=== PATIENT | male | born 1960 | race American Indian/Alaskan Native ===

== ENCOUNTER 2017-07-21 17:15 | Inpatient (IN) | payer MEDICAID ==
[2017-07-21 17:15] VITALS: BMI 25.8
[2017-07-21 18:36] LABS: BASO # 0.11 K/mm3 (0.0-2.0); BASO % 0.5 % (0.0-3.0); EOS % 0.1 % (1.5-5.0); GRAN # 18.63 (1.4-6.5); GRAN % 84.5 % (50.0-68.0); HEMOGLOBIN 10.9 g/dL (14.0-18.0); LYMPH % 9.3 % (22.0-35.0); MEAN CORPUSCULAR HEMOGLOBIN 28.4 pg (25.0-35.0); MEAN CORPUSCULAR HGB CONC 32.2 g/dl (31.0-37.0); MEAN PLATELET VOLUME 10.6 fl (7.0-11.0); MONO # 1.2 (0.1-0.6); MONO % 5.6 % (1.0-6.0); RBC 3.84 10^6/uL (3.5-6.1); RED CELL DISTRIBUTION WIDTH 12.3 % (11.5-14.5); VENOUS BLOOD GAS BASE EXCESS 3.5 mmol/L (0.0-2.0); VENOUS BLOOD GAS PO2 50 mm/Hg (30-55)
--- NOTE | 2017-07-21 18:37 | ED PDOC ---
Arrival/HPI - General Chief Complaint: Abdominal Pain Time Seen by Provider: 07/21/17 17:16 Historian: Patient - History of Present Illness Narrative History of Present Illness (Text): 07/21/17 18:37 57yo male with PMHx significant for HIV, CKD, DM, HTN, Diabetic foot wound who present with complaint of sharp abdominal pain, multiple episodes of nonbloody/ bilious vomiting since this morning, purulent drainage from foot wound b/l and purulent discharge on suprapubic catheter tube since this morning. The patient is a poor historian. The sister states patient missed his last appointment with the [employer] Technician, Dr. Casanova last week. Denies fever, chills, chest pain, diarrhea, constipation, melena, hematemesis, dizziness, any other complaint. Past Medical History - Provider Review Nursing Documentation Reviewed: Yes - Infectious Disease Hx of Infectious Diseases: None - Tetanus Immunization Tetanus Immunization: Unknown - Cardiac Hx Cardiac Disorders: Yes Hx Hypertension: Yes Hx Peripheral Edema: Yes Hx Peripheral Vascular Disease: Yes - Pulmonary Hx Respiratory Disorders: No - Neurological Hx Neurological Disorder: Yes (MENTALLY IMPAIRED SINCE ) Hx Dizziness: Yes - HEENT Hx HEENT Disorder: Yes (EXCESSIVE TEARING) - Renal Hx Renal Disorder: Yes (RENAL INSUFFICIENCY) Other/Comment: HYDRONEPHROSIS - Endocrine/Metabolic Hx Endocrine Disorders: Yes Hx Diabetes Mellitus Type 2: Yes - Hematological/Oncological Hx Blood Disorders: Yes Hx Anemia: Yes Hx Blood Transfusions: Yes (05/15/15) Hx Blood Transfusion Reaction: No - Integumentary Hx Dermatological Disorder: Yes Other/Comment: FOOT INFECTION - Musculoskeletal/Rheumatological Hx Musculoskeletal Disorders: Yes Hx Falls: No Hx Fractures: Yes (L LEG) Hx Unsteady Gait: Yes - Gastrointestinal Hx Gastrointestinal Disorders: Yes (HX:VOMITTING, LOSS OF APPETITE) - Genitourinary/Gynecological Hx Genitourinary Disorders: Yes (Retention) Hx Hematuria: Yes Hx Incontinence: Yes Hx Prostate Problems: Yes (BPH) Hx Urinary Tract Infection: Yes Other/Comment: EPIDIDYMITIS,E COLI IN THE URINE. HX: SUPRAPUBIC TUBE - Psychiatric Hx Psychophysiologic Disorder: Yes Hx Anxiety: Yes Hx Emotional Abuse: No Hx Physical Abuse: No Hx Substance Use: Yes (CANNABIS) - Surgical History Hx Open Reduction Internal Fixation: Yes (Left leg fx) Hx Orthopedic Surgery: Yes Other/Comment: UROSTOMY - Anesthesia Hx Anesthesia: Yes Hx Anesthesia Reactions: No Hx Malignant Hyperthermia: No - Suicidal Assessment Feels Threatened In Home Enviroment: No Family/Social History - Physician Review Nursing Documentation Reviewed: Yes Family/Social History: Unknown Family HX Smoking Status: Heavy Smoker > 10 Cigarettes Daily Hx Alcohol Use: No Hx Substance Use: Yes (CANNABIS) Substance used: MARIJUANA Hx Substance Use Treatment: No Allergies/Home Meds Allergies/Adverse Reactions: Allergies No Known Allergies Allergy (Verified 07/21/17 17:18) Home Medications: Home Meds Medication Instructions Recorded Confirmed Calcium Acetate [Phoslo] 1 tab PO BID 07/21/17 07/21/17 Emtricitabine/Tenofov Alafenam 1 tab PO DAILY 07/21/17 07/21/17 [Descovy 200-25 mg Tablet] GlipiZIDE [Glucotrol] 5 mg PO DAILY 07/21/17 07/21/17 Hydrochlorothiazide [Microzide] 12.5 mg PO DAILY 07/21/17 07/21/17 Losartan Potassium 50 mg PO DAILY 07/21/17 07/21/17 Multivitamin [Multivitamins] 1 cap PO DAILY 07/21/17 07/21/17 metFORMIN [glucOPHAGE] 500 mg PO BID 07/21/17 07/21/17 Review of Systems - Physician Review All systems were reviewed & negative as marked: Yes - Review of Systems Constitutional: Normal Eyes: Normal ENT: Normal Respiratory: Normal Cardiovascular: Normal Gastrointestinal: Abdominal Pain, Nausea, Vomiting, Other. absent: Constipation , Diarrhea, Hematochezia, Hematemesis Genitourinary Male: Normal Musculoskeletal: Normal Skin: Other (B/L foot wound drainage) Neurological: Normal Endocrine: Normal Hemo/Lymphatic: Normal Psychiatric: Normal Physical Exam Vital Signs Reviewed: Yes Vital Signs Temp Pulse Resp BP Pulse Ox 07/21/17 22:31 90 18 105/48 L 97 07/21/17 17:36 98.2 F 56 L 16 98/64 L 99 Temperature: Afebrile Blood Pressure: Normal Pulse: Regular Respiratory Rate: Normal Appearance: Positive for: Well-Appearing, Non-Toxic, Comfortable Pain Distress: None Mental Status: Positive for: Alert and Oriented X 3 - Systems Exam Head: Present: Atraumatic, Normocephalic Pupils: Present: PERRL Extroacular Muscles: Present: EOMI Conjunctiva: Present: Normal Mouth: Present: Moist Mucous Membranes Neck: Present: Normal Range of Motion Respiratory/Chest: Present: Clear to Auscultation, Good Air Exchange. No: Respiratory Distress, Accessory Muscle Use Cardiovascular: Present: Regular Rate and Rhythm, Normal S1, S2. No: Murmurs Abdomen: Present: Tenderness (Diffuse tenderness), Normal Bowel Sounds, Guarding (Voluntary), Other (Soft. Suprapubic catheter noted with gross purulent discharge noted.). No: Distention, Peritoneal Signs, Rebound, McBurney 's Point Tender, Rovsing's Sign Present Genitourinary Male: Present: Other (Whitish purulent discharge noted inside the urostomy tube) Back: Present: Normal Inspection Upper Extremity: Present: Other (Gangrenous b/l foot with dressing noted on both foot.). No: Cyanosis, Edema, Tenderness Lower Extremity: Present: Normal Inspection. No: Edema Neurological: Present: GCS=15, CN II-XII Intact, Speech Normal Skin: Present: Warm, Dry, Normal Color. No: Rashes Psychiatric: Present: Alert, Oriented x 3, Normal Insight, Normal Concentration Medical Decision Making ED Course and Treatment: 07/22/17 01:16 IMPRESSION: Reported urostomy collapsed around suprapubic catheter. Thick wall. Moderate bilateral hydroureteronephrosis. Air within the left collecting system. Nonspecific perinephric stranding. Correlate clinically. Evaluation limited without enteric contrast. Minimal hiatal hernia. Gastric wall appears prominent in region of the fundus. Areas of apparent bowel wall prominence may somewhat due to lack of distention, however, small bowel in the upper abdomen demonstrates bowel wall prominence. Colonic diverticula. Prominence of para-aortic nodes. Additional details/findings as above. Please note evaluation for underlying visceral lesions/abnormalities limited without intravenous contrast. 07/22/17 01:44 CXR NAD EKG Sinus tachy with 2nd degree AV bloc; Incomplete RBBB @104bpm Leukocytosis with negative Lactic acid , UTI, hyponatremia and hyperglycemia was noted. Blood culture, wound culture and UC pending. Abdominal CT as noted above. Pt started on Maxipime and hydrated. Pt will be admitted for further evaluation and treatment. Case was NICOLE reynolds and he requested that catheter be flushed and wants a call back after CT Case was DW Dr. Castanon and she accepted pt for admission. - Lab Interpretations Lab Results: 07/21/17 18:19 07/21/17 18:19 Lab Results 07/21/17 19:30: Urine Color Yellow, Urine Appearance Turbid, Urine pH 6.0, Ur Specific [place] 1.020, Urine Protein 100 H, Urine Glucose (UA) 500 H, Urine Ketones Negative, Urine Blood Large H, Urine Nitrate Negative, Urine Bilirubin Negative, Urine Urobilinogen 0.2, Ur Leukocyte Esterase Large H, Urine RBC Tntc , Urine WBC Tntc, Ur Epithelial Cells 4 - 5, Urine Bacteria Many 07/21/17 18:19: Sodium 126 L, Chloride 89 L, Potassium 3.5 L, Carbon Dioxide 26 , Anion Gap 15, BUN 72 H, Creatinine 4.3 H, Est GFR ( Amer) 17, Est GFR ( Non-Af Amer) 14, Random Glucose 369 H* D, Calcium 8.3 L, Phosphorus 3.1, Magnesium 2.3 H, Total Bilirubin 1.0, AST 19, ALT 13, Alkaline Phosphatase 124, Troponin I < 0.01 D, Total Protein 7.0, Albumin 3.0, Globulin 4.0, Albumin/ Globulin Ratio 0.7 L, Lipase 29 07/21/17 18:19: pO2 50, VBG pH 7.40, VBG pCO2 47.0, VBG HCO3 29.1 H, VBG Total CO2 30.5 H, VBG O2 Sat (Calc) 89.1 H, VBG Base Excess 3.5 H, VBG Potassium 3.5 L , Sodium 123.0 L, Chloride 92.0 L, Glucose 387 H, Lactate 1.7, FiO2 21.0, Venous Blood Potassium 3.5 L 07/21/17 18:19: PT 13.2 H, INR 1.15 H, APTT 29.5 07/21/17 18:19: WBC 22.0 H D, RBC 3.84, Hgb 10.9 L, Hct 33.8 L, MCV 88.0, MCH 28.4, MCHC 32.2, RDW 12.3, Plt Count 349, MPV 10.6, Gran % 84.5 H, Lymph % (Auto ) 9.3 L, Moody % (Auto) 5.6, Eos % (Auto) 0.1 L, Baso % (Auto) 0.5, Gran # 18.63 H, Lymph # 2.0, Moody # 1.2 H, Eos # 0.0, Baso # 0.11 - RAD Interpretation Radiology Orders: 07/21/17 17:51 CHEST PORTABLE [RAD] Stat 07/21/17 19:56 ABD & PELVIS W/O PO OR IV CONT [CT] Stat - Medication Orders Current Medication Orders: Calcium Acetate (Phoslo) 667 mg PO BID JACKIE Emtricitabine/Tenofovir (Truvada 200 Mg-300 Mg) 1 tab PO DAILY JACKIE Meropenem 500 mg/ Sodium (Chloride) 50 mls @ 100 mls/hr IVPB Q8 JACKIE PRN Reason: Protocol Stop: 07/22/17 06:29 Ceftriaxone Sodium (Rocephin 2 Gm Ivpb) 2 gm in 100 mls @ 100 mls/hr IVPB DAILY JACKIE PRN Reason: Protocol Vancomycin HCl (Vancomycin 1gm) 1 gm in 250 mls @ 167 mls/hr IVPB Q12H JACKIE PRN Reason: Protocol Potassium Chloride 20 meq/ (Sodium Chloride) 1,010 mls @ 100 mls/hr IV .Q10H6M JACKIE Non-Formulary Medication (Emtricitabine/Tenofov Alafenam [Descovy 200-25 Mg Tablet]) 1 tab PO DAILY JACKIE Raltegravir (Isentress) 400 mg PO BID JACKIE Tamsulosin HCl (Flomax) 0.4 mg PO DAILY JACKIE Discontinued Medications Famotidine (Pepcid) 20 mg IVP STAT STA Stop: 07/21/17 18:54 Last Admin: 07/21/17 19:03 Dose: 20 mg IVP Administration Document 07/21/17 19:03 OCS (Rec: 07/21/17 19:03 [place] [facility] [id number] Charges for Administration # of IVP Administrations 1 Cefepime HCl (Maxipime 2gm) 2 gm in 100 mls @ 100 mls/hr IVPB STAT STA PRN Reason: Protocol Stop: 07/21/17 20:19 Last Admin: 07/21/17 19:42 Dose: 100 mls/hr eMAR Start Stop Document 07/21/17 19:42 OCS (Rec: 07/21/17 19:42 [facility] [facility] [id number] Intravenous Solution Start Date 07/21/17 Start Time 19:42 End Date 07/21/17 End time 20:42 Total Infusion Time 60 Sodium Chloride (Sodium Chloride 0.9%) 500 mls @ 999 mls/hr IV .Q31M STA Stop: 07/21/17 19:50 Last Admin: 07/21/17 19:43 Dose: 999 mls/hr eMAR Start Stop Document 07/21/17 19:43 OCS (Rec: 07/21/17 19:43 [facility] [facility] [id number] Intravenous Solution Start Date 07/21/17 Start Time 19:43 End Date 07/21/17 End time 20:13 Total Infusion Time 30 Sodium Chloride (Sodium Chloride 0.9%) 500 mls @ 999 mls/hr IV .Q31M STA Stop: 07/21/17 20:45 Last Admin: 07/21/17 20:45 Dose: 999 mls/hr eMAR Start Stop Document 07/21/17 20:45 OCS (Rec: 07/21/17 20:45 [facility] [facility] [id number] Intravenous Solution Start Date 07/21/17 Start Time 20:45 End Date 07/21/17 End time 21:15 Total Infusion Time 30 Sodium Chloride (Sodium Chloride 0.9%) 1,000 mls @ 100 mls/hr IV .Q10H JACKIE Insulin Human Regular (Humulin R) 8 units IV ONCE STA PRN Reason: Protocol Stop: 07/21/17 19:18 Last Admin: 07/21/17 19:41 Dose: 8 units eMAR Start Stop Document 07/21/17 19:41 OCS (Rec: 07/21/17 19:42 [facility] [id number] Intravenous Solution Start Date 07/21/17 Start Time 19:41 End Date 07/21/17 End time 19:43 Total Infusion Time 2 MAR Blood Glucose Document 07/21/17 19:41 OCS (Rec: 07/21/17 19:42 [facility] [id number][place] Blood Glucose Finger Stick Blood Glucose (70-120) 369 Ondansetron HCl (Zofran Inj) 4 mg IVP ONCE ONE Stop: 07/21/17 18:54 Last Admin: 07/21/17 19:03 Dose: 4 mg IVP Administration Document 07/21/17 19:03 OCS (Rec: 07/21/17 19:03 [facility]CS [facility] [id number][place] Charges for Administration # of IVP Administrations 1 Disposition/Present on Arrival - Present on Arrival Any Indicators Present on Arrival: No History of DVT/PE: No History of Uncontrolled Diabetes: No Urinary Catheter: Yes History of Decub. Ulcer: No History Surgical Site Infection Following: None - Disposition Have Diagnosis and Disposition been Completed?: Yes Diagnosis: UTI (urinary tract infection), Leukocytosis, HIV (human immunodeficiency virus infection), Hydronephrosis, Diabetes mellitus, Hyponatremia Disposition: HOSPITALIZED Disposition Time: 17:50 Patient Plan: Admission Patient Problems: Current Active Problems Problem Status Onset Hydronephrosis Acute Hyponatremia Acute Leukocytosis Acute UTI (urinary tract infection) Acute Diabetes mellitus Chronic HIV (human immunodeficiency virus infection) Chronic Condition: FAIR
[2017-07-21 18:48] LABS: INR 1.15 (0.93-1.08); PARTIAL THROMBOPLASTIN TIME 29.5 Seconds (25.1-36.5); PROTHROMBIN TIME 13.2 SECONDS (9.4-12.5)
[2017-07-21 18:57] LABS: TROPONIN I < 0.01 ng/mL
[2017-07-21 19:13] LABS: ALB/GLOB RATIO 0.7 (1.1-1.8); ALT/SGPT 13 U/L (7-56); AST/SGOT 19 U/L (17-59); BLOOD UREA NITROGEN 72 mg/dL (7-21); CALCIUM 8.3 mg/dL (8.4-10.5); GFR AFRICAN-AMERICAN 17; GFR NON-AFRICAN AMERICAN 14; LIPASE 29 U/L (23-300); MAGNESIUM 2.3 mg/dL (1.7-2.2)
[2017-07-21] MEDS ORDERED: Insulin Regular 1 UNITS/0.01 ML ML IV STA (19:17)
[2017-07-21] MEDS ORDERED: Cefepime IV 2 gm in NS 2 GM/100 ML BAG IVPB STA (19:20)
[2017-07-21] MEDS ORDERED: Sodium Chloride 0.9% 500 ML IV STA ×2 (19:20→20:15)
[2017-07-21 19:51] LABS: URINE BILIRUBIN NEGATIVE (NEGATIVE); URINE BLOOD LARGE (NEGATIVE); URINE GLUCOSE (UA) 500 mg/dL (NEGATIVE); URINE LEUKOCYTE ESTERASE LARGE Leu/uL (NEGATIVE); URINE NITRATE NEGATIVE (NEGATIVE); URINE PROTEIN 100 mg/dL (<30 mg/dL); URINE UROBILINOGEN 0.2 E.U./dL (<1 E.U./dL)
[2017-07-21 19:56] LABS: URINE APPEARANCE TURBID (CLEAR); URINE COLOR YELLOW (YELLOW)
[2017-07-21 20:35] LABS: URINE RBC TNTC /hpf (0-2); URINE WBC TNTC /hpf (0-6)
[2017-07-21 20:37] LABS: URINE BACTERIA MANY (NEG)
--- NOTE | 2017-07-21 22:07 | CT ---
EXAM: CT Abdomen and Pelvis Without Intravenous Contrast CLINICAL HISTORY: 57 years old, male; Pain; Abdominal pain; Prior surgery; Surgery type: Urostomy TECHNIQUE: Axial computed tomography images of the abdomen and pelvis without intravenous contrast. All CT scans at this facility use one or more dose reduction techniques, viz.: automated exposure control; ma/kV adjustment per patient size (including targeted exams where dose is matched to indication; i.e. head); or iterative reconstruction technique. Coronal and sagittal reformatted images were created and reviewed. COMPARISON: CT - ABD PELVIS W/O PO OR IV CONT 2015-05-11 13:40 FINDINGS: Lower thorax: Groundglass attenuation in lower lung wade, may be on the basis of hypoventilatory change. Small pericardial effusion. Cardiomegaly. ABDOMEN: Liver: No acute abnormality as visualized. Gallbladder and bile ducts: No acute abnormality as visualized. Pancreas: No acute abnormality as visualized. Spleen: No splenomegaly. Adrenals: No acute abnormality as visualized. Kidneys and ureters: Moderate bilateral hydroureteronephrosis. Air within the left collecting system. Nonspecific perinephric stranding. Stomach and bowel: Evaluation limited without enteric contrast. Minimal hiatal hernia. Gastric wall appears prominent in region of the fundus. No small bowel obstruction. Areas of apparent bowel wall prominence may somewhat due to lack of distention, however, small bowel in the upper abdomen demonstrates bowel wall prominence. Colonic diverticula. PELVIS: Bladder: Reported urostomy collapsed around suprapubic catheter. Thick wall. Reproductive: Correlate for prostatectomy. ABDOMEN and PELVIS: Intraperitoneal space: No free air. No significant fluid collection. Bones: Degenerative changes. Bryant stabilizes left femur. Soft tissues: Stranding in the anterior wall the pelvis. Vasculature: Atherosclerosis. No abdominal aortic aneurysm. Lymph nodes: Prominence of para-aortic nodes. IMPRESSION: Reported urostomy collapsed around suprapubic catheter. Thick wall. Moderate bilateral hydroureteronephrosis. Air within the left collecting system. Nonspecific perinephric stranding. Correlate clinically. Evaluation limited without enteric contrast. Minimal hiatal hernia. Gastric wall appears prominent in region of the fundus. Areas of apparent bowel wall prominence may somewhat due to lack of distention, however, small bowel in the upper abdomen demonstrates bowel wall prominence. Colonic diverticula. Prominence of para-aortic nodes. Additional details/findings as above. Please note evaluation for underlying visceral lesions/abnormalities limited without intravenous contrast.
[2017-07-22] MEDS ORDERED: Sodium Chloride 0.9% 1,000 ML IV SCH (00:15)
[2017-07-22] MEDS ORDERED: cefTRIAXone 2 GM IN NS 2 GM/100 ML BAG IVPB SCH (00:15)
--- NOTE | 2017-07-22 01:25 | CP.PCM.HP ---
History of Present Illness - History of Present Illness History of Present Illness: IM H&P for Hospitalist Service CC: abdominal pain, nausea/emesis x 4 days HPI: This is a 57 yo AA M with PMH of urinary retention s/p TURP, phimosis s/p circumcision, s/p urostomy tube, recurrent UTI/pyelonephritis, HIV, HTN, CKD, Charcot foot, and DM who presents with complaint of abdominal pain, malaise, and nausea/emesis x 4 days. HPI primarily from sister who brought pt to the ED , as pt is a poor historian. As per sister, he has been feeling poorly for the last 3-4 days, and as he did not appear to be getting any better during this time, she was concerned he was experiencing another severe infection, so she brought him to the ED. Reports that he has been vomiting for last 3-4 days, only able to keep PO water down, which he has been drinking in increasing quantities since onset of these symptoms. Pt and sister denies bloody or bilious emesis, sister describes as primarily food contents after attempted PO intake or clear-yellow fluid for emesis not triggered by PO intake. Sister also reports noting pus, but no kentrell blood, from urostomy tube for last 2 days. She also reports new onset blisters on patient's left foot, not there during last visit with Dr. Casanova on 07/09/17, that erupted today, with bloody pus contents. Sister reports using silvadene cream to clean the affected area, attempted to "reattach the lose skin hanging by a flap," and bandaged the foot. Reports patient generally less active during the period of symptoms, mostly resting in bed but still able to ambulate with assistance. Patient reports diarrhea, which he states has been for several days, but sister states she is only aware of one episode during the last 3-4 days. Pt denies acute chest pain , shortness of breath, productive cough, focal weakness. No additional ROS endorsed by sister or patient in 12-system review. PMH: as above PSH: urostomy tube, TURP (2015), circumcision (2016) Fam Hx: pt unaware of family hx, sister denies relevant family hx Social Hx: 1/3 ppd cigarettes for ~ 40 years, denies alcohol or illicits/IVDA Unable to handle medical or financial matters on his own, illiterate Lives with brother in [place], cared for by brother and sister PMD: Dr. Laguerre Present on Admission - Present on Admission Any Indicators Present on Admission: Yes History of Uncontrolled Diabetes: No Urinary Catheter: Yes Review of Systems - Review of Systems Systems not reviewed;Unavailable: Other (pt is poor historian) All systems: reviewed and no additional remarkable complaints except (as per HPI ) Past Patient History - Infectious Disease Hx of Infectious Diseases: None - Tetanus Immunizations Tetanus Immunization: Unknown - Past Medical History & Family History Past Medical History?: Yes - Past Social History Smoking Status: Heavy Smoker > 10 Cigarettes Daily - CARDIAC Hx Cardiac Disorders: Yes Hx Hypertension: Yes Hx Peripheral Edema: Yes Hx Peripheral Vascular Disease: Yes - PULMONARY Hx Respiratory Disorders: No - NEUROLOGICAL Hx Neurological Disorder: Yes (MENTALLY IMPAIRED SINCE ) Hx Dizziness: Yes - HEENT Hx HEENT Problems: Yes (EXCESSIVE TEARING) - RENAL Hx Chronic Kidney Disease: Yes (RENAL INSUFFICIENCY) Other/Comment: HYDRONEPHROSIS - ENDOCRINE/METABOLIC Hx Endocrine Disorders: Yes Hx Diabetes Mellitus Type 2: Yes - HEMATOLOGICAL/ONCOLOGICAL Hx Blood Disorders: Yes Hx Anemia: Yes Hx Blood Transfusions: Yes (05/15/15) Hx Blood Transfusion Reaction: No - INTEGUMENTARY Hx Dermatological Problems: Yes Other/Comment: FOOT INFECTION - MUSCULOSKELETAL/RHEUMATOLOGICAL Hx Musculoskeletal Disorders: Yes Hx Falls: No Hx Fractures: Yes (L LEG) Hx Unsteady Gait: Yes - GASTROINTESTINAL Hx Gastrointestinal Disorders: Yes (HX:VOMITTING, LOSS OF APPETITE) - GENITOURINARY/GYNECOLOGICAL Hx Genitourinary Disorders: Yes (Retention) Hx Hematuria: Yes Hx Incontinence: Yes Hx Prostate Problems: Yes (BPH) Hx Urinary Tract Infection: Yes Other/Comment: EPIDIDYMITIS,E COLI IN THE URINE. HX: SUPRAPUBIC TUBE - PSYCHIATRIC Hx Psychophysiologic Disorder: Yes Hx Anxiety: Yes Hx Emotional Abuse: No Hx Physical Abuse: No Hx Substance Use: Yes (CANNABIS) - SURGICAL HISTORY Hx Open Reduction Internal Fixation: Yes (Left leg fx) Hx Orthopedic Surgery: Yes Other/Comment: UROSTOMY - ANESTHESIA Hx Anesthesia: Yes Hx Anesthesia Reactions: No Hx Malignant Hyperthermia: No Meds Allergies/Adverse Reactions: Allergies Allergy/AdvReac Type Severity Reaction Status Date / Time No Known Allergies Allergy Verified 07/21/17 17:18 Physical Exam - Constitutional Appears: Non-toxic, No Acute Distress, Chronically Ill - Head Exam Head Exam: ATRAUMATIC, NORMAL INSPECTION, NORMOCEPHALIC - Eye Exam Eye Exam: EOMI, Normal appearance. absent: Conjunctival injection, Scleral icterus Pupil Exam: absent: Irregular, Unequal - ENT Exam ENT Exam: Mucous Membranes Dry - Neck Exam Neck exam: Positive for: Full Rom, Normal Inspection. Negative for: Tenderness - Respiratory Exam Respiratory Exam: Clear to Auscultation Bilateral, NORMAL BREATHING PATTERN. absent: Accessory Muscle Use, Chest Wall Tenderness, Decreased Breath Sounds, Rales, Rhonchi, Wheezes - Cardiovascular Exam Cardiovascular Exam: REGULAR RHYTHM, RRR, +S1, +S2. absent: Bradycardia, Tachycardia, Irregular Rhythm, JVD, +S4 - GI/Abdominal Exam GI & Abdominal Exam: Hyperactive Bowel Sounds, Soft, Tenderness (mild diffuse tenderness, L>R). absent: Diminished Bowel Sounds, Distended, Firm, Hypoactive Bowel Sounds, Normal Bowel Sounds, Rigid - Rectal Exam Rectal Exam: Deferred - Extremities Exam Extremities exam: Negative for: calf tenderness, normal inspection, pedal edema , tenderness, pedal pulses present Additional comments: faintly palpable right dorsalis pedis pulse, unable to palpate left dorsalis through bandaging scattered patches on thickened skin on bilateral LE bandaging covering purulent-smelling blisters on left mid-foot; no active discharge witnessed at edges of bandaging no calf tenderness or swelling - Neurological Exam Additional comments: awake and alert, following all commands appropriately, moving all extremities spontaneously oriented to self and location, intermittently confused and rambling but quickly returns to baseline mentation with reorientation from sister - Psychiatric Exam Additional comments: normal mood and affect, intermittent periods of confusion and rambling but easily redirected/reoriented by sister at bedside. - Skin Skin Exam: Dry, Intact, Normal Color, Warm Additional comments: except as documented in extremities exam Results - Vital Signs Recent Vital Signs: Last Vital Signs Temp 98.2 F 07/21/17 17:36 Pulse 90 07/21/17 22:31 Resp 18 07/21/17 22:31 BP 105/48 L 07/21/17 22:31 Pulse Ox 97 07/21/17 22:31 - Labs Result Diagrams: 07/21/17 18:19 07/21/17 18:19 Assessment & Plan - Assessment and Plan (Free Text) Assessment: This is a 57 yo AA M with PMH of urinary retention s/p TURP, phimosis s/p circumcision, s/p urostomy tube, recurrent UTI/pyelonephritis, HIV, HTN, CKD, Charcot foot, and DM who presents with complaint of abdominal pain, malaise, and nausea/emesis x 4 days. He is being admitted for likely pyelonephritis in setting of HIV, possible emphysematous pyelonephritis given air within left collecting system and hx of DM. Plan: 1) Abd pain, nausea, and emesis x4 days -2/2 pyelonephritis vs gastroparesis 2/2 DM vs enteritis from opportunistic infection vs 2/2 HAART medications -CT abd/pelvis concerning for urostomy collapsed around suprapubic catheter, moderate bilateral hydroureteronephrosis, Air within the left collecting system ; Minimal hiatal hernia. Fundus gastric wall prominence, small bowel in the upper abdomen demonstrates bowel wall prominence. Colonic diverticula. -UA notable for large blood, large leuk esterase, TNTC RBCs and WBCs, Many bacteria; in setting of kentrell pyuria and bilateral hydroureteronephrosis, likely pyelonephritis; increased risk due to urostomy tube and immunocompromised state due to HIV -Air in left collecting system likely tracking from urostomy tube, but in setting of immunocompromised state (HIV) and DM, will empirically cover for emphysematous pyelonephritis organisms -ID and Urology consulted, appreciate all recs -initially hypotensive with systolic BP in 90's, baseline SBP 140's-170's; likely hypotensive due to dehydration, fluid responsive to 2x 1L NS boluses in ED, continue IVF and monitor BP -leukocytosis of 22, afebrile and normotensive/tachycardic, but in setting of immunocompromised pt, and UA indicative of infection, so likely SIRS/sepsis picture -received Cefepime x1 in ED, empirically covering with Vanco, Merrem, and Rocephin IV pending ID eval and recs -Blood and Urine cx pending -NPO for bowel rest given emesis with all attempted PO food intake, will attempt to trial clears in AM, Zofran PRN for emesis 2) HIV -CD4 count and viral load ordered -CMV, Legoinella urine antigen, G/C, Toxoplasma, RPR, and Hepatitis panels ordered -continue current HAART regimen, pending ID eval and recs -last CD4 count per prior charting 939 with undetectable viral load on 11/04/15 3) Diabetic foot wounds with purulent discharge -Podiatry consulted (last seen in office 07/09/17 as per sister, scheduled for wound center appointment tomorrow), appreciate all recs -empirically covered for MRSA and resistant infections on current abx regimen 4) Reported Diarrhea -C. Diff stool toxin assay ordered -stool culture ordered -no recent travel, and given short duration of diarrheal sx, less likely parasitic etiology; if persists despite tx, can obtain stool ova and parasites 5) Hyperglycemia -2/2 stress rxn vs uncontrolled DM -A1c ordered, last A1c was 5.6 on 06/15/15 -NPO for bowel rest, holding off on oral hypoglycemics, holding home insulin for now pending fingerstick rechecks (q6H), then based on fingerstick checks will add sliding scale insulin -given elevated blood glucose, will hold off on giving D5 fluids at this time, pending reassessment with fingersticks q6 6) TRICIA on CKD -TRICIA 2/2 dehydration vs pyelonephritis, may be multifactorial -baseline Cr per prior charting 1.7-2.5, currently 4.3 -elevated BUN of 72 -NS 100cc/hr + KCl 20 mEq per bag -continue to monitor 7) Hypokalemia -3.5 on admission -likely GI losses due to emesis x4 days, may have some GI loses as well given reported diarrhea -repleting with 20 mEq KCl per bag of active IV fluids, will reassess on AM labs and adjust accordingly Dispo: Telemetry inpt, continuing empiric IV abx, pending Urology and ID evals and recs, pending Podiatry eval and management of diabetic foot wounds, pending HIV workup FEN: NPO for bowel rest overnight, NS 100cc/hr + 20 mEq KCl Access: Peripheral IV Consults: ID, Urology, Podiatry Ppx: Protonix for GI, Zofran for N/V, SCDs for DVT Patient reviewed and discussed with attending, Dr. tSerling Castanon. Decision To Admit - Pt Status Changed To: Hospital Disposition Of: Inpatient Admission - Admit Certification Admit to Inpatient:: After my assessment, the patient will require hospitalization for at least two midnights. This is because of the severity of symptoms shown, intensity of services needed, and/or the medical risk in this patient being treated as an outpatient. - . Bed Request Type: Telemetry
[2017-07-22] MEDS: Meropenem 500 MG in Sodium Chloride 0.9% 50 ML IVPB SCH ×2 (01:53→07:10)
[2017-07-22] MEDS: Vancomycin 1gm in NS 250ml 1 GM/250 ML BAG IVPB SCH ×2 (04:49→15:38)
--- NOTE | 2017-07-22 08:25 | RAD ---
HISTORY: Sepsis Patient COMPARISON: 06/15/2015. FINDINGS: LUNGS: The lungs are well inflated and clear. PLEURA: No significant pleural effusion identified, no pneumothorax apparent. CARDIOVASCULAR: Normal. OSSEOUS STRUCTURES: No significant abnormalities. VISUALIZED UPPER ABDOMEN: Normal. OTHER FINDINGS: None. IMPRESSION: No active pulmonary disease.
--- NOTE | 2017-07-22 09:44 | CARD ---
APPROVED REPORT EKG Measurement Heart [id number] P40 [id number] <Conclusion> RSR APC's PVC IRBBB PRWP LAD Baseline artifact present
[2017-07-22] MEDS ORDERED: Emtricitabine-Tenofovir 200 mg-300 mg Tab PO SCH (10:00)
[2017-07-22] MEDS: Meropenem 500 MG in Sodium Chloride 0.9% 100 ML IVPB SCH ×2 (10:54→22:39)
[2017-07-22] MEDS: EMTRICITABINE PO SCH (10:59)
[2017-07-22] MEDS: TENOFOV ALAFENAM PO SCH (10:59)
[2017-07-22 11:28] LABS: HEPATITIS B SURFACE AG NEGATIVE (NEGATIVE)
[2017-07-22 11:34] LABS: HEPATITIS A IGM NEGATIVE (NEGATIVE); HEPATITIS B CORE AB Negative (NEGATIVE)
[2017-07-22 11:45] LABS: HEPATITIS C ANTIBODY Negative (NEGATIVE)
[2017-07-22] MEDS ORDERED: Morphine 2 mg/ml ISec IVP PRN (13:17)
--- NOTE | 2017-07-22 15:24 | NM ---
PROCEDURE: Renal scan and flow study HISTORY: eval kidney function COMPARISON: July 21, 2017. CT abdomen and pelvis TECHNIQUE: 12.3 mCi technetium 99 M Mag 3 administered intravenously. FINDINGS: Right Kidney: Flow component: Normal flow to the right kidney Time to peak: 24.3 minutes Peak to T1/2 Peak: Not applicable Left Kidney: Flow component: Normally perfused left kidney Time to peak: 21.3 Peak to T1/2 Peak: Not applicable Split Renal Function: Right kidney 50.3 % Left kidney 49.7 % IMPRESSION: Renal scan profile indicates a component of obstruction bilaterally. This is consistent with findings on recent CT scan. Normally perfused kidneys bilaterally.
--- NOTE | 2017-07-22 15:51 | CP.PCM.CON ---
History of Present Illness - History of Present Illness History of Present Illness: 57 year old male with PMH of urinary retention with history of phimosis S/P circumcision, S/P TURP, S/P urostomy tube placement, history of recurrent UTI's and pyelonephritis, DM, HTN, chronic renal failure, Charcot foot, HIV infection was brought in to [facility] [place] because of abdominal pain associated with nausea and vomiting for the past 3-4 days. He also had poor appetite and some constipation but no diarrhea. There was also apparent note of whitish material / pus coming from the urostomy tube. The patient also has blisters on the left foot with some serosanguinous discharge. He denies headache or dizziness, no runny nose, no cough or sore throat, no SOB, no chest pain, no abdominal pain. Infectious Diseases consult is requested to further evaluate and manage. Review of Systems - Review of Systems All systems: reviewed and no additional remarkable complaints except (as per HPI ) Past Patient History - Infectious Disease Hx of Infectious Diseases: None - Tetanus Immunizations Tetanus Immunization: Unknown - Past Medical History & Family History Past Medical History?: Yes - Past Social History Smoking Status: Heavy Smoker > 10 Cigarettes Daily - CARDIAC Hx Cardiac Disorders: Yes Hx Hypertension: Yes Hx Peripheral Edema: Yes Hx Peripheral Vascular Disease: Yes - PULMONARY Hx Respiratory Disorders: No - NEUROLOGICAL Hx Neurological Disorder: Yes (MENTALLY IMPAIRED SINCE ) Hx Dizziness: Yes - HEENT Hx HEENT Problems: Yes (EXCESSIVE TEARING) - RENAL Hx Chronic Kidney Disease: Yes (RENAL INSUFFICIENCY) Other/Comment: HYDRONEPHROSIS - ENDOCRINE/METABOLIC Hx Endocrine Disorders: Yes Hx Diabetes Mellitus Type 2: Yes - HEMATOLOGICAL/ONCOLOGICAL Hx Blood Disorders: Yes Hx Anemia: Yes Hx Blood Transfusions: Yes (05/15/15) Hx Blood Transfusion Reaction: No - INTEGUMENTARY Hx Dermatological Problems: Yes Other/Comment: FOOT INFECTION - MUSCULOSKELETAL/RHEUMATOLOGICAL Hx Musculoskeletal Disorders: Yes Hx Falls: No Hx Fractures: Yes (L LEG) Hx Unsteady Gait: Yes - GASTROINTESTINAL Hx Gastrointestinal Disorders: Yes (HX:VOMITTING, LOSS OF APPETITE) - GENITOURINARY/GYNECOLOGICAL Hx Genitourinary Disorders: Yes (Retention) Hx Hematuria: Yes Hx Incontinence: Yes Hx Prostate Problems: Yes (BPH) Hx Urinary Tract Infection: Yes Other/Comment: EPIDIDYMITIS,E COLI IN THE URINE. HX: SUPRAPUBIC TUBE - PSYCHIATRIC Hx Psychophysiologic Disorder: Yes Hx Anxiety: Yes Hx Emotional Abuse: No Hx Physical Abuse: No Hx Substance Use: Yes (CANNABIS) - SURGICAL HISTORY Hx Open Reduction Internal Fixation: Yes (Left leg fx) Hx Orthopedic Surgery: Yes Other/Comment: UROSTOMY - ANESTHESIA Hx Anesthesia: Yes Hx Anesthesia Reactions: No Hx Malignant Hyperthermia: No Meds Allergies/Adverse Reactions: Allergies Allergy/AdvReac Type Severity Reaction Status Date / Time No Known Allergies Allergy Verified 07/21/17 17:18 - Medications Medications: Current Medications Calcium Acetate (Phoslo) 667 mg PO BID [facility] Emtricitabine/Tenofovir (Truvada 200 Mg-300 Mg) 1 tab PO DAILY [facility] Vancomycin HCl (Vancomycin 1gm) 1 gm in 250 mls @ 167 mls/hr IVPB Q12H JACKIE PRN Reason: Protocol Last Admin: 07/22/17 04:49 Dose: 167 mls/hr Potassium Chloride 20 meq/ (Sodium Chloride) 1,010 mls @ 100 mls/hr IV .Q10H6M [facility] Last Admin: 07/22/17 04:30 Dose: 100 mls/hr Meropenem 500 mg/ Sodium (Chloride) 50 mls @ 100 mls/hr IVPB Q12 JACKIE PRN Reason: Protocol Stop: 07/29/17 10:01 Emtricitabine/Tenofov Alafenam [ Descovy 200-25 Mg Tablet] (Home Med) 1 tab PO DAILY [facility] Ondansetron HCl (Zofran Inj) 4 mg IVP Q6H PRN PRN Reason: Nausea/Vomiting Pantoprazole Sodium (Protonix Inj) 40 mg IVP Q12 [facility] Raltegravir (Isentress) 400 mg PO BID [facility] Tamsulosin HCl (Flomax) 0.4 mg PO DAILY [facility] Physical Exam - Constitutional Appears: Chronically Ill - Head Exam Head Exam: NORMAL INSPECTION - ENT Exam ENT Exam: Mucous Membranes Moist - Neck Exam Neck exam: Negative for: Lymphadenopathy, Meningismus - Respiratory Exam Respiratory Exam: Decreased Breath Sounds - Cardiovascular Exam Cardiovascular Exam: +S1, +S2 - GI/Abdominal Exam GI & Abdominal Exam: Soft. absent: Tenderness - Extremities Exam Additional comments: left foot with dressings in place Results - Vital Signs Recent Vital Signs: Last Vital Signs Temp 98.2 F 07/21/17 17:36 Pulse 75 07/22/17 03:06 Resp 17 01/22/18 03:06 BP 118/68 07/22/17 03:06 Pulse Ox 96 07/22/17 03:06 - Labs Result Diagrams: 07/21/17 18:19 07/21/17 18:19 Labs: Laboratory Results - last 24 hr 07/22/17 01:30 TSH 3rd Generation 1.26 Assessment & Plan - Assessment and Plan (Free Text) Plan: Assessment Severe sepsis with acute on chronic renal failure due to gram negative bacilli bacteremia, consider due to complicated UTI in this patient with urostomy tube as well as probable skin and skin structure infection of left Charcot foot urinary retention with history of phimosis S/P circumcision, S/P TURP, S/P urostomy tube placement history of recurrent UTI's and pyelonephritis DM HTN chronic renal failure Charcot foot, left Plan Started patient on Merrem as well as Vancomycin (x 1 dose) pending identification and sensitivities of the gram negative bacilli in the blood, urine cx and foot cx continue ART (Descovy and ISentress) for HIV follow up further evaluation and plans of Podiatry follow up Urology evaluation and recommendations will monitor clinically
--- NOTE | 2017-07-22 16:32 | CARD ---
APPROVED REPORT EKG Measurement Heart [id number] 128P [id number] <Conclusion> Sinus rhythm and APCs with aberrancy Prolonged QT Abnormal ECG
--- NOTE | 2017-07-22 16:41 | PCM.URO ---
Urology Progress Note - Objective Lab Studies: Reviewed (MAINTAIN SPT AND IRRIGATE ANTIBIOTICS PER ID WILL OBSERVE PT CLOSELY AND MONITOR RESPONSE BEFORE CONSIDERING A NEPHRECTOMY) Lab Results Last 24 Hours: Laboratory Results - last 24 hr 07/22/17 07/22/17 07/22/17 01:30 01:30 01:30 Hemoglobin A1c 10.8 H D Vitamin B12 520 TSH 3rd Generation Hepatitis A IgM Ab Negative Hep Bs Antigen Negative Hep B Core IgM Ab Negative Hepatitis C Antibody Negative 07/22/17 01:30 Hemoglobin A1c Vitamin B12 TSH 3rd Generation 1.26 Hepatitis A IgM Ab Hep Bs Antigen Hep B Core IgM Ab Hepatitis C Antibody Vital Signs: Vital Signs - 24 hr 07/21/17 07/22/17 22:31 03:06 Pulse Rate 90 75 Respiratory 18 17 Rate Blood Pressure 105/48 L 118/68 O2 Sat by Pulse 97 96 Oximetry
[2017-07-22] MEDS: Insulin Lispro (humaLOG) MEDIUM Coverage SC SCH ×2 (17:00→22:36)
[2017-07-22] MEDS ORDERED: Insulin Detemir 100 units/ml Vial (Levemir) SC SCH (22:00)
--- NOTE | 2017-07-23 01:30 | CON ---
DATE: 07/22/2017 SUBJECTIVE: This is a 57-year-old male known to me seen for a ulcerated blister to his left foot. The patient is seen in the emergency room. The patient is sleeping and does not awake when we examined him. The patient's past medical history is positive for diabetes, positive for HIV, positive for urinary retention with TURP. The patient also has a history of CKD and presented to the ER today with abdominal pain, malaise, nausea and vomiting x4 days. The patient is mentally disabled and his sister usually comes with him to the office and she is the one who is caring for him. REVIEW OF SYSTEMS: Not done since patient is not awake to answer any questions. PHYSICAL EXAMINATION: VITAL SIGNS: Noted on the chart, his temperature is 98.2, pulse is 75, and blood pressure is 118/68 with a respiration of 16. LABORATORY DATA: Laboratories showed white blood cell count of 22, H and H is 10.9 and 33.8 and the platelets of 349. Chemistry shows a BUN and creatinine of 72 and 4.3, glucose is 369. Hemoglobin A1c is 10.8. Microbiology shows that there is gram negative rods in the blood and the wound culture was done yesterday and that is pending. We also did a wound culture today. Clinically, he has 2/4 palpable pedal pulses bilateral. He does have multiple areas of discoloration on both feet from having blisters and ulceration in the past. He has a history of large calluses on both feet. At this time, all of those areas remain intact. He does have a wet blister on the lateral aspect of the first MPJ on the left foot. The tissue is with some malodor and slough and using a suture removal kit it was picked up and excision only debrided. Wound culture was taken from the tissue up underneath. He was then flushed with saline and dressing was done with Xeroform and a dry sterile dressing. We will order off loading boots for him and he will be seen while in house. Rhonda Casanova DPM NATALIA
[2017-07-23 07:51] LABS: HEMOGLOBIN 9.4 g/dL (14.0-18.0); MEAN CELL VOLUME 89.9 fl (80.0-105.0); MEAN CORPUSCULAR HEMOGLOBIN 27.9 pg (25.0-35.0); MEAN PLATELET VOLUME 10.2 fl (7.0-11.0); RBC 3.37 10^6/uL (3.5-6.1); RED CELL DISTRIBUTION WIDTH 12.6 % (11.5-14.5); WHITE BLOOD COUNT 22.5 10^3/ul (4.5-11.0)
[2017-07-23 08:22] LABS: ALB/GLOB RATIO 0.7 (1.1-1.8); ALBUMIN 2.8 g/dL (3.0-4.8); CALCIUM 7.9 mg/dL (8.4-10.5)
[2017-07-23] MEDS: Insulin Lispro (humaLOG) MEDIUM Coverage SC SCH ×4 (08:48→21:47)
[2017-07-23] MEDS: TENOFOV ALAFENAM PO SCH (11:10)
[2017-07-23] MEDS: EMTRICITABINE PO SCH (11:10)
[2017-07-23] MEDS: Meropenem 500 MG in Sodium Chloride 0.9% 100 ML IVPB SCH ×2 (11:11→22:16)
--- NOTE | 2017-07-23 11:35 | CP.PCM.PN ---
<Brianne Garcia - Last Filed: 07/23/17 11:50> Subjective - Date & Time of Evaluation Date of Evaluation: 07/23/17 Time of Evaluation: 11:33 - Subjective Subjective: 57 y/o mentally challenged male seen at bedside this morning for left foot superficial ulceration. Pt is more verbal and alert today. He denies having any pain in the foot. Dressing remains clean, dry and intact to his left foot. Denies any fevers overnight. Denies CP/SOB. At present, he denies nausea but admits to vomiting recently. Objective - Vital Signs/Intake and Output Vital Signs (last 24 hours): Temp Pulse Resp BP Pulse Ox 98.1 F 103 H 20 152/84 H 100 07/23/17 06:00 07/23/17 06:00 07/23/17 06:00 07/23/17 06:00 07/23/17 06:00 Intake and Output: 07/23/17 07/23/17 06:59 18:59 Intake Total 1200 120 Output Total 850 Balance 1200 -730 - Medications Medications: Current Medications Acetaminophen (Tylenol 325mg Tab) 650 mg PO Q4 PRN PRN Reason: Fever >100.4 F Calcium Acetate (Phoslo) 667 mg PO BID [facility] Last Admin: 07/23/17 11:16 Dose: 667 mg Emtricitabine/Tenofovir (Truvada 200 Mg-300 Mg) 1 tab PO DAILY [facility] Potassium Chloride 20 meq/ (Sodium Chloride) 1,010 mls @ 100 mls/hr IV .Q10H6M [facility] Last Admin: 07/23/17 06:45 Dose: 100 mls/hr Meropenem 500 mg/ Sodium (Chloride) 100 mls @ 100 mls/hr IVPB Q12 [facility] PRN Reason: Protocol Stop: 07/29/17 10:01 Last Admin: 07/23/17 11:11 Dose: 100 mls/hr Insulin Detemir (Levemir) 5 unit SC HS [facility] Last Admin: 07/22/17 22:39 Dose: 5 unit Insulin Human Lispro (Humalog Med) 0 units SC ACHS [facility] PRN Reason: Protocol Last Admin: 07/23/17 08:48 Dose: 1 units Morphine Sulfate (Morphine) 1 mg IVP Q6H PRN PRN Reason: Pain, severe (8-10) Emtricitabine/Tenofov Alafenam [ Descovy 200-25 Mg Tablet] (Home Med) 1 tab PO DAILY [facility] Last Admin: 07/23/17 11:10 Dose: Not Given Ondansetron HCl (Zofran Inj) 4 mg IVP Q6H PRN PRN Reason: Nausea/Vomiting Pantoprazole Sodium (Protonix Inj) 40 mg IVP Q12 [facility] Last Admin: 07/23/17 11:16 Dose: 40 mg Raltegravir (Isentress) 400 mg PO BID [facility] Last Admin: 07/23/17 11:16 Dose: 400 mg Sennosides (Senokot Tab) 8.6 mg PO DAILY [facility] Last Admin: 07/23/17 11:17 Dose: 8.6 mg Tamsulosin HCl (Flomax) 0.4 mg PO DAILY [facility] Last Admin: 07/23/17 11:15 Dose: 0.4 mg - Labs Labs: 07/23/17 07:30 07/23/17 07:30 PT 13.2 SECONDS (9.4-12.5) H 07/21/17 18:19 INR 1.15 (0.93-1.08) H 07/21/17 18:19 APTT 29.5 Seconds (25.1-36.5) 07/21/17 18:19 - Constitutional Appears: Well, Non-toxic, No Acute Distress - Extremities Exam Additional comments: Left lower extremity focused exam: Vasc: DP/PT pulses palpable 2/4. CFT < 3 sec to all digits. Temperature gradient warm to cool. Derm: Diffuse hypopigmented skin patches secondary to previous ulcerations and blisters of foot. Wet superficial blister/ulceration noted to medial aspect of 1st MPJ, approx 6cm x 3.5cm x 0.1cm. Serosanguinous drainaged noted to bandage. No malodor, no purulence, no undermining or tunneling, no fluctuance. Neuro: Protective sensation grossly diminished Ortho: No tenderness on palpation of left foot - Neurological Exam Neurological Exam: Alert, Awake - Psychiatric Exam Psychiatric exam: Normal Affect, Normal Mood Assessment and Plan - Assessment and Plan (Free Text) Assessment: 57 y/o diabetic male with left foot blister with superficial ulceration secondary to DM Plan: Pt seen and evaluated at bedside Discussed plan with attending Dr. Lopez Labs and vitals reviewed- afebrile, WBC 22.5 Wound to left foot cleansed with saline and dressed with xeroform DSD Continue abx as per ID Wound culture of left foot pending Multipodus boots ordered to offload while in bed Podiatry will continue to follow <Geoff Lopez - Last Filed: 07/26/17 10:16> Objective - Vital Signs/Intake and Output Vital Signs (last 24 hours): Temp Pulse Resp BP Pulse Ox 98.5 F 98 H 20 156/90 H 98 07/26/17 07:30 07/26/17 07:30 07/26/17 07:30 07/26/17 07:30 07/26/17 07:30 Intake and Output: 07/26/17 07/26/17 06:59 18:59 Intake Total 840 Output Total 2200 Balance -1360 - Medications Medications: Current Medications Acetaminophen (Tylenol 325mg Tab) 650 mg PO Q4 PRN PRN Reason: Fever >100.4 F Bismuth Subsalicylate (Pepto-Bismol) 262 mg PO DAILY [facility] Last Admin: 07/25/17 13:25 Dose: 262 mg Calcium Acetate (Phoslo) 667 mg PO BID [facility] Last Admin: 07/25/17 17:35 Dose: 667 mg Emtricitabine/Tenofovir (Truvada 200 Mg-300 Mg) 1 tab PO DAILY [facility] Heparin Sodium (Porcine) (Heparin) 5,000 units SC Q12 [facility] PRN Reason: Protocol Last Admin: 07/25/17 21:21 Dose: 5,000 units Potassium Chloride 20 meq/ (Sodium Chloride) 1,010 mls @ 100 mls/hr IV .Q10H6M [facility] Last Admin: 07/25/17 04:41 Dose: 100 mls/hr Ceftriaxone Sodium (Rocephin 2 Gm Ivpb) 2 gm in 100 mls @ 100 mls/hr IVPB DAILY [facility] PRN Reason: Protocol Insulin Detemir (Levemir) 5 unit SC Q12 [facility] Last Admin: 07/25/17 21:38 Dose: 5 unit Insulin Human Lispro (Humalog Med) 0 units SC ACHS [facility] PRN Reason: Protocol Last Admin: 07/26/17 07:52 Dose: Not Given Morphine Sulfate (Morphine) 1 mg IVP Q6H PRN PRN Reason: Pain, severe (8-10) Mupirocin (Bactroban Ointment) 0 gm TOP BID [facility] Last Admin: 07/25/17 18:00 Dose: Not Given Emtricitabine/Tenofov Alafenam [ Descovy 200-25 Mg Tablet] (Home Med) 1 tab PO DAILY [facility] Last Admin: 07/25/17 13:06 Dose: Not Given Ondansetron HCl (Zofran Inj) 4 mg IVP Q6H PRN PRN Reason: Nausea/Vomiting Last Admin: 07/25/17 21:20 Dose: 4 mg Pantoprazole Sodium (Protonix Ec Tab) 40 mg PO Q12 [facility] Last Admin: 07/25/17 21:21 Dose: 40 mg Raltegravir (Isentress) 400 mg PO BID [facility] Last Admin: 07/25/17 17:35 Dose: 400 mg Sennosides (Senokot Tab) 8.6 mg PO DAILY [facility] Last Admin: 07/25/17 09:53 Dose: 8.6 mg Sucralfate (Carafate Oral Susp) 1 gm PO 0600,1600 [facility] Last Admin: 07/26/17 06:18 Dose: 1 gm Tamsulosin HCl (Flomax) 0.4 mg PO DAILY [facility] Last Admin: 07/25/17 09:53 Dose: 0.4 mg - Labs Labs: 07/26/17 08:30 07/26/17 07:30 PT 13.2 SECONDS (9.4-12.5) H 07/21/17 18:19 INR 1.15 (0.93-1.08) H 07/21/17 18:19 APTT 29.5 Seconds (25.1-36.5) 07/21/17 18:19 Attending/Attestation - Attestation I have personally seen and examined this patient.: Yes I have fully participated in the care of the patient.: Yes I have reviewed all pertinent clinical information, including history, physical exam and plan: Yes
--- NOTE | 2017-07-23 12:30 | CP.PCM.PN ---
<Nikhil Cabrera - Last Filed: 07/23/17 15:12> Subjective - Date & Time of Evaluation Date of Evaluation: 07/23/17 Time of Evaluation: 07:30 - Subjective Subjective: Nikhil Cabrera PGY1 IM Progress Note Patient was seen and examined at bedside. He states that he slept well through the night and that his pain has resolved. He denies fevers/chills, abdominal pain, flank pain, back pain, diarrhea. He is still complaining of vomiting. Objective - Vital Signs/Intake and Output Vital Signs (last 24 hours): Temp Pulse Resp BP Pulse Ox 98.1 F 83 21 125/69 100 07/23/17 12:00 07/23/17 12:00 07/23/17 12:00 07/23/17 12:00 07/23/17 06:00 Intake and Output: 07/23/17 07/23/17 06:59 18:59 Intake Total 1200 120 Output Total 850 Balance 1200 -730 - Medications Medications: Current Medications Acetaminophen (Tylenol 325mg Tab) 650 mg PO Q4 PRN PRN Reason: Fever >100.4 F Calcium Acetate (Phoslo) 667 mg PO BID [facility] Last Admin: 07/23/17 11:16 Dose: 667 mg Emtricitabine/Tenofovir (Truvada 200 Mg-300 Mg) 1 tab PO DAILY [facility] Potassium Chloride 20 meq/ (Sodium Chloride) 1,010 mls @ 100 mls/hr IV .Q10H6M [facility] Last Admin: 07/23/17 06:45 Dose: 100 mls/hr Meropenem 500 mg/ Sodium (Chloride) 100 mls @ 100 mls/hr IVPB Q12 [facility] PRN Reason: Protocol Stop: 07/29/17 10:01 Last Admin: 07/23/17 11:11 Dose: 100 mls/hr Insulin Detemir (Levemir) 5 unit SC HS [facility] Last Admin: 07/22/17 22:39 Dose: 5 unit Insulin Human Lispro (Humalog Med) 0 units SC ACHS [facility] PRN Reason: Protocol Last Admin: 07/23/17 12:02 Dose: 7 units Morphine Sulfate (Morphine) 1 mg IVP Q6H PRN PRN Reason: Pain, severe (8-10) Emtricitabine/Tenofov Alafenam [ Descovy 200-25 Mg Tablet] (Home Med) 1 tab PO DAILY [facility] Last Admin: 07/23/17 11:10 Dose: Not Given Ondansetron HCl (Zofran Inj) 4 mg IVP Q6H PRN PRN Reason: Nausea/Vomiting Last Admin: 07/23/17 11:39 Dose: 4 mg Pantoprazole Sodium (Protonix Inj) 40 mg IVP Q12 [facility] Last Admin: 07/23/17 11:16 Dose: 40 mg Raltegravir (Isentress) 400 mg PO BID [facility] Last Admin: 07/23/17 11:16 Dose: 400 mg Sennosides (Senokot Tab) 8.6 mg PO DAILY [facility] Last Admin: 07/23/17 11:17 Dose: 8.6 mg Tamsulosin HCl (Flomax) 0.4 mg PO DAILY [facility] Last Admin: 07/23/17 11:15 Dose: 0.4 mg - Labs Labs: 07/23/17 07:30 07/23/17 07:30 PT 13.2 SECONDS (9.4-12.5) H 07/21/17 18:19 INR 1.15 (0.93-1.08) H 07/21/17 18:19 APTT 29.5 Seconds (25.1-36.5) 07/21/17 18:19 - Constitutional Appears: Well, Non-toxic, No Acute Distress - Head Exam Head Exam: NORMAL INSPECTION - Eye Exam Eye Exam: EOMI, Normal appearance, PERRL - ENT Exam ENT Exam: Mucous Membranes Moist, Normal Exam - Neck Exam Neck Exam: Normal Inspection - Respiratory Exam Respiratory Exam: NORMAL BREATHING PATTERN. absent: Rales, Rhonchi, Wheezes - Cardiovascular Exam Cardiovascular Exam: RRR, +S1, +S2. absent: JVD - GI/Abdominal Exam GI & Abdominal Exam: Soft, Normal Bowel Sounds. absent: Distended, Guarding, Tenderness - Extremities Exam Additional comments: chronic venous stasis skin changes L foot is wrapped and dressed (clean/dry/intact) - Back Exam Back Exam: NORMAL INSPECTION - Neurological Exam Neurological Exam: Alert, Awake, Oriented x3 - Psychiatric Exam Psychiatric exam: Normal Affect, Normal Mood - Skin Skin Exam: Normal Color, Warm Assessment and Plan - Assessment and Plan (Free Text) Assessment: 57 yo AAM with PMH of urinary retention s/p TURP, phimosis s/p circumcision and urostomy tube, recurrent UTI/pyelonephritis, HIV, HTN, CKD, Charcot foot, and DM who presented with complaint of abdominal pain, malaise, and nausea/emesis x 4 days. He is being admitted for likely UTI in setting of urostomy tube, less likely pyelonephritis due to absence of CVA tenderness, fevers/chills and CT findings. Plan: 1 Abd pain, nausea, and emesis x4 days likely 2/2 UTI, improving - CT abd/pelvis concerning for urostomy collapsed around suprapubic catheter, moderate bilateral hydroureteronephrosis, Air within the left collecting system ; Minimal hiatal hernia. Fundus gastric wall prominence, small bowel in the upper abdomen demonstrates bowel wall prominence. Colonic diverticula. - UA notable for large blood, large leuk esterase, TNTC RBCs and WBCs, Many bacteria - Air in left collecting system likely tracking from urostomy tube, but in setting of immunocompromised state (HIV) and DM2, will empirically cover for emphysematous pyelonephritis organisms - cont Meropenem - cont urostomy tube irrigation per Uro - ID and Urology consulted, appreciate all recs - Blood cx grew gram neg geoffrey in 1 vial and not other; repeat blood cxs sent - Urine cx pending - NPO for bowel rest given emesis with foot intake; will monitor for vomiting and advance as tolerated - Zofran PRN for emesis - Tylenol PRN - procal elevated 2. HIV - CD4 count and viral load ordered - last CD4 count per prior charting 939 with undetectable viral load on 11/04/15 - CMV IgG Ab +, unclear if acute or chronic - Legoinella urine antigen, G/C ordered - Toxoplasma indeterminate - RPR nonreactive - Hepatitis panels negative - continue current HAART regimen, pending ID eval and recs 3. Diabetic foot wounds with purulent discharge - b/l pedal pulses - wound cultures sent, f/u - Podiatry consulted, recs appreciated 4. Hyperglycemia - A1C 10.8 - holding off on oral hypoglycemics - Levemir 5u Q12, converted from 10u Lantus HS at home - ISS medium - Accuchecks ACHS 5. TRICIA on CKD - TRICIA 2/2 dehydration - Urine electrolytes ordered for FENa - baseline Cr per prior charting 1.7-2.5, currently 4 - NS 100cc/hr + KCl 20 mEq per bag - continue to monitor 6. Hypocalcemia - cont calcium gluconate 7. Hypokalemia - likely GI losses due to emesis/diarrhea - repleting with 20 mEq KCl per bag of active IV fluids - will cont to monitor 8. PPX - PTX for GI PPX - Heparin and SCDs for DVT PPX Patient was seen, examined and discussed with attending, Dr. Lg Cabrera PGY1 <Marjorie Castanon - Last Filed: 07/30/17 16:27> Objective - Vital Signs/Intake and Output Vital Signs (last 24 hours): Temp Pulse Resp BP Pulse Ox 97.8 F 83 18 179/116 H 96 07/30/17 06:00 07/30/17 06:00 07/30/17 06:00 07/30/17 06:00 07/30/17 06:00 Intake and Output: 07/30/17 07/30/17 06:59 18:59 Intake Total 900 640 Output Total 1400 Balance -500 640 - Medications Medications: Current Medications Acetaminophen (Tylenol 325mg Tab) 650 mg PO Q4 PRN PRN Reason: Fever >100.4 F Bismuth Subsalicylate (Pepto-Bismol) 262 mg PO DAILY [facility] Last Admin: 07/30/17 12:01 Dose: Not Given Calcium Acetate (Phoslo) 667 mg PO BID [facility] Last Admin: 07/30/17 11:34 Dose: 667 mg Emtricitabine/Tenofovir (Truvada 200 Mg-300 Mg) 1 tab PO DAILY [facility] Heparin Sodium (Porcine) (Heparin) 5,000 units SC Q12 [facility] PRN Reason: Protocol Last Admin: 07/30/17 12:01 Dose: 5,000 units Ceftriaxone Sodium (Rocephin 2 Gm Ivpb) 2 gm in 100 mls @ 100 mls/hr IVPB DAILY [facility] PRN Reason: Protocol Last Admin: 07/30/17 11:59 Dose: 100 mls/hr Insulin Detemir (Levemir) 5 unit SC Q12 [facility] Last Admin: 07/30/17 11:59 Dose: 5 unit Insulin Human Lispro (Humalog Med) 0 units SC ACHS [facility] PRN Reason: Protocol Last Admin: 07/30/17 12:00 Dose: 1 units Linezolid (Zyvox) 600 mg PO BID [facility] PRN Reason: Protocol Stop: 08/06/17 18:01 Last Admin: 07/30/17 11:33 Dose: 600 mg Morphine Sulfate (Morphine) 1 mg IVP Q6H PRN PRN Reason: Pain, severe (8-10) Mupirocin (Bactroban Ointment) 0 gm TOP BID [facility] Last Admin: 07/29/17 10:09 Dose: 1 applic Emtricitabine/Tenofov Alafenam [ Descovy 200-25 Mg Tablet] (Home Med) 1 tab PO DAILY [facility] Last Admin: 07/29/17 10:03 Dose: Not Given Ondansetron HCl (Zofran Inj) 4 mg IVP Q6H PRN PRN Reason: Nausea/Vomiting Last Admin: 07/25/17 21:20 Dose: 4 mg Pantoprazole Sodium (Protonix Ec Tab) 40 mg PO Q12 [facility] Last Admin: 07/30/17 12:01 Dose: 40 mg Raltegravir (Isentress) 400 mg PO BID [facility] Last Admin: 07/30/17 12:01 Dose: 400 mg Sennosides (Senokot Tab) 8.6 mg PO DAILY [facility] Last Admin: 07/30/17 12:01 Dose: 8.6 mg Sucralfate (Carafate Oral Susp) 1 gm PO 0600,1600 [facility] Last Admin: 07/30/17 05:01 Dose: Not Given Tamsulosin HCl (Flomax) 0.4 mg PO DAILY [facility] Last Admin: 07/30/17 12:01 Dose: 0.4 mg - Labs Labs: 07/30/17 06:45 07/30/17 06:45 PT 13.2 SECONDS (9.4-12.5) H 07/21/17 18:19 INR 1.15 (0.93-1.08) H 07/21/17 18:19 APTT 29.5 Seconds (25.1-36.5) 07/21/17 18:19 Attending/Attestation - Attestation I have personally seen and examined this patient.: Yes I have fully participated in the care of the patient.: Yes I have reviewed all pertinent clinical information, including history, physical exam and plan: Yes Notes (Text): I have seen and examined the patient at bedside.Agree with the above note with the following additions/ exceptions: Briefly this is 57 year old male with history of urinary retention s/p TURP, phimosis s/p circumcision, s/p urostomy tube, recurrent UTI/pyelonephritis, HIV, hypertension, chronic kidney disease, delayed development, Charcot foot, and DM who presents with complaint of abdominal pain, malaise, and nausea/emesis x 4 days and he was found to have UTI. Urine culture grew Escherichia coli. Currently on IV meropenem. Patient is afebrile and nontoxic. Patient remains NPO as he was vomiting. Blood culture grew Escherichia coli. Continue HIV meds. Will repeat toxo serology. Continue wound care as per podiatry. He has acute on chronic disease and creatinine is improving. CT scan showed hydronephrosis. Case discussed with urology Dr. Segura. Needs close outpatient follow up. Upon discharge the patient will follow-up with PMD Dr. Howe. Dr Marjorie Castanon
[2017-07-23] MEDS ORDERED: Insulin Detemir 100 units/ml Vial (Levemir) SC SCH (12:33)
[2017-07-23] MEDS: Insulin Detemir 100 units/ml Vial (Levemir) SC SCH ×2 (16:24→21:47)
--- NOTE | 2017-07-24 03:20 | PN ---
DATE: 07/23/2017 SUBJECTIVE: The patient is in bed, in no acute distress. PHYSICAL EXAMINATION VITAL SIGNS: On exam, temperature is 98, blood pressure is 120/70, respiratory rate of 16. HEENT: Examination of HEENT is unremarkable. NECK: Supple. LUNGS: Have decreased breath sounds. HEART: Normal S1 and S2. ABDOMEN: Soft and nontender. LABORATORY DATA: Laboratory examination reveals a white count of 22,000, hemoglobin of 9. BUN of 62, creatinine of 4.0, procalcitonin is 3.78. The serology is reviewed. Blood cultures are Gram-negative geoffrey. The urine cultures are Gram-negative geoffrey. REVIEW OF THE ORDERS: Review of the meropenem. ASSESSMENT AND PLAN: This is a 57-year-old male with history of urinary retention, phimosis and status post circumcision, status post transurethral resection of prostate and urostomy, and now with severe sepsis with acute on chronic renal failure with Gram-negative geoffrey bacteremia, complicated urinary currently on meropenem, and patient is positive HIV. We will continue Isentress. We will follow with you. Gianluca Marsh MD
[2017-07-24 06:38] LABS: HEMOGLOBIN 9.2 g/dL (14.0-18.0); MEAN CELL VOLUME 90.3 fl (80.0-105.0); RBC 3.29 10^6/uL (3.5-6.1); WHITE BLOOD COUNT 22.4 10^3/ul (4.5-11.0)
[2017-07-24 07:00] LABS: ALB/GLOB RATIO 0.7 (1.1-1.8); ALBUMIN 2.6 g/dL (3.0-4.8); CALCIUM 8.4 mg/dL (8.4-10.5)
[2017-07-24] MEDS: Insulin Lispro (humaLOG) MEDIUM Coverage SC SCH ×4 (07:43→22:03)
[2017-07-24] MEDS: Insulin Detemir 100 units/ml Vial (Levemir) SC SCH ×2 (10:34→22:03)
[2017-07-24] MEDS: Meropenem 500 MG in Sodium Chloride 0.9% 100 ML IVPB SCH ×2 (10:35→22:04)
[2017-07-24] MEDS: EMTRICITABINE PO SCH (10:35)
[2017-07-24] MEDS: TENOFOV ALAFENAM PO SCH (10:35)
[2017-07-24] MEDS ORDERED: Bismuth Subsalicylate 262 mg/15 ml Sus (240 ml) PO SCH (12:00)
[2017-07-24 12:14] LABS: % CD4 (T HELPER CELL) 39 Percent (30-61); % CD8 (SUPPRESSOR T CELL) 40 Percent (12-42); ABSOLUTE CD4 CELLS 766 Cells/mcL (490-1740); ABSOLUTE CD8 CELLS 783 Cells/mcL (180-1170); ABSOLUTE LYMPHOCYTES 1948 Cells/mcL (850-3900); HELPER/SUPPRESSOR RATIO 0.98 Ratio (0.86-5.00)
--- NOTE | 2017-07-24 13:05 | CP.PCM.PN ---
<DeborahNikhil - Last Filed: 07/24/17 20:35> Subjective - Date & Time of Evaluation Date of Evaluation: 07/24/17 Time of Evaluation: 09:31 - Subjective Subjective: Nikhil TracyDeborah PGY1 IM Progress Note Patient was seen and examined at bedside. He states that he is still feeling abdominal pain and is still feeling nauseous and vomiting. Last episode was earlier in the day. He denies fevers/chills, weakness, headaches, chest pain, shortness of breath, and denies having similar episodes before. Objective - Vital Signs/Intake and Output Vital Signs (last 24 hours): Temp Pulse Resp BP Pulse Ox 97.5 F L 93 H 20 150/81 96 07/24/17 08:33 07/24/17 08:33 07/24/17 08:33 07/24/17 08:33 07/24/17 08:33 Intake and Output: 07/24/17 07/24/17 06:59 18:59 Intake Total 1000 Output Total 1350 Balance -350 - Medications Medications: Current Medications Acetaminophen (Tylenol 325mg Tab) 650 mg PO Q4 PRN PRN Reason: Fever >100.4 F Bismuth Subsalicylate (Pepto-Bismol) 262 mg PO DAILY [facility] Calcium Acetate (Phoslo) 667 mg PO BID [facility] Last Admin: 07/24/17 10:35 Dose: 667 mg Emtricitabine/Tenofovir (Truvada 200 Mg-300 Mg) 1 tab PO DAILY [facility] Heparin Sodium (Porcine) (Heparin) 5,000 units SC Q12 [facility] PRN Reason: Protocol Last Admin: 07/24/17 10:34 Dose: 5,000 units Potassium Chloride 20 meq/ (Sodium Chloride) 1,010 mls @ 100 mls/hr IV .Q10H6M [facility] Last Admin: 07/24/17 02:58 Dose: Not Given Meropenem 500 mg/ Sodium (Chloride) 100 mls @ 100 mls/hr IVPB Q12 [facility] PRN Reason: Protocol Stop: 07/29/17 10:01 Last Admin: 07/24/17 10:35 Dose: 100 mls/hr Insulin Detemir (Levemir) 5 unit SC Q12 [facility] Last Admin: 07/24/17 10:34 Dose: 5 unit Insulin Human Lispro (Humalog Med) 0 units SC ACHS [facility] PRN Reason: Protocol Last Admin: 07/24/17 07:43 Dose: 1 units Morphine Sulfate (Morphine) 1 mg IVP Q6H PRN PRN Reason: Pain, severe (8-10) Emtricitabine/Tenofov Alafenam [ Descovy 200-25 Mg Tablet] (Home Med) 1 tab PO DAILY [facility] Last Admin: 07/24/17 10:35 Dose: Not Given Ondansetron HCl (Zofran Inj) 4 mg IVP Q6H PRN PRN Reason: Nausea/Vomiting Last Admin: 07/23/17 11:39 Dose: 4 mg Pantoprazole Sodium (Protonix Ec Tab) 40 mg PO Q12 [facility] Raltegravir (Isentress) 400 mg PO BID [facility] Last Admin: 07/24/17 10:35 Dose: 400 mg Sennosides (Senokot Tab) 8.6 mg PO DAILY [facility] Last Admin: 07/24/17 10:35 Dose: 8.6 mg Sucralfate (Carafate Oral Susp) 1 gm PO 0600,1600 [facility] Tamsulosin HCl (Flomax) 0.4 mg PO DAILY [facility] Last Admin: 07/24/17 10:35 Dose: 0.4 mg - Labs Labs: 07/24/17 06:15 07/24/17 06:15 PT 13.2 SECONDS (9.4-12.5) H 07/21/17 18:19 INR 1.15 (0.93-1.08) H 07/21/17 18:19 APTT 29.5 Seconds (25.1-36.5) 07/21/17 18:19 - Constitutional Appears: Well, Non-toxic, No Acute Distress - Head Exam Head Exam: NORMAL INSPECTION - Eye Exam Eye Exam: EOMI, Normal appearance - ENT Exam ENT Exam: Mucous Membranes Dry - Neck Exam Neck Exam: Normal Inspection - Respiratory Exam Respiratory Exam: NORMAL BREATHING PATTERN. absent: Rales, Rhonchi, Wheezes - Cardiovascular Exam Cardiovascular Exam: RRR, +S1, +S2 - GI/Abdominal Exam GI & Abdominal Exam: Guarding, Soft, Tenderness (diffuse), Normal Bowel Sounds. absent: Distended - Exam Additional comments: suprapubic catheter in place draining pus in catheter bag - Extremities Exam Extremities Exam: absent: Calf Tenderness, Pedal Edema Additional comments: chronic venous stasis skin changes L foot is wrapped and dressed (clean/dry/intact) - Back Exam Back Exam: NORMAL INSPECTION - Neurological Exam Neurological Exam: Alert, Awake, Oriented x3 - Psychiatric Exam Psychiatric exam: Normal Affect, Normal Mood - Skin Skin Exam: Normal Color, Warm Assessment and Plan - Assessment and Plan (Free Text) Assessment: 57 yo AAM with PMH of urinary retention s/p TURP, phimosis s/p circumcision and urostomy tube, recurrent UTI/pyelonephritis, HIV, HTN, CKD, Charcot foot, and DM who presented with complaint of abdominal pain, malaise, and nausea/emesis x 4 days. He is being admitted for severe sepsis in setting of TRICIA likely 2/2 pyelonephritis. Plan: 1. Severe sepsis 2/2 pyelonephritis vs foot ulcer - CT abd/pelvis concerning for urostomy collapsed around suprapubic catheter, moderate bilateral hydroureteronephrosis, Air within the left collecting system ; Minimal hiatal hernia. Fundus gastric wall prominence, small bowel in the upper abdomen demonstrates bowel wall prominence. Colonic diverticula. - Air in left collecting system likely tracking from urostomy tube, but in setting of immunocompromised state (HIV) and DM2, will empirically cover for emphysematous pyelonephritis organisms - UA notable for large blood, large leuk esterase, TNTC RBCs and WBCs, Many bacteria - TRICIA improving slightly, however, patient remains + n/v and abdominal tenderness - urine culture grew MRSA and e.coli - blood cx grew e.coli - foot cx grew MRSA and e.coli - procal elevated - cont Meropenem - ID contacted regarding MRSA coverage; will add appropriately - cont urostomy tube irrigation per Uro - ID and Urology consulted, appreciate all recs - NPO for bowel rest given emesis with foot intake; will monitor for vomiting and advance as tolerated - Zofran PRN for emesis - Tylenol PRN 2. Diabetic foot wounds with purulent discharge - b/l pedal pulses - wound cultures grew MRSA and e.coli - Podiatry consulted, recs appreciated 3. TRICIA on CKD - FENa 2.3 indicating intrinsic cause of TRICIA, however, unreliable give patient has CKD - TRICIA 2/2 dehydration or hypoperfusion due to sepsis on presentation vs infectious component - baseline Cr per prior charting 1.7-2.5 - cont NS 100cc/hr + KCl 20 mEq per bag - continue to monitor 4. Hyperglycemia - A1C 10.8 - holding off on oral hypoglycemics - Levemir 5u Q12, converted from 10u Lantus HS at home - ISS medium - Accuchecks ACHS 5. HIV - CD4 count 766 - viral load undetectable - CMV IgG Ab +, unclear if acute or chronic - Legoinella urine antigen, G/C ordered - Toxoplasma indeterminate, will re-order - RPR nonreactive - Hepatitis panels negative - continue current HAART regimen, pending ID eval and recs 6. Hypocalcemia - cont calcium gluconate 7. Hypokalemia, stable - will cont to monitor 8. PPX - PTX for GI PPX - Heparin and SCDs for DVT PPX Patient was seen, examined and discussed with attending, Dr. Lg Cabrera PGY1 <Marjorie Castanon - Last Filed: 07/29/17 15:39> Objective - Vital Signs/Intake and Output Vital Signs (last 24 hours): Temp Pulse Resp BP Pulse Ox 98.0 F 84 20 174/108 H 96 07/29/17 14:20 07/29/17 14:20 07/29/17 14:20 07/29/17 14:20 07/29/17 08:00 Intake and Output: 07/29/17 07/29/17 06:59 18:59 Intake Total 1200 600 Output Total 900 900 Balance 300 -300 - Medications Medications: Current Medications Acetaminophen (Tylenol 325mg Tab) 650 mg PO Q4 PRN PRN Reason: Fever >100.4 F Bismuth Subsalicylate (Pepto-Bismol) 262 mg PO DAILY [facility] Last Admin: 07/29/17 10:10 Dose: Not Given Calcium Acetate (Phoslo) 667 mg PO BID [facility] Last Admin: 07/29/17 10:02 Dose: 667 mg Emtricitabine/Tenofovir (Truvada 200 Mg-300 Mg) 1 tab PO DAILY [facility] Heparin Sodium (Porcine) (Heparin) 5,000 units SC Q12 [facility] PRN Reason: Protocol Last Admin: 07/29/17 10:05 Dose: 5,000 units Ceftriaxone Sodium (Rocephin 2 Gm Ivpb) 2 gm in 100 mls @ 100 mls/hr IVPB DAILY [facility] PRN Reason: Protocol Last Admin: 07/29/17 10:00 Dose: 100 mls/hr Insulin Detemir (Levemir) 5 unit SC Q12 [facility] Last Admin: 07/29/17 10:10 Dose: 5 unit Insulin Human Lispro (Humalog Med) 0 units SC ACHS [facility] PRN Reason: Protocol Last Admin: 07/29/17 12:21 Dose: 3 units Linezolid (Zyvox) 600 mg PO BID [facility] PRN Reason: Protocol Stop: 08/06/17 18:01 Last Admin: 07/29/17 10:00 Dose: 600 mg Morphine Sulfate (Morphine) 1 mg IVP Q6H PRN PRN Reason: Pain, severe (8-10) Mupirocin (Bactroban Ointment) 0 gm TOP BID [facility] Last Admin: 07/29/17 10:09 Dose: 1 applic Emtricitabine/Tenofov Alafenam [ Descovy 200-25 Mg Tablet] (Home Med) 1 tab PO DAILY [facility] Last Admin: 07/29/17 10:03 Dose: Not Given Ondansetron HCl (Zofran Inj) 4 mg IVP Q6H PRN PRN Reason: Nausea/Vomiting Last Admin: 07/25/17 21:20 Dose: 4 mg Pantoprazole Sodium (Protonix Ec Tab) 40 mg PO Q12 [facility] Last Admin: 07/29/17 10:09 Dose: 40 mg Raltegravir (Isentress) 400 mg PO BID [facility] Last Admin: 07/29/17 10:00 Dose: 400 mg Sennosides (Senokot Tab) 8.6 mg PO DAILY [facility] Last Admin: 07/29/17 10:00 Dose: 8.6 mg Sucralfate (Carafate Oral Susp) 1 gm PO 0600,1600 [facility] Last Admin: 07/29/17 06:54 Dose: Not Given Tamsulosin HCl (Flomax) 0.4 mg PO DAILY [facility] Last Admin: 07/29/17 10:00 Dose: 0.4 mg - Labs Labs: 07/29/17 08:15 07/29/17 08:15 PT 13.2 SECONDS (9.4-12.5) H 07/21/17 18:19 INR 1.15 (0.93-1.08) H 07/21/17 18:19 APTT 29.5 Seconds (25.1-36.5) 07/21/17 18:19 Attending/Attestation - Attestation I have personally seen and examined this patient.: Yes I have fully participated in the care of the patient.: Yes I have reviewed all pertinent clinical information, including history, physical exam and plan: Yes Notes (Text): I have seen and examined the patient at bedside.Agree with the above note with the following additions/ exceptions: Briefly this is 57 year old male with history of urinary retention s/p TURP, phimosis s/p circumcision, s/p urostomy tube, recurrent UTI/pyelonephritis, HIV, hypertension, chronic kidney disease, delayed development, Charcot foot, and DM who presents with complaint of abdominal pain, malaise, and nausea/emesis x 4 days and he was found to have UTI. Urine culture grew Escherichia coli. Currently on IV meropenem. Patient is afebrile and nontoxic. Patient remains NPO as he was vomiting. Blood culture grew Escherichia coli. Continue HIV meds. Will repeat toxo serology. Continue wound care as per podiatry. He has acute on chronic disease and creatinine is improving. CT scan showed hydronephrosis. Case discussed with urology Dr. Segura. Needs close outpatient follow up. Upon discharge the patient will follow-up with PMD Dr. Howe. Dr Marjorie Castanon
--- NOTE | 2017-07-24 14:13 | CP.PCM.PN ---
<GarciaBrianne - Last Filed: 07/24/17 14:15> Subjective - Date & Time of Evaluation Date of Evaluation: 07/24/17 Time of Evaluation: 14:13 - Subjective Subjective: 57 y/o mentally challenged male seen at bedside for left foot superficial ulceration. He denies having any pain in the foot. Dressing remains clean, dry and intact to his left foot. Denies any fevers overnight. States he is still vomiting a little bit and has not been allowed to eat. Denies C/N/D/C/CP/SOB. Objective - Vital Signs/Intake and Output Vital Signs (last 24 hours): Temp Pulse Resp BP Pulse Ox 97.5 F L 93 H 20 150/81 96 07/24/17 08:33 07/24/17 08:33 07/24/17 08:33 07/24/17 08:33 07/24/17 08:33 Intake and Output: 07/24/17 07/24/17 06:59 18:59 Intake Total 1000 Output Total 1350 Balance -350 - Medications Medications: Current Medications Acetaminophen (Tylenol 325mg Tab) 650 mg PO Q4 PRN PRN Reason: Fever >100.4 F Bismuth Subsalicylate (Pepto-Bismol) 262 mg PO DAILY [facility] Calcium Acetate (Phoslo) 667 mg PO BID [facility] Last Admin: 07/24/17 10:35 Dose: 667 mg Emtricitabine/Tenofovir (Truvada 200 Mg-300 Mg) 1 tab PO DAILY [facility] Heparin Sodium (Porcine) (Heparin) 5,000 units SC Q12 [facility] PRN Reason: Protocol Last Admin: 07/24/17 10:34 Dose: 5,000 units Potassium Chloride 20 meq/ (Sodium Chloride) 1,010 mls @ 100 mls/hr IV .Q10H6M [facility] Last Admin: 07/24/17 02:58 Dose: Not Given Meropenem 500 mg/ Sodium (Chloride) 100 mls @ 100 mls/hr IVPB Q12 [facility] PRN Reason: Protocol Stop: 07/29/17 10:01 Last Admin: 07/24/17 10:35 Dose: 100 mls/hr Insulin Detemir (Levemir) 5 unit SC Q12 [facility] Last Admin: 07/24/17 10:34 Dose: 5 unit Insulin Human Lispro (Humalog Med) 0 units SC ACHS [facility] PRN Reason: Protocol Last Admin: 07/24/17 12:52 Dose: Not Given Morphine Sulfate (Morphine) 1 mg IVP Q6H PRN PRN Reason: Pain, severe (8-10) Emtricitabine/Tenofov Alafenam [ Descovy 200-25 Mg Tablet] (Home Med) 1 tab PO DAILY [facility] Last Admin: 07/24/17 10:35 Dose: Not Given Ondansetron HCl (Zofran Inj) 4 mg IVP Q6H PRN PRN Reason: Nausea/Vomiting Last Admin: 07/23/17 11:39 Dose: 4 mg Pantoprazole Sodium (Protonix Ec Tab) 40 mg PO Q12 [facility] Raltegravir (Isentress) 400 mg PO BID [facility] Last Admin: 07/24/17 10:35 Dose: 400 mg Sennosides (Senokot Tab) 8.6 mg PO DAILY [facility] Last Admin: 07/24/17 10:35 Dose: 8.6 mg Sucralfate (Carafate Oral Susp) 1 gm PO 0600,1600 [facility] Tamsulosin HCl (Flomax) 0.4 mg PO DAILY [facility] Last Admin: 07/24/17 10:35 Dose: 0.4 mg - Labs Labs: 07/24/17 06:15 07/24/17 06:15 PT 13.2 SECONDS (9.4-12.5) H 07/21/17 18:19 INR 1.15 (0.93-1.08) H 07/21/17 18:19 APTT 29.5 Seconds (25.1-36.5) 07/21/17 18:19 - Constitutional Appears: Well, Non-toxic, No Acute Distress - Extremities Exam Additional comments: Left lower extremity focused exam: Vasc: DP/PT pulses palpable 2/4. CFT < 3 sec to all digits. Temperature gradient warm to cool. Derm: Diffuse hypopigmented skin patches secondary to previous ulcerations and blisters of foot. Wet superficial blister/ulceration noted to medial aspect of 1st MPJ, approx 6cm x 3.5cm x 0.1cm. Small amount of serosanguinous drainaged noted to bandage. No malodor, no purulence, no undermining or tunneling, no fluctuance. Neuro: Protective sensation grossly diminished Ortho: No tenderness on palpation of left foot - Neurological Exam Neurological Exam: Alert, Awake, Oriented x3 - Psychiatric Exam Psychiatric exam: Normal Affect, Normal Mood Assessment and Plan - Assessment and Plan (Free Text) Assessment: 57 y/o male with left foot blister with superficial ulceration secondary to DM Plan: Pt seen and evaluated at bedside Discussed plan with attending Dr. Casanova Labs and vitals reviewed- afebrile, WBC 22.4 Wound to left foot cleansed with saline and dressed with xeroform DSD Wound culture of left foot positive for E. coli and MRSA Continue IV abx as per ID Multipodus boots to offload while in bed Podiatry will continue to follow while in house <Rhonda Casanova - Last Filed: 07/28/17 16:12> Objective - Vital Signs/Intake and Output Vital Signs (last 24 hours): Temp Pulse Resp BP Pulse Ox 97.6 F 90 20 164/100 H 98 07/28/17 08:19 07/28/17 08:19 07/28/17 08:19 07/28/17 08:19 07/28/17 08:19 Intake and Output: 07/28/17 07/28/17 06:59 18:59 Intake Total 760 240 Output Total 800 1300 Balance -40 -1060 - Medications Medications: Current Medications Acetaminophen (Tylenol 325mg Tab) 650 mg PO Q4 PRN PRN Reason: Fever >100.4 F Bismuth Subsalicylate (Pepto-Bismol) 262 mg PO DAILY [facility] Last Admin: 07/27/17 11:11 Dose: 262 mg Calcium Acetate (Phoslo) 667 mg PO BID [facility] Last Admin: 07/28/17 12:48 Dose: 667 mg Emtricitabine/Tenofovir (Truvada 200 Mg-300 Mg) 1 tab PO DAILY [facility] Heparin Sodium (Porcine) (Heparin) 5,000 units SC Q12 [facility] PRN Reason: Protocol Last Admin: 07/27/17 21:48 Dose: 5,000 units Ceftriaxone Sodium (Rocephin 2 Gm Ivpb) 2 gm in 100 mls @ 100 mls/hr IVPB DAILY [facility] PRN Reason: Protocol Last Admin: 07/28/17 12:46 Dose: 100 mls/hr Insulin Detemir (Levemir) 5 unit SC Q12 [facility] Last Admin: 07/28/17 12:36 Dose: 5 unit Insulin Human Lispro (Humalog Med) 0 units SC ACHS [facility] PR[facility] Reason: Protocol Last Admin: 07/28/17 12:35 Dose: 3 units Linezolid (Zyvox) 600 mg PO BID [facility] PRN Reason: Protocol Stop: 08/06/17 18:01 Morphine Sulfate (Morphine) 1 mg IVP Q6H PRN PRN Reason: Pain, severe (8-10) Mupirocin (Bactroban Ointment) 0 gm TOP BID [facility] Last Admin: 07/27/17 17:31 Dose: 1 applic Emtricitabine/Tenofov Alafenam [ Descovy 200-25 Mg Tablet] (Home Med) 1 tab PO DAILY [facility] Last Admin: 07/27/17 11:15 Dose: Not Given Ondansetron HCl (Zofran Inj) 4 mg IVP Q6H PRN PRN Reason: Nausea/Vomiting Last Admin: 07/25/17 21:20 Dose: 4 mg Pantoprazole Sodium (Protonix Ec Tab) 40 mg PO Q12 [facility] Last Admin: 07/28/17 12:48 Dose: 40 mg Raltegravir (Isentress) 400 mg PO BID [facility] Last Admin: 07/27/17 17:39 Dose: 400 mg Sennosides (Senokot Tab) 8.6 mg PO DAILY [facility] Last Admin: 07/28/17 12:46 Dose: 8.6 mg Sucralfate (Carafate Oral Susp) 1 gm PO 0600,1600 [facility] Last Admin: 07/28/17 05:36 Dose: 1 gm Tamsulosin HCl (Flomax) 0.4 mg PO DAILY [facility] Last Admin: 07/27/17 09:51 Dose: 0.4 mg - Labs Labs: 07/27/17 07:00 07/27/17 07:00 PT 13.2 SECONDS (9.4-12.5) H 07/21/17 18:19 INR 1.15 (0.93-1.08) H 07/21/17 18:19 APTT 29.5 Seconds (25.1-36.5) 07/21/17 18:19 Attending/Attestation - Attestation I have personally seen and examined this patient.: Yes I have fully participated in the care of the patient.: Yes I have reviewed all pertinent clinical information, including history, physical exam and plan: Yes
[2017-07-24] MEDS: Sucralfate 1 gm/10 ml Oral Susp UD PO SCH (16:17)
[2017-07-24] MEDS: Pantoprazole 40 mg EC Tab PO SCH (21:57)
--- NOTE | 2017-07-25 02:05 | PN ---
DATE: 07/24/2017 SUBJECTIVE: The patient is seen earlier this morning in room 362. No fevers. No chills. No nausea. PHYSICAL EXAMINATION: VITAL SIGNS: Temperature of 97, blood pressure is 160/90 and respiratory rate of 16. HEENT: Unremarkable. NECK: Supple. LUNGS: Have decreased breath sounds. HEART: Normal S1 and S2. ABDOMEN: Soft and nontender. LABORATORY DATA: Reveals the E. coli is pansensitive, the blood cultures are E. coli is sensitive to cefepime and sensitive to cefazolin, meropenem. The patient also has E. coli in the urine and E. coli and MRSA in the left foot is noted and sensitivity is reviewed to vancomycin and E. coli in the foot is also pansensitive. Review of E. coli in the urine and MRSA in the urine sensitivity is not available. ASSESSMENT AND PLAN: This is 57-year-old with history of urinary retention, phimosis, status post circumcision and status post transurethral resection of prostate and urostomy with severe sepsis, acute on chronic renal failure with Escherichia coli bacteremia and with Escherichia coli and methicillin-resistant Staphylococcus aureus in the foot and Escherichia coli and methicillin-resistant Staphylococcus aureus in the urine. We will continue with the present course and we will check on sensitivity and make further recommendations once the initial information is available. Currently, the patient is on meropenem. The patient has no known allergies. Gianluca Marsh MD
[2017-07-25] MEDS: Sucralfate 1 gm/10 ml Oral Susp UD PO SCH ×2 (06:39→17:35)
[2017-07-25 07:59] LABS: HEMOGLOBIN 8.5 g/dL (14.0-18.0); MEAN CORPUSCULAR HEMOGLOBIN 28.1 pg (25.0-35.0); MEAN CORPUSCULAR HGB CONC 29.5 g/dl (31.0-37.0); MEAN PLATELET VOLUME 9.9 fl (7.0-11.0); RBC 3.03 10^6/uL (3.5-6.1); RED CELL DISTRIBUTION WIDTH 13.3 % (11.5-14.5); WHITE BLOOD COUNT 18.3 10^3/ul (4.5-11.0)
[2017-07-25 08:21] LABS: ALB/GLOB RATIO 0.7 (1.1-1.8); ALBUMIN 2.7 g/dL (3.0-4.8); CALCIUM 8.9 mg/dL (8.4-10.5)
[2017-07-25] MEDS: Insulin Lispro (humaLOG) MEDIUM Coverage SC SCH ×3 (08:47→17:35)
[2017-07-25] MEDS: Pantoprazole 40 mg EC Tab PO SCH ×2 (09:53→21:21)
[2017-07-25] MEDS: Insulin Detemir 100 units/ml Vial (Levemir) SC SCH ×2 (09:53→21:38)
[2017-07-25] MEDS: Meropenem 500 MG in Sodium Chloride 0.9% 100 ML IVPB SCH ×2 (09:54→23:01)
--- NOTE | 2017-07-25 09:57 | CP.PCM.PN ---
<GarciaBrianne - Last Filed: 07/25/17 09:58> Subjective - Date & Time of Evaluation Date of Evaluation: 07/25/17 Time of Evaluation: 09:57 - Subjective Subjective: 57 y/o mentally challenged male seen at bedside with attending Dr. Casanova for left foot superficial open blister. He denies having any pain in the foot. Dressing remains clean, dry and intact to his left foot. He states he wants to be able to eat and drink as normal and is frustrated that he isn't allowed to. Boots are not on or present at this time. Denies F/C/N/D/C/CP/SOB. Objective - Vital Signs/Intake and Output Vital Signs (last 24 hours): Temp Pulse Resp BP Pulse Ox 98.6 F 84 20 155/96 H 97 07/25/17 08:00 07/25/17 08:00 07/25/17 08:00 07/25/17 08:00 07/25/17 08:00 Intake and Output: 07/25/17 07/25/17 06:59 18:59 Intake Total 1200 Output Total 2100 Balance -900 - Medications Medications: Current Medications Acetaminophen (Tylenol 325mg Tab) 650 mg PO Q4 PRN PRN Reason: Fever >100.4 F Bismuth Subsalicylate (Pepto-Bismol) 262 mg PO DAILY [facility] Calcium Acetate (Phoslo) 667 mg PO BID [facility] Last Admin: 07/24/17 17:50 Dose: 667 mg Emtricitabine/Tenofovir (Truvada 200 Mg-300 Mg) 1 tab PO DAILY [facility] Heparin Sodium (Porcine) (Heparin) 5,000 units SC Q12 JACKIE PRN Reason: Protocol Last Admin: 07/24/17 21:56 Dose: 5,000 units Potassium Chloride 20 meq/ (Sodium Chloride) 1,010 mls @ 100 mls/hr IV .Q10H6M [facility] Last Admin: 07/25/17 04:41 Dose: 100 mls/hr Meropenem 500 mg/ Sodium (Chloride) 100 mls @ 100 mls/hr IVPB Q12 [facility] PRN Reason: Protocol Stop: 07/29/17 10:01 Last Admin: 07/24/17 22:04 Dose: 100 mls/hr Insulin Detemir (Levemir) 5 unit SC Q12 [facility] Last Admin: 07/24/17 22:03 Dose: 5 unit Insulin Human Lispro (Humalog Med) 0 units SC ACHS JACKIE PRN Reason: Protocol Last Admin: 07/25/17 08:47 Dose: Not Given Morphine Sulfate (Morphine) 1 mg IVP Q6H PRN PRN Reason: Pain, severe (8-10) Mupirocin (Bactroban Ointment) 0 gm TOP BID [facility] Emtricitabine/Tenofov Alafenam [ Descovy 200-25 Mg Tablet] (Home Med) 1 tab PO DAILY [facility] Last Admin: 07/24/17 10:35 Dose: Not Given Ondansetron HCl (Zofran Inj) 4 mg IVP Q6H PRN PRN Reason: Nausea/Vomiting Last Admin: 07/24/17 14:15 Dose: 4 mg Pantoprazole Sodium (Protonix Ec Tab) 40 mg PO Q12 [facility] Last Admin: 07/24/17 21:57 Dose: 40 mg Raltegravir (Isentress) 400 mg PO BID [facility] Last Admin: 07/24/17 17:50 Dose: 400 mg Sennosides (Senokot Tab) 8.6 mg PO DAILY [facility] Last Admin: 07/24/17 10:35 Dose: 8.6 mg Sucralfate (Carafate Oral Susp) 1 gm PO 0600,1600 [facility] Last Admin: 07/25/17 06:39 Dose: 1 gm Tamsulosin HCl (Flomax) 0.4 mg PO DAILY [facility] Last Admin: 07/24/17 10:35 Dose: 0.4 mg - Labs Labs: 07/25/17 07:01 07/25/17 07:01 PT 13.2 SECONDS (9.4-12.5) H 07/21/17 18:19 INR 1.15 (0.93-1.08) H 07/21/17 18:19 APTT 29.5 Seconds (25.1-36.5) 07/21/17 18:19 - Constitutional Appears: Well, Non-toxic, No Acute Distress - Extremities Exam Additional comments: Left lower extremity focused exam: Vasc: DP/PT pulses palpable 2/4. CFT < 3 sec to all digits. Temperature gradient warm to cool. Derm: Diffuse hypopigmented skin patches secondary to previous ulcerations and blisters of foot. Wet superficial blister/ulceration noted to medial aspect of 1st MPJ, approx 6cm x 3.5cm x 0.1cm. Small amount of serosanguinous drainage noted to bandage. Serosanguinous drainage elicited from proximal aspect of blister when pressure applied. No malodor, no purulence, no undermining or tunneling, no fluctuance. Neuro: Protective sensation grossly diminished Ortho: No tenderness on palpation of left foot - Neurological Exam Neurological Exam: Alert, Awake, Oriented x3 - Psychiatric Exam Psychiatric exam: Normal Affect, Normal Mood Assessment and Plan - Assessment and Plan (Free Text) Assessment: 57 y/o male with left foot blister with superficial ulceration secondary to DM Plan: Pt seen and evaluated at bedside with attending Dr. Casanova Labs and vitals reviewed- afebrile, WBC 18.3 Wound to left foot cleansed with saline and dressed with DSD Wound culture of left foot positive for E. coli and MRSA Rx Bactroban to be applied with dressing changes Continue IV abx as per ID Multipodus boots ordered - must be utilized at all times to offload while in bed Nursing order placed to assist pt out of bed Podiatry will continue to follow while in house <Rhonda Casanova - Last Filed: 07/28/17 16:14> Objective - Vital Signs/Intake and Output Vital Signs (last 24 hours): Temp Pulse Resp BP Pulse Ox 97.6 F 90 20 164/100 H 98 07/28/17 08:19 07/28/17 08:19 07/28/17 08:19 07/28/17 08:19 07/28/17 08:19 Intake and Output: 07/28/17 07/28/17 06:59 18:59 Intake Total 760 240 Output Total 800 1300 Balance -40 -1060 - Medications Medications: Current Medications Acetaminophen (Tylenol 325mg Tab) 650 mg PO Q4 PRN PRN Reason: Fever >100.4 F Bismuth Subsalicylate (Pepto-Bismol) 262 mg PO DAILY [facility] Last Admin: 07/27/17 11:11 Dose: 262 mg Calcium Acetate (Phoslo) 667 mg PO BID [facility] Last Admin: 07/28/17 12:48 Dose: 667 mg Emtricitabine/Tenofovir (Truvada 200 Mg-300 Mg) 1 tab PO DAILY [facility] Heparin Sodium (Porcine) (Heparin) 5,000 units SC Q12 [facility] PRN Reason: Protocol Last Admin: 07/27/17 21:48 Dose: 5,000 units Ceftriaxone Sodium (Rocephin 2 Gm Ivpb) 2 gm in 100 mls @ 100 mls/hr IVPB DAILY [facility] PRN Reason: Protocol Last Admin: 07/28/17 12:46 Dose: 100 mls/hr Insulin Detemir (Levemir) 5 unit SC Q12 [facility] Last Admin: 07/28/17 12:36 Dose: 5 unit Insulin Human Lispro (Humalog Med) 0 units SC ACHS [facility] PRN Reason: Protocol Last Admin: 07/28/17 12:35 Dose: 3 units Linezolid (Zyvox) 600 mg PO BID [facility] PRN Reason: Protocol Stop: 08/06/17 18:01 Morphine Sulfate (Morphine) 1 mg IVP Q6H PRN PRN Reason: Pain, severe (8-10) Mupirocin (Bactroban Ointment) 0 gm TOP BID [facility] Last Admin: 07/27/17 17:31 Dose: 1 applic Emtricitabine/Tenofov Alafenam [ Descovy 200-25 Mg Tablet] (Home Med) 1 tab PO DAILY [facility] Last Admin: 07/27/17 11:15 Dose: Not Given Ondansetron HCl (Zofran Inj) 4 mg IVP Q6H PRN PRN Reason: Nausea/Vomiting Last Admin: 07/25/17 21:20 Dose: 4 mg Pantoprazole Sodium (Protonix Ec Tab) 40 mg PO Q12 [facility] Last Admin: 07/28/17 12:48 Dose: 40 mg Raltegravir (Isentress) 400 mg PO BID [facility] Last Admin: 07/27/17 17:39 Dose: 400 mg Sennosides (Senokot Tab) 8.6 mg PO DAILY [facility] Last Admin: 07/28/17 12:46 Dose: 8.6 mg Sucralfate (Carafate Oral Susp) 1 gm PO 0600,1600 [facility] Last Admin: 07/28/17 05:36 Dose: 1 gm Tamsulosin HCl (Flomax) 0.4 mg PO DAILY [facility] Last Admin: 07/27/17 09:51 Dose: 0.4 mg - Labs Labs: 07/27/17 07:00 07/27/17 07:00 PT 13.2 SECONDS (9.4-12.5) H 07/21/17 18:19 INR 1.15 (0.93-1.08) H 07/21/17 18:19 APTT 29.5 Seconds (25.1-36.5) 07/21/17 18:19 Attending/Attestation - Attestation I have personally seen and examined this patient.: Yes I have fully participated in the care of the patient.: Yes I have reviewed all pertinent clinical information, including history, physical exam and plan: Yes
--- NOTE | 2017-07-25 10:48 | CP.PCM.CON ---
History of Present Illness - History of Present Illness History of Present Illness: Palliative consult requested by Dr Jaylan Vuong Reason: Advance care planning 57 year old male with history of urinary retention, TURP, suprpubic tube, HTN, CKD and DM who presented with abdominal pain, malaise, nausea, vomiting and diarrhea for 4 days. Sister reported puss but no blood in urostomy tube. CT of abdomen bilateral hydoureteronephrosis, urostomy collapse around supra pubic catheter. Renal scan showed obstruction bilaterally. PMHx: DM,CKD,HIV, urinary retention,phimosis, TURP, urostomy tube,HIV,HTN, Charcot foot,developmental delay. Social History: Light smoker, no alcohol or drug use. Lives with his sister, Janette Garcia. Family History: Non contributory. Advance Care Planning:The patient has POA health care proxy who is Janette Garcia Past Patient History - Infectious Disease Hx of Infectious Diseases: None - Tetanus Immunizations Tetanus Immunization: Unknown - Past Medical History & Family History Past Medical History?: Yes - Past Social History Smoking Status: Current Some Days Smoker - CARDIAC Hx Cardiac Disorders: Yes Hx Hypertension: Yes Hx Peripheral Edema: Yes Hx Peripheral Vascular Disease: Yes - PULMONARY Hx Respiratory Disorders: No - NEUROLOGICAL Hx Neurological Disorder: Yes (MENTALLY IMPAIRED SINCE ) Hx Dizziness: Yes - HEENT Hx HEENT Problems: Yes (EXCESSIVE TEARING) - RENAL Hx Chronic Kidney Disease: Yes (RENAL INSUFFICIENCY) Other/Comment: HYDRONEPHROSIS - ENDOCRINE/METABOLIC Hx Endocrine Disorders: Yes Hx Diabetes Mellitus Type 2: Yes - HEMATOLOGICAL/ONCOLOGICAL Hx Blood Disorders: Yes Hx Anemia: Yes Hx Human Immunodeficiency Virus (HIV): Yes - INTEGUMENTARY Hx Dermatological Problems: Yes Other/Comment: FOOT INFECTION - MUSCULOSKELETAL/RHEUMATOLOGICAL Hx Falls: No - GASTROINTESTINAL Hx Gastrointestinal Disorders: Yes (HX:VOMITTING, LOSS OF APPETITE) - GENITOURINARY/GYNECOLOGICAL Hx Genitourinary Disorders: Yes (Retention) Hx Hematuria: Yes Hx Incontinence: Yes Hx Prostate Problems: Yes (BPH) Hx Urinary Tract Infection: Yes Other/Comment: EPIDIDYMITIS,E COLI IN THE URINE. HX: SUPRAPUBIC TUBE - PSYCHIATRIC Hx Substance Use: Yes (cannabis) - SURGICAL HISTORY Hx Surgeries: Yes Hx Orthopedic Surgery: Yes (open reduction internal fixation ( left leg)) Other/Comment: UROSTOMY - ANESTHESIA Hx Anesthesia: Yes Hx Anesthesia Reactions: No Hx Malignant Hyperthermia: No Meds Allergies/Adverse Reactions: Allergies Allergy/AdvReac Type Severity Reaction Status Date / Time No Known Allergies Allergy Verified 07/21/17 17:18 - Medications Medications: Current Medications Acetaminophen (Tylenol 325mg Tab) 650 mg PO Q4 PRN PRN Reason: Fever >100.4 F Bismuth Subsalicylate (Pepto-Bismol) 262 mg PO DAILY [facility] Calcium Acetate (Phoslo) 667 mg PO BID [facility] Last Admin: 07/25/17 09:53 Dose: 667 mg Emtricitabine/Tenofovir (Truvada 200 Mg-300 Mg) 1 tab PO DAILY [facility] Heparin Sodium (Porcine) (Heparin) 5,000 units SC Q12 [facility] PRN Reason: Protocol Last Admin: 07/25/17 09:53 Dose: 5,000 units Potassium Chloride 20 meq/ (Sodium Chloride) 1,010 mls @ 100 mls/hr IV .Q10H6M [facility] Last Admin: 07/25/17 04:41 Dose: 100 mls/hr Meropenem 500 mg/ Sodium (Chloride) 100 mls @ 100 mls/hr IVPB Q12 [facility] PRN Reason: Protocol Stop: 07/29/17 10:01 Last Admin: 07/25/17 09:54 Dose: 100 mls/hr Insulin Detemir (Levemir) 5 unit SC Q12 [facility] Last Admin: 07/25/17 09:53 Dose: 5 unit Insulin Human Lispro (Humalog Med) 0 units SC ACHS [facility] PRN Reason: Protocol Last Admin: 07/25/17 08:47 Dose: Not Given Morphine Sulfate (Morphine) 1 mg IVP Q6H PRN PRN Reason: Pain, severe (8-10) Mupirocin (Bactroban Ointment) 0 gm TOP BID [facility] Emtricitabine/Tenofov Alafenam [ Descovy 200-25 Mg Tablet] (Home Med) 1 tab PO DAILY [facility] Last Admin: 07/24/17 10:35 Dose: Not Given Ondansetron HCl (Zofran Inj) 4 mg IVP Q6H PRN PRN Reason: Nausea/Vomiting Last Admin: 07/24/17 14:15 Dose: 4 mg Pantoprazole Sodium (Protonix Ec Tab) 40 mg PO Q12 [facility] Last Admin: 07/25/17 09:53 Dose: 40 mg Raltegravir (Isentress) 400 mg PO BID [facility] Last Admin: 07/25/17 09:53 Dose: 400 mg Sennosides (Senokot Tab) 8.6 mg PO DAILY [facility] Last Admin: 07/25/17 09:53 Dose: 8.6 mg Sucralfate (Carafate Oral Susp) 1 gm PO 0600,1600 [facility] Last Admin: 07/25/17 06:39 Dose: 1 gm Tamsulosin HCl (Flomax) 0.4 mg PO DAILY [facility] Last Admin: 07/25/17 09:53 Dose: 0.4 mg Physical Exam - Constitutional Appears: Chronically Ill - Head Exam Head Exam: NORMAL INSPECTION - Eye Exam Eye Exam: Normal appearance, PERRL - ENT Exam ENT Exam: Mucous Membranes Moist - Respiratory Exam Respiratory Exam: Clear to Auscultation Bilateral, NORMAL BREATHING PATTERN - Cardiovascular Exam Cardiovascular Exam: +S1, +S2 - GI/Abdominal Exam GI & Abdominal Exam: Normal Bowel Sounds - Extremities Exam Extremities exam: Positive for: normal inspection - Skin Skin Exam: Dry, Warm - Additional Findings Additional findings: Palliative performance scale rating 60% Results - Vital Signs Recent Vital Signs: Last Vital Signs Temp 98.6 F 07/25/17 08:00 Pulse 84 07/25/17 08:00 Resp 20 07/25/17 08:00 BP 155/96 H 07/25/17 08:00 Pulse Ox 97 07/25/17 08:00 - Labs Result Diagrams: 07/25/17 07:01 07/25/17 07:01 Labs: Laboratory Results - last 24 hr 07/22/17 07/22/17 07/24/17 01:30 01:30 10:30 WBC RBC Hgb Hct MCV MCH MCHC RDW Plt Count MPV Sodium Potassium Chloride Carbon Dioxide Anion Gap BUN Creatinine Est GFR ( Amer) Est GFR (Non-Af Amer) POC Glucose (mg/dL) Random Glucose Calcium Total Bilirubin AST ALT Alkaline Phosphatase Lactate Dehydrogenase Total Protein Albumin Globulin Albumin/Globulin Ratio Urine Eosinophils Urine Osmolality 283 L Ur Random Creatinine 52 Ur Random Sodium 42 Ur Random Potassium 12.8 Ur Random Urea Nitrogn 419 Absolute Lymphs (Flow) 1948 % CD4 Cells 39 Absolute CD4 Count 766 T-Help/Suppress Ratio 0.98 % CD8 Cells 40 Absolute CD8 Count 783 HIV-1 RNA Qnt (RT-PCR) <1.30 not detected 07/24/17 07/24/17 07/24/17 10:30 11:40 12:24 WBC RBC Hgb Hct MCV MCH MCHC RDW Plt Count MPV Sodium Potassium Chloride Carbon Dioxide Anion Gap BUN Creatinine Est GFR ( Amer) Est GFR (Non-Af Amer) POC Glucose (mg/dL) 169 H 145 H Random Glucose Calcium Total Bilirubin AST ALT Alkaline Phosphatase Lactate Dehydrogenase Total Protein Albumin Globulin Albumin/Globulin Ratio Urine Eosinophils Negative Urine Osmolality Ur Random Creatinine Ur Random Sodium Ur Random Potassium Ur Random Urea Nitrogn Absolute Lymphs (Flow) % CD4 Cells Absolute CD4 Count T-Help/Suppress Ratio % CD8 Cells Absolute CD8 Count HIV-1 RNA Qnt (RT-PCR) 07/24/17 07/24/17 07/25/17 16:02 21:30 07:01 WBC 18.3 H RBC 3.03 L Hgb 8.5 L Hct 28.8 L MCV 95.0 D MCH 28.1 MCHC 29.5 L RDW 13.3 Plt Count 563 H MPV 9.9 Sodium Potassium Chloride Carbon Dioxide Anion Gap BUN Creatinine Est GFR ( Amer) Est GFR (Non-Af Amer) POC Glucose (mg/dL) 151 H 168 H Random Glucose Calcium Total Bilirubin AST ALT Alkaline Phosphatase Lactate Dehydrogenase Total Protein Albumin Globulin Albumin/Globulin Ratio Urine Eosinophils Urine Osmolality Ur Random Creatinine Ur Random Sodium Ur Random Potassium Ur Random Urea Nitrogn Absolute Lymphs (Flow) % CD4 Cells Absolute CD4 Count T-Help/Suppress Ratio % CD8 Cells Absolute CD8 Count HIV-1 RNA Qnt (RT-PCR) 07/25/17 07/25/17 07:01 07:45 WBC RBC Hgb Hct MCV MCH MCHC RDW Plt Count MPV Sodium 140 Potassium 4.6 Chloride 110 H Carbon Dioxide 23 Anion Gap 12 BUN 42 H Creatinine 3.1 H Est GFR ( Amer) 25 Est GFR (Non-Af Amer) 21 POC Glucose (mg/dL) 182 H Random Glucose 168 H Calcium 8.9 Total Bilirubin 0.9 AST 25 ALT 24 Alkaline Phosphatase 79 Lactate Dehydrogenase 508 Total Protein 6.5 Albumin 2.7 L Globulin 3.9 Albumin/Globulin Ratio 0.7 L Urine Eosinophils Urine Osmolality Ur Random Creatinine Ur Random Sodium Ur Random Potassium Ur Random Urea Nitrogn Absolute Lymphs (Flow) % CD4 Cells Absolute CD4 Count T-Help/Suppress Ratio % CD8 Cells Absolute CD8 Count HIV-1 RNA Qnt (RT-PCR) Assessment & Plan - Assessment and Plan (Free Text) Assessment: 57 year old male with history of HIV,CKD, HTN, urinary retention,TURP,recurrent UTI, charcot foot who is admitted with sepsis,bacteremia, polynephritis,TRICIA, left foot ulcer, hypocalcemia, nausea,vomiting and abdominal pain. I was asked to meet with patient and family to discuss advance care planning. The patients sister,Janette Pinto is his POA. A copy of those papers are in the patients chart. We then discussed advance care planning. Benefits and burdens of resuscitation with CPR/intubation/feeding tube. Questions answered. POLST directive also explained. Janette wants to speak with her family before making decision regarding resuscitation status. Time spent with family in goals of care and advance care planning conversation, 30 minutes Plan: Palliative support in establishing goals of care and advance care planning
[2017-07-25] MEDS: TENOFOV ALAFENAM PO SCH (13:06)
[2017-07-25] MEDS: EMTRICITABINE PO SCH (13:06)
[2017-07-25] MEDS: Bismuth Subsalicylate 262 mg/15 ml Sus (240 ml) PO SCH (13:25)
--- NOTE | 2017-07-25 13:26 | PCM.URO ---
Urology Progress Note - Objective Lab Studies: Reviewed (from gu standpoint ok for discharge and out pt management ) Lab Results Last 24 Hours: Laboratory Results - last 24 hr 07/22/17 07/24/17 07/24/17 01:30 10:30 16:02 WBC RBC Hgb Hct MCV MCH MCHC RDW Plt Count MPV Sodium Potassium Chloride Carbon Dioxide Anion Gap BUN Creatinine Est GFR ( Amer) Est GFR (Non-Af Amer) POC Glucose (mg/dL) 151 H Random Glucose Calcium Total Bilirubin AST ALT Alkaline Phosphatase Lactate Dehydrogenase Total Protein Albumin Globulin Albumin/Globulin Ratio Urine Osmolality 283 L HIV-1 RNA Qnt (RT-PCR) <1.30 not detected 07/24/17 07/25/17 07/25/17 21:30 07:01 07:01 WBC 18.3 H RBC 3.03 L Hgb 8.5 L Hct 28.8 L MCV 95.0 D MCH 28.1 MCHC 29.5 L RDW 13.3 Plt Count 563 H MPV 9.9 Sodium 140 Potassium 4.6 Chloride 110 H Carbon Dioxide 23 Anion Gap 12 BUN 42 H Creatinine 3.1 H Est GFR ( Amer) 25 Est GFR (Non-Af Amer) 21 POC Glucose (mg/dL) 168 H Random Glucose 168 H Calcium 8.9 Total Bilirubin 0.9 AST 25 ALT 24 Alkaline Phosphatase 79 Lactate Dehydrogenase 508 Total Protein 6.5 Albumin 2.7 L Globulin 3.9 Albumin/Globulin Ratio 0.7 L Urine Osmolality HIV-1 RNA Qnt (RT-PCR) 07/25/17 07/25/17 07:45 11:03 WBC RBC Hgb Hct MCV MCH MCHC RDW Plt Count MPV Sodium Potassium Chloride Carbon Dioxide Anion Gap BUN Creatinine Est GFR ( Amer) Est GFR (Non-Af Amer) POC Glucose (mg/dL) 182 H 195 H Random Glucose Calcium Total Bilirubin AST ALT Alkaline Phosphatase Lactate Dehydrogenase Total Protein Albumin Globulin Albumin/Globulin Ratio Urine Osmolality HIV-1 RNA Qnt (RT-PCR) Intake & Output: Intake & Output 07/24/17 07/25/17 07/25/17 18:59 06:59 18:59 Intake Total 1200 Output Total 2100 Balance -900 Intake: IV 1200 Left Forearm 1200 Oral 0 Output: Urine 2100 Urethral ([place]) 2100 Other: # Bowel Movements 0 Vital Signs: Vital Signs - 24 hr 07/24/17 07/25/17 07/25/17 16:00 07:30 08:00 Temperature 98.8 F 98.6 F 98.6 F Pulse Rate 85 84 84 Respiratory 20 20 20 Rate Blood Pressure 161/98 H 158/96 H 155/96 H O2 Sat by Pulse 97 97 97 Oximetry
--- NOTE | 2017-07-25 15:13 | CP.PCM.PN ---
<Nikhil Cabrera - Last Filed: 07/25/17 22:49> Subjective - Date & Time of Evaluation Date of Evaluation: 07/25/17 Time of Evaluation: 10:02 - Subjective Subjective: Nikhil Cabrera PGY1 IM Progress Note Patient was seen and examined at bedside. The patient states that he is feeling better and overall tolerating his diet more. denies n/v, fevers/chills, abdominal pain, chest pain, shortness of breath or weakness. Patient is a poor historian and is unable to provide any details about his outpatient doctors who manage his conditions. Objective - Vital Signs/Intake and Output Vital Signs (last 24 hours): Temp Pulse Resp BP Pulse Ox 98.6 F 84 20 155/96 H 97 07/25/17 08:00 07/25/17 08:00 07/25/17 08:00 07/25/17 08:00 07/25/17 08:00 Intake and Output: 07/25/17 07/25/17 06:59 18:59 Intake Total 1200 Output Total 2100 Balance -900 - Medications Medications: Current Medications Acetaminophen (Tylenol 325mg Tab) 650 mg PO Q4 PRN PRN Reason: Fever >100.4 F Bismuth Subsalicylate (Pepto-Bismol) 262 mg PO DAILY [facility] Last Admin: 07/25/17 13:25 Dose: 262 mg Calcium Acetate (Phoslo) 667 mg PO BID [facility] Last Admin: 07/25/17 09:53 Dose: 667 mg Emtricitabine/Tenofovir (Truvada 200 Mg-300 Mg) 1 tab PO DAILY [facility] Heparin Sodium (Porcine) (Heparin) 5,000 units SC Q12 [facility] PRN Reason: Protocol Last Admin: 07/25/17 09:53 Dose: 5,000 units Potassium Chloride 20 meq/ (Sodium Chloride) 1,010 mls @ 100 mls/hr IV .Q10H6M [facility] Last Admin: 07/25/17 04:41 Dose: 100 mls/hr Meropenem 500 mg/ Sodium (Chloride) 100 mls @ 100 mls/hr IVPB Q12 [facility] PRN Reason: Protocol Stop: 07/29/17 10:01 Last Admin: 07/25/17 09:54 Dose: 100 mls/hr Insulin Detemir (Levemir) 5 unit SC Q12 [facility] Last Admin: 07/25/17 09:53 Dose: 5 unit Insulin Human Lispro (Humalog Med) 0 units SC ACHS [facility] PRN Reason: Protocol Last Admin: 07/25/17 13:23 Dose: 1 units Morphine Sulfate (Morphine) 1 mg IVP Q6H PRN PRN Reason: Pain, severe (8-10) Mupirocin (Bactroban Ointment) 0 gm TOP BID [facility] Last Admin: 07/25/17 13:06 Dose: 1 applic Emtricitabine/Tenofov Alafenam [ Descovy 200-25 Mg Tablet] (Home Med) 1 tab PO DAILY [facility] Last Admin: 07/25/17 13:06 Dose: Not Given Ondansetron HCl (Zofran Inj) 4 mg IVP Q6H PRN PRN Reason: Nausea/Vomiting Last Admin: 07/24/17 14:15 Dose: 4 mg Pantoprazole Sodium (Protonix Ec Tab) 40 mg PO Q12 [facility] Last Admin: 07/25/17 09:53 Dose: 40 mg Raltegravir (Isentress) 400 mg PO BID [facility] Last Admin: 07/25/17 09:53 Dose: 400 mg Sennosides (Senokot Tab) 8.6 mg PO DAILY [facility] Last Admin: 07/25/17 09:53 Dose: 8.6 mg Sucralfate (Carafate Oral Susp) 1 gm PO 0600,1600 [facility] Last Admin: 07/25/17 06:39 Dose: 1 gm Tamsulosin HCl (Flomax) 0.4 mg PO DAILY [facility] Last Admin: 07/25/17 09:53 Dose: 0.4 mg - Labs Labs: 07/25/17 07:01 07/25/17 07:01 PT 13.2 SECONDS (9.4-12.5) H 07/21/17 18:19 INR 1.15 (0.93-1.08) H 07/21/17 18:19 APTT 29.5 Seconds (25.1-36.5) 07/21/17 18:19 - Additional Findings Additional findings: - Constitutional Appears: Well, Non-toxic, No Acute Distress - Head Exam Head Exam: NORMAL INSPECTION - Eye Exam Eye Exam: EOMI, Normal appearance - ENT Exam ENT Exam: Mucous Membranes Dry - Neck Exam Neck Exam: Normal Inspection - Respiratory Exam Respiratory Exam: NORMAL BREATHING PATTERN. absent: Rales, Rhonchi, Wheezes - Cardiovascular Exam Cardiovascular Exam: RRR, +S1, +S2 - GI/Abdominal Exam GI & Abdominal Exam: Guarding, Soft, Tenderness (diffuse), Normal Bowel Sounds. absent: Distended - Exam Additional comments: suprapubic catheter in place with sediment noted in bag, but no pus or blood noted - Extremities Exam Extremities Exam: absent: Calf Tenderness, Pedal Edema Additional comments: chronic venous stasis skin changes L foot is wrapped and dressed (clean/dry/intact) - Back Exam Back Exam: NORMAL INSPECTION - Neurological Exam Neurological Exam: Alert, Awake, Oriented x3 - Psychiatric Exam Psychiatric exam: Normal Affect, Normal Mood - Skin Skin Exam: Normal Color, Warm Assessment and Plan - Assessment and Plan (Free Text) Assessment: 57 yo AAM with PMH of urinary retention s/p TURP, phimosis s/p circumcision and urostomy tube, recurrent UTI/pyelonephritis, HIV, HTN, CKD, Charcot foot, and DM who presented with complaint of abdominal pain, malaise, and nausea/emesis x 4 days. He is being admitted for severe sepsis in setting of TRICIA likely 2/2 pyelonephritis. Plan: 1. Severe sepsis 2/2 pyelonephritis vs foot ulcer - CT abd/pelvis concerning for urostomy collapsed around suprapubic catheter, moderate bilateral hydroureteronephrosis, Air within the left collecting system ; Minimal hiatal hernia. Fundus gastric wall prominence, small bowel in the upper abdomen demonstrates bowel wall prominence. Colonic diverticula. - Air in left collecting system likely tracking from urostomy tube, but in setting of immunocompromised state (HIV) and DM2, will empirically cover for emphysematous pyelonephritis organisms - UA notable for large blood, large leuk esterase, TNTC RBCs and WBCs, Many bacteria - TRICIA improving slightly, and clinically improving - urine culture grew MRSA and e.coli - blood cx grew e.coli - foot cx grew MRSA and e.coli - procal elevated - cont Meropenem - ID contacted regarding MRSA coverage; will add appropriately - cont urostomy tube irrigation per Uro - ID and Urology consulted, appreciate all recs - advance as tolerated - Zofran PRN for emesis - Tylenol PRN 2. Diabetic foot wounds with purulent discharge - b/l pedal pulses - wound cultures grew MRSA and e.coli - Podiatry consulted, recs appreciated 3. TRICIA on CKD - FENa 2.3 indicating intrinsic cause of TRICIA, however, unreliable give patient has CKD - TRICIA 2/2 dehydration or hypoperfusion due to sepsis on presentation vs infectious component - baseline Cr per prior charting 1.7-2.5 - cont NS 100cc/hr + KCl 20 mEq per bag - continue to monitor 4. Hyperglycemia - A1C 10.8 - holding off on oral hypoglycemics - Levemir 5u Q12, converted from 10u Lantus HS at home - ISS medium - Accuchecks ACHS 5. HIV - CD4 count 766 - viral load undetectable - CMV IgG Ab +, unclear if acute or chronic - Legoinella urine antigen, G/C ordered - Toxoplasma indeterminate, will re-order - RPR nonreactive - Hepatitis panels negative - continue current HAART regimen, pending ID eval and recs 6. Hypocalcemia - cont calcium gluconate 7. Hypokalemia, stable - will cont to monitor 8. PPX - PTX for GI PPX - Heparin and SCDs for DVT PPX Dispo: Home when medically cleared. Patient was seen, examined and discussed with attending, Dr. Shayne Cabrera PGY1 <Elizabet Bella - Last Filed: 07/26/17 17:55> Objective - Vital Signs/Intake and Output Vital Signs (last 24 hours): Temp Pulse Resp BP Pulse Ox 98.5 F 84 20 148/97 H 97 07/26/17 17:29 07/26/17 17:29 07/26/17 17:29 07/26/17 17:29 07/26/17 17:29 Intake and Output: 07/26/17 07/26/17 06:59 18:59 Intake Total 840 Output Total 2200 Balance -1360 - Medications Medications: Current Medications Acetaminophen (Tylenol 325mg Tab) 650 mg PO Q4 PRN PRN Reason: Fever >100.4 F Bismuth Subsalicylate (Pepto-Bismol) 262 mg PO DAILY [facility] Last Admin: 07/25/17 13:25 Dose: 262 mg Calcium Acetate (Phoslo) 667 mg PO BID [facility] Last Admin: 07/26/17 13:31 Dose: 667 mg Emtricitabine/Tenofovir (Truvada 200 Mg-300 Mg) 1 tab PO DAILY [facility] Heparin Sodium (Porcine) (Heparin) 5,000 units SC Q12 [facility] PRN Reason: Protocol Last Admin: 07/26/17 16:59 Dose: 5,000 units Potassium Chloride 20 meq/ (Sodium Chloride) 1,010 mls @ 100 mls/hr IV .Q10H6M [facility] Last Admin: 07/26/17 13:35 Dose: 100 mls/hr Ceftriaxone Sodium (Rocephin 2 Gm Ivpb) 2 gm in 100 mls @ 100 mls/hr IVPB DAILY [facility] PRN Reason: Protocol Last Admin: 07/26/17 16:59 Dose: 100 mls/hr Insulin Detemir (Levemir) 5 unit SC Q12 [facility] Last Admin: 07/26/17 13:33 Dose: 5 unit Insulin Human Lispro (Humalog Med) 0 units SC ACHS [facility] PRN Reason: Protocol Last Admin: 07/26/17 16:58 Dose: 1 units Morphine Sulfate (Morphine) 1 mg IVP Q6H PRN PRN Reason: Pain, severe (8-10) Mupirocin (Bactroban Ointment) 0 gm TOP BID [facility] Last Admin: 07/26/17 17:01 Dose: Not Given Emtricitabine/Tenofov Alafenam [ Descovy 200-25 Mg Tablet] (Home Med) 1 tab PO DAILY [facility] Last Admin: 07/26/17 13:22 Dose: Not Given Ondansetron HCl (Zofran Inj) 4 mg IVP Q6H PRN PRN Reason: Nausea/Vomiting Last Admin: 07/25/17 21:20 Dose: 4 mg Pantoprazole Sodium (Protonix Ec Tab) 40 mg PO Q12 [facility] Last Admin: 07/26/17 13:31 Dose: 40 mg Raltegravir (Isentress) 400 mg PO BID [facility] Last Admin: 07/26/17 13:32 Dose: 400 mg Sennosides (Senokot Tab) 8.6 mg PO DAILY [facility] Last Admin: 07/26/17 13:31 Dose: 8.6 mg Sucralfate (Carafate Oral Susp) 1 gm PO 0600,1600 [facility] Last Admin: 07/26/17 16:58 Dose: 1 gm Tamsulosin HCl (Flomax) 0.4 mg PO DAILY [facility] Last Admin: 07/26/17 13:32 Dose: 0.4 mg - Labs Labs: 07/26/17 08:30 07/26/17 07:30 PT 13.2 SECONDS (9.4-12.5) H 07/21/17 18:19 INR 1.15 (0.93-1.08) H 07/21/17 18:19 APTT 29.5 Seconds (25.1-36.5) 07/21/17 18:19 Attending/Attestation - Attestation I have personally seen and examined this patient.: Yes I have fully participated in the care of the patient.: Yes I have reviewed all pertinent clinical information, including history, physical exam and plan: Yes Notes (Text): 07/26/17 17:50 attending note; Patient seen and examined with resident. Patient is a 57 -year-old male with PMH of urinary retention s/p TURP, phimosis s/p circumcision, s/p urostomy tube, recurrent UTI/pyelonephritis, HIV, hypertension, chronic kidney disease,delayed development, Charcot foot, and DM who presents with complaint of abdominal pain, malaise, and nausea/emesis x 4 days. the patient was found to have UTI. urine culture grew Escherichia coli. Currently started on IV meropenem. Patient is afebrile and nontoxic. Tolerating diet well. Blood culture grew Escherichia coli. HIV; continue medications. ID evaluation appreciated. Podiatry follow-up for wound care. Offloading with boot. Acute on chronic kidney disease; creatinine is improving. CT scan showed hydronephrosis. Case discussed with urology Dr. Segura. Needs close outpatient follow up. Upon discharge the patient will follow-up with PMD Dr. Howe. 07/26/17 17:54
[2017-07-25] MEDS ORDERED: Vancomycin 1gm in NS 250ml 1 GM/250 ML BAG IVPB STA (19:50)
--- NOTE | 2017-07-25 23:35 | PN ---
DATE: 07/25/2017 SUBJECTIVE: The patient is in bed, in no acute distress. Nontoxic. PHYSICAL EXAMINATION VITAL SIGNS: On exam, temperature is 98, blood pressure is 150/90 and respiratory rate of 16. HEENT: Unremarkable. NECK: Supple. LUNGS: Have decreased breath sounds. HEART: Normal S1 and S2. ABDOMEN: Soft and nontender. LABORATORY DATA: Laboratory examination reveals a white count of 18,000, which is improved and hemoglobin of 8. Chemistry reveals a BUN of 42 and creatinine of 3.7. Urinalysis is noted. T-cells are noted 39% and 766 serology is noted. Hepatitis C is negative. Urine for Legionella antigen is negative. Microbiology reveals E. coli in the blood and urine has E. coli and MRSA. Left foot has E. coli and MRSA. Review of orders reveals the patient to be on meropenem. ASSESSMENT AND PLAN: This is a 57-year-old male with history of urinary retention, phimosis and status post circumcision, status post transurethral resection of prostate and urostomy, admitted with severe sepsis with acute on chronic renal failure with Escherichia coli bacteremia. Escherichia coli and methicillin-resistant Staphylococcus aureus in the foot and Escherichia coli and methicillin-resistant Staphylococcus aureus in the urine and on meropenem. Repeat blood cultures are negative. The patient's creatinine is 3.1 with a dose of vancomycin. The patient was also on , T-cell, human immunodeficiency virus and acute kidney injury on top of chronic kidney injury. We will follow closely with you. Gianluca Marsh MD
[2017-07-26] MEDS: Insulin Lispro (humaLOG) MEDIUM Coverage SC SCH ×4 (01:45→16:58)
[2017-07-26] MEDS: Sucralfate 1 gm/10 ml Oral Susp UD PO SCH ×2 (06:18→16:58)
[2017-07-26 08:06] LABS: MEAN CELL VOLUME 95.9 fl (80.0-105.0); MEAN CORPUSCULAR HEMOGLOBIN 28.4 pg (25.0-35.0); MEAN CORPUSCULAR HGB CONC 29.6 g/dl (31.0-37.0); MEAN PLATELET VOLUME 9.8 fl (7.0-11.0); RBC 2.71 10^6/uL (3.5-6.1); RED CELL DISTRIBUTION WIDTH 13.5 % (11.5-14.5); WHITE BLOOD COUNT 18.3 10^3/ul (4.5-11.0)
[2017-07-26 08:22] LABS: HEMOGLOBIN 7.7 g/dL (14.0-18.0)
[2017-07-26 08:37] LABS: ALB/GLOB RATIO 0.7 (1.1-1.8); ALBUMIN 2.6 g/dL (3.0-4.8); CALCIUM 8.8 mg/dL (8.4-10.5)
[2017-07-26 08:53] LABS: BASO # 0.06 K/mm3 (0.0-2.0); BASO % 0.3 % (0.0-3.0); EOS # 0.2 (0.0-0.7); EOS % 0.8 % (1.5-5.0); GRAN # 14.27 (1.4-6.5); GRAN % 78.6 % (50.0-68.0); LYMPH # 2.5 (1.2-3.4); LYMPH % 13.9 % (22.0-35.0); MEAN CELL VOLUME 96.1 fl (80.0-105.0); MEAN CORPUSCULAR HEMOGLOBIN 28.1 pg (25.0-35.0); MEAN CORPUSCULAR HGB CONC 29.3 g/dl (31.0-37.0); MEAN PLATELET VOLUME 9.2 fl (7.0-11.0); MONO # 1.2 (0.1-0.6); MONO % 6.4 % (1.0-6.0); RBC 2.81 10^6/uL (3.5-6.1); RED CELL DISTRIBUTION WIDTH 13.5 % (11.5-14.5); WHITE BLOOD COUNT 18.2 10^3/ul (4.5-11.0)
[2017-07-26 09:13] LABS: HEMOGLOBIN 7.9 g/dL (14.0-18.0)
--- NOTE | 2017-07-26 11:30 | CP.PCM.PN ---
<GarciaBrianne - Last Filed: 07/26/17 11:35> Subjective - Date & Time of Evaluation Date of Evaluation: 07/26/17 Time of Evaluation: 11:29 - Subjective Subjective: 57 y/o mentally challenged male seen at bedside with attending Dr. Lopez for left foot superficial open blister. He denies having any pain in the foot. Dressing remains clean, dry and intact to his left foot. Pt says he is comfortably resting at this time and has no complaints. Multipodus boots are not on or present at this time to lower extremities. Denies F/C/N/D/C/CP/SOB. Objective - Vital Signs/Intake and Output Vital Signs (last 24 hours): Temp Pulse Resp BP Pulse Ox 98.5 F 98 H 20 156/90 H 98 07/26/17 07:30 07/26/17 07:30 07/26/17 07:30 07/26/17 07:30 07/26/17 07:30 Intake and Output: 07/26/17 07/26/17 06:59 18:59 Intake Total 840 Output Total 2200 Balance -1360 - Medications Medications: Current Medications Acetaminophen (Tylenol 325mg Tab) 650 mg PO Q4 PRN PRN Reason: Fever >100.4 F Bismuth Subsalicylate (Pepto-Bismol) 262 mg PO DAILY [facility] Last Admin: 07/25/17 13:25 Dose: 262 mg Calcium Acetate (Phoslo) 667 mg PO BID [facility] Last Admin: 07/25/17 17:35 Dose: 667 mg Emtricitabine/Tenofovir (Truvada 200 Mg-300 Mg) 1 tab PO DAILY [facility] Heparin Sodium (Porcine) (Heparin) 5,000 units SC Q12 [facility] PRN Reason: Protocol Last Admin: 07/25/17 21:21 Dose: 5,000 units Potassium Chloride 20 meq/ (Sodium Chloride) 1,010 mls @ 100 mls/hr IV .Q10H6M [facility] Last Admin: 07/25/17 04:41 Dose: 100 mls/hr Ceftriaxone Sodium (Rocephin 2 Gm Ivpb) 2 gm in 100 mls @ 100 mls/hr IVPB DAILY [facility] PRN Reason: Protocol Insulin Detemir (Levemir) 5 unit SC Q12 [facility] Last Admin: 07/25/17 21:38 Dose: 5 unit Insulin Human Lispro (Humalog Med) 0 units SC ACHS [facility] PRN Reason: Protocol Last Admin: 07/26/17 07:52 Dose: Not Given Morphine Sulfate (Morphine) 1 mg IVP Q6H PRN PRN Reason: Pain, severe (8-10) Mupirocin (Bactroban Ointment) 0 gm TOP BID [facility] Last Admin: 07/25/17 18:00 Dose: Not Given Emtricitabine/Tenofov Alafenam [ Descovy 200-25 Mg Tablet] (Home Med) 1 tab PO DAILY [facility] Last Admin: 07/25/17 13:06 Dose: Not Given Ondansetron HCl (Zofran Inj) 4 mg IVP Q6H PRN PRN Reason: Nausea/Vomiting Last Admin: 07/25/17 21:20 Dose: 4 mg Pantoprazole Sodium (Protonix Ec Tab) 40 mg PO Q12 [facility] Last Admin: 07/25/17 21:21 Dose: 40 mg Raltegravir (Isentress) 400 mg PO BID [facility] Last Admin: 07/25/17 17:35 Dose: 400 mg Sennosides (Senokot Tab) 8.6 mg PO DAILY [facility] Last Admin: 07/25/17 09:53 Dose: 8.6 mg Sucralfate (Carafate Oral Susp) 1 gm PO 0600,1600 [facility] Last Admin: 07/26/17 06:18 Dose: 1 gm Tamsulosin HCl (Flomax) 0.4 mg PO DAILY [facility] Last Admin: 07/25/17 09:53 Dose: 0.4 mg - Labs Labs: 07/26/17 08:30 07/26/17 07:30 PT 13.2 SECONDS (9.4-12.5) H 07/21/17 18:19 INR 1.15 (0.93-1.08) H 07/21/17 18:19 APTT 29.5 Seconds (25.1-36.5) 07/21/17 18:19 - Constitutional Appears: Well, Non-toxic, No Acute Distress - Extremities Exam Additional comments: Left lower extremity focused exam: Vasc: DP/PT pulses palpable 2/4. CFT < 3 sec to all digits. Temperature gradient warm to cool. Derm: Diffuse hypopigmented skin patches secondary to previous ulcerations and blisters of foot. Wet superficial blister/ulceration noted to medial aspect of 1st MPJ, approx 6cm x 3.5cm x 0.1cm. Small amount of serosanguinous drainage noted to bandage. 1-2cc thin serosanguinous drainage elicited from proximal aspect of blister when pressure applied to plantar medial arch towards open blister. No malodor, no purulence, no undermining or tunneling, no fluctuance. Neuro: Protective sensation grossly diminished Ortho: No tenderness on palpation of left foot - Neurological Exam Neurological Exam: Alert, Awake, Oriented x3 - Psychiatric Exam Psychiatric exam: Normal Affect, Normal Mood Assessment and Plan - Assessment and Plan (Free Text) Assessment: 57 y/o male with left foot blister with superficial ulceration secondary to DM Plan: Pt seen and evaluated at bedside with attending Dr. Lopez Labs and vitals reviewed- afebrile, WBC 18.2 Wound to left foot cleansed with saline and dressed with Bactroban and DSD Wound culture of left foot positive for E. coli and MRSA Continue IV abx as per ID - Vanco and Orestes discontinued; continue Rocephin Multipodus boots ordered - must be applied at all times in bed Nursing order placed to assist pt out of bed Podiatry will continue to follow while in house <Geoff Lopez - Last Filed: 07/27/17 08:30> Objective - Vital Signs/Intake and Output Vital Signs (last 24 hours): Temp Pulse Resp BP Pulse Ox 98.6 F 85 20 183/115 H 96 07/27/17 08:19 07/27/17 08:19 07/27/17 08:19 07/27/17 08:19 07/27/17 08:19 Intake and Output: 07/27/17 07/27/17 06:59 18:59 Intake Total 760 Output Total 2100 Balance -1340 - Medications Medications: Current Medications Acetaminophen (Tylenol 325mg Tab) 650 mg PO Q4 PRN PRN Reason: Fever >100.4 F Bismuth Subsalicylate (Pepto-Bismol) 262 mg PO DAILY [facility] Last Admin: 07/26/17 18:42 Dose: Not Given Calcium Acetate (Phoslo) 667 mg PO BID [facility] Last Admin: 07/26/17 18:52 Dose: 667 mg Emtricitabine/Tenofovir (Truvada 200 Mg-300 Mg) 1 tab PO DAILY [facility] Heparin Sodium (Porcine) (Heparin) 5,000 units SC Q12 [facility] PRN Reason: Protocol Last Admin: 07/26/17 22:12 Dose: 5,000 units Potassium Chloride 20 meq/ (Sodium Chloride) 1,010 mls @ 100 mls/hr IV .Q10H6M [facility] Last Admin: 07/26/17 13:35 Dose: 100 mls/hr Ceftriaxone Sodium (Rocephin 2 Gm Ivpb) 2 gm in 100 mls @ 100 mls/hr IVPB DAILY [facility] PRN Reason: Protocol Last Admin: 07/26/17 16:59 Dose: 100 mls/hr Insulin Detemir (Levemir) 5 unit SC Q12 [facility] Last Admin: 07/26/17 22:13 Dose: 5 unit Insulin Human Lispro (Humalog Med) 0 units SC ACHS [facility] PRN Reason: Protocol Last Admin: 07/26/17 16:58 Dose: 1 units Morphine Sulfate (Morphine) 1 mg IVP Q6H PRN PRN Reason: Pain, severe (8-10) Mupirocin (Bactroban Ointment) 0 gm TOP BID [facility] Last Admin: 07/26/17 17:01 Dose: Not Given Emtricitabine/Tenofov Alafenam [ Descovy 200-25 Mg Tablet] (Home Med) 1 tab PO DAILY [facility] Last Admin: 07/26/17 13:22 Dose: Not Given Ondansetron HCl (Zofran Inj) 4 mg IVP Q6H PRN PRN Reason: Nausea/Vomiting Last Admin: 07/25/17 21:20 Dose: 4 mg Pantoprazole Sodium (Protonix Ec Tab) 40 mg PO Q12 [facility] Last Admin: 07/26/17 22:14 Dose: 40 mg Raltegravir (Isentress) 400 mg PO BID [facility] Last Admin: 07/26/17 18:52 Dose: 400 mg Sennosides (Senokot Tab) 8.6 mg PO DAILY [facility] Last Admin: 07/26/17 13:31 Dose: 8.6 mg Sucralfate (Carafate Oral Susp) 1 gm PO 0600,1600 [facility] Last Admin: 07/27/17 05:58 Dose: 1 gm Tamsulosin HCl (Flomax) 0.4 mg PO DAILY [facility] Last Admin: 07/26/17 13:32 Dose: 0.4 mg Trimethoprim/Sulfamethoxazole (Bactrim Ds Tab) 1 tab PO BID [facility] PRN Reason: Protocol - Labs Labs: 07/27/17 07:00 07/27/17 07:00 PT 13.2 SECONDS (9.4-12.5) H 07/21/17 18:19 INR 1.15 (0.93-1.08) H 07/21/17 18:19 APTT 29.5 Seconds (25.1-36.5) 07/21/17 18:19 Attending/Attestation - Attestation I have personally seen and examined this patient.: Yes I have fully participated in the care of the patient.: Yes I have reviewed all pertinent clinical information, including history, physical exam and plan: Yes
[2017-07-26] MEDS: EMTRICITABINE PO SCH (13:22)
[2017-07-26] MEDS: TENOFOV ALAFENAM PO SCH (13:22)
[2017-07-26] MEDS: Pantoprazole 40 mg EC Tab PO SCH ×2 (13:31→22:14)
[2017-07-26] MEDS: Insulin Detemir 100 units/ml Vial (Levemir) SC SCH ×2 (13:33→22:13)
--- NOTE | 2017-07-26 14:41 | CP.PCM.PN ---
<DeborahNikhil - Last Filed: 07/26/17 17:01> Subjective - Date & Time of Evaluation Date of Evaluation: 07/26/17 Time of Evaluation: 10:40 - Subjective Subjective: Nikhil Cabrera PGY1 IM Progress Note Patient was seen and examined at bedside. he states that he is felling much better overall, that his abdominal pain has resolved and that he has not experienced nausea/vomiting. He is tolerating his diet well. denies fevers/ chills, n/v/d, chest pain, shortness of breath. Met with sister Janette (WANDA), who was responsible for decision for [facility] vs [facility]. Patient feels that she is not qualified to care for the patient's needs (PICC line care, wound care and physical therapy) if he's home even if nurse visits, but wants the patient to be home so she could visit him more easily. Final decision as discussed with SW, is that patient will go to [facility], pending authorization. Objective - Vital Signs/Intake and Output Vital Signs (last 24 hours): Temp Pulse Resp BP Pulse Ox 98.5 F 98 H 20 156/90 H 98 07/26/17 07:30 07/26/17 07:30 07/26/17 07:30 07/26/17 07:30 07/26/17 07:30 Intake and Output: 07/26/17 07/26/17 06:59 18:59 Intake Total 840 Output Total 2200 Balance -1360 - Medications Medications: Current Medications Acetaminophen (Tylenol 325mg Tab) 650 mg PO Q4 PRN PRN Reason: Fever >100.4 F Bismuth Subsalicylate (Pepto-Bismol) 262 mg PO DAILY [facility] Last Admin: 07/25/17 13:25 Dose: 262 mg Calcium Acetate (Phoslo) 667 mg PO BID [facility] Last Admin: 07/26/17 13:31 Dose: 667 mg Emtricitabine/Tenofovir (Truvada 200 Mg-300 Mg) 1 tab PO DAILY [facility] Heparin Sodium (Porcine) (Heparin) 5,000 units SC Q12 [facility] PRN Reason: Protocol Last Admin: 07/25/17 21:21 Dose: 5,000 units Potassium Chloride 20 meq/ (Sodium Chloride) 1,010 mls @ 100 mls/hr IV .Q10H6M [facility] Last Admin: 07/26/17 13:35 Dose: 100 mls/hr Ceftriaxone Sodium (Rocephin 2 Gm Ivpb) 2 gm in 100 mls @ 100 mls/hr IVPB DAILY [facility] PRN Reason: Protocol Insulin Detemir (Levemir) 5 unit SC Q12 [facility] Last Admin: 07/26/17 13:33 Dose: 5 unit Insulin Human Lispro (Humalog Med) 0 units SC ACHS [facility] PRN Reason: Protocol Last Admin: 07/26/17 13:32 Dose: 1 units Morphine Sulfate (Morphine) 1 mg IVP Q6H PRN PRN Reason: Pain, severe (8-10) Mupirocin (Bactroban Ointment) 0 gm TOP BID [facility] Last Admin: 07/26/17 13:22 Dose: 1 applic Emtricitabine/Tenofov Alafenam [ Descovy 200-25 Mg Tablet] (Home Med) 1 tab PO DAILY [facility] Last Admin: 07/26/17 13:22 Dose: Not Given Ondansetron HCl (Zofran Inj) 4 mg IVP Q6H PRN PRN Reason: Nausea/Vomiting Last Admin: 07/25/17 21:20 Dose: 4 mg Pantoprazole Sodium (Protonix Ec Tab) 40 mg PO Q12 [facility] Last Admin: 07/26/17 13:31 Dose: 40 mg Raltegravir (Isentress) 400 mg PO BID [facility] Last Admin: 07/26/17 13:32 Dose: 400 mg Sennosides (Senokot Tab) 8.6 mg PO DAILY [facility] Last Admin: 07/26/17 13:31 Dose: 8.6 mg Sucralfate (Carafate Oral Susp) 1 gm PO 0600,1600 [facility] Last Admin: 07/26/17 06:18 Dose: 1 gm Tamsulosin HCl (Flomax) 0.4 mg PO DAILY [facility] Last Admin: 07/26/17 13:32 Dose: 0.4 mg - Labs Labs: 07/26/17 08:30 07/26/17 07:30 PT 13.2 SECONDS (9.4-12.5) H 07/21/17 18:19 INR 1.15 (0.93-1.08) H 07/21/17 18:19 APTT 29.5 Seconds (25.1-36.5) 07/21/17 18:19 - Additional Findings Additional findings: - Constitutional Appears: Well, Non-toxic, No Acute Distress - Head Exam Head Exam: NORMAL INSPECTION - Eye Exam Eye Exam: EOMI, Normal appearance - ENT Exam ENT Exam: Mucous Membranes Dry - Neck Exam Neck Exam: Normal Inspection - Respiratory Exam Respiratory Exam: NORMAL BREATHING PATTERN. absent: Rales, Rhonchi, Wheezes - Cardiovascular Exam Cardiovascular Exam: RRR, +S1, +S2 - GI/Abdominal Exam GI & Abdominal Exam: Guarding, Soft, Tenderness (diffuse), Normal Bowel Sounds. absent: Distended - Exam Additional comments: suprapubic catheter in place with sediment noted in bag, but no pus or blood noted - Extremities Exam Extremities Exam: absent: Calf Tenderness, Pedal Edema Additional comments: chronic venous stasis skin changes L foot is wrapped and dressed (clean/dry/intact) - Back Exam Back Exam: NORMAL INSPECTION - Neurological Exam Neurological Exam: Alert, Awake, Oriented x3 - Psychiatric Exam Psychiatric exam: Normal Affect, Normal Mood - Skin Skin Exam: Normal Color, Warm Assessment and Plan - Assessment and Plan (Free Text) Assessment: 57 yo AAM with PMH of urinary retention s/p TURP, phimosis s/p circumcision and urostomy tube, recurrent UTI/pyelonephritis, HIV, HTN, CKD, Charcot foot, and DM who presented with complaint of abdominal pain, malaise, and nausea/emesis x 4 days. He is being admitted for severe sepsis in setting of TRICIA likely 2/2 pyelonephritis. TRICIA is improving and despite still meeting SIRS criteria for sepsis, patient is clinically improving. Per WANDA Savage (sister), patient is to go to [facility]. Per ID, patient may be discharged on Rocephin and Bactrim. If patient is going to [facility], no need for PICC line placement; if patient is to go home, PICC line will need to be placed. Plan: 1. Severe sepsis 2/2 pyelonephritis vs foot ulcer - CT abd/pelvis concerning for urostomy collapsed around suprapubic catheter, moderate bilateral hydroureteronephrosis, Air within the left collecting system ; Minimal hiatal hernia. Fundus gastric wall prominence, small bowel in the upper abdomen demonstrates bowel wall prominence. Colonic diverticula. - Air in left collecting system likely tracking from urostomy tube, but in setting of immunocompromised state (HIV) and DM2, will empirically cover for emphysematous pyelonephritis organisms - UA notable for large blood, large leuk esterase, TNTC RBCs and WBCs, Many bacteria - TRICIA improving slightly, and clinically improving - urine culture grew MRSA and e.coli - blood cx grew e.coli - foot cx grew MRSA and e.coli - procal elevated - cont Rocephin, per ID - ID contacted regarding MRSA coverage - cont urostomy tube irrigation per Uro - Urology consulted, have signed off - advance as tolerated - Zofran PRN for emesis - Tylenol PRN 2. Diabetic foot wounds with purulent discharge - b/l pedal pulses - wound cultures grew MRSA and e.coli - Podiatry consulted, recs appreciated 3. TRICIA on CKD - FENa 2.3 indicating intrinsic cause of TRICIA, however, unreliable give patient has CKD - TRICIA 2/2 dehydration or hypoperfusion due to sepsis on presentation vs infectious component - baseline Cr per prior charting 1.7-2.5 - cont NS 100cc/hr + KCl 20 mEq per bag - continue to monitor 4. Hyperglycemia - A1C 10.8 - holding off on oral hypoglycemics - Levemir 5u Q12, converted from 10u Lantus HS at home - ISS medium - Accuchecks ACHS 5. HIV - CD4 count 766 - viral load undetectable - CMV IgG Ab +, unclear if acute or chronic - Legoinella urine antigen, G/C ordered - Toxoplasma IgM+ - RPR nonreactive - Hepatitis panels negative - continue current HAART regimen, pending ID eval and recs 6. Hypocalcemia - cont calcium gluconate 7. Hypokalemia, stable - will cont to monitor 8. PPX - PTX for GI PPX - Heparin and SCDs for DVT PPX Dispo: [facility] pending authorization Patient was seen, examined and discussed with attending, Dr. Shayne Cabrera PGY1 <Elizabet Bella - Last Filed: 07/27/17 13:41> Objective - Vital Signs/Intake and Output Vital Signs (last 24 hours): Temp Pulse Resp BP Pulse Ox 98.6 F 85 20 183/115 H 96 07/27/17 08:19 07/27/17 08:19 07/27/17 08:19 07/27/17 08:19 07/27/17 08:19 Intake and Output: 07/27/17 07/27/17 06:59 18:59 Intake Total 760 Output Total 2100 Balance -1340 - Medications Medications: Current Medications Acetaminophen (Tylenol 325mg Tab) 650 mg PO Q4 PRN PRN Reason: Fever >100.4 F Bismuth Subsalicylate (Pepto-Bismol) 262 mg PO DAILY [facility] Last Admin: 07/27/17 11:11 Dose: 262 mg Calcium Acetate (Phoslo) 667 mg PO BID [facility] Last Admin: 07/27/17 09:54 Dose: 667 mg Emtricitabine/Tenofovir (Truvada 200 Mg-300 Mg) 1 tab PO DAILY [facility] Heparin Sodium (Porcine) (Heparin) 5,000 units SC Q12 [facility] PRN Reason: Protocol Last Admin: 07/27/17 09:53 Dose: 5,000 units Ceftriaxone Sodium (Rocephin 2 Gm Ivpb) 2 gm in 100 mls @ 100 mls/hr IVPB DAILY [facility] PRN Reason: Protocol Last Admin: 07/27/17 09:52 Dose: 100 mls/hr Insulin Detemir (Levemir) 5 unit SC Q12 [facility] Last Admin: 07/27/17 09:53 Dose: 5 unit Insulin Human Lispro (Humalog Med) 0 units SC ACHS [facility] PRN Reason: Protocol Last Admin: 07/27/17 12:30 Dose: 3 units Morphine Sulfate (Morphine) 1 mg IVP Q6H PRN PRN Reason: Pain, severe (8-10) Mupirocin (Bactroban Ointment) 0 gm TOP BID [facility] Last Admin: 07/27/17 09:45 Dose: 1 applic Emtricitabine/Tenofov Alafenam [ Descovy 200-25 Mg Tablet] (Home Med) 1 tab PO DAILY [facility] Last Admin: 07/27/17 11:15 Dose: Not Given Ondansetron HCl (Zofran Inj) 4 mg IVP Q6H PRN PRN Reason: Nausea/Vomiting Last Admin: 07/25/17 21:20 Dose: 4 mg Pantoprazole Sodium (Protonix Ec Tab) 40 mg PO Q12 [facility] Last Admin: 07/27/17 09:51 Dose: 40 mg Raltegravir (Isentress) 400 mg PO BID [facility] Last Admin: 07/27/17 11:10 Dose: 400 mg Sennosides (Senokot Tab) 8.6 mg PO DAILY [facility] Last Admin: 07/27/17 09:52 Dose: 8.6 mg Sucralfate (Carafate Oral Susp) 1 gm PO 0600,1600 [facility] Last Admin: 07/27/17 05:58 Dose: 1 gm Tamsulosin HCl (Flomax) 0.4 mg PO DAILY [facility] Last Admin: 07/27/17 09:51 Dose: 0.4 mg Trimethoprim/Sulfamethoxazole (Bactrim Ds Tab) 1 tab PO BID [facility] PRN Reason: Protocol Last Admin: 07/27/17 09:45 Dose: 1 tab - Labs Labs: 07/27/17 07:00 07/27/17 07:00 PT 13.2 SECONDS (9.4-12.5) H 07/21/17 18:19 INR 1.15 (0.93-1.08) H 07/21/17 18:19 APTT 29.5 Seconds (25.1-36.5) 07/21/17 18:19 Attending/Attestation - Attestation I have personally seen and examined this patient.: Yes I have fully participated in the care of the patient.: Yes I have reviewed all pertinent clinical information, including history, physical exam and plan: Yes Notes (Text): 07/27/17 13:38 attending note; Patient seen and examined with resident. Patient is a 57 -year-old male with PMH of urinary retention s/p TURP, phimosis s/p circumcision, s/p urostomy tube, recurrent UTI/pyelonephritis, HIV, hypertension, chronic kidney disease,delayed development, Charcot foot, and DM who presents with complaint of abdominal pain, malaise, and nausea/emesis x 4 days. the patient was found to have UTI. urine culture grew Escherichia coli. Currently started on IV meropenem. Patient is afebrile and nontoxic. Tolerating diet well. Blood culture grew Escherichia coli. HIV; continue medications. ID evaluation appreciated. currently on IV rocephin and Bactrim. Podiatry follow-up for wound care. Offloading with boot. Acute on chronic kidney disease; creatinine is improving. CT scan showed hydronephrosis. Case discussed with urology Dr. Segura. Needs close outpatient follow up. case discussed with case management assistant in detail. PT evaluation appreciated. Plan for subacute rehabilitation versus home with services. Patient needs to complete 10 days of IV antibiotics. Upon discharge the patient will follow-up with PMD Dr. Howe. 07/27/17 13:40
[2017-07-26] MEDS: cefTRIAXone 2 GM IN NS 2 GM/100 ML BAG IVPB SCH (16:59)
--- NOTE | 2017-07-26 17:58 | CP.PCM.PN ---
Subjective - Date & Time of Evaluation Date of Evaluation: 07/26/17 Time of Evaluation: 12:40 - Subjective Subjective: Comfortable, no fevers. Objective - Vital Signs/Intake and Output Vital Signs (last 24 hours): Temp Pulse Resp BP Pulse Ox 98.5 F 98 H 20 156/90 H 98 07/26/17 07:30 07/26/17 07:30 07/26/17 07:30 07/26/17 07:30 07/26/17 07:30 Intake and Output: 07/26/17 07/26/17 06:59 18:59 Intake Total 840 Output Total 2200 Balance -1360 - Medications Medications: Current Medications Acetaminophen (Tylenol 325mg Tab) 650 mg PO Q4 PRN PRN Reason: Fever >100.4 F Bismuth Subsalicylate (Pepto-Bismol) 262 mg PO DAILY [facility] Last Admin: 07/25/17 13:25 Dose: 262 mg Calcium Acetate (Phoslo) 667 mg PO BID [facility] Last Admin: 07/25/17 17:35 Dose: 667 mg Emtricitabine/Tenofovir (Truvada 200 Mg-300 Mg) 1 tab PO DAILY [facility] Heparin Sodium (Porcine) (Heparin) 5,000 units SC Q12 [facility] PRN Reason: Protocol Last Admin: 07/25/17 21:21 Dose: 5,000 units Potassium Chloride 20 meq/ (Sodium Chloride) 1,010 mls @ 100 mls/hr IV .Q10H6M [facility] Last Admin: 07/25/17 04:41 Dose: 100 mls/hr Meropenem 500 mg/ Sodium (Chloride) 100 mls @ 100 mls/hr IVPB Q12 [facility] PRN Reason: Protocol Stop: 07/29/17 10:01 Last Admin: 07/25/17 23:01 Dose: 100 mls/hr Insulin Detemir (Levemir) 5 unit SC Q12 [facility] Last Admin: 07/25/17 21:38 Dose: 5 unit Insulin Human Lispro (Humalog Med) 0 units SC ACHS [facility] PRN Reason: Protocol Last Admin: 07/26/17 07:52 Dose: Not Given Morphine Sulfate (Morphine) 1 mg IVP Q6H PRN PRN Reason: Pain, severe (8-10) Mupirocin (Bactroban Ointment) 0 gm TOP BID [facility] Last Admin: 07/25/17 18:00 Dose: Not Given Emtricitabine/Tenofov Alafenam [ Descovy 200-25 Mg Tablet] (Home Med) 1 tab PO DAILY [facility] Last Admin: 07/25/17 13:06 Dose: Not Given Ondansetron HCl (Zofran Inj) 4 mg IVP Q6H PRN PRN Reason: Nausea/Vomiting Last Admin: 07/25/17 21:20 Dose: 4 mg Pantoprazole Sodium (Protonix Ec Tab) 40 mg PO Q12 [facility] Last Admin: 07/25/17 21:21 Dose: 40 mg Raltegravir (Isentress) 400 mg PO BID [facility] Last Admin: 07/25/17 17:35 Dose: 400 mg Sennosides (Senokot Tab) 8.6 mg PO DAILY [facility] Last Admin: 07/25/17 09:53 Dose: 8.6 mg Sucralfate (Carafate Oral Susp) 1 gm PO 0600,1600 [facility] Last Admin: 07/26/17 06:18 Dose: 1 gm Tamsulosin HCl (Flomax) 0.4 mg PO DAILY [facility] Last Admin: 07/25/17 09:53 Dose: 0.4 mg - Labs Labs: 07/26/17 07:30 07/26/17 07:30 PT 13.2 SECONDS (9.4-12.5) H 07/21/17 18:19 INR 1.15 (0.93-1.08) H 07/21/17 18:19 APTT 29.5 Seconds (25.1-36.5) 07/21/17 18:19 - Constitutional Appears: Non-toxic - Head Exam Head Exam: NORMAL INSPECTION - ENT Exam ENT Exam: Mucous Membranes Moist - Neck Exam Neck Exam: absent: Meningismus - Respiratory Exam Respiratory Exam: Decreased Breath Sounds - Cardiovascular Exam Cardiovascular Exam: +S1, +S2 - GI/Abdominal Exam GI & Abdominal Exam: Soft. absent: Tenderness - Extremities Exam Additional comments: left foot with dressings in place Assessment and Plan - Assessment and Plan (Free Text) Plan: Assessment Severe sepsis with acute on chronic renal failure due to E. coli bacteremia, consider due to complicated UTI in this patient with urostomy tube as well as probable skin and skin structure infection of left Charcot foot with MRSA and E. coli urinary retention with history of phimosis S/P circumcision, S/P TURP, S/P urostomy tube placement history of recurrent UTI's and pyelonephritis DM HTN chronic renal failure Charcot foot, left Plan should complete up to 14 days of Rocephin for the E.coli bacteremia; should complete up to 10 days of therapy for the MRSA in the foot and urine (Vancomycin ) continue ART (Descovy and ISentress) for HIV discussed with Dr. Bella
[2017-07-26] MEDS: Bismuth Subsalicylate 262 mg/15 ml Sus (240 ml) PO SCH (18:42)
[2017-07-27] MEDS: Sucralfate 1 gm/10 ml Oral Susp UD PO SCH ×2 (05:58→17:38)
[2017-07-27 08:09] LABS: MEAN CELL VOLUME 94.4 fl (80.0-105.0); MEAN CORPUSCULAR HEMOGLOBIN 28.1 pg (25.0-35.0); MEAN CORPUSCULAR HGB CONC 29.8 g/dl (31.0-37.0); MEAN PLATELET VOLUME 9.6 fl (7.0-11.0); RBC 2.49 10^6/uL (3.5-6.1); RED CELL DISTRIBUTION WIDTH 13.6 % (11.5-14.5); WHITE BLOOD COUNT 16.3 10^3/ul (4.5-11.0)
[2017-07-27 08:26] LABS: ALB/GLOB RATIO 0.6 (1.1-1.8); ALBUMIN 2.4 g/dL (3.0-4.8); CALCIUM 8.4 mg/dL (8.4-10.5)
[2017-07-27] MEDS: Insulin Lispro (humaLOG) MEDIUM Coverage SC SCH ×4 (08:36→17:32)
[2017-07-27] MEDS: Tmp-Smz 800 mg-160 mg DS Tab PO SCH ×2 (09:45→17:39)
[2017-07-27] MEDS: Pantoprazole 40 mg EC Tab PO SCH ×2 (09:51→21:48)
[2017-07-27] MEDS: cefTRIAXone 2 GM IN NS 2 GM/100 ML BAG IVPB SCH (09:52)
[2017-07-27] MEDS: Insulin Detemir 100 units/ml Vial (Levemir) SC SCH ×2 (09:53→21:48)
--- NOTE | 2017-07-27 10:03 | CP.PCM.PN ---
<DeborahNikhil - Last Filed: 07/27/17 17:54> Subjective - Date & Time of Evaluation Date of Evaluation: 07/27/17 Time of Evaluation: 10:03 - Subjective Subjective: Nikhil Cabrera PGY1 IM Progress Note Patient was seen and examined at bedside. he states that he is felling much better overall, that his abdominal pain has resolved and that he has not experienced nausea/vomiting. He is tolerating his regular diet well. denies fevers/chills, n/v/d, chest pain, shortness of breath. Objective - Vital Signs/Intake and Output Vital Signs (last 24 hours): Temp Pulse Resp BP Pulse Ox 98.6 F 85 20 183/115 H 96 07/27/17 08:19 07/27/17 08:19 07/27/17 08:19 07/27/17 08:19 07/27/17 08:19 Intake and Output: 07/27/17 07/27/17 06:59 18:59 Intake Total 760 Output Total 2100 Balance -1340 - Medications Medications: Current Medications Acetaminophen (Tylenol 325mg Tab) 650 mg PO Q4 PRN PRN Reason: Fever >100.4 F Bismuth Subsalicylate (Pepto-Bismol) 262 mg PO DAILY [facility] Last Admin: 07/26/17 18:42 Dose: Not Given Calcium Acetate (Phoslo) 667 mg PO BID [facility] Last Admin: 07/27/17 09:54 Dose: 667 mg Emtricitabine/Tenofovir (Truvada 200 Mg-300 Mg) 1 tab PO DAILY [facility] Heparin Sodium (Porcine) (Heparin) 5,000 units SC Q12 [facility] PRN Reason: Protocol Last Admin: 07/27/17 09:53 Dose: 5,000 units Ceftriaxone Sodium (Rocephin 2 Gm Ivpb) 2 gm in 100 mls @ 100 mls/hr IVPB DAILY [facility] PRN Reason: Protocol Last Admin: 07/27/17 09:52 Dose: 100 mls/hr Insulin Detemir (Levemir) 5 unit SC Q12 [facility] Last Admin: 07/27/17 09:53 Dose: 5 unit Insulin Human Lispro (Humalog Med) 0 units SC ACHS [facility] PRN Reason: Protocol Last Admin: 07/27/17 08:52 Dose: Not Given Morphine Sulfate (Morphine) 1 mg IVP Q6H PRN PRN Reason: Pain, severe (8-10) Mupirocin (Bactroban Ointment) 0 gm TOP BID [facility] Last Admin: 07/27/17 09:45 Dose: 1 applic Emtricitabine/Tenofov Alafenam [ Descovy 200-25 Mg Tablet] (Home Med) 1 tab PO DAILY [facility] Last Admin: 07/26/17 13:22 Dose: Not Given Ondansetron HCl (Zofran Inj) 4 mg IVP Q6H PRN PRN Reason: Nausea/Vomiting Last Admin: 07/25/17 21:20 Dose: 4 mg Pantoprazole Sodium (Protonix Ec Tab) 40 mg PO Q12 [facility] Last Admin: 07/27/17 09:51 Dose: 40 mg Raltegravir (Isentress) 400 mg PO BID [facility] Last Admin: 07/26/17 18:52 Dose: 400 mg Sennosides (Senokot Tab) 8.6 mg PO DAILY [facility] Last Admin: 07/27/17 09:52 Dose: 8.6 mg Sucralfate (Carafate Oral Susp) 1 gm PO 0600,1600 [facility] Last Admin: 07/27/17 05:58 Dose: 1 gm Tamsulosin HCl (Flomax) 0.4 mg PO DAILY [facility] Last Admin: 07/27/17 09:51 Dose: 0.4 mg Trimethoprim/Sulfamethoxazole (Bactrim Ds Tab) 1 tab PO BID [facility] PRN Reason: Protocol Last Admin: 07/27/17 09:45 Dose: 1 tab - Labs Labs: 07/27/17 07:00 07/27/17 07:00 PT 13.2 SECONDS (9.4-12.5) H 07/21/17 18:19 INR 1.15 (0.93-1.08) H 07/21/17 18:19 APTT 29.5 Seconds (25.1-36.5) 07/21/17 18:19 - Additional Findings Additional findings: - Constitutional Appears: Well, Non-toxic, No Acute Distress - Head Exam Head Exam: NORMAL INSPECTION - Eye Exam Eye Exam: EOMI, Normal appearance - ENT Exam ENT Exam: Mucous Membranes Dry - Neck Exam Neck Exam: Normal Inspection - Respiratory Exam Respiratory Exam: NORMAL BREATHING PATTERN. absent: Rales, Rhonchi, Wheezes - Cardiovascular Exam Cardiovascular Exam: RRR, +S1, +S2 - GI/Abdominal Exam GI & Abdominal Exam: Guarding, Soft, Normal Bowel Sounds. absent: Distended, Tenderness - Exam Additional comments: suprapubic catheter in place with sediment noted in bag, but no pus or blood noted - Extremities Exam Extremities Exam: absent: Calf Tenderness, Pedal Edema Additional comments: chronic venous stasis skin changes L foot is wrapped and dressed (clean/dry/intact) - Back Exam Back Exam: NORMAL INSPECTION - Neurological Exam Neurological Exam: Alert, Awake, Oriented x3 - Psychiatric Exam Psychiatric exam: Normal Affect, Normal Mood - Skin Skin Exam: Normal Color, Warm Assessment and Plan - Assessment and Plan (Free Text) Assessment: 57 yo AAM with PMH of urinary retention s/p TURP, phimosis s/p circumcision and urostomy tube, recurrent UTI/pyelonephritis, HIV, HTN, CKD, Charcot foot, and DM who presented with complaint of abdominal pain, malaise, and nausea/emesis x 4 days. He is being admitted for severe sepsis in setting of TRICIA likely 2/2 pyelonephritis. TRICAI is improving and despite still meeting SIRS criteria for sepsis, patient is clinically improving. Per WANDA Savage (sister), patient is to go to [facility]. Per ID, patient may be discharged on Rocephin and Bactrim. If patient is going to [facility], no need for PICC line placement; if patient is to go home, PICC line will need to be placed. Plan: 1. Severe sepsis 2/2 pyelonephritis vs foot ulcer - CT abd/pelvis concerning for urostomy collapsed around suprapubic catheter, moderate bilateral hydroureteronephrosis, Air within the left collecting system ; Minimal hiatal hernia. Fundus gastric wall prominence, small bowel in the upper abdomen demonstrates bowel wall prominence. Colonic diverticula. - Air in left collecting system likely tracking from urostomy tube, but in setting of immunocompromised state (HIV) and DM2, will empirically cover for emphysematous pyelonephritis organisms - UA notable for large blood, large leuk esterase, TNTC RBCs and WBCs, Many bacteria - TRICIA improving slightly, and clinically improving - urine culture grew MRSA and e.coli - blood cx grew e.coli - foot cx grew MRSA and e.coli - procal elevated - cont Rocephin and Bactrim, per ID - ID contacted regarding MRSA coverage - cont urostomy tube irrigation per Uro - Urology consulted, have signed off - advance as tolerated - Zofran PRN for emesis - Tylenol PRN 2. Diabetic foot wounds with purulent discharge - b/l pedal pulses - wound cultures grew MRSA and e.coli - Podiatry consulted, recs appreciated 3. TRICIA on CKD - FENa 2.3 indicating intrinsic cause of TRICIA, however, unreliable give patient has CKD - TRICIA 2/2 dehydration or hypoperfusion due to sepsis on presentation vs infectious component - baseline Cr per prior charting 1.7-2.5 - K infusions stopped due to dilution and borderline hyperkalemia - continue to monitor 4. Hyperglycemia - A1C 10.8 - holding off on oral hypoglycemics - Levemir 5u Q12, converted from 10u Lantus HS at home - ISS medium - Accuchecks ACHS 5. HIV - CD4 count 766 - viral load undetectable - CMV IgG Ab +, unclear if acute or chronic - Legoinella urine antigen, G/C ordered - Toxoplasma IgM+ but IgG- so likely acute vs false positive - continue Bactrim - RPR nonreactive - Hepatitis panels negative - continue current HAART regimen, pending ID eval and recs 6. Hypocalcemia - cont calcium gluconate 7. Hypokalemia, stable - will cont to monitor 8. PPX - PTX for GI PPX - Heparin and SCDs for DVT PPX Dispo: LISSET pending authorization Patient was seen, examined and discussed with attending, Dr. Shayne Cabrera PGY1 <Elizabet Bella - Last Filed: 07/28/17 16:53> Objective - Vital Signs/Intake and Output Vital Signs (last 24 hours): Temp Pulse Resp BP Pulse Ox 98.7 F 90 20 173/109 H 99 07/28/17 16:00 07/28/17 16:00 07/28/17 16:00 07/28/17 16:00 07/28/17 16:00 Intake and Output: 07/28/17 07/28/17 06:59 18:59 Intake Total 760 240 Output Total 800 1300 Balance -40 -1060 - Medications Medications: Current Medications Acetaminophen (Tylenol 325mg Tab) 650 mg PO Q4 PRN PRN Reason: Fever >100.4 F Bismuth Subsalicylate (Pepto-Bismol) 262 mg PO DAILY [facility] Last Admin: 07/28/17 16:16 Dose: Not Given Calcium Acetate (Phoslo) 667 mg PO BID [facility] Last Admin: 07/28/17 12:48 Dose: 667 mg Emtricitabine/Tenofovir (Truvada 200 Mg-300 Mg) 1 tab PO DAILY [facility] Heparin Sodium (Porcine) (Heparin) 5,000 units SC Q12 [facility] PRN Reason: Protocol Last Admin: 07/28/17 10:10 Dose: 5,000 units Ceftriaxone Sodium (Rocephin 2 Gm Ivpb) 2 gm in 100 mls @ 100 mls/hr IVPB DAILY [facility] PRN Reason: Protocol Last Admin: 07/28/17 12:46 Dose: 100 mls/hr Insulin Detemir (Levemir) 5 unit SC Q12 [facility] Last Admin: 07/28/17 12:36 Dose: 5 unit Insulin Human Lispro (Humalog Med) 0 units SC ACHS [facility] PRN Reason: Protocol Last Admin: 07/28/17 12:35 Dose: 3 units Linezolid (Zyvox) 600 mg PO BID [facility] PRN Reason: Protocol Stop: 08/06/17 18:01 Morphine Sulfate (Morphine) 1 mg IVP Q6H PRN PRN Reason: Pain, severe (8-10) Mupirocin (Bactroban Ointment) 0 gm TOP BID [facility] Last Admin: 07/28/17 16:09 Dose: 1 applic Emtricitabine/Tenofov Alafenam [ Descovy 200-25 Mg Tablet] (Home Med) 1 tab PO DAILY [facility] Last Admin: 07/28/17 16:10 Dose: Not Given Ondansetron HCl (Zofran Inj) 4 mg IVP Q6H PRN PRN Reason: Nausea/Vomiting Last Admin: 07/25/17 21:20 Dose: 4 mg Pantoprazole Sodium (Protonix Ec Tab) 40 mg PO Q12 [facility] Last Admin: 07/28/17 12:48 Dose: 40 mg Raltegravir (Isentress) 400 mg PO BID [facility] Last Admin: 07/28/17 10:11 Dose: 400 mg Sennosides (Senokot Tab) 8.6 mg PO DAILY [facility] Last Admin: 07/28/17 12:46 Dose: 8.6 mg Sucralfate (Carafate Oral Susp) 1 gm PO 0600,1600 [facility] Last Admin: 07/28/17 16:16 Dose: Not Given Tamsulosin HCl (Flomax) 0.4 mg PO DAILY [facility] Last Admin: 07/28/17 10:10 Dose: 0.4 mg - Labs Labs: 07/27/17 07:00 07/27/17 07:00 PT 13.2 SECONDS (9.4-12.5) H 07/21/17 18:19 INR 1.15 (0.93-1.08) H 07/21/17 18:19 APTT 29.5 Seconds (25.1-36.5) 07/21/17 18:19 Attending/Attestation - Attestation I have personally seen and examined this patient.: Yes I have fully participated in the care of the patient.: Yes I have reviewed all pertinent clinical information, including history, physical exam and plan: Yes Notes (Text): 07/28/17 16:51 attending note; Patient seen and examined with resident. Patient is a 57 -year-old male with PMH of urinary retention s/p TURP, phimosis s/p circumcision, s/p urostomy tube, recurrent UTI/pyelonephritis, HIV, hypertension, chronic kidney disease,delayed development, Charcot foot, and DM who presents with complaint of abdominal pain, malaise, and nausea/emesis x 4 days. Escherichia coli UTI with bacteremia. Currently started on IV Rocephin. Patient is afebrile and nontoxic. Tolerating diet well. Wound culture grew MRSA; patient got dose of vancomycin. HIV; continue medications. ID evaluation appreciated. Tenofovir on hold. Podiatry follow-up for wound care. Offloading with boot. Acute on chronic kidney disease; creatinine is improving. CT scan showed hydronephrosis. Case discussed with urology Dr. Segura. Needs close outpatient follow up. case discussed with insurance case manager in detail. PT evaluation appreciated. Plan for subacute rehabilitation versus home with services. Patient needs to complete 10 days of IV antibiotics. Upon discharge the patient will follow-up with PMD Dr. Howe.
[2017-07-27] MEDS: Bismuth Subsalicylate 262 mg/15 ml Sus (240 ml) PO SCH (11:11)
[2017-07-27] MEDS: TENOFOV ALAFENAM PO SCH (11:15)
[2017-07-27] MEDS: EMTRICITABINE PO SCH (11:15)
--- NOTE | 2017-07-27 13:23 | CP.PCM.PN ---
<Jamel Kuhn - Last Filed: 07/27/17 13:19> Subjective - Date & Time of Evaluation Date of Evaluation: 07/27/17 Time of Evaluation: 08:30 - Subjective Subjective: 57 y/o mentally challenged male seen at bedside with attending Dr. Lopez for left foot superficial open ulcer. He denies having any pain in the foot. Dressing remains clean, dry and intact to his left foot. Pt says he is comfortably resting at this time and has no complaints, nor acute overnight event sreported by nursing staff. Multipodus boots are on and present at this time to lower extremities. Denies F/C/N/D/C/CP/SOB. Objective - Vital Signs/Intake and Output Vital Signs (last 24 hours): Temp Pulse Resp BP Pulse Ox 98.6 F 85 20 183/115 H 96 07/27/17 08:19 07/27/17 08:19 07/27/17 08:19 07/27/17 08:19 07/27/17 08:19 Intake and Output: 07/27/17 07/27/17 06:59 18:59 Intake Total 760 Output Total 2100 Balance -1340 - Medications Medications: Current Medications Acetaminophen (Tylenol 325mg Tab) 650 mg PO Q4 PRN PRN Reason: Fever >100.4 F Bismuth Subsalicylate (Pepto-Bismol) 262 mg PO DAILY [facility] Last Admin: 07/27/17 11:11 Dose: 262 mg Calcium Acetate (Phoslo) 667 mg PO BID [facility] Last Admin: 07/27/17 09:54 Dose: 667 mg Emtricitabine/Tenofovir (Truvada 200 Mg-300 Mg) 1 tab PO DAILY [facility] Heparin Sodium (Porcine) (Heparin) 5,000 units SC Q12 [facility] PRN Reason: Protocol Last Admin: 07/27/17 09:53 Dose: 5,000 units Ceftriaxone Sodium (Rocephin 2 Gm Ivpb) 2 gm in 100 mls @ 100 mls/hr IVPB DAILY [facility] PRN Reason: Protocol Last Admin: 07/27/17 09:52 Dose: 100 mls/hr Insulin Detemir (Levemir) 5 unit SC Q12 [facility] Last Admin: 07/27/17 09:53 Dose: 5 unit Insulin Human Lispro (Humalog Med) 0 units SC ACHS [facility] PRN Reason: Protocol Last Admin: 07/27/17 12:30 Dose: 3 units Morphine Sulfate (Morphine) 1 mg IVP Q6H PRN PRN Reason: Pain, severe (8-10) Mupirocin (Bactroban Ointment) 0 gm TOP BID [facility] Last Admin: 07/27/17 09:45 Dose: 1 applic Emtricitabine/Tenofov Alafenam [ Descovy 200-25 Mg Tablet] (Home Med) 1 tab PO DAILY [facility] Last Admin: 07/27/17 11:15 Dose: Not Given Ondansetron HCl (Zofran Inj) 4 mg IVP Q6H PRN PRN Reason: Nausea/Vomiting Last Admin: 07/25/17 21:20 Dose: 4 mg Pantoprazole Sodium (Protonix Ec Tab) 40 mg PO Q12 [facility] Last Admin: 07/27/17 09:51 Dose: 40 mg Raltegravir (Isentress) 400 mg PO BID [facility] Last Admin: 07/27/17 11:10 Dose: 400 mg Sennosides (Senokot Tab) 8.6 mg PO DAILY [facility] Last Admin: 07/27/17 09:52 Dose: 8.6 mg Sucralfate (Carafate Oral Susp) 1 gm PO 0600,1600 [facility] Last Admin: 07/27/17 05:58 Dose: 1 gm Tamsulosin HCl (Flomax) 0.4 mg PO DAILY [facility] Last Admin: 07/27/17 09:51 Dose: 0.4 mg Trimethoprim/Sulfamethoxazole (Bactrim Ds Tab) 1 tab PO BID [facility] PRN Reason: Protocol Last Admin: 07/27/17 09:45 Dose: 1 tab - Labs Labs: 07/27/17 07:00 07/27/17 07:00 PT 13.2 SECONDS (9.4-12.5) H 07/21/17 18:19 INR 1.15 (0.93-1.08) H 07/21/17 18:19 APTT 29.5 Seconds (25.1-36.5) 07/21/17 18:19 - Constitutional Appears: Well, Non-toxic, No Acute Distress - Extremities Exam Additional comments: Lower extremity focused exam: Vasc: DP/PT pulses palpable 2/4. CFT < 3 sec to all digits. Temperature gradient warm to cool. Derm: Diffuse hypopigmented skin patches secondary to previous ulcerations and blisters of foot. Wet superficial ulceration noted to medial aspect of left 1st MPJ, approx 6cm x 3.5cm x 0.1cm. Small amount of serosanguinous drainage noted to bandage. No malodor, no purulence, no undermining or tunneling, no fluctuance. Right medial aspect of left 1st MPJ, hyperkeratotic callous noted measuring 5 x 3cm, stable adherred to base, potential pre-ulcerative. Neuro: Protective sensation grossly diminished Ortho: No tenderness on palpation of left foot - Neurological Exam Neurological Exam: Alert, Awake, Oriented x3 - Psychiatric Exam Psychiatric exam: Normal Affect, Normal Mood Assessment and Plan - Assessment and Plan (Free Text) Assessment: 57 y/o male with left foot blister with superficial ulceration secondary to DM Plan: Pt seen and evaluated at bedside with attending Dr. Lopez Labs and vitals reviewed- afebrile, WBC 16.3 Wound culture of left foot positive for E. coli and MRSA Continue IV abx as per KELI Blackwood Wound to left foot cleansed with saline and dressed with Bactroban and DSD. Right callous dressed with hydrogel and optifoam Continue with use of Multipodus boots, must be applied at all times in bed Podiatry will continue to follow while in house <Geoff Lopez - Last Filed: 07/30/17 11:57> Objective - Vital Signs/Intake and Output Vital Signs (last 24 hours): Temp Pulse Resp BP Pulse Ox 97.8 F 83 18 179/116 H 96 07/30/17 06:00 07/30/17 06:00 07/30/17 06:00 07/30/17 06:00 07/30/17 06:00 Intake and Output: 07/30/17 07/30/17 06:59 18:59 Intake Total 900 Output Total 1400 Balance -500 - Medications Medications: Current Medications Acetaminophen (Tylenol 325mg Tab) 650 mg PO Q4 PRN PRN Reason: Fever >100.4 F Bismuth Subsalicylate (Pepto-Bismol) 262 mg PO DAILY [facility] Last Admin: 07/29/17 10:10 Dose: Not Given Calcium Acetate (Phoslo) 667 mg PO BID [facility] Last Admin: 07/29/17 17:38 Dose: 667 mg Emtricitabine/Tenofovir (Truvada 200 Mg-300 Mg) 1 tab PO DAILY [facility] Heparin Sodium (Porcine) (Heparin) 5,000 units SC Q12 [facility] PRN Reason: Protocol Last Admin: 07/29/17 22:04 Dose: 5,000 units Ceftriaxone Sodium (Rocephin 2 Gm Ivpb) 2 gm in 100 mls @ 100 mls/hr IVPB DAILY [facility] PRN Reason: Protocol Last Admin: 07/29/17 10:00 Dose: 100 mls/hr Insulin Detemir (Levemir) 5 unit SC Q12 [facility] Last Admin: 07/29/17 22:04 Dose: 5 unit Insulin Human Lispro (Humalog Med) 0 units SC ACHS [facility] PRN Reason: Protocol Last Admin: 07/30/17 09:36 Dose: 2 units Linezolid (Zyvox) 600 mg PO BID [facility] PRN Reason: Protocol Stop: 08/06/17 18:01 Last Admin: 07/29/17 17:38 Dose: 600 mg Morphine Sulfate (Morphine) 1 mg IVP Q6H PRN PRN Reason: Pain, severe (8-10) Mupirocin (Bactroban Ointment) 0 gm TOP BID [facility] Last Admin: 07/29/17 10:09 Dose: 1 applic Emtricitabine/Tenofov Alafenam [ Descovy 200-25 Mg Tablet] (Home Med) 1 tab PO DAILY [facility] Last Admin: 07/29/17 10:03 Dose: Not Given Ondansetron HCl (Zofran Inj) 4 mg IVP Q6H PRN PRN Reason: Nausea/Vomiting Last Admin: 07/25/17 21:20 Dose: 4 mg Pantoprazole Sodium (Protonix Ec Tab) 40 mg PO Q12 [facility] Last Admin: 07/29/17 22:00 Dose: 40 mg Raltegravir (Isentress) 400 mg PO BID [facility] Last Admin: 07/29/17 10:00 Dose: 400 mg Sennosides (Senokot Tab) 8.6 mg PO DAILY [facility] Last Admin: 07/29/17 10:00 Dose: 8.6 mg Sucralfate (Carafate Oral Susp) 1 gm PO 0600,1600 [facility] Last Admin: 07/30/17 05:01 Dose: Not Given Tamsulosin HCl (Flomax) 0.4 mg PO DAILY [facility] Last Admin: 07/29/17 10:00 Dose: 0.4 mg - Labs Labs: 07/30/17 06:45 07/30/17 06:45 PT 13.2 SECONDS (9.4-12.5) H 07/21/17 18:19 INR 1.15 (0.93-1.08) H 07/21/17 18:19 APTT 29.5 Seconds (25.1-36.5) 07/21/17 18:19 Attending/Attestation - Attestation I have personally seen and examined this patient.: Yes I have fully participated in the care of the patient.: Yes I have reviewed all pertinent clinical information, including history, physical exam and plan: Yes
[2017-07-28] MEDS: Insulin Lispro (humaLOG) MEDIUM Coverage SC SCH ×5 (03:16→22:19)
[2017-07-28] MEDS: Sucralfate 1 gm/10 ml Oral Susp UD PO SCH ×2 (05:36→16:16)
[2017-07-28] MEDS: Insulin Detemir 100 units/ml Vial (Levemir) SC SCH ×2 (12:36→22:20)
[2017-07-28] MEDS: cefTRIAXone 2 GM IN NS 2 GM/100 ML BAG IVPB SCH (12:46)
[2017-07-28] MEDS: Tmp-Smz 800 mg-160 mg DS Tab PO SCH (12:47)
[2017-07-28] MEDS: Pantoprazole 40 mg EC Tab PO SCH ×2 (12:48→22:19)
[2017-07-28] MEDS: TENOFOV ALAFENAM PO SCH (16:10)
[2017-07-28] MEDS: EMTRICITABINE PO SCH (16:10)
[2017-07-28] MEDS: Bismuth Subsalicylate 262 mg/15 ml Sus (240 ml) PO SCH (16:16)
--- NOTE | 2017-07-28 17:45 | CP.PCM.PN ---
<DeborahNikhil - Last Filed: 07/28/17 17:45> Subjective - Date & Time of Evaluation Date of Evaluation: 07/28/17 Time of Evaluation: 08:42 - Subjective Subjective: Nikhil Cabrera PGY1 IM Progress Note Patient was seen and examined at bedside. he states that he is felling much better overall, that his abdominal pain has resolved and that he has not experienced nausea/vomiting. He is tolerating his regular diet well. denies fevers/chills, n/v/d, chest pain, shortness of breath. Objective - Vital Signs/Intake and Output Vital Signs (last 24 hours): Temp Pulse Resp BP Pulse Ox 98.7 F 90 20 173/109 H 99 07/28/17 16:00 07/28/17 16:00 07/28/17 16:00 07/28/17 16:00 07/28/17 16:00 Intake and Output: 07/28/17 07/28/17 06:59 18:59 Intake Total 760 1000 Output Total 800 1300 Balance -40 -300 - Medications Medications: Current Medications Acetaminophen (Tylenol 325mg Tab) 650 mg PO Q4 PRN PRN Reason: Fever >100.4 F Bismuth Subsalicylate (Pepto-Bismol) 262 mg PO DAILY [facility] Last Admin: 07/28/17 16:16 Dose: Not Given Calcium Acetate (Phoslo) 667 mg PO BID [facility] Last Admin: 07/28/17 12:48 Dose: 667 mg Emtricitabine/Tenofovir (Truvada 200 Mg-300 Mg) 1 tab PO DAILY [facility] Heparin Sodium (Porcine) (Heparin) 5,000 units SC Q12 [facility] PRN Reason: Protocol Last Admin: 07/28/17 10:10 Dose: 5,000 units Ceftriaxone Sodium (Rocephin 2 Gm Ivpb) 2 gm in 100 mls @ 100 mls/hr IVPB DAILY [facility] PRN Reason: Protocol Last Admin: 07/28/17 12:46 Dose: 100 mls/hr Insulin Detemir (Levemir) 5 unit SC Q12 [facility] Last Admin: 07/28/17 12:36 Dose: 5 unit Insulin Human Lispro (Humalog Med) 0 units SC ACHS [facility] PRN Reason: Protocol Last Admin: 07/28/17 12:35 Dose: 3 units Linezolid (Zyvox) 600 mg PO BID [facility] PRN Reason: Protocol Stop: 08/06/17 18:01 Morphine Sulfate (Morphine) 1 mg IVP Q6H PRN PRN Reason: Pain, severe (8-10) Mupirocin (Bactroban Ointment) 0 gm TOP BID [facility] Last Admin: 07/28/17 16:09 Dose: 1 applic Emtricitabine/Tenofov Alafenam [ Descovy 200-25 Mg Tablet] (Home Med) 1 tab PO DAILY [facility] Last Admin: 07/28/17 16:10 Dose: Not Given Ondansetron HCl (Zofran Inj) 4 mg IVP Q6H PRN PRN Reason: Nausea/Vomiting Last Admin: 07/25/17 21:20 Dose: 4 mg Pantoprazole Sodium (Protonix Ec Tab) 40 mg PO Q12 [facility] Last Admin: 07/28/17 12:48 Dose: 40 mg Raltegravir (Isentress) 400 mg PO BID [facility] Last Admin: 07/28/17 10:11 Dose: 400 mg Sennosides (Senokot Tab) 8.6 mg PO DAILY [facility] Last Admin: 07/28/17 12:46 Dose: 8.6 mg Sucralfate (Carafate Oral Susp) 1 gm PO 0600,1600 [facility] Last Admin: 07/28/17 16:16 Dose: Not Given Tamsulosin HCl (Flomax) 0.4 mg PO DAILY [facility] Last Admin: 07/28/17 10:10 Dose: 0.4 mg - Labs Labs: 07/27/17 07:00 07/27/17 07:00 PT 13.2 SECONDS (9.4-12.5) H 07/21/17 18:19 INR 1.15 (0.93-1.08) H 07/21/17 18:19 APTT 29.5 Seconds (25.1-36.5) 07/21/17 18:19 Assessment and Plan - Assessment and Plan (Free Text) Assessment: - Constitutional Appears: Well, Non-toxic, No Acute Distress - Head Exam Head Exam: NORMAL INSPECTION - Eye Exam Eye Exam: EOMI, Normal appearance - ENT Exam ENT Exam: Mucous Membranes Dry - Neck Exam Neck Exam: Normal Inspection - Respiratory Exam Respiratory Exam: NORMAL BREATHING PATTERN. absent: Rales, Rhonchi, Wheezes - Cardiovascular Exam Cardiovascular Exam: RRR, +S1, +S2 - GI/Abdominal Exam GI & Abdominal Exam: Guarding, Soft, Normal Bowel Sounds. absent: Distended, Tenderness - Exam Additional comments: suprapubic catheter in place with sediment noted in bag, but no pus or blood noted - Extremities Exam Extremities Exam: absent: Calf Tenderness, Pedal Edema Additional comments: chronic venous stasis skin changes L foot is wrapped and dressed (clean/dry/intact) - Back Exam Back Exam: NORMAL INSPECTION - Neurological Exam Neurological Exam: Alert, Awake, Oriented x3 - Psychiatric Exam Psychiatric exam: Normal Affect, Normal Mood - Skin Skin Exam: Normal Color, Warm Assessment and Plan - Assessment and Plan (Free Text) Assessment: 57 yo AAM with PMH of urinary retention s/p TURP, phimosis s/p circumcision and urostomy tube, recurrent UTI/pyelonephritis, HIV, HTN, CKD, Charcot foot, and DM who presented with complaint of abdominal pain, malaise, and nausea/emesis x 4 days. He is being admitted for severe sepsis in setting of TRICIA likely 2/2 pyelonephritis. TRICIA is improving and despite still meeting SIRS criteria for sepsis, patient is clinically improving. Per WANDA Savage (sister), patient is to go to [facility]. Per ID, patient may be discharged on Rocephin and Bactrim. If patient is going to [facility], no need for PICC line placement; if patient is to go home, PICC line will need to be placed. Plan for now is to go to [facility] pending insurance authorization. Plan: 1. Severe sepsis 2/2 pyelonephritis vs foot ulcer - CT abd/pelvis concerning for urostomy collapsed around suprapubic catheter, moderate bilateral hydroureteronephrosis, Air within the left collecting system ; Minimal hiatal hernia. Fundus gastric wall prominence, small bowel in the upper abdomen demonstrates bowel wall prominence. Colonic diverticula. - Air in left collecting system likely tracking from urostomy tube, but in setting of immunocompromised state (HIV) and DM2, will empirically cover for emphysematous pyelonephritis organisms - UA notable for large blood, large leuk esterase, TNTC RBCs and WBCs, Many bacteria - TRICIA improving slightly, and clinically improving - urine culture grew MRSA and e.coli - blood cx grew e.coli - foot cx grew MRSA and e.coli - procal elevated - cont Rocephin and Zyvox, per ID - Bactrim held due to renal function - ID contacted regarding MRSA coverage - On discharge, patient can be discharged on Vantin and Doxy - cont urostomy tube irrigation per Uro - Urology consulted, have signed off - advance as tolerated - Zofran PRN for emesis - Tylenol PRN 2. Diabetic foot wounds with purulent discharge - b/l pedal pulses - wound cultures grew MRSA and e.coli - Podiatry consulted, recs appreciated - CT LE is ordered to r/o osteomyelitis 3. TRICIA on CKD - FENa 2.3 indicating intrinsic cause of TRICIA, however, unreliable give patient has CKD - TRICIA 2/2 dehydration or hypoperfusion due to sepsis on presentation vs infectious component - baseline Cr per prior charting 1.7-2.5 - K infusions stopped due to dilution and borderline hyperkalemia - continue to monitor 4. Hyperglycemia - A1C 10.8 - holding off on oral hypoglycemics - Levemir 5u Q12, converted from 10u Lantus HS at home - ISS medium - Accuchecks ACHS 5. HIV - CD4 count 766 - viral load undetectable - CMV IgG Ab +, unclear if acute or chronic - Legoinella urine antigen, G/C ordered - Toxoplasma IgM+ but IgG- so likely acute vs false positive - continue Bactrim - RPR nonreactive - Hepatitis panels negative - continue current HAART regimen, pending ID eval and recs 6. Hypocalcemia - cont calcium gluconate 7. Hypokalemia, stable - will cont to monitor 8. PPX - PTX for GI PPX - Heparin and SCDs for DVT PPX Dispo: [facility] pending authorization Patient was seen, examined and discussed with attending, Dr. Shayne Cabrera PGY1 <Elizabet Bella - Last Filed: 07/28/17 18:24> Objective - Vital Signs/Intake and Output Vital Signs (last 24 hours): Temp Pulse Resp BP Pulse Ox 98.7 F 90 20 173/109 H 99 07/28/17 16:00 07/28/17 16:00 07/28/17 16:00 07/28/17 16:00 07/28/17 16:00 Intake and Output: 07/28/17 07/28/17 06:59 18:59 Intake Total 760 1000 Output Total 800 1300 Balance -40 -300 - Medications Medications: Current Medications Acetaminophen (Tylenol 325mg Tab) 650 mg PO Q4 PRN PRN Reason: Fever >100.4 F Bismuth Subsalicylate (Pepto-Bismol) 262 mg PO DAILY [facility] Last Admin: 07/28/17 16:16 Dose: Not Given Calcium Acetate (Phoslo) 667 mg PO BID [facility] Last Admin: 07/28/17 17:47 Dose: 667 mg Emtricitabine/Tenofovir (Truvada 200 Mg-300 Mg) 1 tab PO DAILY [facility] Heparin Sodium (Porcine) (Heparin) 5,000 units SC Q12 [facility] PRN Reason: Protocol Last Admin: 07/28/17 10:10 Dose: 5,000 units Ceftriaxone Sodium (Rocephin 2 Gm Ivpb) 2 gm in 100 mls @ 100 mls/hr IVPB DAILY [facility] PRN Reason: Protocol Last Admin: 07/28/17 12:46 Dose: 100 mls/hr Insulin Detemir (Levemir) 5 unit SC Q12 [facility] Last Admin: 07/28/17 12:36 Dose: 5 unit Insulin Human Lispro (Humalog Med) 0 units SC ACHS [facility] PRN Reason: Protocol Last Admin: 07/28/17 17:39 Dose: 1 units Linezolid (Zyvox) 600 mg PO BID [facility] PRN Reason: Protocol Stop: 08/06/17 18:01 Last Admin: 07/28/17 17:47 Dose: 600 mg Morphine Sulfate (Morphine) 1 mg IVP Q6H PRN PRN Reason: Pain, severe (8-10) Mupirocin (Bactroban Ointment) 0 gm TOP BID [facility] Last Admin: 07/28/17 17:37 Dose: Not Given Emtricitabine/Tenofov Alafenam [ Descovy 200-25 Mg Tablet] (Home Med) 1 tab PO DAILY [facility] Last Admin: 07/28/17 16:10 Dose: Not Given Ondansetron HCl (Zofran Inj) 4 mg IVP Q6H PRN PRN Reason: Nausea/Vomiting Last Admin: 07/25/17 21:20 Dose: 4 mg Pantoprazole Sodium (Protonix Ec Tab) 40 mg PO Q12 [facility] Last Admin: 07/28/17 12:48 Dose: 40 mg Raltegravir (Isentress) 400 mg PO BID [facility] Last Admin: 07/28/17 17:47 Dose: 400 mg Sennosides (Senokot Tab) 8.6 mg PO DAILY [facility] Last Admin: 07/28/17 12:46 Dose: 8.6 mg Sucralfate (Carafate Oral Susp) 1 gm PO 0600,1600 [facility] Last Admin: 07/28/17 16:16 Dose: Not Given Tamsulosin HCl (Flomax) 0.4 mg PO DAILY [facility] Last Admin: 07/28/17 10:10 Dose: 0.4 mg - Labs Labs: 07/27/17 07:00 07/27/17 07:00 PT 13.2 SECONDS (9.4-12.5) H 07/21/17 18:19 INR 1.15 (0.93-1.08) H 07/21/17 18:19 APTT 29.5 Seconds (25.1-36.5) 07/21/17 18:19 Attending/Attestation - Attestation I have personally seen and examined this patient.: Yes I have fully participated in the care of the patient.: Yes I have reviewed all pertinent clinical information, including history, physical exam and plan: Yes Notes (Text): 07/28/17 18:22 Attending note; Patient seen and examined with resident. Patient is a 57 -year-old male with PMH of urinary retention s/p TURP, phimosis s/p circumcision, s/p urostomy tube, recurrent UTI/pyelonephritis, HIV, hypertension, chronic kidney disease,delayed development, Charcot foot, and DM who presents with complaint of abdominal pain, malaise, and nausea/emesis x 4 days. Escherichia coli UTI with bacteremia. Currently started on IV Rocephin. Patient is afebrile and nontoxic. Tolerating diet well. Wound culture grew MRSA; patient got dose of vancomycin. HIV; continue medications. ID evaluation appreciated. Tenofovir on hold. Podiatry follow-up for wound care. Offloading with boot. Acute on chronic kidney disease; creatinine is improving. CT scan showed hydronephrosis. Case discussed with urology Dr. Segura. Needs close outpatient follow up. case discussed with ID in detail. CT of left foot ordered to rule out osteomyelitis. If negative he can be discharged with po zyvox. Upon discharge the patient will follow-up with PMD Dr. Howe.
--- NOTE | 2017-07-28 18:11 | CP.PCM.PN ---
Subjective - Date & Time of Evaluation Date of Evaluation: 07/28/17 Time of Evaluation: 13:20 - Subjective Subjective: Podiatry Consult Note- Dr. Casanova 57 y/o mentally challenged male seen at bedside for left foot superficial open ulcer. He denies having any pain in the foot. Dressing remains clean, dry and intact to his left foot. Pt says he is comfortably resting at this time and has no complaints, nor acute overnight event reported by nursing staff. Multipodus boots are on and present at this time to lower extremities. Denies F/C/N/D/C/CP/ SOB. Objective - Vital Signs/Intake and Output Vital Signs (last 24 hours): Temp Pulse Resp BP Pulse Ox 98.7 F 90 20 173/109 H 99 07/28/17 16:00 07/28/17 16:00 07/28/17 16:00 07/28/17 16:00 07/28/17 16:00 Intake and Output: 07/28/17 07/28/17 06:59 18:59 Intake Total 760 1000 Output Total 800 1300 Balance -40 -300 - Medications Medications: Current Medications Acetaminophen (Tylenol 325mg Tab) 650 mg PO Q4 PRN PRN Reason: Fever >100.4 F Bismuth Subsalicylate (Pepto-Bismol) 262 mg PO DAILY [facility] Last Admin: 07/28/17 16:16 Dose: Not Given Calcium Acetate (Phoslo) 667 mg PO BID [facility] Last Admin: 07/28/17 17:47 Dose: 667 mg Emtricitabine/Tenofovir (Truvada 200 Mg-300 Mg) 1 tab PO DAILY [facility] Heparin Sodium (Porcine) (Heparin) 5,000 units SC Q12 [facility] PRN Reason: Protocol Last Admin: 07/28/17 10:10 Dose: 5,000 units Ceftriaxone Sodium (Rocephin 2 Gm Ivpb) 2 gm in 100 mls @ 100 mls/hr IVPB DAILY [facility] PRN Reason: Protocol Last Admin: 07/28/17 12:46 Dose: 100 mls/hr Insulin Detemir (Levemir) 5 unit SC Q12 [facility] Last Admin: 07/28/17 12:36 Dose: 5 unit Insulin Human Lispro (Humalog Med) 0 units SC ACHS [facility] PRN Reason: Protocol Last Admin: 07/28/17 17:39 Dose: 1 units Linezolid (Zyvox) 600 mg PO BID [facility] PRN Reason: Protocol Stop: 08/06/17 18:01 Last Admin: 07/28/17 17:47 Dose: 600 mg Morphine Sulfate (Morphine) 1 mg IVP Q6H PRN PRN Reason: Pain, severe (8-10) Mupirocin (Bactroban Ointment) 0 gm TOP BID [facility] Last Admin: 07/28/17 17:37 Dose: Not Given Emtricitabine/Tenofov Alafenam [ Descovy 200-25 Mg Tablet] (Home Med) 1 tab PO DAILY [facility] Last Admin: 07/28/17 16:10 Dose: Not Given Ondansetron HCl (Zofran Inj) 4 mg IVP Q6H PRN PRN Reason: Nausea/Vomiting Last Admin: 07/25/17 21:20 Dose: 4 mg Pantoprazole Sodium (Protonix Ec Tab) 40 mg PO Q12 [facility] Last Admin: 07/28/17 12:48 Dose: 40 mg Raltegravir (Isentress) 400 mg PO BID [facility] Last Admin: 07/28/17 17:47 Dose: 400 mg Sennosides (Senokot Tab) 8.6 mg PO DAILY [facility] Last Admin: 07/28/17 12:46 Dose: 8.6 mg Sucralfate (Carafate Oral Susp) 1 gm PO 0600,1600 [facility] Last Admin: 07/28/17 16:16 Dose: Not Given Tamsulosin HCl (Flomax) 0.4 mg PO DAILY [facility] Last Admin: 07/28/17 10:10 Dose: 0.4 mg - Labs Labs: 07/27/17 07:00 07/27/17 07:00 PT 13.2 SECONDS (9.4-12.5) H 07/21/17 18:19 INR 1.15 (0.93-1.08) H 07/21/17 18:19 APTT 29.5 Seconds (25.1-36.5) 07/21/17 18:19 - Constitutional Appears: Well, Non-toxic, No Acute Distress - Extremities Exam Additional comments: Lower extremity focused exam: Vasc: DP/PT pulses palpable 2/4. CFT < 3 sec to all digits. Temperature gradient warm to cool. Derm: Diffuse hypo-pigmented skin patches secondary to previous ulcerations and blisters of foot. Wet superficial ulceration noted to medial aspect of left 1st MPJ with proximal margin uindermining. Upon debridement margins measured 8 cm x 3.5cm x 0.1cm, Small amount of serosanguinous drainage noted to bandage. No malodor, no purulence, no undermining or tunneling, no fluctuance. Right medial aspect of left 1st MPJ, hyperkeratotic callous noted measuring 5 x 3cm, stable adherred to base, potential pre-ulcerative. Neuro: Protective sensation grossly diminished Ortho: No tenderness on palpation of left foot - Neurological Exam Neurological Exam: Alert, Awake, Oriented x3 - Psychiatric Exam Psychiatric exam: Normal Affect, Normal Mood Assessment and Plan - Assessment and Plan (Free Text) Assessment: 57 y/o male with left foot blister with superficial ulceration secondary to DM Plan: Pt seen and evaluated at bedside. Discussed with attending, Dr. Casanova. Labs and vitals reviewed- afebrile, WBC 16.3 Wound culture of left foot positive for E. coli and MRSA Continue IV abx as per ID -Rocephin and Bactrim Wound to left foot cleansed with saline and dressed with Bactroban and DSD. Right callous dressed with hydrogel and optifoam Continue with use of Multipodus boots, must be applied at all times in bed Podiatry will continue to follow while in house
--- NOTE | 2017-07-28 19:22 | PN ---
DATE: 07/28/2017 SUBJECTIVE: The patient is seen early this morning in 572, bed 2. No fevers and no chills. PHYSICAL EXAMINATION: VITAL SIGNS: Temperature is 97, blood pressure is 160/100, and respiratory rate is 20. HEENT: Unremarkable. NECK: Supple. LUNGS: Have decreased breath sounds. HEART: Normal S1 and S2. ABDOMEN: Soft and nontender. LABORATORY DATA: Reveals a white count of 16,300, hemoglobin of 7, and platelets of 508. Chemistries are noted and urinalysis is noted and vancomycin trough of 11.8. HIV PCR is undetectable at 1.3 logs. Microbiology is noted with E. Coli in the blood, E. Coli in the urine, and left foot with E. coli and MRSA. ASSESSMENT AND PLAN: This is a 57-year-old male admitted with urinary retention, phimosis, status post circumcision and with severe sepsis with acute on chronic failure due to Escherichia coli bacteremia secondary to urinary tract infection with irrigation with urostomy tube and probable skin and skin soft tissue infections and also with an methicillin-resistant Staphylococcus aureus of the foot in a patient with diabetes, hypertension, renal failure, would complete 14 days of therapy with the ceftriaxone, may switch to p.o. Vantin for complete therapy, and would also complete short course of therapy for Zyvox with the foot. We will order a CAT scan of the foot, if there is no osteomyelitis, may complete a short course if unable to get Zyvox with doxycycline and p.o. Vantin to complete therapy, would not recommend use of Bactrim in this patient with a creatinine of 2.3 and hyperkalemia. We will discontinue Bactrim and continue Zyvox and ceftriaxone, now pending CAT scan results. Case discussed with Dr. Tejeda at length. The patient is also on raltegravir for his HIV in addition to his emtricitabine and tenofovir Descovy. Gianluca Marsh MD
--- NOTE | 2017-07-28 20:58 | CT ---
EXAM: CT Left Lower Extremity Without Intravenous Contrast, Foot EXAM DATE/TIME: 07/28/2017 9:50 AM CLINICAL HISTORY: 57 years old, male; Condition or disease; Other: MRSA lt foot, R/O osteo; Additional info: R/O l foot osteo TECHNIQUE: Axial computed tomography images of the left foot without intravenous contrast. All CT scans at this facility use one or more dose reduction techniques, viz.: automated exposure control; ma/kV adjustment per patient size (including targeted exams where dose is matched to indication; i.e. head); or iterative reconstruction technique. Coronal and sagittal reformatted images were created and reviewed. COMPARISON: There are no prior studies for comparison. FINDINGS: Bones/joints: Distal tibia is unremarkable. Distal fibula is unremarkable. Ankle mortise is maintained. There is no effusion in the ankle joint. No focal osseous abnormalities are seen in the hindfoot or midfoot. There is skin thickening and superficial edema at the level of the metatarsal phalangeal joints greatest medially. There is deep soft tissue swelling greatest about the heads of the first second and third metatarsals.. Flexion limits evaluation of the phalanges. No focal destruction is identified in the metatarsals.. No acute fractures are visualized. Soft tissues: See above. Vasculature: There are vascular calcifications. IMPRESSION: Superficial and deep soft tissue swelling greatest at the level of the metatarsal heads, no bone destruction identified If there is further suspicion for osteomyelitis, MRI without and with contrast may be helpful
[2017-07-29] MEDS: Sucralfate 1 gm/10 ml Oral Susp UD PO SCH ×2 (06:54→16:37)
[2017-07-29] MEDS: Insulin Lispro (humaLOG) MEDIUM Coverage SC SCH ×3 (08:05→21:51)
[2017-07-29 08:34] LABS: MEAN CELL VOLUME 96.1 fl (80.0-105.0); MEAN CORPUSCULAR HEMOGLOBIN 28.3 pg (25.0-35.0); MEAN CORPUSCULAR HGB CONC 29.5 g/dl (31.0-37.0); MEAN PLATELET VOLUME 9.1 fl (7.0-11.0); PLATELET COUNT 463 10^3/uL (120.0-450.0); RBC 2.33 10^6/uL (3.5-6.1); RED CELL DISTRIBUTION WIDTH 14.7 % (11.5-14.5); WHITE BLOOD COUNT 15.4 10^3/ul (4.5-11.0)
[2017-07-29 08:53] LABS: ALB/GLOB RATIO 0.7 (1.1-1.8); ALBUMIN 2.7 g/dL (3.0-4.8); CALCIUM 8.6 mg/dL (8.4-10.5)
[2017-07-29 08:55] LABS: HEMOGLOBIN 6.6 g/dL (14.0-18.0)
[2017-07-29] MEDS ORDERED: Sod Polystyrene Sulf 15 gm/60 ml Susp PO STA (08:55)
--- NOTE | 2017-07-29 09:16 | PN ---
DATE: 07/27/2017 SUBJECTIVE: The patient is in bed, in no acute distress. PHYSICAL EXAMINATION: VITAL SIGNS: Temperature is 98, blood pressure is 150/70 and respiratory rate of 16. HEENT: Unremarkable. NECK: Supple. LUNGS: Have decreased breath sounds. HEART: Normal S1 and S2. ABDOMEN: Soft and nontender. LABORATORY EXAMINATION: Reveals a white count of 16,300, hemoglobin of 7, and platelets of 508. Chemistry reveals a BUN of 26 and creatinine of 2.3. Procalcitonin is 3.78. Review of orders reveals the patient to be on p.o. Bactrim, raltegravir, , and ceftriaxone. ASSESSMENT AND PLAN: This is a 57-year-old male with severe sepsis due to acute and chronic renal failure due to Escherichia coli bacteremia, complicated urinary tract infection and urostomy tube, skin and infections, left Charcot foot with methicillin-resistant Staphylococcus aureus and Escherichia coli, diabetic, hypertension, chronic renal failure, 14 days of ceftriaxone for Escherichia coli bacteremia treated complete of the 14 days of methicillin-resistant Staphylococcus aureus in the foot and urine and on vancomycin. Continue the HIV medications . We will follow with you. The patient is now on Bactrim p.o. started by . today, would not recommend the use of Bactrim in this patient. We will discuss this with you. Gianluca Marsh MD
--- NOTE | 2017-07-29 09:27 | CP.PCM.PN ---
Subjective - Date & Time of Evaluation Date of Evaluation: 07/29/17 Time of Evaluation: 09:24 - Subjective Subjective: 57 y/o male seen at bedside this morning with attending Dr. Casanova. Pt is resting comfortably at time of visit in NAD. States he is feeling better and tolerating food well without any N/V. States he will be leaving today and is eager to follow up with Dr. Casanova in the office. Has no other pedal complaints. Denies F/C/CP/SOB Objective - Vital Signs/Intake and Output Vital Signs (last 24 hours): Temp Pulse Resp BP Pulse Ox 98.7 F 70 20 142/68 96 07/29/17 08:00 07/29/17 08:00 07/29/17 08:00 07/29/17 08:00 07/29/17 08:00 Intake and Output: 07/29/17 07/29/17 06:59 18:59 Intake Total 1200 Output Total 900 Balance 300 - Medications Medications: Current Medications Acetaminophen (Tylenol 325mg Tab) 650 mg PO Q4 PRN PRN Reason: Fever >100.4 F Bismuth Subsalicylate (Pepto-Bismol) 262 mg PO DAILY [facility] Last Admin: 07/28/17 16:16 Dose: Not Given Calcium Acetate (Phoslo) 667 mg PO BID [facility] Last Admin: 07/28/17 17:47 Dose: 667 mg Emtricitabine/Tenofovir (Truvada 200 Mg-300 Mg) 1 tab PO DAILY [facility] Heparin Sodium (Porcine) (Heparin) 5,000 units SC Q12 [facility] PRN Reason: Protocol Last Admin: 07/28/17 22:19 Dose: 5,000 units Ceftriaxone Sodium (Rocephin 2 Gm Ivpb) 2 gm in 100 mls @ 100 mls/hr IVPB DAILY [facility] PRN Reason: Protocol Last Admin: 07/28/17 12:46 Dose: 100 mls/hr Insulin Detemir (Levemir) 5 unit SC Q12 [facility] Last Admin: 07/28/17 22:20 Dose: 5 unit Insulin Human Lispro (Humalog Med) 0 units SC ACHS [facility] PRN Reason: Protocol Last Admin: 07/28/17 22:19 Dose: Not Given Linezolid (Zyvox) 600 mg PO BID [facility] PRN Reason: Protocol Stop: 08/06/17 18:01 Last Admin: 07/28/17 17:47 Dose: 600 mg Morphine Sulfate (Morphine) 1 mg IVP Q6H PRN PRN Reason: Pain, severe (8-10) Mupirocin (Bactroban Ointment) 0 gm TOP BID [facility] Last Admin: 07/28/17 17:37 Dose: Not Given Emtricitabine/Tenofov Alafenam [ Descovy 200-25 Mg Tablet] (Home Med) 1 tab PO DAILY [facility] Last Admin: 07/28/17 16:10 Dose: Not Given Ondansetron HCl (Zofran Inj) 4 mg IVP Q6H PRN PRN Reason: Nausea/Vomiting Last Admin: 07/25/17 21:20 Dose: 4 mg Pantoprazole Sodium (Protonix Ec Tab) 40 mg PO Q12 [facility] Last Admin: 07/28/17 22:19 Dose: 40 mg Raltegravir (Isentress) 400 mg PO BID [facility] Last Admin: 07/28/17 17:47 Dose: 400 mg Sennosides (Senokot Tab) 8.6 mg PO DAILY [facility] Last Admin: 07/28/17 12:46 Dose: 8.6 mg Sucralfate (Carafate Oral Susp) 1 gm PO 0600,1600 [facility] Last Admin: 07/29/17 06:54 Dose: Not Given Tamsulosin HCl (Flomax) 0.4 mg PO DAILY [facility] Last Admin: 07/28/17 10:10 Dose: 0.4 mg - Labs Labs: 07/29/17 08:15 07/29/17 08:15 PT 13.2 SECONDS (9.4-12.5) H 07/21/17 18:19 INR 1.15 (0.93-1.08) H 07/21/17 18:19 APTT 29.5 Seconds (25.1-36.5) 07/21/17 18:19 - Constitutional Appears: Well, Non-toxic, No Acute Distress - Extremities Exam Additional comments: Lower extremity focused exam: Vasc: DP/PT pulses palpable 2/4. CFT < 3 sec to all digits. Temperature gradient warm to cool. Derm: Diffuse hypo-pigmented skin patches secondary to previous ulcerations and blisters of foot. Wet superficial ulceration noted to medial aspect of left 1st MPJ. Wound margins measure approx 7 cm x 3.3cm x 0.1cm. Small amount of serosanguinous drainage noted to previous bandage. No malodor, no purulence, no undermining or tunneling, no fluctuance. Neuro: Protective sensation grossly diminished Ortho: No tenderness on palpation of left foot - Neurological Exam Neurological Exam: Alert, Awake, Oriented x3 - Psychiatric Exam Psychiatric exam: Normal Affect, Normal Mood Assessment and Plan - Assessment and Plan (Free Text) Assessment: 57 y/o male with left foot blister with superficial ulceration secondary to DM Plan: Pt seen and evaluated at bedside with attending, Dr. Casanova. Labs and vitals reviewed- afebrile, WBC 15.2 Wound culture of left foot positive for E. coli and MRSA Continue IV abx as per ID -Rocephin and Bactrim Wound to left foot cleansed with saline and dressed with Xeroform and DSD Continue with use of Multipodus boots, must be applied at all times in bed Podiatry will continue to follow while in house Upon discharge, pt to follow up with Dr. Casanova in her office
[2017-07-29] MEDS: cefTRIAXone 2 GM IN NS 2 GM/100 ML BAG IVPB SCH (10:00)
[2017-07-29] MEDS: TENOFOV ALAFENAM PO SCH (10:03)
[2017-07-29] MEDS: EMTRICITABINE PO SCH (10:03)
[2017-07-29] MEDS: Pantoprazole 40 mg EC Tab PO SCH ×2 (10:09→22:00)
[2017-07-29] MEDS: Bismuth Subsalicylate 262 mg/15 ml Sus (240 ml) PO SCH (10:10)
[2017-07-29] MEDS: Insulin Detemir 100 units/ml Vial (Levemir) SC SCH ×2 (10:10→22:04)
[2017-07-29 10:29] LABS: IRON 56 ug/dL (45-180)
[2017-07-29 10:40] LABS: % IRON SATURATION 24 % (20-55); TOTAL IRON BINDING CAPACITY 229 ug/dL (261-462)
[2017-07-29 13:15] LABS: BAND 3 % (0-2); EOSINOPHIL 1 % (0.0-3.0); LYMPHOCYTE 14 % (22.0-35.0); MONOCYTE 8 % (1.0-6.0); NEUTROPHIL 74 % (50.0-70.0)
[2017-07-29 13:16] LABS: HYPOCHROMIA 1+; LARGE PLATELETS PRESENT; MICROCYTOSIS SLIGHT; PLATELET ESTIMATE NORMAL (NORMAL)
[2017-07-29 13:17] LABS: SCHISTOCYTES SLIGHT
--- NOTE | 2017-07-29 16:30 | CP.PCM.PN ---
<Deborah,Mark - Last Filed: 07/29/17 16:19> Subjective - Date & Time of Evaluation Date of Evaluation: 07/29/17 Time of Evaluation: 11:19 - Subjective Subjective: Nikhil Cabrera PGY1 IM Progress Note Patient was seen and examined at bedside. he states that he is felling much better overall, that his abdominal pain has resolved and that he has not experienced nausea/vomiting. He is tolerating his regular diet well. denies fevers/chills, hematuria/blood in stools, n/v/d, chest pain, shortness of breath. Objective - Vital Signs/Intake and Output Vital Signs (last 24 hours): Temp Pulse Resp BP Pulse Ox 99.6 F 85 20 180/113 H 99 07/29/17 16:18 07/29/17 16:18 07/29/17 16:18 07/29/17 16:18 07/29/17 16:05 Intake and Output: 07/29/17 07/29/17 06:59 18:59 Intake Total 1200 970 Output Total 900 900 Balance 300 70 - Medications Medications: Current Medications Acetaminophen (Tylenol 325mg Tab) 650 mg PO Q4 PRN PRN Reason: Fever >100.4 F Bismuth Subsalicylate (Pepto-Bismol) 262 mg PO DAILY [facility] Last Admin: 07/29/17 10:10 Dose: Not Given Calcium Acetate (Phoslo) 667 mg PO BID [facility] Last Admin: 07/29/17 10:02 Dose: 667 mg Emtricitabine/Tenofovir (Truvada 200 Mg-300 Mg) 1 tab PO DAILY [facility] Heparin Sodium (Porcine) (Heparin) 5,000 units SC Q12 [facility] PRN Reason: Protocol Last Admin: 07/29/17 10:05 Dose: 5,000 units Ceftriaxone Sodium (Rocephin 2 Gm Ivpb) 2 gm in 100 mls @ 100 mls/hr IVPB DAILY [facility] PRN Reason: Protocol Last Admin: 07/29/17 10:00 Dose: 100 mls/hr Insulin Detemir (Levemir) 5 unit SC Q12 [facility] Last Admin: 07/29/17 10:10 Dose: 5 unit Insulin Human Lispro (Humalog Med) 0 units SC ACHS [facility] PRN Reason: Protocol Last Admin: 01/29/18 12:21 Dose: 3 units Linezolid (Zyvox) 600 mg PO BID [facility] PRN Reason: Protocol Stop: 08/06/17 18:01 Last Admin: 07/29/17 10:00 Dose: 600 mg Morphine Sulfate (Morphine) 1 mg IVP Q6H PRN PRN Reason: Pain, severe (8-10) Mupirocin (Bactroban Ointment) 0 gm TOP BID [facility] Last Admin: 07/29/17 10:09 Dose: 1 applic Emtricitabine/Tenofov Alafenam [ Descovy 200-25 Mg Tablet] (Home Med) 1 tab PO DAILY [facility] Last Admin: 07/29/17 10:03 Dose: Not Given Ondansetron HCl (Zofran Inj) 4 mg IVP Q6H PRN PRN Reason: Nausea/Vomiting Last Admin: 07/25/17 21:20 Dose: 4 mg Pantoprazole Sodium (Protonix Ec Tab) 40 mg PO Q12 [facility] Last Admin: 07/29/17 10:09 Dose: 40 mg Raltegravir (Isentress) 400 mg PO BID [facility] Last Admin: 07/29/17 10:00 Dose: 400 mg Sennosides (Senokot Tab) 8.6 mg PO DAILY [facility] Last Admin: 07/29/17 10:00 Dose: 8.6 mg Sucralfate (Carafate Oral Susp) 1 gm PO 0600,1600 [facility] Last Admin: 07/29/17 06:54 Dose: Not Given Tamsulosin HCl (Flomax) 0.4 mg PO DAILY [facility] Last Admin: 07/29/17 10:00 Dose: 0.4 mg - Labs Labs: 07/29/17 08:15 07/29/17 08:15 PT 13.2 SECONDS (9.4-12.5) H 07/21/17 18:19 INR 1.15 (0.93-1.08) H 07/21/17 18:19 APTT 29.5 Seconds (25.1-36.5) 07/21/17 18:19 - Additional Findings Additional findings: - Constitutional Appears: Well, Non-toxic, No Acute Distress - Head Exam Head Exam: NORMAL INSPECTION - Eye Exam Eye Exam: EOMI, Normal appearance - ENT Exam ENT Exam: Mucous Membranes Dry - Neck Exam Neck Exam: Normal Inspection - Respiratory Exam Respiratory Exam: NORMAL BREATHING PATTERN. absent: Rales, Rhonchi, Wheezes - Cardiovascular Exam Cardiovascular Exam: RRR, +S1, +S2 - GI/Abdominal Exam GI & Abdominal Exam: Guarding, Soft, Normal Bowel Sounds. absent: Distended, Tenderness - Exam Additional comments: suprapubic catheter in place, no sediments, pus or blood noted - Extremities Exam Extremities Exam: absent: Calf Tenderness, Pedal Edema Additional comments: chronic venous stasis skin changes L foot is wrapped and dressed (clean/dry/intact) - Back Exam Back Exam: NORMAL INSPECTION - Neurological Exam Neurological Exam: Alert, Awake, Oriented x3 - Psychiatric Exam Psychiatric exam: Normal Affect, Normal Mood - Skin Skin Exam: Normal Color, Warm Assessment and Plan - Assessment and Plan (Free Text) Assessment: 57 yo AAM with PMH of urinary retention s/p TURP, phimosis s/p circumcision and urostomy tube, recurrent UTI/pyelonephritis, HIV, HTN, CKD, Charcot foot, and DM who presented with complaint of abdominal pain, malaise, and nausea/emesis x 4 days. He is being admitted for severe sepsis in setting of TRICIA likely 2/2 pyelonephritis. TRICIA is improving and despite still meeting SIRS criteria for sepsis, patient is clinically improving. Per WANDA Savage (sister), patient is to go to [facility]. Per ID, patient may be discharged on Vantin and Doxy. Plan for now is to go to [facility] pending insurance authorization. Plan: 1. Severe sepsis 2/2 pyelonephritis vs foot ulcer - CT abd/pelvis concerning for urostomy collapsed around suprapubic catheter, moderate bilateral hydroureteronephrosis, Air within the left collecting system ; Minimal hiatal hernia. Fundus gastric wall prominence, small bowel in the upper abdomen demonstrates bowel wall prominence. Colonic diverticula. - Air in left collecting system likely tracking from urostomy tube, but in setting of immunocompromised state (HIV) and DM2, will empirically cover for emphysematous pyelonephritis organisms - UA notable for large blood, large leuk esterase, TNTC RBCs and WBCs, Many bacteria - TRICIA improving slightly, and clinically improving - urine culture grew MRSA and e.coli - blood cx grew e.coli - foot cx grew MRSA and e.coli - procal elevated - cont Rocephin and Zyvox, per ID - Bactrim held due to renal function - ID contacted regarding MRSA coverage - On discharge, patient can be discharged on Vantin and Doxy - cont urostomy tube irrigation per Uro - Urology consulted, have signed off - advance as tolerated - Zofran PRN for emesis - Tylenol PRN 2. Anemia - retic count mildly elevated - smear ordered and shows slight schistocytes, slight microcytosis and hypochromasia - 1u pRBC was transfused (consent obtained from sister, Janette); 1u on hold in case of needed transfusion - stool occult blood test ordered - given hx of CKD, likely iron deficiency due to Epo deficiency 3. Diabetic foot wounds with purulent discharge - b/l pedal pulses - wound cultures grew MRSA and e.coli - Podiatry consulted, recs appreciated - CT LE is ordered to r/o osteomyelitis 4. TRICIA on CKD - FENa 2.3 indicating intrinsic cause of TRICIA, however, unreliable give patient has CKD - TRICIA 2/2 dehydration or hypoperfusion due to sepsis on presentation vs infectious component - baseline Cr per prior charting 1.7-2.5 - K infusions stopped due to dilution and borderline hyperkalemia - continue to monitor 5. Hyperglycemia - A1C 10.8 - holding off on oral hypoglycemics - Levemir 5u Q12, converted from 10u Lantus HS at home - ISS medium - Accuchecks ACHS 6. HIV - CD4 count 766 - viral load undetectable - CMV IgG Ab +, unclear if acute or chronic - Legoinella urine antigen, G/C ordered - Toxoplasma IgM+ but IgG- so likely acute vs false positive - continue Bactrim - RPR nonreactive - Hepatitis panels negative - continue current HAART regimen, pending ID eval and recs 7. Hypocalcemia - cont calcium gluconate 8. Hypokalemia, stable - will cont to monitor 9. PPX - PTX for GI PPX - Heparin and SCDs for DVT PPX Dispo: [facility] pending authorization Patient was seen, examined and discussed with attending, Dr. Lg Cabrera PGY1 <Marjorie Castanon - Last Filed: 07/29/17 17:33> Objective - Vital Signs/Intake and Output Vital Signs (last 24 hours): Temp Pulse Resp BP Pulse Ox 99.5 F 88 20 181/116 H 99 07/29/17 16:37 07/29/17 16:37 07/29/17 16:37 07/29/17 16:37 07/29/17 16:05 Intake and Output: 07/29/17 07/29/17 06:59 18:59 Intake Total 1200 970 Output Total 900 900 Balance 300 70 - Medications Medications: Current Medications Acetaminophen (Tylenol 325mg Tab) 650 mg PO Q4 PRN PRN Reason: Fever >100.4 F Bismuth Subsalicylate (Pepto-Bismol) 262 mg PO DAILY [facility] Last Admin: 07/29/17 10:10 Dose: Not Given Calcium Acetate (Phoslo) 667 mg PO BID [facility] Last Admin: 07/29/17 10:02 Dose: 667 mg Emtricitabine/Tenofovir (Truvada 200 Mg-300 Mg) 1 tab PO DAILY [facility] Heparin Sodium (Porcine) (Heparin) 5,000 units SC Q12 [facility] PRN Reason: Protocol Last Admin: 07/29/17 10:05 Dose: 5,000 units Ceftriaxone Sodium (Rocephin 2 Gm Ivpb) 2 gm in 100 mls @ 100 mls/hr IVPB DAILY [facility] PRN Reason: Protocol Last Admin: 07/29/17 10:00 Dose: 100 mls/hr Iron Sucrose 200 mg/ Sodium (Chloride) 110 mls @ 110 mls/hr IVPB DAILY [facility] Stop: 07/31/17 10:59 Insulin Detemir (Levemir) 5 unit SC Q12 [facility] Last Admin: 07/29/17 10:10 Dose: 5 unit Insulin Human Lispro (Humalog Med) 0 units SC ACHS [facility] PRN Reason: Protocol Last Admin: 07/29/17 12:21 Dose: 3 units Linezolid (Zyvox) 600 mg PO BID [facility] PRN Reason: Protocol Stop: 08/06/17 18:01 Last Admin: 07/29/17 10:00 Dose: 600 mg Morphine Sulfate (Morphine) 1 mg IVP Q6H PRN PRN Reason: Pain, severe (8-10) Mupirocin (Bactroban Ointment) 0 gm TOP BID [facility] Last Admin: 07/29/17 10:09 Dose: 1 applic Emtricitabine/Tenofov Alafenam [ Descovy 200-25 Mg Tablet] (Home Med) 1 tab PO DAILY [facility] Last Admin: 07/29/17 10:03 Dose: Not Given Ondansetron HCl (Zofran Inj) 4 mg IVP Q6H PRN PRN Reason: Nausea/Vomiting Last Admin: 07/25/17 21:20 Dose: 4 mg Pantoprazole Sodium (Protonix Ec Tab) 40 mg PO Q12 [facility] Last Admin: 07/29/17 10:09 Dose: 40 mg Raltegravir (Isentress) 400 mg PO BID [facility] Last Admin: 07/29/17 10:00 Dose: 400 mg Sennosides (Senokot Tab) 8.6 mg PO DAILY [facility] Last Admin: 07/29/17 10:00 Dose: 8.6 mg Sucralfate (Carafate Oral Susp) 1 gm PO 0600,1600 [facility] Last Admin: 07/29/17 06:54 Dose: Not Given Tamsulosin HCl (Flomax) 0.4 mg PO DAILY [facility] Last Admin: 07/29/17 10:00 Dose: 0.4 mg - Labs Labs: 07/29/17 08:15 07/29/17 08:15 PT 13.2 SECONDS (9.4-12.5) H 07/21/17 18:19 INR 1.15 (0.93-1.08) H 07/21/17 18:19 APTT 29.5 Seconds (25.1-36.5) 07/21/17 18:19 Attending/Attestation - Attestation I have personally seen and examined this patient.: Yes I have fully participated in the care of the patient.: Yes I have reviewed all pertinent clinical information, including history, physical exam and plan: Yes Notes (Text): I have seen and examined the patient at bedside. Agree with the above note with the following additions / exceptions: Briefly this is 57 year old male with history of urinary retention s/p TURP, phimosis s/p circumcision, s/p urostomy tube, recurrent UTI/pyelonephritis, HIV, hypertension, chronic kidney disease, delayed development, Charcot foot, and DM-2 who presents with complaint of abdominal pain, malaise, and nausea/emesis x 4 days and found to have Escherichia coli UTI with bacteremia. Wound culture grew MRSA. He is on rocephin and zyvox. Continue HIV medications. Podiatry recommended multipodus boots. Patient has acute on CKD and creatinine has been improving. CT scan revealed hydronephrosis. Urology recommended outpatient follow up. CT left foot result is reviewed. MRI foot recommended. Toxo serology reviewed which was secondary to Possible acute infection or false-positive IgM result. Repeat specimen also revealed same results, the IgM reaction is probably a false- positive. Will discuss with ID. Upon discharge the patient will follow-up with PMD Dr. Howe. Dr Marjorie Castanon
--- NOTE | 2017-07-29 17:45 | CP.PCM.PN ---
Subjective - Date & Time of Evaluation Date of Evaluation: 07/29/17 Time of Evaluation: 12:30 - Subjective Subjective: Comfortable, no fevers. Objective - Vital Signs/Intake and Output Vital Signs (last 24 hours): Temp Pulse Resp BP Pulse Ox 98.7 F 70 20 142/68 96 07/29/17 08:00 07/29/17 08:00 07/29/17 08:00 07/29/17 08:00 07/29/17 08:00 Intake and Output: 07/29/17 07/29/17 06:59 18:59 Intake Total 1200 Output Total 900 Balance 300 - Medications Medications: Current Medications Acetaminophen (Tylenol 325mg Tab) 650 mg PO Q4 PRN PRN Reason: Fever >100.4 F Bismuth Subsalicylate (Pepto-Bismol) 262 mg PO DAILY [facility] Last Admin: 07/29/17 10:10 Dose: Not Given Calcium Acetate (Phoslo) 667 mg PO BID [facility] Last Admin: 07/29/17 10:02 Dose: 667 mg Emtricitabine/Tenofovir (Truvada 200 Mg-300 Mg) 1 tab PO DAILY [facility] Heparin Sodium (Porcine) (Heparin) 5,000 units SC Q12 [facility] PRN Reason: Protocol Last Admin: 07/29/17 10:05 Dose: 5,000 units Ceftriaxone Sodium (Rocephin 2 Gm Ivpb) 2 gm in 100 mls @ 100 mls/hr IVPB DAILY [facility] PRN Reason: Protocol Last Admin: 07/29/17 10:00 Dose: 100 mls/hr Insulin Detemir (Levemir) 5 unit SC Q12 [facility] Last Admin: 07/29/17 10:10 Dose: 5 unit Insulin Human Lispro (Humalog Med) 0 units SC ACHS [facility] PRN Reason: Protocol Last Admin: 07/29/17 08:05 Dose: Not Given Linezolid (Zyvox) 600 mg PO BID [facility] PRN Reason: Protocol Stop: 08/06/17 18:01 Last Admin: 07/29/17 10:00 Dose: 600 mg Morphine Sulfate (Morphine) 1 mg IVP Q6H PRN PRN Reason: Pain, severe (8-10) Mupirocin (Bactroban Ointment) 0 gm TOP BID [facility] Last Admin: 07/29/17 10:09 Dose: 1 applic Emtricitabine/Tenofov Alafenam [ Descovy 200-25 Mg Tablet] (Home [facility]) 1 tab PO DAILY [facility] Last Admin: 07/29/17 10:03 Dose: Not Given Ondansetron HCl (Zofran Inj) 4 mg IVP Q6H PRN PRN Reason: Nausea/Vomiting Last Admin: 07/25/17 21:20 Dose: 4 mg Pantoprazole Sodium (Protonix Ec Tab) 40 mg PO Q12 [facility] Last Admin: 07/29/17 10:09 Dose: 40 mg Raltegravir (Isentress) 400 mg PO BID [facility] Last Admin: 07/29/17 10:00 Dose: 400 mg Sennosides (Senokot Tab) 8.6 mg PO DAILY [facility] Last Admin: 07/29/17 10:00 Dose: 8.6 mg Sucralfate (Carafate Oral Susp) 1 gm PO 0600,1600 [facility] Last Admin: 07/29/17 06:54 Dose: Not Given Tamsulosin HCl (Flomax) 0.4 mg PO DAILY [facility] Last Admin: 07/29/17 10:00 Dose: 0.4 mg - Labs Labs: 07/29/17 08:15 07/29/17 08:15 PT 13.2 SECONDS (9.4-12.5) H 07/21/17 18:19 INR 1.15 (0.93-1.08) H 07/21/17 18:19 APTT 29.5 Seconds (25.1-36.5) 07/21/17 18:19 - Constitutional Appears: Non-toxic - Head Exam Head Exam: NORMAL INSPECTION - ENT Exam ENT Exam: Mucous Membranes Moist - Neck Exam Neck Exam: absent: Meningismus - Respiratory Exam Respiratory Exam: Decreased Breath Sounds - Cardiovascular Exam Cardiovascular Exam: +S1, +S2 - GI/Abdominal Exam GI & Abdominal Exam: Soft. absent: Tenderness Assessment and Plan - Assessment and Plan (Free Text) Plan: Assessment Severe sepsis with acute on chronic renal failure due to E. coli bacteremia, consider due to complicated UTI in this patient with urostomy tube as well as probable skin and skin structure infection of left Charcot foot with MRSA and E. coli urinary retention with history of phimosis S/P circumcision, S/P TURP, S/P urostomy tube placement history of recurrent UTI's and pyelonephritis DM HTN chronic renal failure Charcot foot, left Plan should complete up to 14 days of Rocephin for the E.coli bacteremia; should complete up to 10 days of therapy for the MRSA in the foot and urine (Zyvox, day 6 today) continue ART (Descovy and ISentress) for HIV patient with (+)IgM for Toxoplasma but negative for IgG - will need repeat titers in the next 2-4 weeks and if the IgG is still negative, may possibly be a false-positive
[2017-07-29 21:22] LABS: HEMOGLOBIN 9.2 g/dL (14.0-18.0); MEAN CELL VOLUME 94.3 fl (80.0-105.0); MEAN CORPUSCULAR HEMOGLOBIN 29.2 pg (25.0-35.0); MEAN PLATELET VOLUME 9.4 fl (7.0-11.0); RBC 3.15 10^6/uL (3.5-6.1); RED CELL DISTRIBUTION WIDTH 15.1 % (11.5-14.5); WHITE BLOOD COUNT 13.3 10^3/ul (4.5-11.0)
[2017-07-29 21:29] LABS: CALCIUM 8.7 mg/dL (8.4-10.5)
[2017-07-30] MEDS: Sucralfate 1 gm/10 ml Oral Susp UD PO SCH ×2 (05:01→16:50)
[2017-07-30 07:31] LABS: HEMOGLOBIN 8.9 g/dL (14.0-18.0); MEAN CELL VOLUME 95.1 fl (80.0-105.0); MEAN CORPUSCULAR HEMOGLOBIN 29.2 pg (25.0-35.0); MEAN CORPUSCULAR HGB CONC 30.7 g/dl (31.0-37.0); MEAN PLATELET VOLUME 9.6 fl (7.0-11.0); RBC 3.05 10^6/uL (3.5-6.1); RED CELL DISTRIBUTION WIDTH 15.4 % (11.5-14.5); WHITE BLOOD COUNT 14.6 10^3/ul (4.5-11.0)
[2017-07-30 07:53] LABS: ALB/GLOB RATIO 0.7 (1.1-1.8); CALCIUM 8.7 mg/dL (8.4-10.5)
[2017-07-30] MEDS: Insulin Lispro (humaLOG) MEDIUM Coverage SC SCH ×3 (09:36→16:50)
[2017-07-30] MEDS: cefTRIAXone 2 GM IN NS 2 GM/100 ML BAG IVPB SCH (11:59)
[2017-07-30] MEDS: Insulin Detemir 100 units/ml Vial (Levemir) SC SCH (11:59)
[2017-07-30] MEDS: Pantoprazole 40 mg EC Tab PO SCH (12:01)
[2017-07-30] MEDS: Bismuth Subsalicylate 262 mg/15 ml Sus (240 ml) PO SCH (12:01)
[2017-07-30 12:42] LABS: TRANSFERRIN 176.33 mg/dL (206-381)
--- NOTE | 2017-07-30 15:29 | CP.PCM.PN ---
<Brianne Garcia - Last Filed: 07/30/17 15:30> Subjective - Date & Time of Evaluation Date of Evaluation: 07/30/17 Time of Evaluation: 15:29 - Subjective Subjective: 57 y/o male seen with attending Dr. Lopez for left foot superficial blister/ ulceration. Pt denies any overnight events. Resting comfortably in NAD at time of visit. Denies any new episodes of F/C/N/V/CP/SOB. Denies pain in the left foot or noting any drainage. Objective - Vital Signs/Intake and Output Vital Signs (last 24 hours): Temp Pulse Resp BP Pulse Ox 97.8 F 83 18 179/116 H 96 07/30/17 06:00 07/30/17 06:00 07/30/17 06:00 07/30/17 06:00 07/30/17 06:00 Intake and Output: 07/30/17 07/30/17 06:59 18:59 Intake Total 900 640 Output Total 1400 Balance -500 640 - Medications Medications: Current Medications Acetaminophen (Tylenol 325mg Tab) 650 mg PO Q4 PRN PRN Reason: Fever >100.4 F Bismuth Subsalicylate (Pepto-Bismol) 262 mg PO DAILY [facility] Last Admin: 07/30/17 12:01 Dose: Not Given Calcium Acetate (Phoslo) 667 mg PO BID [facility] Last Admin: 07/29/17 17:38 Dose: 667 mg Emtricitabine/Tenofovir (Truvada 200 Mg-300 Mg) 1 tab PO DAILY [facility] Heparin Sodium (Porcine) (Heparin) 5,000 units SC Q12 JACKIE PRN Reason: Protocol Last Admin: 07/30/17 12:01 Dose: 5,000 units Ceftriaxone Sodium (Rocephin 2 Gm Ivpb) 2 gm in 100 mls @ 100 mls/hr IVPB DAILY [facility] PRN Reason: Protocol Last Admin: 07/30/17 11:59 Dose: 100 mls/hr Insulin Detemir (Levemir) 5 unit SC Q12 [facility] Last Admin: 07/30/17 11:59 Dose: 5 unit Insulin Human Lispro (Humalog Med) 0 units SC ACHS JACKIE PRN Reason: Protocol Last Admin: 07/30/17 12:00 Dose: 1 units Linezolid (Zyvox) 600 mg PO BID [facility] PRN Reason: Protocol Stop: 08/06/17 18:01 Last Admin: 07/29/17 17:38 Dose: 600 mg Morphine Sulfate (Morphine) 1 mg IVP Q6H PRN PRN Reason: Pain, severe (8-10) Mupirocin (Bactroban Ointment) 0 gm TOP BID [facility] Last Admin: 07/29/17 10:09 Dose: 1 applic Emtricitabine/Tenofov Alafenam [ Descovy 200-25 Mg Tablet] (Home Med) 1 tab PO DAILY [facility] Last Admin: 07/29/17 10:03 Dose: Not Given Ondansetron HCl (Zofran Inj) 4 mg IVP Q6H PRN PRN Reason: Nausea/Vomiting Last Admin: 07/25/17 21:20 Dose: 4 mg Pantoprazole Sodium (Protonix Ec Tab) 40 mg PO Q12 [facility] Last Admin: 07/30/17 12:01 Dose: 40 mg Raltegravir (Isentress) 400 mg PO BID [facility] Last Admin: 07/30/17 12:01 Dose: 400 mg Sennosides (Senokot Tab) 8.6 mg PO DAILY [facility] Last Admin: 07/30/17 12:01 Dose: 8.6 mg Sucralfate (Carafate Oral Susp) 1 gm PO 0600,1600 [facility] Last Admin: 07/30/17 05:01 Dose: Not Given Tamsulosin HCl (Flomax) 0.4 mg PO DAILY [facility] Last Admin: 07/30/17 12:01 Dose: 0.4 mg - Labs Labs: 07/30/17 06:45 07/30/17 06:45 PT 13.2 SECONDS (9.4-12.5) H 07/21/17 18:19 INR 1.15 (0.93-1.08) H 07/21/17 18:19 APTT 29.5 Seconds (25.1-36.5) 07/21/17 18:19 - Constitutional Appears: Well, Non-toxic, No Acute Distress - Extremities Exam Additional comments: Lower extremity focused exam: Vasc: DP/PT pulses palpable 2/4. CFT < 3 sec to all digits. Temperature gradient warm to cool. Derm: Diffuse hypo-pigmented skin patches secondary to previous ulcerations and blisters of foot. Wet superficial ulceration noted to medial aspect of left 1st MPJ. Wound margins measure approx 7 cm x 3.3cm x 0.1cm. Small amount of serosanguinous drainage noted to previous bandage. No malodor, no purulence, no undermining or tunneling, no fluctuance. Neuro: Protective sensation grossly diminished Ortho: No tenderness on palpation of left foot - Neurological Exam Neurological Exam: Alert, Awake - Psychiatric Exam Psychiatric exam: Normal Affect, Normal Mood Assessment and Plan - Assessment and Plan (Free Text) Assessment: 57 y/o male with left foot blister with superficial ulceration secondary to DM Plan: Pt seen and evaluated at bedside with attending Jessica Labs and vitals reviewed- afebrile, WBC 14.6 Wound culture of left foot positive for E. coli and MRSA Continue IV abx as per ID -Rocephin and Bactrim LLE CT reviewed- no evidence of OM to left foot Wound to left foot cleansed with saline and dressed with Xeroform and DSD Continue with use of Multipodus boots, must be applied at all times in bed Podiatry will continue to follow while in house Upon discharge, pt to follow up with Dr. Casanova in her office <Geoff Lopez - Last Filed: 07/30/17 16:53> Objective - Vital Signs/Intake and Output Vital Signs (last 24 hours): Temp Pulse Resp BP Pulse Ox 97.8 F 83 18 179/116 H 96 07/30/17 06:00 07/30/17 06:00 07/30/17 06:00 07/30/17 06:00 07/30/17 06:00 Intake and Output: 07/30/17 07/30/17 06:59 18:59 Intake Total 900 640 Output Total 1400 Balance -500 640 - Medications Medications: Current Medications Acetaminophen (Tylenol 325mg Tab) 650 mg PO Q4 PRN PRN Reason: Fever >100.4 F Bismuth Subsalicylate (Pepto-Bismol) 262 mg PO DAILY [facility] Last Admin: 07/30/17 12:01 Dose: Not Given Calcium Acetate (Phoslo) 667 mg PO BID [facility] Last Admin: 07/30/17 11:34 Dose: 667 mg Emtricitabine/Tenofovir (Truvada 200 Mg-300 Mg) 1 tab PO DAILY [facility] Heparin Sodium (Porcine) (Heparin) 5,000 units SC Q12 [facility] PRN Reason: Protocol Last Admin: 07/30/17 12:01 Dose: 5,000 units Ceftriaxone Sodium (Rocephin 2 Gm Ivpb) 2 gm in 100 mls @ 100 mls/hr IVPB DAILY [facility] PRN Reason: Protocol Last Admin: 07/30/17 11:59 Dose: 100 mls/hr Insulin Detemir (Levemir) 5 unit SC Q12 [facility] Last Admin: 07/30/17 11:59 Dose: 5 unit Insulin Human Lispro (Humalog Med) 0 units SC ACHS [facility] PRN Reason: Protocol Last Admin: 07/30/17 12:00 Dose: 1 units Linezolid (Zyvox) 600 mg PO BID [facility] PRN Reason: Protocol Stop: 08/06/17 18:01 Last Admin: 07/30/17 11:33 Dose: 600 mg Morphine Sulfate (Morphine) 1 mg IVP Q6H PRN PRN Reason: Pain, severe (8-10) Mupirocin (Bactroban Ointment) 0 gm TOP BID [facility] Last Admin: 07/29/17 10:09 Dose: 1 applic Emtricitabine/Tenofov Alafenam [ Descovy 200-25 Mg Tablet] (Home Med) 1 tab PO DAILY [facility] Last Admin: 07/29/17 10:03 Dose: Not Given Ondansetron HCl (Zofran Inj) 4 mg IVP Q6H PRN PRN Reason: Nausea/Vomiting Last Admin: 07/25/17 21:20 Dose: 4 mg Pantoprazole Sodium (Protonix Ec Tab) 40 mg PO Q12 [facility] Last Admin: 07/30/17 12:01 Dose: 40 mg Raltegravir (Isentress) 400 mg PO BID [facility] Last Admin: 07/30/17 12:01 Dose: 400 mg Sennosides (Senokot Tab) 8.6 mg PO DAILY [facility] Last Admin: 07/30/17 12:01 Dose: 8.6 mg Sucralfate (Carafate Oral Susp) 1 gm PO 0600,1600 [facility] Last Admin: 07/30/17 05:01 Dose: Not Given Tamsulosin HCl (Flomax) 0.4 mg PO DAILY [facility] Last Admin: 07/30/17 12:01 Dose: 0.4 mg - Labs Labs: 07/30/17 06:45 01/30/18 06:45 PT 13.2 SECONDS (9.4-12.5) H 07/21/17 18:19 INR 1.15 (0.93-1.08) H 07/21/17 18:19 APTT 29.5 Seconds (25.1-36.5) 07/21/17 18:19 Attending/Attestation - Attestation I have personally seen and examined this patient.: Yes I have fully participated in the care of the patient.: Yes I have reviewed all pertinent clinical information, including history, physical exam and plan: Yes
--- NOTE | 2017-07-30 15:46 | PCM.URO ---
Urology Progress Note - Objective Lab Results Last 24 Hours: Laboratory Results - last 24 hr 07/29/17 07/29/17 07/29/17 08:30 08:30 09:40 WBC RBC Hgb Hct MCV MCH MCHC RDW Plt Count MPV ESR Haptoglobin 231 H Sodium Potassium Chloride Carbon Dioxide Anion Gap BUN Creatinine Est GFR ( Amer) Est GFR (Non-Af Amer) POC Glucose (mg/dL) Random Glucose Calcium Transferrin Ferritin 331.0 Total Bilirubin AST ALT Alkaline Phosphatase Lactate Dehydrogenase 684 C-React Prot High Sens Total Protein Albumin Globulin Albumin/Globulin Ratio Vitamin B12 577 Stool Occult Blood Blood Type O POSITIVE Antibody Screen Negative Crossmatch See Detail BBK History Checked Patient has bt 07/29/17 07/29/17 07/29/17 16:13 18:20 21:00 WBC 13.3 H RBC 3.15 L Hgb 9.2 L D Hct 29.7 L MCV 94.3 MCH 29.2 MCHC 31.0 RDW 15.1 H Plt Count 446 MPV 9.4 ESR Haptoglobin Sodium Potassium Chloride Carbon Dioxide Anion Gap BUN Creatinine Est GFR ( Amer) Est GFR (Non-Af Amer) POC Glucose (mg/dL) 146 H Random Glucose Calcium Transferrin Ferritin Total Bilirubin AST ALT Alkaline Phosphatase Lactate Dehydrogenase C-React Prot High Sens Total Protein Albumin Globulin Albumin/Globulin Ratio Vitamin B12 Stool Occult Blood Negative Blood Type Antibody Screen Crossmatch BBK History Checked 07/29/17 07/29/17 07/30/17 21:00 21:26 06:45 WBC 14.6 H RBC 3.05 L Hgb 8.9 L Hct 29.0 L MCV 95.1 MCH 29.2 MCHC 30.7 L RDW 15.4 H Plt Count 438 MPV 9.6 ESR 85 H Haptoglobin Sodium 139 Potassium 5.1 H Chloride 107 Carbon Dioxide 26 Anion Gap 12 BUN 21 Creatinine 2.6 H Est GFR ( Amer) 31 Est GFR (Non-Af Amer) 26 POC Glucose (mg/dL) 225 H Random Glucose 251 H Calcium 8.7 Transferrin Ferritin Total Bilirubin AST ALT Alkaline Phosphatase Lactate Dehydrogenase C-React Prot High Sens Total Protein Albumin Globulin Albumin/Globulin Ratio Vitamin B12 Stool Occult Blood Blood Type Antibody Screen Crossmatch BBK History Checked 07/30/17 07/30/17 07/30/17 06:45 06:45 07:39 WBC RBC Hgb Hct MCV MCH MCHC RDW Plt Count MPV ESR Haptoglobin Sodium 141 Potassium 4.7 Chloride 109 H Carbon Dioxide 27 Anion Gap 10 BUN 22 H Creatinine 2.6 H Est GFR ( Amer) 31 Est GFR (Non-Af Amer) 26 POC Glucose (mg/dL) 217 H Random Glucose 213 H Calcium 8.7 Transferrin 176.33 L Ferritin Total Bilirubin 0.4 AST 36 ALT 23 Alkaline Phosphatase 67 Lactate Dehydrogenase C-React Prot High Sens 4.64 H Total Protein 7.2 Albumin 3.0 Globulin 4.2 Albumin/Globulin Ratio 0.7 L Vitamin B12 Stool Occult Blood Blood Type Antibody Screen Crossmatch BBK History Checked 07/30/17 11:13 WBC RBC Hgb Hct MCV MCH MCHC RDW Plt Count MPV ESR Haptoglobin Sodium Potassium Chloride Carbon Dioxide Anion Gap BUN Creatinine Est GFR ( Amer) Est GFR (Non-Af Amer) POC Glucose (mg/dL) 192 H Random Glucose Calcium Transferrin Ferritin Total Bilirubin AST ALT Alkaline Phosphatase Lactate Dehydrogenase C-React Prot High Sens Total Protein Albumin Globulin Albumin/Globulin Ratio Vitamin B12 Stool Occult Blood Blood Type Antibody Screen Crossmatch BBK History Checked Intake & Output: Intake & Output 07/29/17 07/30/17 07/30/17 18:59 06:59 18:59 Intake Total 970 900 640 Output Total 900 1400 Balance 70 -500 640 Intake: Oral 600 480 640 Blood Product 270 320 Apheresis Rbc Cp2d As3 Lr 270 2nd Unit [id number] Red Blood Cells Cpd As1 0 320 Lr Unit [id number] Other 100 100 Apheresis Rbc Cp2d As3 Lr 100 2nd Unit [id number] Red Blood Cells Cpd As1 100 Lr Unit [id number] Output: Urine 900 1400 Urethral ([place]) 900 1400 Other: # Bowel Movements 3 1 Vital Signs: Vital Signs - 24 hr 07/29/17 07/29/17 07/29/17 16:05 16:18 16:20 Temperature 98 F 99.6 F 97.8 F Pulse Rate 85 85 86 Respiratory 20 20 20 Rate Blood Pressure 174/109 H 180/113 H 210/122 H O2 Sat by Pulse 99 Oximetry 07/29/17 07/29/17 07/29/17 16:25 16:37 17:38 Temperature 99.6 F 99.5 F Pulse Rate 85 88 85 Respiratory 20 20 Rate Blood Pressure 180/113 H 181/116 H 210/122 H O2 Sat by Pulse Oximetry 07/29/17 07/30/17 07/30/17 19:32 00:00 06:00 Temperature 99.2 F 98 F 97.8 F Pulse Rate 88 91 H 83 Respiratory 20 18 18 Rate Blood Pressure 170/104 H 149/87 179/116 H O2 Sat by Pulse 96 96 Oximetry
--- NOTE | 2017-07-30 16:53 | CP.PCM.DIS ---
Provider - Provider Date of Admission: 07/21/17 22:13 Attending physician: Marjorie Castanon MD Primary care physician: Shyam Laguerre MD Time Spent in preparation of Discharge (in minutes): 40 Diagnosis - Discharge Diagnosis (1) Severe sepsis with acute organ dysfunction Status: Acute (2) Complication of urostomy Status: Acute (3) Emphysematous pyelonephritis Status: Acute (4) Acute renal insufficiency Status: Acute (5) MRSA (methicillin resistant Staphylococcus aureus) infection Status: Acute (6) Bacteremia Status: Acute (7) Foot ulcer Status: Acute (8) HIV (human immunodeficiency virus infection) Status: Chronic Priority: Medium (9) Hypertension Status: Chronic Priority: Low (10) Diabetes mellitus Status: Chronic (11) Urinary retention Status: Acute (12) S/P TURP (status post transurethral resection of prostate) Status: Chronic (13) Phimosis Status: Chronic (14) CKD (chronic kidney disease) Status: Chronic (15) Anemia in chronic kidney disease Status: Acute Hospital Course - Lab Results Lab Results: Micro Results 07/23/17 07:30 Blood-Venous Blood Culture - Final NO GROWTH AFTER 5 DAYS 07/23/17 07:30 Blood-Venous Gram Stain - Final TEST NOT PERFORMED Most Recent Lab Values WBC 14.6 10^3/ul (4.5-11.0) H 07/30/17 06:45 RBC 3.05 10^6/uL (3.5-6.1) L 07/30/17 06:45 Hgb 8.9 g/dL (14.0-18.0) L 07/30/17 06:45 Hct 29.0 % (42.0-52.0) L 07/30/17 06:45 MCV 95.1 fl (80.0-105.0) 07/30/17 06:45 MCH 29.2 pg (25.0-35.0) 07/30/17 06:45 MCHC 30.7 g/dl (31.0-37.0) L 07/30/17 06:45 RDW 15.4 % (11.5-14.5) H 07/30/17 06:45 Plt Count 438 10^3/uL (120.0-450.0) 07/30/17 06:45 MPV 9.6 fl (7.0-11.0) 07/30/17 06:45 Gran % 78.6 % (50.0-68.0) H 07/26/17 08:30 Lymph % (Auto) 13.9 % (22.0-35.0) L 07/26/17 08:30 Carver % (Auto) 6.4 % (1.0-6.0) H 07/26/17 08:30 Eos % (Auto) 0.8 % (1.5-5.0) L 07/26/17 08:30 Baso % (Auto) 0.3 % (0.0-3.0) 07/26/17 08:30 Gran # 14.27 (1.4-6.5) H 07/26/17 08:30 Lymph # 2.5 (1.2-3.4) 07/26/17 08:30 Carver # 1.2 (0.1-0.6) H 07/26/17 08:30 Eos # 0.2 (0.0-0.7) 07/26/17 08:30 Baso # 0.06 K/mm3 (0.0-2.0) 07/26/17 08:30 Neutrophils % (Manual) 74 % (50.0-70.0) H 07/29/17 08:15 Band Neutrophils % 3 % (0-2) H 07/29/17 08:15 Lymphocytes % (Manual) 14 % (22.0-35.0) L 07/29/17 08:15 Monocytes % (Manual) 8 % (1.0-6.0) H 07/29/17 08:15 Eosinophils % (Manual) 1 % (0.0-3.0) 07/29/17 08:15 Platelet Evaluation Normal (NORMAL) 07/29/17 08:15 Large Platelets Present 07/29/17 08:15 Hypochromasia 1+ 07/29/17 08:15 Microcytosis (manual) Slight 07/29/17 08:15 Schistocytes Slight 07/29/17 08:15 ESR 85 mm/hr (0.00-15.0) H 07/30/17 06:45 Retic Count 3.23 % (0.5-1.5) H 07/29/17 08:30 Haptoglobin 231 mg/dL (43-212) H 07/29/17 08:30 PT 13.2 SECONDS (9.4-12.5) H 07/21/17 18:19 INR 1.15 (0.93-1.08) H 07/21/17 18:19 APTT 29.5 Seconds (25.1-36.5) 07/21/17 18:19 pO2 50 mm/Hg (30-55) 07/21/17 18:19 VBG pH 7.40 (7.32-7.43) 07/21/17 18:19 VBG pCO2 47.0 (40-60) 07/21/17 18:19 VBG HCO3 29.1 mmol/l (21-28) H 07/21/17 18:19 VBG Total CO2 30.5 mmol.L (22-28) H 07/21/17 18:19 VBG O2 Sat (Calc) 89.1 % (40-65) H 07/21/17 18:19 VBG Base Excess 3.5 mmol/L (0.0-2.0) H 07/21/17 18:19 VBG Potassium 3.5 mmol/L (3.6-5.2) L 07/21/17 18:19 Sodium 123.0 mmol/L (132-148) L 07/21/17 18:19 Chloride 92.0 mmol/L (98-107) L 07/21/17 18:19 Glucose 387 mg/dl (75-110) H 07/21/17 18:19 Lactate 1.7 mmol/L (0.7-2.1) 07/21/17 18:19 FiO2 21.0 % 07/21/17 18:19 Sodium 141 mmol/L (132-148) 07/30/17 06:45 Potassium 4.7 mmol/L (3.6-5.0) 07/30/17 06:45 Chloride 109 mmol/L (98-107) H 07/30/17 06:45 Carbon Dioxide 27 mmol/L (21-33) 07/30/17 06:45 Anion Gap 10 (10-20) 07/30/17 06:45 BUN 22 mg/dL (7-21) H 07/30/17 06:45 Creatinine 2.6 mg/dl (0.8-1.5) H 07/30/17 06:45 Est GFR ( Amer) 31 07/30/17 06:45 Est GFR (Non-Af Amer) 26 07/30/17 06:45 Random Glucose 213 mg/dL (70-110) H 07/30/17 06:45 POC Glucose (mg/dL) 229 mg/dL (65-110) H 07/30/17 15:57 Hemoglobin A1c 10.8 % (4.2-6.5) H D 07/22/17 01:30 Calcium 8.7 mg/dL (8.4-10.5) 07/30/17 06:45 Phosphorus 3.1 mg/dL (2.5-4.5) 07/21/17 18:19 Magnesium 2.3 mg/dL (1.7-2.2) H 07/21/17 18:19 Iron 56 ug/dL (45-180) 07/29/17 08:30 TIBC 229 ug/dL (261-462) L 07/29/17 08:30 % Saturation 24 % (20-55) 07/29/17 08:30 Transferrin 176.33 mg/dL (206-381) L 07/30/17 06:45 Ferritin 331.0 ng/mL 07/29/17 08:30 Total Bilirubin 0.4 mg/dL (0.2-1.3) 07/30/17 06:45 AST 36 U/L (17-59) 07/30/17 06:45 ALT 23 U/L (7-56) 07/30/17 06:45 Alkaline Phosphatase 67 U/L (38-126) 07/30/17 06:45 Lactate Dehydrogenase 684 U/L (333-699) 07/29/17 08:30 Troponin I < 0.01 ng/mL D 07/21/17 18:19 C-React Prot High Sens 4.64 mg/L (1.00-3.00) H 07/30/17 06:45 Total Protein 7.2 g/dL (5.8-8.3) 07/30/17 06:45 Albumin 3.0 g/dL (3.0-4.8) 07/30/17 06:45 Globulin 4.2 gm/dL 07/30/17 06:45 Albumin/Globulin Ratio 0.7 (1.1-1.8) L 07/30/17 06:45 Lipase 29 U/L (23-300) 07/21/17 18:19 Prostate Specific Ag 0.6 ng/mL (0.00-2.5) 07/28/17 09:00 Vitamin B1 109 nmol/L (78-185) 07/22/17 01:30 Vitamin B12 577 pg/mL (239-931) 07/29/17 08:30 Procalcitonin 3.78 NG/ML (0.19-0.49) H 07/23/17 07:30 TSH 3rd Generation 1.26 mIU/mL (0.46-4.68) 07/22/17 01:30 Venous Blood Potassium 3.5 mmol/L (3.6-5.2) L 07/21/17 18:19 Urine Color Yellow (YELLOW) 07/21/17 19:30 Urine Appearance Turbid (CLEAR) 07/21/17 19:30 Urine pH 6.0 (4.7-8.0) 07/21/17 19:30 Ur Specific [place] 1.020 (1.005-1.035) 07/21/17 19:30 Urine Protein 100 mg/dL (<30 mg/dL) H 07/21/17 19:30 Urine Glucose (UA) 500 mg/dL (NEGATIVE) H 07/21/17 19:30 Urine Ketones Negative mg/dL (NEGATIVE) 07/21/17 19:30 Urine Blood Large (NEGATIVE) H 07/21/17 19:30 Urine Nitrate Negative (NEGATIVE) 07/21/17 19: Urine Bilirubin Negative (NEGATIVE) 07/21/17 19:30 Urine Urobilinogen 0.2 E.U./dL (<1 E.U./dL) 07/21/17 19:30 Ur Leukocyte Esterase Large Honey/uL (NEGATIVE) H 07/21/17 19:30 Urine RBC Tntc /hpf (0-2) 07/21/17 19:30 Urine WBC Tntc /hpf (0-6) 07/21/17 19:30 Ur Epithelial Cells 4 - 5 /hpf (0-5) 07/21/17 19:30 Urine Bacteria Many (NEG) 07/21/17 19:30 Urine Eosinophils Negative 07/24/17 10:30 Urine Osmolality 283 mosm/kg (300-1000) L 07/24/17 10:30 Ur Random Creatinine 52 mg/dL 07/24/17 10:30 Ur Random Sodium 42 meq/L 07/24/17 10:30 Ur Random Potassium 12.8 meq/L 07/24/17 10:30 Ur Random Urea Nitrogn 419 mg/dL 07/24/17 10:30 Stool Occult Blood Negative (NEGATIVE) 07/29/17 18:20 Vancomycin Trough 11.8 ug/mL (5.0-10.0) H 07/26/17 19:29 Absolute Lymphs (Flow) 1948 Cells/mcL (850-3900) 07/22/17 01:30 % CD4 Cells 39 Percent (30-61) 07/22/17 01:30 Absolute CD4 Count 766 Cells/mcL (490-1740) 07/22/17 01:30 T-Help/Suppress Ratio 0.98 Ratio (0.86-5.00) 07/22/17 01:30 % CD8 Cells 40 Percent (12-42) 07/22/17 01:30 Absolute CD8 Count 783 Cells/mcL (180-1170) 07/22/17 01:30 RPR Nonreactive (NONREACTIVE) 07/22/17 01:30 C.trachomatis RNA (TMA) Not detected (Not Detected) 07/24/17 07:00 CMV IgG Ab 3.50 U/mL H 07/22/17 01:30 CMV IgM Ab <30.00 AU/mL 07/22/17 01:30 Hepatitis A IgM Ab Negative (NEGATIVE) 07/22/17 01:30 Hep Bs Antigen Negative (NEGATIVE) 07/22/17 01:30 Hep B Core IgM Ab Negative (NEGATIVE) 07/22/17 01:30 Hepatitis C Antibody Negative (NEGATIVE) 07/22/17 01:30 HIV-1 RNA Qnt (RT-PCR) <1.30 not detected (<1.30) 07/22/17 01:30 Ur L.pneumophila Ag Negative (NEGATIVE) 07/23/17 08:11 N.gonorrhoeae RNA (TMA) Not detected (Not Detected) 07/24/17 07:00 Toxoplasma IgG Ab <7.20 IU/mL 07/25/17 07:01 Toxoplasma IgM Ab 10.40 AU/mL H 07/25/17 07:01 Toxoplasma Ab Interp See note 07/25/17 07:01 Blood Type O POSITIVE 07/29/17 09:40 Antibody Screen Negative 07/29/17 09:40 Crossmatch See Detail 07/29/17 09:40 BBK History Checked Patient has bt 07/29/17 09:40 - Hospital Course Hospital Course: Mr. Garcia is a 57 yo AAM with PMH of urinary retention s/p TURP, phimosis s/ p circumcision and urostomy tube placement, recurrent UTI/pyelonephritis, HIV, HTN, CKD, Charcot foot, and DM who presented with complaint of abdominal pain, malaise, and nausea/emesis x 4 days. HPI was primarily from sister who brought pt to the ED, as pt is a poor historian. Sister also reports noting pus, but no kentrell blood, from urostomy tube for last 2 days. She also reports new onset blisters on patient's left foot, not there during last visit with Dr. Casanova on 07/09/17, that erupted today, with bloody pus contents. CT abd/pelvis concerning for urostomy collapsed around suprapubic catheter, moderate bilateral hydroureteronephrosis, Air within the left collecting system; Minimal hiatal hernia. UA was notable for large blood, large leuk esterase, TNTC RBCs and WBCs. Leukocytosis, anemia, hyponatremia and hypokalemia were all noted on admission. Hypergylcemia was also noted, and A1C was found to be 10.8. Procal was also elevated. Patient met SIRS criteria (WBC and HR, but afebrile) and in setting of TRICIA on CKD (With unknown baseline), was treated for severe sepsis. Urology, Podiatry, and ID were all consulted for their recommendations. CT of L foot was obtained and showed soft tissue swelling but no osteomyelitis, cultures did grow MRSA and e.coli; podiatry managed the foot and patient was on IV antibiotics. Urine culture also grew E.coli and MRSA. E.coli was also found in blood. Per ID, the patient was started on Rocephin and Zyvox, which he is to continue at [facility]. Renal nuclear scan was obtained and showed b/l component of obstruction but urology did not find any need for emergent intervention. Being HIV+, the patient was worked up for CMV, Hepatitis, Toxoplasmosis. CD4 count is 766 and HIV was undetectable. CMV IgG was positive but IgM negative indicating prior infection. Toxoplasmosis IgM was positive but IgG negative indicating possible false positive; will need repeat study in 2-4 weeks. For patient's TRICIA, FENa 2.3 indicating intrinsic cause of TRICIA, however, was unreliable give patient has CKD. TRICIA likely 2/2 dehydration or hypoperfusion due to sepsis and ischemic ATN. With antibiotics and fluids, the patient's WBC trended down, electrolytes normalized and TRICIA improved. Anemia likely anemia of chronic disease in etiology, likely worsened by infection (ie anemia of critical illness) and required transfusion of 2u blood. PT evaluated the patient. Janette Pinto is the patient's POA and sister, and she met with the team to determine where the patient would be discharged to and she preferred [facility] over [facility]. SW and Palliative care both worked hard to place the patient who was accepted to [facility]. Patient is medically stable for discharge with several days of no n/v or fevers/chills and is tolerating PO Diet , and will complete course of antibiotics as outlined, take iron pills, and take a follow up Toxoplasmosis test in 2-4 weeks. Patient will follow up with his PMD and Dr. Casanova. Discharge Exam - Head Exam Head Exam: NORMAL INSPECTION - Eye Exam Eye Exam: EOMI, Normal appearance - ENT Exam ENT Exam: Mucous Membranes Moist - Neck Exam Neck exam: Normal Inspection - Respiratory Exam Respiratory Exam: Clear to PA & Lateral, NORMAL BREATHING PATTERN. absent: Rales, Rhonchi, Wheezes - Cardiovascular Exam Cardiovascular Exam: RRR, +S1, +S2 - GI/Abdominal Exam GI & Abdominal Exam: Normal Bowel Sounds, Soft. absent: Distended, Tenderness Additional comments: urostomy tube with no pus/sediment noted in bag - Extremities Exam Extremities exam: normal inspection Additional comments: L foot dressed clean/dry/intact - Back Exam Back exam: NORMAL INSPECTION. absent: CVA tenderness (L), CVA tenderness (R) - Neurological Exam Neurological exam: Alert - Psychiatric Exam Psychiatric exam: Normal Affect, Normal Mood - Skin Skin Exam: Normal Color, Warm Discharge Plan - Discharge Medications Prescriptions: cefTRIAXone 1 gm [Rocephin 1 gram IVPB] 2 gm IVPB 10 #10 bag - Follow Up Plan Condition: FAIR Disposition: TRANSF TO [facility] Instructions: Urostomy Care (DC), Diabetic Foot Care (DC), Human Immunodeficiency Virus and Acquired Immune Deficiency Syndrome (ED), Acute Nausea and Vomiting (DC), Acute Abdominal Pain (DC), Diabetic Foot Ulcers (DC) Additional Instructions: - please continue Rocephin for 9 more days to complete 14 days of Rocephin therapy for E.coli bacteremia - please continue Zyvox for 5 more days to complete 10 days of Zyvox therapy for MRSA in foot and urine - please continue taking Iron pills for your anemia - please continue your home meds as prescribed - please follow up with your PMD Dr. Laguerre or in [facility] clinic for management of your diabetes and other medical conditions - if you experience fevers/chills, nausea/vomiting or trouble urinating, please return to ER for evaluation Referrals: Rhonda Casanova DPM [Staff Provider] - Shyam Laguerre MD [Primary Care Provider] -
[2017-07-30 16:57] VITALS: BP 158/110
[2017-07-30 19:23] VITALS: PULSE 79; RESP 20; TEMP 98.2; O2SAT 97
--- NOTE | 2017-07-31 01:33 | PN ---
DATE: 07/30/2017 LOCATION: The patient is seen earlier this morning in room 572, bed 2. SUBJECTIVE: The patient has no fevers or chills. PHYSICAL EXAMINATION: VITAL SIGNS: Temperature is 98, blood pressure is 158/110, and respiratory rate of 18. HEENT: Unremarkable. NECK: Supple. LUNGS: Decreased breath sounds. HEART: Normal S1 and S2. ABDOMEN: Soft. LABORATORY DATA: Reveals a white count of 14,000, hemoglobin of 8, platelets of 438, BUN of 22, and creatinine of 2.6. Procalcitonin is 3.78. ASSESSMENT AND PLAN: This is a 57-year-old male, who was seen earlier this morning with diabetes, hypertension, chronic renal failure, left Charcot foot with severe sepsis with acute on chronic renal failure due to E. coli bacteremia and complicated urinary tract infection, urostomy, positive human immunodeficiency virus, and MRSA of the foot, on day #7 of Zyvox and ceftriaxone to complete for 10 days. Gianluca Marsh MD
== END 2017-07-30 19:55 | DRG 569 ==
LOC: ED 17:15 → ERH 22:13 → 2RSO 07-22 18:25 → 3RNO 07-23 18:21 → 5RSO 07-24 11:55
PROVIDERS: ADMIT Internal Medicine; ATTEND Hospitalist
PROC: 0HDNXZZ Extraction of Left Foot Skin, External Approach (ICD-10-PCS; principal; 2017-07-22)
PROC: 30233N1 Transfusion of Nonautologous Red Blood Cells into Peripheral Vein, Percutaneous Approach (ICD-10-PCS; 2017-07-29)
DX: N99.521 Infection of incontinent external stoma of urinary tract (principal); A41.9 Sepsis, unspecified organism; N17.0 Acute kidney failure with tubular necrosis; R65.20 Severe sepsis without septic shock; E11.22 Type 2 diabetes mellitus with diabetic chronic kidney disease; E11.51 Type 2 diabetes mellitus with diabetic peripheral angiopathy without gangrene; N13.6 Pyonephrosis; E83.51 Hypocalcemia; E87.6 Hypokalemia; E11.610 Type 2 diabetes mellitus with diabetic neuropathic arthropathy; N18.9 Chronic kidney disease, unspecified; E11.621 Type 2 diabetes mellitus with foot ulcer; L97.529 Non-pressure chronic ulcer of other part of left foot with unspecified severity; E87.1 Hypo-osmolality and hyponatremia; E86.0 Dehydration; Z21 Asymptomatic human immunodeficiency virus [HIV] infection status; E11.65 Type 2 diabetes mellitus with hyperglycemia; I12.9 Hypertensive chronic kidney disease with stage 1 through stage 4 chronic kidney disease, or unspecified chronic kidney disease; B95.62 Methicillin resistant Staphylococcus aureus infection as the cause of diseases classified elsewhere; B96.20 Unspecified Escherichia coli [E. coli] as the cause of diseases classified elsewhere; D63.1 Anemia in chronic kidney disease; N40.0 Benign prostatic hyperplasia without lower urinary tract symptoms; F79 Unspecified intellectual disabilities; K57.30 Diverticulosis of large intestine without perforation or abscess without bleeding; Y84.8 Other medical procedures as the cause of abnormal reaction of the patient, or of later complication, without mention of misadventure at the time of the procedure; Z90.79 Acquired absence of other genital organ(s)

== ENCOUNTER 2017-08-14 14:37 | Emergency (ER) | payer MEDICAID ==
[2017-08-14 14:37] VITALS: BMI 25.8
[2017-08-14 14:45] VITALS: TEMP 98.1; O2SAT 98
--- NOTE | 2017-08-14 15:05 | ED PDOC ---
Arrival/HPI - General Chief Complaint: Abnormal Skin Integrity Time Seen by Provider: 08/14/17 14:57 Historian: Patient, Family (sister) EM Caveat: Acuity of Condition - History of Present Illness Narrative History of Present Illness (Text): 08/14/17 14:58 Pt is a 57 yo male who was brought in by his sister for a trip and fall this afternoon while out with sister from the [facility]. Pt does not speak much so sister noted that while going to the bank, he tripped on a plastic back, lost his balance and fell forward, landing on the left side of his face, sustaining an abrasion to the bottom lip and just below his left eye. Pt also reports landing on the right knee. Denies LOC, dizziness, lightheadedness, fever, shortness of breath, or chest pain. Pt just received insulin injection prior to leaving but denies feeling weak. 08/14/17 15:36 Time/Duration: 4-6 hours Symptom Onset: Sudden Symptom Course: Unchanged Quality: Aching Severity Level: 2, Mild Activities at Onset: Rest Context: Home Past Medical History - Provider Review Nursing Documentation Reviewed: Yes - Travel History Have you recently traveled outside [place] w/in the past 3 mons?: No - Infectious Disease Hx of Infectious Diseases: None - Tetanus Immunization Tetanus Immunization: Unknown - Cardiac Hx Cardiac Disorders: Yes Hx Hypertension: Yes Hx Peripheral Edema: Yes Hx Peripheral Vascular Disease: Yes - Pulmonary Hx Respiratory Disorders: No - Neurological Hx Neurological Disorder: Yes (MENTALLY IMPAIRED SINCE ) Hx Dizziness: Yes - HEENT Hx HEENT Disorder: Yes (EXCESSIVE TEARING) - Renal Hx Renal Disorder: Yes (RENAL INSUFFICIENCY) Other/Comment: HYDRONEPHROSIS - Endocrine/Metabolic Hx Endocrine Disorders: Yes Hx Diabetes Mellitus Type 2: Yes - Hematological/Oncological Hx Blood Disorders: Yes Hx Anemia: Yes - Integumentary Other/Comment: FOOT INFECTION - Musculoskeletal/Rheumatological Hx Fractures: Yes (LEFT LG) Other/Comment: OPEN REDUCTION INTERNAL FIXATION - Gastrointestinal Hx Gastrointestinal Disorders: Yes (HX:VOMITTING, LOSS OF APPETITE) - Genitourinary/Gynecological Other/Comment: EPIDIDYMITIS,E COLI IN THE URINE. HX: SUPRAPUBIC TUBE - Psychiatric Hx Substance Use: Yes (cannabis) Other/Comment: mentally impaired - Surgical History Hx Orthopedic Surgery: Yes (open reduction internal fixation ( left leg)) Other/Comment: UROSTOMY - Anesthesia Hx Anesthesia: Yes Hx Anesthesia Reactions: No Hx Malignant Hyperthermia: No - Suicidal Assessment Feels Threatened In Home Enviroment: No Family/Social History - Physician Review Nursing Documentation Reviewed: Yes Family/Social History: Unknown Family HX Smoking Status: Current Some Days Smoker Hx Alcohol Use: No Hx Substance Use: Yes (cannabis) Substance used: MARIJUANA Hx Substance Use Treatment: No Allergies/Home Meds Allergies/Adverse Reactions: Allergies No Known Allergies Allergy (Verified 08/14/17 14:40) Home Medications: Home Meds Medication Instructions Recorded Confirmed Calcium Acetate [Phoslo] 1 tab PO BID 07/21/17 07/21/17 Emtricitabine/Tenofov Alafenam 1 tab PO DAILY 07/21/17 07/21/17 [Descovy 200-25 mg Tablet] GlipiZIDE [Glucotrol] 5 mg PO DAILY 07/21/17 07/21/17 Hydrochlorothiazide [Microzide] 12.5 mg PO DAILY 07/21/17 07/21/17 Losartan Potassium 50 mg PO DAILY 07/21/17 07/21/17 Multivitamin [Multivitamins] 1 cap PO DAILY 07/21/17 07/21/17 Review of Systems - Review of Systems Constitutional: Normal Eyes: Normal ENT: Normal Respiratory: Normal Cardiovascular: Normal Gastrointestinal: Normal Genitourinary Male: Normal Musculoskeletal: Normal Skin: Normal, Other (skin abrasion on lip and left eye) Neurological: Normal Endocrine: Normal Hemo/Lymphatic: Normal Psychiatric: Normal Physical Exam Vital Signs Temp Pulse Resp BP Pulse Ox 08/14/17 18:07 80 18 147/79 98 08/14/17 14:44 98.1 F 85 16 157/92 H 98 Temperature: Afebrile Blood Pressure: Normal Pulse: Regular Respiratory Rate: Normal Appearance: Positive for: Well-Appearing, Non-Toxic, Comfortable Pain Distress: None Mental Status: Positive for: Alert and Oriented X 3 - Systems Exam Head: Present: Atraumatic, Normocephalic Pupils: Present: PERRL Extroacular Muscles: Present: EOMI Conjunctiva: Present: Normal Mouth: Present: Moist Mucous Membranes, Other (maxillary dentures gone due to fall; gums no-erythematous, no lesions or lacerations appreciated) Neck: Present: Normal Range of Motion Respiratory/Chest: Present: Clear to Auscultation, Good Air Exchange. No: Respiratory Distress, Accessory Muscle Use Cardiovascular: Present: Regular Rate and Rhythm, Normal S1, S2. No: Murmurs Abdomen: Present: Normal Bowel Sounds. No: Tenderness, Distention, Peritoneal Signs Back: Present: Normal Inspection Upper Extremity: Present: Normal Inspection. No: Cyanosis, Edema Lower Extremity: Present: Normal Inspection, Normal ROM, Tenderness (right patella and knee jt). No: Edema Neurological: Present: GCS=15, CN II-XII Intact, Speech Normal, Motor Func Grossly Intact, Normal Sensory Function, Norm Deep Tendon Reflexes, Gait Normal , Normal 2Pt Descrimination Skin: Present: Warm, Dry, Normal Color, Abrasion (left lower lip and left infraorbital). No: Rashes Psychiatric: Present: Alert, Oriented x 3, Normal Insight, Normal Concentration Medical Decision Making ED Course and Treatment: 08/14/17 15:05 Impression Pt is a 57 yo male who was brought in by hs sister for a trip and fall this afternoon while out with sister from the [facility]. Pt is A&Ox3, facial abrasions, no lacerations, ROM full and motor functionx4 bilateral @ 5/5. Dentures broken during fall; gums unremarkable on exam, oculomotor function intact Plan Head CT w/o contrast Right knee and patella XR cbc, cmp, and UA Clean and treat facial abrasions Progress Note PROCEDURE: CT HEAD WITHOUT CONTRAST. COMPARISON: None available. TECHNIQUE: Axial computed tomography images were obtained through the head/brain without intravenous contrast. Coronal and sagittal reconstructed images. Radiation dose: Total exam DLP = 894.46 mGy-cm. This CT exam was performed using one or more of the following dose reduction techniques: Automated exposure control, adjustment of the mA and/or kV according to patient size, and/or use of iterative reconstruction technique. FINDINGS: HEMORRHAGE: No intracranial hemorrhage. BRAIN: No mass effect or edema. No atrophy or chronic microvascular ischemic changes. VENTRICLES: Unremarkable. No hydrocephalus. CALVARIUM: Unremarkable. PARANASAL SINUSES: Unremarkable as visualized. No significant inflammatory changes. MASTOID AIR CELLS: Unremarkable as visualized. No inflammatory changes. OTHER FINDINGS: None. IMPRESSION: No acute intracranial abnormalities. No significant findings to account for the clinical presentation. Right knee XR unremarkable; indication of old injury over the fibular head; Plan to dispo patient back to [facility]; sister will drive him there Pt is stable and comfortable; VSS dispo back to [facility] via patient's sister 08/15/17 01:46 - Lab Interpretations Narrative Lab Interpretation (Text): 08/14/17 18:23 Urine sample was retrieved from the suprapubic catheter bag, likely contaminated. Pt just finished a 10 day course of Rocephin and Xyvox via his port. Lab Results: 08/14/17 15:52 08/14/17 15:52 Lab Results 08/14/17 17:16: Urine Color Yellow, Urine Appearance Sl cloudy, Urine pH 6.0, Ur Specific [place] 1.025, Urine Protein >=300 H, Urine Glucose (UA) 100 H, Urine Ketones Negative, Urine Blood Large H, Urine Nitrate Negative, Urine Bilirubin Negative, Urine Urobilinogen 0.2, Ur Leukocyte Esterase Moderate H, Urine RBC Tntc, Urine WBC Tntc, Ur Epithelial Cells 6 - 8, Urine Bacteria Many 08/14/17 15:52: Sodium 143, Potassium 4.9, Chloride 106, Carbon Dioxide 26, Anion Gap 15, BUN 23 H, Creatinine 2.7 H, Est GFR ( Amer) 30, Est GFR ( Non-Af Amer) 25, Random Glucose 129 H, Calcium 9.5, Total Bilirubin 0.3, AST 51 , ALT 74 H, Alkaline Phosphatase 105, Total Protein 8.7 H, Albumin 3.8, Globulin 4.9, Albumin/Globulin Ratio 0.8 L 08/14/17 15:52: WBC 8.5 D, RBC 3.43 L, Hgb 10.2 L, Hct 33.4 L, MCV 97.4, MCH 29.7, MCHC 30.5 L, RDW 14.3, Plt Count 412, MPV 10.0 I have reviewed the lab results: Yes - RAD Interpretation Narrative RAD Interpretations (Text): 08/14/17 16:[address] and right knee XR unremarkable Radiology Orders: 08/14/17 15:05 HEAD W/O CONTRAST [CT] Stat 08/14/17 15:06 KNEE RIGHT 2 VIEWS (AP & LAT) [RAD] Stat Pillow Filler: ED Physician, Radiologist Disposition/Present on Arrival - Present on Arrival Any Indicators Present on Arrival: Yes History of DVT/PE: No History of Uncontrolled Diabetes: No Urinary Catheter: Yes (super pubic catheter) History of Decub. Ulcer: Yes History Surgical Site Infection Following: None - Disposition Have Diagnosis and Disposition been Completed?: Yes Diagnosis: Fall, Facial abrasion, Knee pain, acute Disposition: HOME/ ROUTINE Disposition Time: 17:00 Patient Plan: Discharge Condition: STABLE Discharge Instructions (ExitCare): Fall Prevention for Older Adults (ED), Abrasion (ED) Additional Instructions: Dear Jesús Garcia We have assessed you after your fall today. There is no evidence of an injury to the brain or skull and the knee does not show a fracture or dislocation. Take care of the abrasions on your face by keeping it clean and applying a thin layer of Bacitracin on it for the next 2 days until it begins to heal. Continue taking your medications as instructed. All the best in your recovery! Referrals: Davida Garcia, [Non-Staff] - Follow up with primary Forms: [employer] (Japanese)
--- NOTE | 2017-08-14 15:52 | CT ---
PROCEDURE: CT HEAD WITHOUT CONTRAST. HISTORY: AMS COMPARISON: None available. TECHNIQUE: Axial computed tomography images were obtained through the head/brain without intravenous contrast. Coronal and sagittal reconstructed images. Radiation dose: Total exam DLP = 894.46 mGy-cm. This CT exam was performed using one or more of the following dose reduction techniques: Automated exposure control, adjustment of the mA and/or kV according to patient size, and/or use of iterative reconstruction technique. FINDINGS: HEMORRHAGE: No intracranial hemorrhage. BRAIN: No mass effect or edema. No atrophy or chronic microvascular ischemic changes. VENTRICLES: Unremarkable. No hydrocephalus. CALVARIUM: Unremarkable. PARANASAL SINUSES: Unremarkable as visualized. No significant inflammatory changes. MASTOID AIR CELLS: Unremarkable as visualized. No inflammatory changes. OTHER FINDINGS: None. IMPRESSION: No acute intracranial abnormalities. No significant findings to account for the clinical presentation.
--- NOTE | 2017-08-14 16:05 | RAD ---
PROCEDURE: Right Knee Radiographs. HISTORY: Unspecified injury COMPARISON: None. FINDINGS: BONES: No acute fractures. Findings suggestive of prior trauma proximal right fibula. JOINTS: Normal. No osteoarthritis. JOINT EFFUSION: None. OTHER FINDINGS: None. IMPRESSION: No acute findings related to/accounting for the clinical presentation.
[2017-08-14 16:45] LABS: HEMOGLOBIN 10.2 g/dL (14.0-18.0); MEAN CELL VOLUME 97.4 fl (80.0-105.0); MEAN CORPUSCULAR HEMOGLOBIN 29.7 pg (25.0-35.0); MEAN CORPUSCULAR HGB CONC 30.5 g/dl (31.0-37.0); RBC 3.43 10^6/uL (3.5-6.1); RED CELL DISTRIBUTION WIDTH 14.3 % (11.5-14.5); WHITE BLOOD COUNT 8.5 10^3/ul (4.5-11.0)
[2017-08-14 16:56] LABS: ALB/GLOB RATIO 0.8 (1.1-1.8); ALBUMIN 3.8 g/dL (3.0-4.8); CALCIUM 9.5 mg/dL (8.4-10.5)
[2017-08-14 17:38] LABS: URINE BILIRUBIN NEGATIVE (NEGATIVE); URINE BLOOD LARGE (NEGATIVE); URINE GLUCOSE (UA) 100 mg/dL (NEGATIVE); URINE LEUKOCYTE ESTERASE MODERATE Leu/uL (NEGATIVE); URINE NITRATE NEGATIVE (NEGATIVE); URINE PROTEIN >=300 mg/dL (<30 mg/dL); URINE UROBILINOGEN 0.2 E.U./dL (<1 E.U./dL)
[2017-08-14 17:39] LABS: URINE APPEARANCE SL CLOUDY (CLEAR); URINE COLOR YELLOW (YELLOW)
[2017-08-14 17:52] LABS: URINE RBC TNTC /hpf (0-2); URINE WBC TNTC /hpf (0-6)
[2017-08-14 17:53] LABS: URINE BACTERIA MANY (NEG)
[2017-08-14 18:08] VITALS: BP 147/79; PULSE 80; RESP 18
== END 2017-08-14 18:26 | disposition home or self-care (01) ==
LOC: ED 14:37
DX: M25.561 Pain in right knee (principal); S00.511A Abrasion of lip, initial encounter; S00.212A Abrasion of left eyelid and periocular area, initial encounter; W01.0XXA Fall on same level from slipping, tripping and stumbling without subsequent striking against object, initial encounter; Y92.89 Other specified places as the place of occurrence of the external cause; I10 Essential (primary) hypertension; E11.9 Type 2 diabetes mellitus without complications; D64.9 Anemia, unspecified; F17.210 Nicotine dependence, cigarettes, uncomplicated

== ENCOUNTER 2017-12-10 17:17 | Inpatient (IN) | payer MEDICAID ==
[2017-12-10 17:17] VITALS: BMI 25.8
--- NOTE | 2017-12-10 18:28 | ED PDOC ---
Arrival/HPI - General Chief Complaint: Lower Extremity Problem/Injury Time Seen by Provider: 12/10/17 17:53 Historian: Patient, Family (sister) - History of Present Illness Narrative History of Present Illness (Text): 12/10/17 18:25 This 57 yo male with pmh HIV+, CKD, DM, which viral load undetectable, T4 count normal as per sister, s/p suprapubic maldonado urinary catheter, presents to this ED with sister c/o left foot infection with blister, and pus draining from urinary maldonado catheter since this morning. Patient also c/o chills, and abdominal pain. Time/Duration: Other (see hpi) Quality: Aching Context: Home Past Medical History - Provider Review Nursing Documentation Reviewed: Yes - Infectious Disease Hx of Infectious Diseases: None - Tetanus Immunization Tetanus Immunization: Unknown - Cardiac Hx Cardiac Disorders: Yes Hx Hypertension: Yes Hx Peripheral Edema: Yes Hx Peripheral Vascular Disease: Yes - Pulmonary Hx Respiratory Disorders: No - Neurological Hx Neurological Disorder: Yes (MENTALLY IMPAIRED SINCE ) Hx Dizziness: Yes - HEENT Hx HEENT Disorder: Yes (EXCESSIVE TEARING) - Renal Hx Renal Disorder: Yes (RENAL INSUFFICIENCY) Other/Comment: HYDRONEPHROSIS - Endocrine/Metabolic Hx Endocrine Disorders: Yes Hx Diabetes Mellitus Type 2: Yes - Hematological/Oncological Hx Blood Disorders: Yes Hx Anemia: Yes - Integumentary Hx Dermatological Disorder: Yes Other/Comment: FOOT INFECTION - Musculoskeletal/Rheumatological Hx Musculoskeletal Disorders: Yes Hx Fractures: Yes (LEFT LG) Other/Comment: OPEN REDUCTION INTERNAL FIXATION - Gastrointestinal Hx Gastrointestinal Disorders: Yes (HX:VOMITTING, LOSS OF APPETITE) - Genitourinary/Gynecological Hx Genitourinary Disorders: Yes Other/Comment: EPIDIDYMITIS,E COLI IN THE URINE. HX: SUPRAPUBIC TUBE - Psychiatric Hx Psychophysiologic Disorder: Yes Hx Substance Use: Yes (cannabis) Other/Comment: mentally impaired - Surgical History Hx Orthopedic Surgery: Yes (open reduction internal fixation ( left leg)) Other/Comment: UROSTOMY - Anesthesia Hx Anesthesia: Yes Hx Anesthesia Reactions: No Hx Malignant Hyperthermia: No - Suicidal Assessment Feels Threatened In Home Enviroment: No Family/Social History - Physician Review Nursing Documentation Reviewed: Yes Family/Social History: Other (noncontributory) Smoking Status: Current Some Days Smoker Hx Alcohol Use: No Hx Substance Use: Yes (cannabis) Substance used: MARIJUANA Hx Substance Use Treatment: No Allergies/Home Meds Allergies/Adverse Reactions: Allergies No Known Allergies Allergy (Verified 12/10/17 17:22) Home Medications: Home Meds Medication Instructions Recorded Confirmed Calcium Acetate [Phoslo] 1 tab PO BID 07/21/17 12/10/17 Emtricitabine/Tenofov Alafenam 1 tab PO DAILY 07/21/17 12/10/17 [Descovy 200-25 mg Tablet] GlipiZIDE [Glucotrol] 5 mg PO DAILY 07/21/17 12/10/17 Hydrochlorothiazide [Microzide] 12.5 mg PO DAILY 07/21/17 12/10/17 Losartan Potassium 50 mg PO DAILY 07/21/17 12/10/17 Multivitamin [Multivitamins] 1 cap PO DAILY 07/21/17 12/10/17 Review of Systems - Review of Systems Constitutional: Other ((+) chills). absent: Fatigue, Weight Change, Fevers Eyes: Normal ENT: Normal Respiratory: Normal Cardiovascular: Normal Gastrointestinal: Abdominal Pain. absent: Nausea, Vomiting Genitourinary Male: Normal Musculoskeletal: Other (see hpi) Skin: Cellulitis Neurological: Normal Endocrine: Normal Hemo/Lymphatic: Normal Psychiatric: Normal Physical Exam Vital Signs Temp Pulse Resp BP Pulse Ox 12/10/17 17:24 98.5 F 85 19 179/106 H 98 Finger Stick Blood Glucose: 323 Medical Decision Making ED Course and Treatment: 12/10/17 20:30 Dr. Segura was paged 12/10/17 20:50 Dr. Segura was paged, second call 12/10/17 20:55 I spoke with residential roofer helper, and Dr. Vogt regarding left lower leg cellulitis, and pyuria. Patient has leukocytosis. Patient treated with Zosyn and Vancomycin. I told Dr. Vogt that I paged Carl Ko for urology consult due to pyuria on suprapubic urinary catheter. VS stable, afebrile. Pending CT scan. She agreed with plan for admission. Re-evaluation Time: 20:57 Reassessment Condition: Re-examined, Improving,but remains with symptoms - Lab Interpretations Lab Results: 12/10/17 19:11 12/10/17 19:11 Lab Results 12/10/17 19:11: Sodium 142, Chloride 107, Potassium 5.2 H, Carbon Dioxide 26, Anion Gap 15, BUN 31 H, Creatinine 2.5 H, Est GFR ( Amer) 32, Est GFR ( Non-Af Amer) 27, Random Glucose 291 H, Calcium 8.4, Phosphorus 3.0, Magnesium 2.0, Total Bilirubin 1.2, AST 17 D, ALT 26, Alkaline Phosphatase 79, Total Protein 7.3, Albumin 3.4, Globulin 3.9, Albumin/Globulin Ratio 0.9 L 12/10/17 19:11: pO2 48, VBG pH 7.31 L, VBG pCO2 52.0, VBG HCO3 26.2, VBG Total CO2 27.8, VBG O2 Sat (Calc) 91.1 H, VBG Base Excess -0.8 L, VBG Potassium 5.3 H , Sodium 138.0, Chloride 109.0 H, Glucose 308 H, Lactate 1.5, FiO2 21.0, Venous Blood Potassium 5.3 H 12/10/17 19:11: PT 11.9, INR 1.04, APTT 32.3 12/10/17 19:11: WBC 13.7 H D, RBC 3.42 L, Hgb 9.9 L, Hct 31.8 L, MCV 93.0 D, MCH 28.9, MCHC 31.1, RDW 12.8, Plt Count 319, MPV 10.6, Gran % 72.8 H, Lymph % ( Auto) 13.4 L, Perry % (Auto) 12.6 H, Eos % (Auto) 1.1 L, Baso % (Auto) 0.1, Gran # 9.96 H, Lymph # (Auto) 1.8, Perry # (Auto) 1.7 H, Eos # (Auto) 0.2, Baso # ( Auto) 0.02, ESR 70 H 12/10/17 17:28: POC Glucose (mg/dL) 323 H I have reviewed the lab results: Yes Interpretation: Abnormal lab values - RAD Interpretation Narrative RAD Interpretations (Text): 12/10/17 20:58 CXR: no consolidation. RML infiltrates vs atelectasis Radiology Orders: 12/10/17 18:29 CHEST PORTABLE [RAD] Stat 12/10/17 18:32 ABD & PELVIS W/O PO OR IV CONT [CT] Stat - EKG Interpretation Interpreted by ED Physician: Yes (sinus rhythm with occasional PVC @ [address] changes) Comparison: No previous EKG avail. - Medication Orders Current Medication Orders: Discontinued Medications Sodium Chloride (Sodium Chloride 0.9%) 1,000 mls @ 999 mls/hr IV .Q1H1M STA Stop: 12/10/17 19:30 Last Admin: 12/10/17 19:13 Dose: 999 mls/hr eMAR Start Stop Document 12/10/17 19:13 LA (Rec: 12/10/17 19:17 ODALIS LEWIS-PC) Intravenous Solution Start Date 12/10/17 Start Time 19:17 End Date 12/10/17 End time 20:18 Total Infusion Time 61 Vancomycin HCl (Vancomycin 1gm) 1 gm in 250 mls @ 167 mls/hr IVPB STAT STA PRN Reason: Protocol Stop: 12/10/17 20:00 Piperacillin Sod/Tazobactam Sod (Zosyn 4.5 Gm In Ns 100ml) 4.5 gm in 100 mls @ 200 mls/hr IVPB STAT STA PRN Reason: Protocol Stop: 12/10/17 18:59 Last Admin: 12/10/17 19:48 Dose: 200 mls/hr eMAR Start Stop Document 12/10/17 19:48 LA (Rec: 12/10/17 19:49 ODALIS LEWIS-PC) Intravenous Solution Start Date 12/10/17 Start Time 19:48 End Date 12/10/17 End time 20:18 Total Infusion Time 30 Metronidazole (Flagyl) 500 mg in 100 mls @ 100 mls/hr IVPB STAT STA PRN Reason: Protocol Stop: 12/10/17 19:45 Sodium Polystyrene Sulfonate (Kayexalate Susp) 15 gm PO STAT STA Stop: 12/10/17 20:33 Disposition/Present on Arrival - Present on Arrival Any Indicators Present on Arrival: No History of DVT/PE: No History of Uncontrolled Diabetes: No Urinary Catheter: Yes (super pubic catheter) History of Decub. Ulcer: No History Surgical Site Infection Following: None - Disposition Have Diagnosis and Disposition been Completed?: Yes Diagnosis: Cellulitis of lower extremity, Pyuria, Hyperkalemia Disposition: HOSPITALIZED Disposition Time: 21:02 Patient Plan: Admission Patient Problems: Current Active Problems Problem Status Onset Cellulitis of lower extremity Acute Pyuria Acute Condition: STABLE Discharge Instructions (ExitCare): Cellulitis (ED) Referrals: Shyam Laguerre MD [Primary Care Provider] - Follow up with primary Forms: [employer] (Hungarian)
[2017-12-10] MEDS ORDERED: Sodium Chloride 0.9% 1,000 ML IV STA (18:30)
[2017-12-10] MEDS ORDERED: Piperacill/Tazo 4.5gm in NS 4.5 GM/100 ML BAG IVPB STA (18:30)
[2017-12-10] MEDS ORDERED: Vancomycin 1gm in NS 250ml 1 GM/250 ML BAG IVPB STA (18:31)
[2017-12-10] MEDS ORDERED: metroNIDAZOLE IV 500 mg/100 ml 500 MG/100 ML BAG IVPB STA (18:46)
[2017-12-10 19:20] LABS: VENOUS BLOOD GAS BASE EXCESS -0.8 mmol/L (0.0-2.0); VENOUS BLOOD GAS PO2 48 mm/Hg (30-55); VENOUS BLOOD PH 7.31 (7.32-7.43)
[2017-12-10 19:24] LABS: BASO # 0.02 K/mm3 (0.0-2.0); BASO % 0.1 % (0.0-3.0); EOS # 0.2 (0.0-0.7); EOS % 1.1 % (1.5-5.0); GRAN # 9.96 (1.4-6.5); GRAN % 72.8 % (50.0-68.0); HEMOGLOBIN 9.9 g/dL (14.0-18.0); LYMPH # 1.8 (1.2-3.4); LYMPH % 13.4 % (22.0-35.0); MEAN CORPUSCULAR HEMOGLOBIN 28.9 pg (25.0-35.0); MEAN CORPUSCULAR HGB CONC 31.1 g/dl (31.0-37.0); MEAN PLATELET VOLUME 10.6 fl (7.0-11.0); MONO # 1.7 (0.1-0.6); MONO % 12.6 % (1.0-6.0); RBC 3.42 10^6/uL (3.5-6.1); RED CELL DISTRIBUTION WIDTH 12.8 % (11.5-14.5); WHITE BLOOD COUNT 13.7 10^3/ul (4.5-11.0)
[2017-12-10 19:28] LABS: INR 1.04 (0.93-1.08); PARTIAL THROMBOPLASTIN TIME 32.3 Seconds (25.1-36.5); PROTHROMBIN TIME 11.9 SECONDS (9.4-12.5)
[2017-12-10 19:30] LABS: ALB/GLOB RATIO 0.9 (1.1-1.8); ALBUMIN 3.4 g/dL (3.0-4.8); CALCIUM 8.4 mg/dL (8.4-10.5)
[2017-12-10] MEDS ORDERED: Sod Polystyrene Sulf 15 gm/60 ml Susp PO STA (20:32)
--- NOTE | 2017-12-10 22:56 | CP.PCM.HP ---
<Suyapa Dial - Last Filed: 12/11/17 00:21> History of Present Illness - History of Present Illness History of Present Illness: Patient is a 57 year old male with a past medical history of mental handicap, HIV, DM with Charcot foot, CKD, HTN, urinary retention s/p TURP, phimosis s/p circumcision, s/p urostomy tube, recurrent UTI/pyelonephritis, who presents to the ED with his sister for new onset blister of his left foot. Patient is unable to give reliable history due to mental handicap so most of the history was obtained from the sister. Patient was here recently for similar complaints, however the sister says she was able to get his feet completely healed up until this morning when she noticed a new blister on the bottom of his left foot. Patient usually sees Dr. Casanova for these problems but the sister was concerned and brought him to the ED because previously when patient started having problems with his feet it was usually accompanied by infection elsewhere in his body. Patient's sister denies any complaints by the patient saying he usually does not complain when hes in pain because he does not want her to bring him to the hospital. When I asked the patient, he says he has some pain in his abdomen when his urine is emptying into his urostomy bag as well as pain in his left foot where the blister is but will not describe the pain, changing the subject each time I ask. Patient also admits to some chills, but otherwise denies fever, headache, dizziness, chest pain, SOB, palpitations, N/V/D/C, and calf pain. PCP: Dr. Laguerre [facility] for HIV treatment Urologist: Dr. Carl Segura Podiatry: Jocelyne PMH: as above Meds: reviewed in EMR Allergies: NKDA PSH: urostomy tube, TURP (2015), circumcision (2016) Social history: 1/3 ppd cigarettes for about 40 years; Smokes marijuana ( illegal not medical) for appetite stimulation; No other drug use; taken care of by sister because mentally handicapped Present on Admission - Present on Admission Any Indicators Present on Admission: No Review of Systems - Review of Systems All systems: reviewed and no additional remarkable complaints except (as per HPI ) Past Patient History - Infectious Disease Hx of Infectious Diseases: None - Tetanus Immunizations Tetanus Immunization: Unknown - Past Medical History & Family History Past Medical History?: Yes - Past Social History Smoking Status: Current Some Days Smoker - CARDIAC Hx Cardiac Disorders: Yes Hx Hypertension: Yes Hx Peripheral Edema: Yes Hx Peripheral Vascular Disease: Yes - PULMONARY Hx Respiratory Disorders: No - NEUROLOGICAL Hx Neurological Disorder: Yes (MENTALLY IMPAIRED SINCE ) Hx Dizziness: Yes - HEENT Hx HEENT Problems: Yes (EXCESSIVE TEARING) - RENAL Hx Chronic Kidney Disease: Yes (RENAL INSUFFICIENCY) Other/Comment: HYDRONEPHROSIS - ENDOCRINE/METABOLIC Hx Endocrine Disorders: Yes Hx Diabetes Mellitus Type 2: Yes - HEMATOLOGICAL/ONCOLOGICAL Hx Blood Disorders: Yes Hx Anemia: Yes - INTEGUMENTARY Hx Dermatological Problems: Yes Other/Comment: FOOT INFECTION - MUSCULOSKELETAL/RHEUMATOLOGICAL Hx Musculoskeletal Disorders: Yes Hx Fractures: Yes (LEFT LG) Other/Comment: OPEN REDUCTION INTERNAL FIXATION - GASTROINTESTINAL Hx Gastrointestinal Disorders: Yes (HX:VOMITTING, LOSS OF APPETITE) - GENITOURINARY/GYNECOLOGICAL Hx Genitourinary Disorders: Yes Other/Comment: EPIDIDYMITIS,E COLI IN THE URINE. HX: SUPRAPUBIC TUBE - PSYCHIATRIC Hx Psychophysiologic Disorder: Yes Hx Substance Use: Yes (cannabis) Other/Comment: mentally impaired - SURGICAL HISTORY Hx Orthopedic Surgery: Yes (open reduction internal fixation ( left leg)) Other/Comment: UROSTOMY - ANESTHESIA Hx Anesthesia: Yes Hx Anesthesia Reactions: No Hx Malignant Hyperthermia: No Meds Allergies/Adverse Reactions: Allergies Allergy/AdvReac Type Severity Reaction Status Date / Time No Known Allergies Allergy Verified 12/10/17 17:22 Physical Exam - Constitutional Appears: Non-toxic, No Acute Distress - Head Exam Head Exam: ATRAUMATIC, NORMAL INSPECTION, NORMOCEPHALIC - Eye Exam Eye Exam: EOMI, PERRL Additional comments: Sclera has muddy appearance - ENT Exam ENT Exam: Mucous Membranes Moist - Neck Exam Neck exam: Positive for: Normal Inspection - Respiratory Exam Respiratory Exam: Clear to Auscultation Bilateral, NORMAL BREATHING PATTERN. absent: Accessory Muscle Use, Rales, Rhonchi, Wheezes, Respiratory Distress - Cardiovascular Exam Cardiovascular Exam: RRR, +S1, +S2. absent: Bradycardia, Tachycardia, Diastolic murmur, Gallop, Rubs, Systolic Murmur - GI/Abdominal Exam GI & Abdominal Exam: Normal Bowel Sounds, Soft, Tenderness (suprapubic, around catheter site; epigastric and left sided tenderness as well). absent: Distended , Firm, Guarding, Mass, Rebound, Rigid - Extremities Exam Extremities exam: Positive for: normal capillary refill, pedal edema, tenderness (left foot), pedal pulses present. Negative for: calf tenderness Additional comments: approximately 7.5 cm x 4 cm blister of the bottom of the left foot extending to the medial aspect of the foot, intact without drainage There are calluses noted on the pads of the feet and toe nails appear unkempt - Back Exam Back exam: NORMAL INSPECTION. absent: rash noted - Neurological Exam Neurological exam: Alert, Oriented x3 - Psychiatric Exam Additional comments: mentally handicapped - Skin Skin Exam: Dry, Intact (exceot for noted above), Normal Color, Warm Results - Vital Signs Recent Vital Signs: Last Vital Signs Temp 98.5 F 12/10/17 17:24 Pulse 85 12/10/17 17:24 Resp 19 12/10/17 17:24 BP 179/106 H 12/10/17 17:24 Pulse Ox 98 12/10/17 17:24 - Labs Result Diagrams: 12/10/17 19:11 12/10/17 19:11 Assessment & Plan - Assessment and Plan (Free Text) Assessment: Patient is a 57 year old male with a past medical history of mental handicap, HIV, DM with Charcot foot, CKD, HTN, urinary retention s/p TURP, phimosis s/p circumcision, s/p urostomy tube, recurrent UTI/pyelonephritis, who presents with blister of the left foot and urinary catheter infection Plan: Urinary Catheter Associated Infection with Possible Pyelonephritis * Leukocytosis of 13.7 * Afebrile * Urology consulted (Carl Segura) - help appreciated * Infectious Disease consulted (Salma) - help appreciated * f/u UA and urine culture * f/u procal * f/u ABG with lactate Imaging * CT abdomen/pelvis: 1. Moderate bilateral hydronephrosis and hydroureter is visualized bilaterally, which has mildly progressed. No obstructing ureteral calculus is visualized. Bilateral perinephric stranding is identified, and pyelonephritis cannot be excluded. 2. A suprapubic Keenan catheter is visualized. There is nonspecific wall thickening of the bladder. A small amount of gas is seen within the bladder, which is likely iatrogenic or infectious. 3. There is fecal distention of the rectum. Mild rectal wall thickening is visualized. This may be inflammatory, although additional pathology cannot be excluded. 4. Colonic diverticula are identified. There is mild stranding of the pericolonic fat adjacent to the descending colon, new compared to the prior study. This is consistent with diverticulitis or extension of adjacent perinephric swelling. 5. Mildly enlarged para-aortic nodes are identified, without significant progression. 6. Cholelithiasis. 7. There is a small hiatal hernia with wall thickening. Meds * Vanc 1 g QD * Zosyn 2.25 g Q6 * Continue Flomax (home med) Diverticulosis with possible diverticulitis * General surgery Cosnutled (Kimberly) - help appreciated * Will start empiric Flagyl 500 mg Q8H Blister of Left Foot * Podiatry consulted (Jocelyne) - help apprecited * General Surgery consulted (Kimberly) - help appreciated * f/u blood culture * Antibiotics as above Hyperkalemia * Given Kayexalate in ED * Will hold Losartan * Renal diet with low K and NA * Monitor History of HIV * Continue home meds except Descovy and Truvada (which appear to be the same drug) - will need clarification from ID on which meds he should continue given his creatinine clearance * f/u CD4 count History of DM * Accuchecks ACHS * Levemir 5 mg Q12H * SSI low dose * Glipizide 5 mg QD * f/u HbA1c * f/u Lipid panel History of CKD * Nephrology consulted (Walker) - help appreciated * Continue home meds * Renal diet History of HTN * BP 179/106 in ED * Continue HCTZ * Hold losartan due to hyperkalemia <Hortencia Vogt - Last Filed: 12/11/17 01:09> Results - Vital Signs Recent Vital Signs: Last Vital Signs Temp 98.5 F 12/10/17 17:24 Pulse 85 12/10/17 17:24 Resp 19 12/10/17 17:24 BP 179/106 H 12/10/17 17:24 Pulse Ox 98 12/10/17 17:24 - Labs Result Diagrams: 12/10/17 19:11 12/10/17 19:11 Labs: Laboratory Results - last 24 hr 12/10/17 23:12 Urine Color Yellow Urine Appearance Cloudy Urine pH 6.0 Ur Specific [place] 1.020 Urine Protein 100 H Urine Glucose (UA) 500 H Urine Ketones Negative Urine Blood Large H Urine Nitrate Negative Urine Bilirubin Negative Urine Urobilinogen 1.0 H Ur Leukocyte Esterase Large H Urine RBC 20 - 25 Urine WBC Tntc Ur Epithelial Cells 6 - 8 Urine Bacteria Large Urine Other Mucus Attending/Attestation - Attestation I have personally seen and examined this patient.: Yes I have fully participated in the care of the patient.: Yes I have reviewed all pertinent clinical information: Yes Notes (Text): 12/11/17 01:05 Addendum to Diagnoses Anemia,probably related to his chronic disease.Will get iron and iron binding level. Agree with rest of documentation and plan..
--- NOTE | 2017-12-10 23:10 | CT ---
EXAM: CT Abdomen and Pelvis Without Intravenous Contrast EXAM DATE/TIME: 12/10/2017 6:32 PM CLINICAL HISTORY: The patient age is 57 years old and is male; Pain; Abdominal pain; Acute; Additional info: Generalized abdominal pain Facility exam id and description: Ct [id number] abd pelvis w/o po or iv cont TECHNIQUE: Axial computed tomography images of the abdomen and pelvis without intravenous contrast. All CT scans at this facility use one or more dose reduction techniques, viz.: automated exposure control; ma/kV adjustment per patient size (including targeted exams where dose is matched to indication; i.e. head); or iterative reconstruction technique. Coronal and sagittal reformatted images were created and reviewed. COMPARISON: CT - ABD PELVIS W/O PO OR IV CONT 2017-07-21 21:10 FINDINGS: Lung bases: Patchy nonspecific groundglass densities identified within the lungs bilaterally. Mediastinum: There is a small hiatal hernia with wall thickening. This wall thickening is likely inflammatory, although additional pathology cannot be excluded. ABDOMEN: Liver: Limited by artifact. No definitive mass. Gallbladder and bile ducts: A gallstone is identified. Pancreas: There is atrophy of the pancreas. Spleen: No splenomegaly. Adrenals: No mass. Kidneys and ureters: Moderate bilateral hydronephrosis and hydroureter is visualized bilaterally, which has mildly progressed. No obstructing ureteral calculus is visualized. Bilateral perinephric stranding is identified, and pyelonephritis cannot be excluded. Stomach and bowel: There is fecal distention of the rectum. Mild rectal wall thickening is visualized. This may be inflammatory, although additional pathology cannot be excluded. Colonic diverticula are identified. There is mild stranding of the pericolonic fat adjacent to the descending colon, new compared to the prior study. This is consistent with diverticulitis or extension of adjacent perinephric swelling. PELVIS: Appendix: No findings to suggest acute appendicitis. Bladder: A suprapubic Keenan catheter is visualized. There is nonspecific wall thickening of the bladder. A small amount of gas is seen within the bladder, which is likely iatrogenic or infectious. No stones. Reproductive: The prostate is not visualized. Correlate for prostatectomy. ABDOMEN and PELVIS: Intraperitoneal space: Abnormal density is identified within the right anterior pelvis, which is stable. This may be postoperative. Bones/joints: Intramedullary geoffrey is partially visualized within the proximal left femur. There is mild anterior wedging of the T12 vertebral body, consistent with a compression deformity. This is a chronic finding compared to the prior study. There is minimal stable anterior wedging of T11 as well. Soft tissues: There stranding of the fat within the bilateral inguinal canals. Vasculature: Mild atherosclerotic changes are identified of the abdominal aorta and iliac arteries. No abdominal aortic aneurysm. Lymph nodes: Mildly enlarged para-aortic nodes are identified, without significant progression. The larger left aortic lymph nodes measures 1.8 x 1.0 cm. IMPRESSION: 1. Moderate bilateral hydronephrosis and hydroureter is visualized bilaterally, which has mildly progressed. No obstructing ureteral calculus is visualized. Bilateral perinephric stranding is identified, and pyelonephritis cannot be excluded. 2. A suprapubic Keenan catheter is visualized. There is nonspecific wall thickening of the bladder. A small amount of gas is seen within the bladder, which is likely iatrogenic or infectious. 3. There is fecal distention of the rectum. Mild rectal wall thickening is visualized. This may be inflammatory, although additional pathology cannot be excluded. 4. Colonic diverticula are identified. There is mild stranding of the pericolonic fat adjacent to the descending colon, new compared to the prior study. This is consistent with diverticulitis or extension of adjacent perinephric swelling. 5. Mildly enlarged para-aortic nodes are identified, without significant progression. 6. Cholelithiasis. 7. There is a small hiatal hernia with wall thickening. Clinical correlation is recommended. 8. Additional CT findings described above.
--- NOTE | 2017-12-10 23:16 | CP.PCM.CON ---
History of Present Illness - History of Present Illness History of Present Illness: General surgery consult note for Dr. Harris-Rubina Almazan, PGY-1 Pt S & E at bedside at 2240. Hx as per sister at bedside-pt with developmental delay 57M w/PMH sig for chronic, cyclical foot wounds 2/2 peripheral edema consulted for left foot blister, abdominal pain. Pt admitted to hospital for urine infection with purulent drainage from suprapubic catheter. Pt's sister reports noting lower extremity swelling x 2 days, with resulting large blister on plantar aspect of medial left foot on day of admission. Abdominal pain occured at 2:15pm on day of admission, was epigastric, moderate intensity, "twisting", resolved after pt had soda. Pt admits to fevers & chills, abdominal pain "once in a blue mendez". Denies changes in sensation over lower extremities/feet, changes in ambulation status, new shoes/foot wear, trauma to area, diarrhea, constipation, nausea, vomiting, changes in bowel frequency or caliber, hematochezia, melena, bleching, other complaints. In ED - CT ab w/Colonic diverticula, mild stranding of pericolonic fat adjacent to the descending colon, new compared to the prior study -consistent with diverticulitis or extension of adjacent perinephric swelling. Afebrile. Leukocytosis of 13.7. U/A positive for large leukocyte esterase, blood, protein , glucose. PMH: HIV, CKD,DM, Charcot food, urinary retention s/p TURP, phimosis s/p circumcision, s/p urostomy tube, mental handicap, HTN, chronic cyclical foot wounds 2/2 peripheral edema PSH: Suprapubic catheter, excision of back cyst All: NKDA SH: Denies ETOH use, admits to tobacco use - #5/day x 45 yrs, denies illicit drug use. Lives with sister, ambulates with walker FH: Non contributory PMD: [facility] Outpatient podiatry: Dr. Casanova Review of Systems - Review of Systems All systems: reviewed and no additional remarkable complaints except - Constitutional Constitutional: Chills, Fever. absent: Headache - EENT Eyes: absent: Change in Vision - Cardiovascular Cardiovascular: absent: Chest Pain - Respiratory Respiratory: absent: Cough - Gastrointestinal Gastrointestinal: absent: Abdominal Pain, Change in Stool Character, Nausea, Vomiting - Genitourinary Genitourinary: Pyuria - Musculoskeletal Musculoskeletal: absent: Back Pain - Integumentary Integumentary: New Lesions (blister on left foot), Swelling (lower legs bilaterally) Past Patient History - Infectious Disease Hx of Infectious Diseases: None - Tetanus Immunizations Tetanus Immunization: Unknown - Past Medical History & Family History Past Medical History?: Yes - Past Social History Smoking Status: Current Some Days Smoker - CARDIAC Hx Cardiac Disorders: Yes Hx Hypertension: Yes Hx Peripheral Edema: Yes Hx Peripheral Vascular Disease: Yes - PULMONARY Hx Respiratory Disorders: No - NEUROLOGICAL Hx Neurological Disorder: Yes (MENTALLY IMPAIRED SINCE ) Hx Dizziness: Yes - HEENT Hx HEENT Problems: Yes (EXCESSIVE TEARING) - RENAL Hx Chronic Kidney Disease: Yes (RENAL INSUFFICIENCY) Other/Comment: HYDRONEPHROSIS - ENDOCRINE/METABOLIC Hx Endocrine Disorders: Yes Hx Diabetes Mellitus Type 2: Yes - HEMATOLOGICAL/ONCOLOGICAL Hx Blood Disorders: Yes Hx Anemia: Yes - INTEGUMENTARY Hx Dermatological Problems: Yes Other/Comment: FOOT INFECTION - MUSCULOSKELETAL/RHEUMATOLOGICAL Hx Musculoskeletal Disorders: Yes Hx Fractures: Yes (LEFT LG) Other/Comment: OPEN REDUCTION INTERNAL FIXATION - GASTROINTESTINAL Hx Gastrointestinal Disorders: Yes (HX:VOMITTING, LOSS OF APPETITE) - GENITOURINARY/GYNECOLOGICAL Hx Genitourinary Disorders: Yes Other/Comment: EPIDIDYMITIS,E COLI IN THE URINE. HX: SUPRAPUBIC TUBE - PSYCHIATRIC Hx Psychophysiologic Disorder: Yes Hx Substance Use: Yes (cannabis) Other/Comment: mentally impaired - SURGICAL HISTORY Hx Orthopedic Surgery: Yes (open reduction internal fixation ( left leg)) Other/Comment: UROSTOMY - ANESTHESIA Hx Anesthesia: Yes Hx Anesthesia Reactions: No Hx Malignant Hyperthermia: No Meds Allergies/Adverse Reactions: Allergies Allergy/AdvReac Type Severity Reaction Status Date / Time No Known Allergies Allergy Verified 12/10/17 17:22 - Medications Medications: Current Medications Acetaminophen (Tylenol 325mg Tab) 650 mg PO Q4 PRN PRN Reason: Fever >100.4 F Calcium Acetate (Phoslo) 667 mg PO BID [facility] Glipizide (Glucotrol) 5 mg PO DAILY [facility] Hydrochlorothiazide (Microzide) 12.5 mg PO DAILY [facility] Vancomycin HCl (Vancomycin 1gm) 1 gm in 250 mls @ 167 mls/hr IVPB Q12H [facility] PRN Reason: Protocol Piperacillin Sod/Tazobactam Sod (Zosyn 2.25 Gm In 0.9% 100 Ml) 2.25 gm in 100 mls @ 100 mls/hr IVPB Q6 [facility] PRN Reason: Protocol Stop: 12/11/17 06:59 Insulin Detemir (Levemir) 5 unit SC Q12H [facility] Insulin Human Regular (Humulin R Low) 0 units SC ACHS [facility] PRN Reason: Protocol Multivitamins (Thera Tab) 1 tab PO DAILY [facility] Raltegravir (Isentress) 400 mg PO BID [facility] PRN Reason: Protocol Sucralfate (Carafate Oral Susp) 1 gm PO 0600,1600 [facility] Tamsulosin HCl (Flomax) 0.4 mg PO DAILY [facility] Physical Exam - Constitutional Appears: Non-toxic, No Acute Distress - Head Exam Head Exam: ATRAUMATIC, NORMAL INSPECTION, NORMOCEPHALIC - Eye Exam Eye Exam: EOMI, Normal appearance - ENT Exam ENT Exam: Mucous Membranes Moist, Normal Exam - Neck Exam Neck exam: Positive for: Full Rom, Normal Inspection - Respiratory Exam Respiratory Exam: NORMAL BREATHING PATTERN - Cardiovascular Exam Cardiovascular Exam: REGULAR RHYTHM, +S1, +S2 - GI/Abdominal Exam GI & Abdominal Exam: Soft. absent: Tenderness Additional comments: suprapubic catheter in place - Extremities Exam Extremities exam: Positive for: pedal edema. Negative for: normal inspection ( dorsum of left foot with large blister on medial aspect of plantar side of foot , currently draining serous fluid), tenderness - Neurological Exam Neurological exam: CN II-XII Intact - Psychiatric Exam Psychiatric exam: Normal Mood - Skin Skin Exam: Dry, Warm Additional comments: feet with distal aspect vitiligo Results - Vital Signs Recent Vital Signs: Last Vital Signs Temp 98.5 F 12/10/17 17:24 Pulse 85 12/10/17 17:24 Resp 19 12/10/17 17:24 BP 179/106 H 12/10/17 17:24 Pulse Ox 98 12/10/17 17:24 - Labs Result Diagrams: 12/11/17 08:00 12/11/17 08:00 Assessment & Plan - Assessment and Plan (Free Text) Assessment: 57M w/PMH sig for chronic, cyclical foot wounds 2/2 peripheral edema consulted for left foot blister. Plan: Left foot blister Recommend podiatry consult for wound care to feet No surgical intervention at this time for foot, blister already draining Further mgmt as per primary team Abdominal pain - resolved Monitor No surgical intervention at this time Further mgmt as per primary team Please re-consult as needed NICOLE attending Norah, PGY-1 - Date & Time Date: 12/10/17 Time: 23:13
[2017-12-10 23:18] LABS: URINE BILIRUBIN NEGATIVE (NEGATIVE); URINE BLOOD LARGE (NEGATIVE); URINE GLUCOSE (UA) 500 mg/dL (NEGATIVE); URINE LEUKOCYTE ESTERASE LARGE Leu/uL (NEGATIVE); URINE PROTEIN 100 mg/dL (<30 mg/dL)
[2017-12-10 23:20] LABS: URINE APPEARANCE CLOUDY (CLEAR); URINE COLOR YELLOW (YELLOW)
[2017-12-11] MEDS ORDERED: Piperacillin/Tazobact 2.25gm 2.25 GM/100 ML BAG IVPB SCH
[2017-12-11 00:52] LABS: URINE WBC TNTC /hpf (0-6)
[2017-12-11 00:53] LABS: URINE BACTERIA LARGE (NEG); URINE RBC 20 - 25 /hpf (0-2)
[2017-12-11] MEDS: Piperacillin/Tazobact 2.25gm 2.25 GM/100 ML BAG IVPB SCH ×3 (05:35→17:59)
[2017-12-11] MEDS: Sucralfate 1 gm/10 ml Oral Susp UD PO SCH ×2 (05:36→17:59)
[2017-12-11] MEDS: metroNIDAZOLE IV 500 mg/100 ml 500 MG/100 ML BAG IVPB SCH ×3 (05:36→21:47)
[2017-12-11 08:24] LABS: BASO # 0.03 K/mm3 (0.0-2.0); BASO % 0.3 % (0.0-3.0); EOS # 0.2 (0.0-0.7); EOS % 1.4 % (1.5-5.0); GRAN # 7.73 (1.4-6.5); GRAN % 72.3 % (50.0-68.0); HEMOGLOBIN 9.3 g/dL (14.0-18.0); LYMPH # 2.1 (1.2-3.4); LYMPH % 19.4 % (22.0-35.0); MEAN CELL VOLUME 92.7 fl (80.0-105.0); MEAN CORPUSCULAR HEMOGLOBIN 28.3 pg (25.0-35.0); MEAN CORPUSCULAR HGB CONC 30.5 g/dl (31.0-37.0); MEAN PLATELET VOLUME 10.3 fl (7.0-11.0); MONO # 0.7 (0.1-0.6); MONO % 6.6 % (1.0-6.0); RBC 3.29 10^6/uL (3.5-6.1); RED CELL DISTRIBUTION WIDTH 12.6 % (11.5-14.5); WHITE BLOOD COUNT 10.7 10^3/ul (4.5-11.0)
[2017-12-11 08:34] LABS: ALB/GLOB RATIO 0.9 (1.1-1.8); ALBUMIN 3.1 g/dL (3.0-4.8); ALT/SGPT 21 U/L (7-56); AST/SGOT 18 U/L (17-59); BLOOD UREA NITROGEN 25 mg/dL (7-21); CALCIUM 8.1 mg/dL (8.4-10.5); GFR AFRICAN-AMERICAN 34; GFR NON-AFRICAN AMERICAN 28; HDL CHOLESTEROL 34 mg/dL (29-60); IRON 50 ug/dL (45-180)
[2017-12-11] MEDS: Insulin Reg-LOW-Coverage SC SCH ×4 (08:36→21:55)
--- NOTE | 2017-12-11 08:44 | CP.PCM.PN ---
<Devonte Santillan - Last Filed: 12/11/17 17:01> Subjective - Date & Time of Evaluation Date of Evaluation: 12/11/17 Time of Evaluation: 08:41 - Subjective Subjective: Patient seen and evaluated this AM. Patient admitted overnight. Patient with limited ability for hpi secondary to MR. Patient indicates he has some abdominal pain surrounding his suprapubic catheter and reports pain associated with left foot when asked. Patient afebrile overnight. Objective - Vital Signs/Intake and Output Vital Signs (last 24 hours): Temp Pulse Resp BP Pulse Ox 98.8 F 100 H 20 142/90 98 12/11/17 06:00 12/11/17 06:00 12/11/17 06:00 12/11/17 06:00 12/11/17 06:00 - Medications Medications: Current Medications Acetaminophen (Tylenol 325mg Tab) 650 mg PO Q4 PRN PRN Reason: Fever >100.4 F Calcium Acetate (Phoslo) 667 mg PO BID [facility] Glipizide (Glucotrol) 5 mg PO DAILY [facility] Home Med (Home Med) 1 unit PO DAILY [facility] Hydrochlorothiazide (Microzide) 12.5 mg PO DAILY [facility] Vancomycin HCl (Vancomycin 1gm) 1 gm in 250 mls @ 167 mls/hr IVPB DAILY [facility] PRN Reason: Protocol Metronidazole (Flagyl) 500 mg in 100 mls @ 100 mls/hr IVPB Q8 [facility] PRN Reason: Protocol Last Admin: 12/11/17 05:36 Dose: 100 mls/hr Piperacillin Sod/Tazobactam Sod (Zosyn 2.25 Gm In 0.9% 100 Ml) 2.25 gm in 100 mls @ 100 mls/hr IVPB Q6 [facility] PRN Reason: Protocol Stop: 12/18/17 06:01 Last Admin: 12/11/17 05:35 Dose: 100 mls/hr Insulin Detemir (Levemir) 5 unit SC Q12H [facility] Insulin Human Regular (Humulin R Low) 0 units SC ACHS [facility] PRN Reason: Protocol Last Admin: 12/11/17 08:36 Dose: 3 units Multivitamins (Thera Tab) 1 tab PO DAILY [facility] Raltegravir (Isentress) 400 mg PO BID [facility] PRN Reason: Protocol Sucralfate (Carafate Oral Susp) 1 gm PO 0600,1600 [facility] Last Admin: 12/11/17 05:36 Dose: 1 gm Tamsulosin HCl (Flomax) 0.4 mg PO DAILY [facility] - Labs Labs: 12/11/17 08:00 12/11/17 08:00 PT 11.9 SECONDS (9.4-12.5) 12/10/17 19:11 INR 1.04 (0.93-1.08) 12/10/17 19:11 APTT 32.3 Seconds (25.1-36.5) 12/10/17 19:11 - Constitutional Appears: No Acute Distress - Head Exam Head Exam: ATRAUMATIC, NORMAL INSPECTION, NORMOCEPHALIC - Eye Exam Eye Exam: EOMI, PERRL - Respiratory Exam Respiratory Exam: Clear to Ausculation Bilateral, NORMAL BREATHING PATTERN. absent: Rhonchi, Wheezes - Cardiovascular Exam Cardiovascular Exam: REGULAR RHYTHM, +S1, +S2 - GI/Abdominal Exam GI & Abdominal Exam: Soft, Tenderness, Normal Bowel Sounds Additional comments: Suprapubic tenderness surrounding catheter site, Left sided abdominal discomfort - Extremities Exam Additional comments: 7 cm x 3.5 cm blister of the dorsal surface of left foot extending to the medial aspect of the foot There are calluses noted on the pads of the feet and toe nails appear unkempt - Psychiatric Exam Psychiatric exam: Normal Affect Additional comments: mental retardation - Skin Skin Exam: Dry, Warm Assessment and Plan - Assessment and Plan (Free Text) Assessment: 57 year old male with a past medical history of mental handicap, HIV, DM with Charcot foot, CKD, HTN, urinary retention s/p TURP, phimosis s/p circumcision, s /p urostomy tube, recurrent UTI/pyelonephritis, admitted for urinary catheter associated infection. Urology consulted will be evaluating the patient. Plan: Urinary Catheter associated infection - Patient with suprapubic catheter secondary to - Leukocytosis of 13 on admission, today wnl , UA showing positive luek est, nitrates and wbc tntc - ID consulted, appreciate recs - Urology consulted appreciate recs - Current antibiotics include zosyn, flagyl, and Vancomycin - f/u urine culture - CT ab/pelvis: moderate bilatearl hydronephrosis and hydroureter bilaterally, no obstruction, bilateral perinephric stranding, non specific wall thickening of the bladder, fecal distention of rectum with mild rectal wall thickening, colonic diverticula, mild stranding of the pericolonic fat adjacent to the descending colon consistent with diverticulitis or extension of adjacent perinephric swelling, mildly enlarge para-aortic nodes identified without significant progression, cholelthiasis - Flomax Hx of HIV - ID consulted and following - Continue home medications - CD4 count - Hx of CKD - Cr. 2.5 on admission, appears close to baseline - Patient able to produce urine, see CT abd/pelvis CT - Nephrology consulted, follow up recs - Renal Diet Hx of DM - ACHS - Levemir 5mg BID - ISS low Left foot medial blister - Podiatry consulted and evaluated patient, recs as follows - Continue IV abx per iD - Bullae lanced with iris scissors , serous drainage, no odor from blister site - Wound care, no plan for surgical intervention at this time Diverticulosis with possible diverticulitis - See CT abd/pelvis - Continue flagyl 500mg Q8H - General surgery consulted, follow up recs Hx of HTN - Continue home medication: HCTZ - Monitor GI/DVT ppx Case and plan discussed with attending <Ricky Vuong - Last Filed: 12/15/17 11:36> Objective - Vital Signs/Intake and Output Vital Signs (last 24 hours): Temp Pulse Resp BP Pulse Ox 98 F 97 H 20 152/90 H 99 12/13/17 06:00 12/13/17 09:22 12/13/17 06:00 12/13/17 09:22 12/13/17 06:00 - Labs Labs: 12/11/17 08:00 12/11/17 08:00 PT 11.9 SECONDS (9.4-12.5) 12/10/17 19:11 INR 1.04 (0.93-1.08) 12/10/17 19:11 APTT 32.3 Seconds (25.1-36.5) 12/10/17 19:11 Attending/Attestation - Attestation I have personally seen and examined this patient.: Yes I have fully participated in the care of the patient.: Yes I have reviewed all pertinent clinical information, including history, physical exam and plan: Yes Notes (Text): 12/15/17 11:34 Medical record note made by the resident after discussion with my direction and input after the patient was personally seen and examined by me. I have reviewed the chart and agree that the record accurately reflects by personal performance of the history, physical exam, data review, and medical decision-making, in the course for the patient. I have also personally directed the plan of care. 57 year old male with a past medical history of mental handicap, HIV, DM with Charcot foot, CKD base line creatinine 2.5, HTN, urinary retention s/p TURP, phimosis s/p circumcision, s/p urostomy tube, recurrent UTI/pyelonephritis, is admitted with complicated UTI, also has left foot wound, continue IV antibiotics , we will follow up cultures. We will follow up Urology and Podiatry consult.
[2017-12-11 08:48] LABS: % IRON SATURATION 25 % (20-55); TOTAL IRON BINDING CAPACITY 199 ug/dL (261-462)
[2017-12-11 08:59] LABS: LDL CHOLESTEROL < 30 mg/dL (0-129)
[2017-12-11] MEDS ORDERED: Emtricitabine-Tenofovir 200 mg-300 mg Tab PO SCH (10:00)
[2017-12-11] MEDS: Multivitamin Therapeutic Tab PO SCH (10:13)
[2017-12-11] MEDS: Vancomycin 1gm in NS 250ml 1 GM/250 ML BAG IVPB SCH (10:13)
[2017-12-11] MEDS: DESCOVY PO SCH (10:14)
[2017-12-11] MEDS ORDERED: Vancomycin 1gm in NS 250ml 1 GM/250 ML BAG IVPB SCH (11:00)
[2017-12-11] MEDS: Insulin Detemir 100 units/ml Vial (Levemir) SC SCH ×2 (11:36→22:13)
--- NOTE | 2017-12-11 13:07 | RAD ---
HISTORY: Sepsis Patient COMPARISON: 07/21/2017 FINDINGS: LUNGS: There is a minimal linear infiltrate in the right middle lobe which probably represents atelectasis. PLEURA: No significant pleural effusion identified, no pneumothorax apparent. CARDIOVASCULAR: Unremarkable OSSEOUS STRUCTURES: No significant abnormalities. VISUALIZED UPPER ABDOMEN: Normal. OTHER FINDINGS: None. IMPRESSION: No active disease.
--- NOTE | 2017-12-11 14:05 | CP.PCM.CON ---
<Nikhil Nolasco - Last Filed: 12/11/17 13:54> History of Present Illness - History of Present Illness History of Present Illness: Consult note for attending Dr. Casanova 57M with PMHx HIV, CKD, DM, Charcot foot, urinary retention s/p TURP, phimosis s /p circumcision, s/p urostomy tube, mental handicap, HTN, chronic cyclical foot wounds 2/2 peripheral edema seen and evaluated at bedside for painful blister of medial left foot. Patient states that blister has been present for roughly one week. He is note sure what caused it. States that it has become bigger and more painful over the course of the week. Patient is AAO x 3 and NAD at time of visit. Denies any further pedal complaints or any acute overnight events. Denies any recent N/V/F/C/CP/SOB/D Review of Systems - Review of Systems All systems: reviewed and no additional remarkable complaints except Review of Systems: as per HPI Past Patient History - Infectious Disease Hx of Infectious Diseases: None - Tetanus Immunizations Tetanus Immunization: Unknown - Past Medical History & Family History Past Medical History?: Yes - Past Social History Smoking Status: Current Some Days Smoker - CARDIAC Hx Cardiac Disorders: Yes Hx Hypertension: Yes Hx Peripheral Edema: Yes Hx Peripheral Vascular Disease: Yes - PULMONARY Hx Respiratory Disorders: No - NEUROLOGICAL Hx Neurological Disorder: Yes (MENTALLY IMPAIRED SINCE ) Hx Dizziness: Yes - HEENT Hx HEENT Problems: Yes (EXCESSIVE TEARING) - RENAL Hx Chronic Kidney Disease: Yes (RENAL INSUFFICIENCY) Other/Comment: HYDRONEPHROSIS - ENDOCRINE/METABOLIC Hx Endocrine Disorders: Yes Hx Diabetes Mellitus Type 2: Yes - HEMATOLOGICAL/ONCOLOGICAL Hx Blood Disorders: Yes Hx Anemia: Yes - INTEGUMENTARY Hx Dermatological Problems: Yes Other/Comment: FOOT INFECTION - MUSCULOSKELETAL/RHEUMATOLOGICAL Hx Musculoskeletal Disorders: Yes Hx Fractures: Yes (LEFT LG) Other/Comment: OPEN REDUCTION INTERNAL FIXATION - GASTROINTESTINAL Hx Gastrointestinal Disorders: Yes (HX:VOMITTING, LOSS OF APPETITE) - GENITOURINARY/GYNECOLOGICAL Hx Genitourinary Disorders: Yes Other/Comment: EPIDIDYMITIS,E COLI IN THE URINE. HX: SUPRAPUBIC TUBE - PSYCHIATRIC Hx Psychophysiologic Disorder: Yes Hx Substance Use: Yes (cannabis) Other/Comment: mentally impaired - SURGICAL HISTORY Hx Orthopedic Surgery: Yes (open reduction internal fixation ( left leg)) Other/Comment: UROSTOMY - ANESTHESIA Hx Anesthesia: Yes Hx Anesthesia Reactions: No Hx Malignant Hyperthermia: No Meds Allergies/Adverse Reactions: Allergies Allergy/AdvReac Type Severity Reaction Status Date / Time No Known Allergies Allergy Verified 12/10/17 17:22 - Medications Medications: Current Medications Acetaminophen (Tylenol 325mg Tab) 650 mg PO Q4 PRN PRN Reason: Fever >100.4 F Calcium Acetate (Phoslo) 667 mg PO BID [facility] Last Admin: 12/11/17 10:13 Dose: 667 mg Glipizide (Glucotrol) 5 mg PO DAILY [facility] Last Admin: 12/11/17 10:13 Dose: 5 mg Home Med (Home Med) 1 unit PO DAILY [facility] Last Admin: 12/11/17 10:14 Dose: Not Given Hydrochlorothiazide (Microzide) 12.5 mg PO DAILY [facility] Last Admin: 12/11/17 10:13 Dose: 12.5 mg Vancomycin HCl (Vancomycin 1gm) 1 gm in 250 mls @ 167 mls/hr IVPB DAILY [facility] PRN Reason: Protocol Last Admin: 12/11/17 10:13 Dose: 167 mls/hr Metronidazole (Flagyl) 500 mg in 100 mls @ 100 mls/hr IVPB Q8 [facility] PRN Reason: Protocol Last Admin: 12/11/17 05:36 Dose: 100 mls/hr Piperacillin Sod/Tazobactam Sod (Zosyn 2.25 Gm In 0.9% 100 Ml) 2.25 gm in 100 mls @ 100 mls/hr IVPB Q6 [facility] PRN Reason: Protocol Stop: 12/18/17 06:01 Last Admin: 12/11/17 11:36 Dose: 100 mls/hr Insulin Detemir (Levemir) 5 unit SC Q12H [facility] Last Admin: 12/11/17 11:36 Dose: 5 unit Insulin Human Regular (Humulin R Low) 0 units SC ACHS [facility] PRN Reason: Protocol Last Admin: 12/11/17 11:37 Dose: 2 units Multivitamins (Thera Tab) 1 tab PO DAILY [facility] Last Admin: 12/11/17 10:13 Dose: 1 tab Raltegravir (Isentress) 400 mg PO BID [facility] PRN Reason: Protocol Last Admin: 12/11/17 10:13 Dose: 400 mg Sucralfate (Carafate Oral Susp) 1 gm PO 0600,1600 [facility] Last Admin: 12/11/17 05:36 Dose: 1 gm Tamsulosin HCl (Flomax) 0.4 mg PO DAILY [facility] Last Admin: 12/11/17 10:13 Dose: 0.4 mg Physical Exam - Constitutional Appears: Well, Non-toxic, No Acute Distress - Head Exam Head Exam: ATRAUMATIC, NORMOCEPHALIC - Extremities Exam Additional comments: LLE focused exam Vasc: DP/PT pulses fully palpable 2/4 b/l. Skin temperature warm to warm from proximal to distal. CFT < 3 seconds to all digits b/l. No edema noted b/l Neuro: Epicritic and protective sensation grossly intact b/l Derm: Approx 2 cm x 3 cm bullae noted to medial aspect of patient's left foot. Otherwise, no open lesions, wounds, maceration, xerosis, abnormal pigmentation or abnormal growths noted b/l MSK: POP to bullae site. MMT 5/5 in all major muscle groups. ROM WNL at all major joints - Neurological Exam Neurological exam: Alert, Oriented x3 - Psychiatric Exam Psychiatric exam: Normal Affect, Normal Mood Results - Vital Signs Recent Vital Signs: Last Vital Signs Temp 98.8 F 12/11/17 06:00 Pulse 100 H 12/11/17 06:00 Resp 20 12/11/17 06:00 BP 142/90 12/11/17 06:00 Pulse Ox 98 12/11/17 06:00 - Labs Result Diagrams: 12/11/17 08:00 12/11/17 08:00 Labs: Laboratory Results - last 24 hr 12/10/17 12/11/17 12/11/17 23:12 01:40 02:32 WBC RBC Hgb Hct MCV MCH MCHC RDW Plt Count MPV Gran % Lymph % (Auto) [place] % (Auto) Eos % (Auto) Baso % (Auto) Gran # Lymph # (Auto) [place] # (Auto) Eos # (Auto) Baso # (Auto) Sodium Potassium Chloride Carbon Dioxide Anion Gap BUN Creatinine Est GFR ( Amer) Est GFR (Non-Af Amer) POC Glucose (mg/dL) 182 H 160 H Random Glucose Hemoglobin A1c Calcium Phosphorus Magnesium Iron TIBC % Saturation Total Bilirubin AST ALT Alkaline Phosphatase Total Protein Albumin Globulin Albumin/Globulin Ratio Triglycerides Cholesterol LDL Cholesterol Direct HDL Cholesterol Urine Color Yellow Urine Appearance Cloudy Urine pH 6.0 Ur Specific [place] 1.020 Urine Protein 100 H Urine Glucose (UA) 500 H Urine Ketones Negative Urine Blood Large H Urine Nitrate Negative Urine Bilirubin Negative Urine Urobilinogen 1.0 H Ur Leukocyte Esterase Large H Urine RBC 20 - 25 Urine WBC Tntc Ur Epithelial Cells 6 - 8 Urine Bacteria Large Urine Other Mucus 12/11/17 12/11/17 12/11/17 06:32 08:00 08:00 WBC RBC Hgb Hct MCV MCH MCHC RDW Plt Count MPV Gran % Lymph % (Auto) [place] % (Auto) Eos % (Auto) Baso % (Auto) Gran # Lymph # (Auto) [place] # (Auto) Eos # (Auto) Baso # (Auto) Sodium 144 Potassium 4.6 Chloride 110 H Carbon Dioxide 25 Anion Gap 14 BUN 25 H Creatinine 2.4 H Est GFR ( Amer) 34 Est GFR (Non-Af Amer) 28 POC Glucose (mg/dL) 239 H Random Glucose 259 H Hemoglobin A1c 9.2 H Calcium 8.1 L Phosphorus 2.8 Magnesium 1.7 Iron TIBC % Saturation Total Bilirubin 1.3 AST 18 ALT 21 Alkaline Phosphatase 73 Total Protein 6.7 Albumin 3.1 Globulin 3.6 Albumin/Globulin Ratio 0.9 L Triglycerides 73 Cholesterol 79 L LDL Cholesterol Direct < 30 HDL Cholesterol 34 Urine Color Urine Appearance Urine pH Ur Specific [place] Urine Protein Urine Glucose (UA) Urine Ketones Urine Blood Urine Nitrate Urine Bilirubin Urine Urobilinogen Ur Leukocyte Esterase Urine RBC Urine WBC Ur Epithelial Cells Urine Bacteria Urine Other 12/11/17 12/11/17 12/11/17 08:00 08:00 11:14 WBC 10.7 D RBC 3.29 L Hgb 9.3 L Hct 30.5 L MCV 92.7 MCH 28.3 MCHC 30.5 L RDW 12.6 Plt Count 302 MPV 10.3 Gran % 72.3 H Lymph % (Auto) 19.4 L [place] % (Auto) 6.6 H Eos % (Auto) 1.4 L Baso % (Auto) 0.3 Gran # 7.73 H Lymph # (Auto) 2.1 [place] # (Auto) 0.7 H Eos # (Auto) 0.2 Baso # (Auto) 0.03 Sodium Potassium Chloride Carbon Dioxide Anion Gap BUN Creatinine Est GFR ( Amer) Est GFR (Non-Af Amer) POC Glucose (mg/dL) 209 H Random Glucose Hemoglobin A1c Calcium Phosphorus Magnesium Iron 50 TIBC 199 L % Saturation 25 Total Bilirubin AST ALT Alkaline Phosphatase Total Protein Albumin Globulin Albumin/Globulin Ratio Triglycerides Cholesterol LDL Cholesterol Direct HDL Cholesterol Urine Color Urine Appearance Urine pH Ur Specific [place] Urine Protein Urine Glucose (UA) Urine Ketones Urine Blood Urine Nitrate Urine Bilirubin Urine Urobilinogen Ur Leukocyte Esterase Urine RBC Urine WBC Ur Epithelial Cells Urine Bacteria Urine Other Assessment & Plan - Assessment and Plan (Free Text) Assessment: 57M seen and evaluated at bedside for painful blister of medial left foot Plan: Patient seen and evaluated with attending Dr. Casanova Afebrile, WBC 10.7 from 13.7 ESR 70 Continue IV abx per ID Bullae lanced with iris scissors but not deroofed Serous drainage with no odor drained from blister site Site dressed with ABD, DSD No plan for surgical intvervention at this time Podiatry will continue to follow while patient in house - Date & Time Date: 12/11/17 Time: 14:26 <Rhonda Casanova - Last Filed: 12/15/17 19:05> Results - Vital Signs Recent Vital Signs: Last Vital Signs Temp 98 F 12/13/17 06:00 Pulse 97 H 12/13/17 09:22 Resp 20 12/13/17 06:00 BP 152/90 H 12/13/17 09:22 Pulse Ox 99 12/13/17 06:00 - Labs Result Diagrams: 12/11/17 08:00 12/11/17 08:00 Attending/Attestation - Attestation I have personally seen and examined this patient.: Yes I have fully participated in the care of the patient.: Yes I have reviewed all pertinent clinical information: Yes
[2017-12-11] MEDS ORDERED: Darbepoetin Alfa 60 mcg/ml Inj SC ONE (14:54)
--- NOTE | 2017-12-11 15:07 | CP.PCM.CON ---
History of Present Illness - History of Present Illness History of Present Illness: Nephrology Consultation Note: Assessment: Stable chronic obstructive uropathy with b/l hydronephrosis and CKD stage 3 with baseline cr 2.6-2.8 with ?mg proteinuria (R80.9) Hx of phimosis s/p circumcision, s/p TURP and suprapubic catheter pyuria and microscopic hematuria likely due to chronic indwelling SP catheter and bacterial colonization Diabetic chronic Kidney Disease (E11.22) Hypertensive Chronic Kidney Disease (I12.9) Anemia (D64.9), HTN (I12.9) HIV on HAART, charcoat foot, developmental delay, smoking hx Plan No acute need for renal replacement therapy at this time. Hypertension control with meds as ordered. Patient was on losartan, held due to elevated K. will resume it with lasix 40 mg/day. d/c thiazide diuretic. as outpt if needed will control serum K with [place] Monitor Input/Output, daily weights and renal function with basic metabolic panel added iron supplements, MVI and aransep 60 mcg 12/11/2017 eval. continue with flomax monitor Vanco level. Check urine spot protein/creatinine and albumin/creatinine ratio Check for 25-OH vitamin D, iPTH, phosphorus level, Ferritin Dose meds/antibiotics for reduced GFR. Avoid fleets enema/magnesium based laxatives. Avoid nephrotoxins/NSAIDs/ iodinated contrast (unless needed emergently) Glycemic control, low K diet Further work up/management as per primary team Thanks for allowing me to participate in care of your patient. Will follow patient with you. Please call if any Qs Dr Remigio Jason Office: [phone] Chief Complaint; leg swelling and blister HPI: Pt is a with hx of diabetes Mellitus ( years), hypertension (years) HIV on HAART, charcoat foot, phimosis s/p circumcision, s/p TURP and suprapubic catheter, chronic obstructive uropathy with hydronephrosis and CKD stage 3 with baseline cr 2.6-2.8, developmental delay, smoking hx presented with complaints of leg blister and swelling. renal consult for CKD management Denies OTC/herbal meds or NSAIDs No recent iodinated contrast exposure. No obvious episodes of low BP. ROS: Cardiovascular: No chest pain. Pulmonary: No shortness of breath Gastrointestinal: resolved abdominal pain No nausea. No vomiting. Genitourinary: has catheter All other negative except as mentioned in HPI but overall limited Physical Examination: General Appearance: Comfortable, in no acute respiratory distress, co-operative . Vitals reviewed and noted as below Head; Atraumatic, normocephalic ENT: no ulcers no thrush. Tongue is midline. Oropharynx: no rash or ulcers. EYES: Pupils are equal, round and reactive to light accommodation. Eye muscles and extraocular movement intact. Sclera is anicteric. Neck; supple no lymphadenopathy, no thyromegaly or bruit Lungs: Normal respiratory rate/effort. Breath sounds bilateral equal and clear Heart: Normal rate. s1s2 normal. No rub or gallop. Extremities: 1+ edema. No varicose veins Neurological: Patient is alert, awake and No focal deficit. Strength bilateral appropriate and equal Skin: Warm and dry. Normal turgor. No rash. Palpitation: Normal elasticity for age Abdomen: Abdomen is soft. Bowel sounds +. There is no abdominal tenderness, no guarding/rigidity no organomegaly Psych: lack insight and has normal affect/mood MSK: no joint tenderness or swelling. Digits and nails normal, no deformity : kidney or bladder not palpable. has SP catheter Labs/imaging reviewed. Past medical history, past surgical history, family history, social history, allergy reviewed and noted as below Family hx: no hx of CKD. Rest non-contributory work up: CT b/l moderate hydronephrosis UA with 100 protein, large WBC and RBCs TSAT 25% Past Patient History - Infectious Disease Hx of Infectious Diseases: None - Tetanus Immunizations Tetanus Immunization: Unknown - Past Medical History & Family History Past Medical History?: Yes - Past Social History Smoking Status: Current Some Days Smoker - CARDIAC Hx Cardiac Disorders: Yes Hx Hypertension: Yes Hx Peripheral Edema: Yes Hx Peripheral Vascular Disease: Yes - PULMONARY Hx Respiratory Disorders: No - NEUROLOGICAL Hx Neurological Disorder: Yes (MENTALLY IMPAIRED SINCE ) Hx Dizziness: Yes - HEENT Hx HEENT Problems: Yes (EXCESSIVE TEARING) - RENAL Hx Chronic Kidney Disease: Yes (RENAL INSUFFICIENCY) Other/Comment: HYDRONEPHROSIS - ENDOCRINE/METABOLIC Hx Endocrine Disorders: Yes Hx Diabetes Mellitus Type 2: Yes - HEMATOLOGICAL/ONCOLOGICAL Hx Blood Disorders: Yes Hx Anemia: Yes - INTEGUMENTARY Hx Dermatological Problems: Yes Other/Comment: FOOT INFECTION - MUSCULOSKELETAL/RHEUMATOLOGICAL Hx Musculoskeletal Disorders: Yes Hx Fractures: Yes (LEFT LG) Other/Comment: OPEN REDUCTION INTERNAL FIXATION - GASTROINTESTINAL Hx Gastrointestinal Disorders: Yes (HX:VOMITTING, LOSS OF APPETITE) - GENITOURINARY/GYNECOLOGICAL Hx Genitourinary Disorders: Yes Other/Comment: EPIDIDYMITIS,E COLI IN THE URINE. HX: SUPRAPUBIC TUBE - PSYCHIATRIC Hx Psychophysiologic Disorder: Yes Hx Substance Use: Yes (cannabis) Other/Comment: mentally impaired - SURGICAL HISTORY Hx Orthopedic Surgery: Yes (open reduction internal fixation ( left leg)) Other/Comment: UROSTOMY - ANESTHESIA Hx Anesthesia: Yes Hx Anesthesia Reactions: No Hx Malignant Hyperthermia: No Meds Allergies/Adverse Reactions: Allergies Allergy/AdvReac Type Severity Reaction Status Date / Time No Known Allergies Allergy Verified 12/10/17 17:22 - Medications Medications: Current Medications Acetaminophen (Tylenol 325mg Tab) 650 mg PO Q4 PRN PRN Reason: Fever >100.4 F Calcium Acetate (Phoslo) 667 mg PO BID [facility] Last Admin: 12/11/17 10:13 Dose: 667 mg Ferrous Gluconate (Fergon) 324 mg PO TID [facility] Furosemide (Lasix) 40 mg PO DAILY [facility] Glipizide (Glucotrol) 5 mg PO DAILY [facility] Last Admin: 12/11/17 10:13 Dose: 5 mg Home Med (Home Med) 1 unit PO DAILY [facility] Last Admin: 12/11/17 10:14 Dose: Not Given Vancomycin HCl (Vancomycin 1gm) 1 gm in 250 mls @ 167 mls/hr IVPB DAILY [facility] PRN Reason: Protocol Last Admin: 12/11/17 10:13 Dose: 167 mls/hr Metronidazole (Flagyl) 500 mg in 100 mls @ 100 mls/hr IVPB Q8 [facility] PRN Reason: Protocol Last Admin: 12/11/17 14:37 Dose: 100 mls/hr Piperacillin Sod/Tazobactam Sod (Zosyn 2.25 Gm In 0.9% 100 Ml) 2.25 gm in 100 mls @ 100 mls/hr IVPB Q6 [facility] PRN Reason: Protocol Stop: 12/18/17 06:01 Last Admin: 12/11/17 11:36 Dose: 100 mls/hr Insulin Detemir (Levemir) 5 unit SC Q12H [facility] Last Admin: 12/11/17 11:36 Dose: 5 unit Insulin Human Regular (Humulin R Low) 0 units SC ACHS [facility] PRN Reason: Protocol Last Admin: 12/11/17 11:37 Dose: 2 units Losartan Potassium (Cozaar) 50 mg PO QPM [facility] Multivitamins (Thera Tab) 1 tab PO DAILY [facility] Last Admin: 12/11/17 10:13 Dose: 1 tab Raltegravir (Isentress) 400 mg PO BID [facility] PRN Reason: Protocol Last Admin: 12/11/17 10:13 Dose: 400 mg Sucralfate (Carafate Oral Susp) 1 gm PO 0600,1600 [facility] Last Admin: 12/11/17 05:36 Dose: 1 gm Tamsulosin HCl (Flomax) 0.4 mg PO DAILY [facility] Last Admin: 12/11/17 10:13 Dose: 0.4 mg Results - Vital Signs Recent Vital Signs: Last Vital Signs Temp 98.8 F 12/11/17 06:00 Pulse 100 H 12/11/17 06:00 Resp 20 12/11/17 06:00 BP 142/90 12/11/17 06:00 Pulse Ox 98 12/11/17 06:00 - Labs Result Diagrams: 12/11/17 08:00 12/11/17 08:00 Labs: Laboratory Results - last 24 hr 12/10/17 12/11/17 12/11/17 23:12 01:40 01:44 WBC RBC Hgb Hct MCV MCH MCHC RDW Plt Count MPV Gran % Lymph % (Auto) [place] % (Auto) Eos % (Auto) Baso % (Auto) Gran # Lymph # (Auto) [place] # (Auto) Eos # (Auto) Baso # (Auto) Sodium Potassium Chloride Carbon Dioxide Anion Gap BUN Creatinine Est GFR ( Amer) Est GFR (Non-Af Amer) POC Glucose (mg/dL) 182 H Random Glucose Hemoglobin A1c Calcium Phosphorus Magnesium Iron TIBC % Saturation Total Bilirubin AST ALT Alkaline Phosphatase Total Protein Albumin Globulin Albumin/Globulin Ratio Triglycerides Cholesterol LDL Cholesterol Direct HDL Cholesterol Procalcitonin 0.42 Urine Color Yellow Urine Appearance Cloudy Urine pH 6.0 Ur Specific [place] 1.020 Urine Protein 100 H Urine Glucose (UA) 500 H Urine Ketones Negative Urine Blood Large H Urine Nitrate Negative Urine Bilirubin Negative Urine Urobilinogen 1.0 H Ur Leukocyte Esterase Large H Urine RBC 20 - 25 Urine WBC Tntc Ur Epithelial Cells 6 - 8 Urine Bacteria Large Urine Other Mucus 12/11/17 12/11/17 12/11/17 02:32 06:32 08:00 WBC RBC Hgb Hct MCV MCH MCHC RDW Plt Count MPV Gran % Lymph % (Auto) [place] % (Auto) Eos % (Auto) Baso % (Auto) Gran # Lymph # (Auto) [place] # (Auto) Eos # (Auto) Baso # (Auto) Sodium 144 Potassium 4.6 Chloride 110 H Carbon Dioxide 25 Anion Gap 14 BUN 25 H Creatinine 2.4 H Est GFR ( Amer) 34 Est GFR (Non-Af Amer) 28 POC Glucose (mg/dL) 160 H 239 H Random Glucose 259 H Hemoglobin A1c Calcium 8.1 L Phosphorus 2.8 Magnesium 1.7 Iron TIBC % Saturation Total Bilirubin 1.3 AST 18 ALT 21 Alkaline Phosphatase 73 Total Protein 6.7 Albumin 3.1 Globulin 3.6 Albumin/Globulin Ratio 0.9 L Triglycerides 73 Cholesterol 79 L LDL Cholesterol Direct < 30 HDL Cholesterol 34 Procalcitonin Urine Color Urine Appearance Urine pH Ur Specific [place] Urine Protein Urine Glucose (UA) Urine Ketones Urine Blood Urine Nitrate Urine Bilirubin Urine Urobilinogen Ur Leukocyte Esterase Urine RBC Urine WBC Ur Epithelial Cells Urine Bacteria Urine Other 12/11/17 12/11/17 12/11/17 08:00 08:00 08:00 WBC 10.7 D RBC 3.29 L Hgb 9.3 L Hct 30.5 L MCV 92.7 MCH 28.3 MCHC 30.5 L RDW 12.6 Plt Count 302 MPV 10.3 Gran % 72.3 H Lymph % (Auto) 19.4 L [place] % (Auto) 6.6 H Eos % (Auto) 1.4 L Baso % (Auto) 0.3 Gran # 7.73 H Lymph # (Auto) 2.1 [place] # (Auto) 0.7 H Eos # (Auto) 0.2 Baso # (Auto) 0.03 Sodium Potassium Chloride Carbon Dioxide Anion Gap BUN Creatinine Est GFR ( Amer) Est GFR (Non-Af Amer) POC Glucose (mg/dL) Random Glucose Hemoglobin A1c 9.2 H Calcium Phosphorus Magnesium Iron 50 TIBC 199 L % Saturation 25 Total Bilirubin AST ALT Alkaline Phosphatase Total Protein Albumin Globulin Albumin/Globulin Ratio Triglycerides Cholesterol LDL Cholesterol Direct HDL Cholesterol Procalcitonin Urine Color Urine Appearance Urine pH Ur Specific [place] Urine Protein Urine Glucose (UA) Urine Ketones Urine Blood Urine Nitrate Urine Bilirubin Urine Urobilinogen Ur Leukocyte Esterase Urine RBC Urine WBC Ur Epithelial Cells Urine Bacteria Urine Other 12/11/17 11:14 WBC RBC Hgb Hct MCV MCH MCHC RDW Plt Count MPV Gran % Lymph % (Auto) [place] % (Auto) Eos % (Auto) Baso % (Auto) Gran # Lymph # (Auto) [place] # (Auto) Eos # (Auto) Baso # (Auto) Sodium Potassium Chloride Carbon Dioxide Anion Gap BUN Creatinine Est GFR ( Amer) Est GFR (Non-Af Amer) POC Glucose (mg/dL) 209 H Random Glucose Hemoglobin A1c Calcium Phosphorus Magnesium Iron TIBC % Saturation Total Bilirubin AST ALT Alkaline Phosphatase Total Protein Albumin Globulin Albumin/Globulin Ratio Triglycerides Cholesterol LDL Cholesterol Direct HDL Cholesterol Procalcitonin Urine Color Urine Appearance Urine pH Ur Specific [place] Urine Protein Urine Glucose (UA) Urine Ketones Urine Blood Urine Nitrate Urine Bilirubin Urine Urobilinogen Ur Leukocyte Esterase Urine RBC Urine WBC Ur Epithelial Cells Urine Bacteria Urine Other
--- NOTE | 2017-12-11 17:06 | CARD ---
APPROVED REPORT EKG Measurement Heart [id number] <Conclusion> Sinus rhythm with occasional premature ventricular complexes Possible Left atrial enlargement Left axis deviation Prolonged QT Abnormal ECG
[2017-12-11] MEDS ORDERED: Bisacodyl 5mg EC Tab PO ONE (17:14)
--- NOTE | 2017-12-11 20:26 | CP.PCM.CON ---
History of Present Illness - History of Present Illness History of Present Illness: 57 year old male with PMH of urinary retention with history of phimosis S/P circumcision, S/P TURP, S/P urostomy tube placement, history of recurrent UTI's and pyelonephritis, DM, HTN, chronic renal failure, Charcot foot, HIV infection came in to [facility] because of blister on his left foot, as well as some nausea. There is no note of fevers but has some abdominal discomfort. The patient underwent CT A/P which is showing either left sided pyelonephritis or colitis. There is no note of cough, no headache or dizziness, no chest pain. Infectious Diseases consult is requested to further evaluate and manage. Review of Systems - Review of Systems All systems: reviewed and no additional remarkable complaints except (as per HPI ) Past Patient History - Infectious Disease Hx of Infectious Diseases: None - Tetanus Immunizations Tetanus Immunization: Unknown - Past Medical History & Family History Past Medical History?: Yes - Past Social History Smoking Status: Current Some Days Smoker - CARDIAC Hx Cardiac Disorders: Yes Hx Hypertension: Yes Hx Peripheral Edema: Yes Hx Peripheral Vascular Disease: Yes - PULMONARY Hx Respiratory Disorders: No - NEUROLOGICAL Hx Neurological Disorder: Yes (MENTALLY IMPAIRED SINCE ) Hx Dizziness: Yes - HEENT Hx HEENT Problems: Yes (EXCESSIVE TEARING) - RENAL Hx Chronic Kidney Disease: Yes (RENAL INSUFFICIENCY) Other/Comment: HYDRONEPHROSIS - ENDOCRINE/METABOLIC Hx Endocrine Disorders: Yes Hx Diabetes Mellitus Type 2: Yes - HEMATOLOGICAL/ONCOLOGICAL Hx Blood Disorders: Yes Hx Anemia: Yes - INTEGUMENTARY Hx Dermatological Problems: Yes Other/Comment: FOOT INFECTION - MUSCULOSKELETAL/RHEUMATOLOGICAL Hx Musculoskeletal Disorders: Yes Hx Fractures: Yes (LEFT LG) Other/Comment: OPEN REDUCTION INTERNAL FIXATION - GASTROINTESTINAL Hx Gastrointestinal Disorders: Yes (HX:VOMITTING, LOSS OF APPETITE) - GENITOURINARY/GYNECOLOGICAL Hx Genitourinary Disorders: Yes Other/Comment: EPIDIDYMITIS,E COLI IN THE URINE. HX: SUPRAPUBIC TUBE - PSYCHIATRIC Hx Psychophysiologic Disorder: Yes Hx Substance Use: Yes (cannabis) Other/Comment: mentally impaired - SURGICAL HISTORY Hx Orthopedic Surgery: Yes (open reduction internal fixation ( left leg)) Other/Comment: UROSTOMY - ANESTHESIA Hx Anesthesia: Yes Hx Anesthesia Reactions: No Hx Malignant Hyperthermia: No Meds Allergies/Adverse Reactions: Allergies Allergy/AdvReac Type Severity Reaction Status Date / Time No Known Allergies Allergy Verified 12/10/17 17:22 - Medications Medications: Current Medications Acetaminophen (Tylenol 325mg Tab) 650 mg PO Q4 PRN PRN Reason: Fever >100.4 F Calcium Acetate (Phoslo) 667 mg PO BID [facility] Glipizide (Glucotrol) 5 mg PO DAILY [facility] Hydrochlorothiazide (Microzide) 12.5 mg PO DAILY [facility] Vancomycin HCl (Vancomycin 1gm) 1 gm in 250 mls @ 167 mls/hr IVPB DAILY [facility] PRN Reason: Protocol Metronidazole (Flagyl) 500 mg in 100 mls @ 100 mls/hr IVPB Q8 [facility] PRN Reason: Protocol Last Admin: 12/11/17 05:36 Dose: 100 mls/hr Piperacillin Sod/Tazobactam Sod (Zosyn 2.25 Gm In 0.9% 100 Ml) 2.25 gm in 100 mls @ 100 mls/hr IVPB Q6 [facility] PRN Reason: Protocol Stop: 12/11/17 12:59 Last Admin: 12/11/17 05:35 Dose: 100 mls/hr Insulin Detemir (Levemir) 5 unit SC Q12H [facility] Insulin Human Regular (Humulin R Low) 0 units SC ACHS [facility] PRN Reason: Protocol Multivitamins (Thera Tab) 1 tab PO DAILY [facility] Raltegravir (Isentress) 400 mg PO BID [facility] PRN Reason: Protocol Sucralfate (Carafate Oral Susp) 1 gm PO 0600,1600 [facility] Last Admin: 12/11/17 05:36 Dose: 1 gm Tamsulosin HCl (Flomax) 0.4 mg PO DAILY [facility] Physical Exam - Constitutional Appears: Chronically Ill - Head Exam Head Exam: NORMAL INSPECTION - Respiratory Exam Respiratory Exam: Decreased Breath Sounds - Cardiovascular Exam Cardiovascular Exam: +S1, +S2 - GI/Abdominal Exam GI & Abdominal Exam: Soft. absent: Tenderness Results - Vital Signs Recent Vital Signs: Last Vital Signs Temp 98.9 F 12/11/17 02:05 Pulse 99 H 12/11/17 03:19 Resp 18 12/11/17 02:05 BP 170/100 H 12/11/17 03:19 Pulse Ox 98 12/11/17 02:05 - Labs Result Diagrams: 12/11/17 08:00 12/11/17 08:00 Labs: Laboratory Results - last 24 hr 12/10/17 12/11/17 23:12 01:40 POC Glucose (mg/dL) 182 H Urine Color Yellow Urine Appearance Cloudy Urine pH 6.0 Ur Specific [place] 1.020 Urine Protein 100 H Urine Glucose (UA) 500 H Urine Ketones Negative Urine Blood Large H Urine Nitrate Negative Urine Bilirubin Negative Urine Urobilinogen 1.0 H Ur Leukocyte Esterase Large H Urine RBC 20 - 25 Urine WBC Tntc Ur Epithelial Cells 6 - 8 Urine Bacteria Large Urine Other Mucus Assessment & Plan - Assessment and Plan (Free Text) Plan: Assessment sepsis due to left sided pyelonephritis R.O colitis in this patient with urostomy left foot blister history of severe sepsis with acute on chronic renal failure due to E. coli bacteremia, consider due to complicated UTI in this patient with urostomy tube as well as skin and skin structure infection of left Charcot foot with MRSA and E. coli urinary retention with history of phimosis S/P circumcision, S/P TURP, S/P urostomy tube placement history of recurrent UTI's and pyelonephritis DM HTN chronic renal failure Charcot foot, left Plan started a dose of IV Vancomycin and Zosyn pending blood, urine, wound cx continue ART (Descovy and ISentress) for HIV follow up further plans of Podiatry will monitor clinically
[2017-12-12] MEDS: Piperacillin/Tazobact 2.25gm 2.25 GM/100 ML BAG IVPB SCH ×4 (00:39→17:05)
[2017-12-12] MEDS: metroNIDAZOLE IV 500 mg/100 ml 500 MG/100 ML BAG IVPB SCH ×3 (05:22→21:09)
[2017-12-12] MEDS: Sucralfate 1 gm/10 ml Oral Susp UD PO SCH ×2 (05:22→16:34)
[2017-12-12] MEDS: Insulin Reg-LOW-Coverage SC SCH ×4 (07:51→22:07)
--- NOTE | 2017-12-12 08:02 | PCM.URO ---
Urology Progress Note - Objective Lab Studies: Reviewed (gu dx: chronic retention and indwelling spt and therefore pt always has bacteria in his urine gu plans : change spt when pt allows / pt would not allow it yesterday or today the urine today looks much better but still the catheter should be changed (lower extremity noted as well ) antibiotics as per dr galeana) Lab Results Last 24 Hours: Laboratory Results - last 24 hr 12/11/17 12/11/17 12/11/17 01:44 02:32 06:32 WBC RBC Hgb Hct MCV MCH MCHC RDW Plt Count MPV Gran % Lymph % (Auto) [place] % (Auto) Eos % (Auto) Baso % (Auto) Gran # Lymph # (Auto) [place] # (Auto) Eos # (Auto) Baso # (Auto) Sodium Potassium Chloride Carbon Dioxide Anion Gap BUN Creatinine Est GFR ( Amer) Est GFR (Non-Af Amer) POC Glucose (mg/dL) 160 H 239 H Random Glucose Hemoglobin A1c Calcium Phosphorus Magnesium Iron TIBC % Saturation Total Bilirubin AST ALT Alkaline Phosphatase Total Protein Albumin Globulin Albumin/Globulin Ratio Triglycerides Cholesterol LDL Cholesterol Direct HDL Cholesterol Procalcitonin 0.42 12/11/17 12/11/17 12/11/17 08:00 08:00 08:00 WBC 10.7 D RBC 3.29 L Hgb 9.3 L Hct 30.5 L MCV 92.7 MCH 28.3 MCHC 30.5 L RDW 12.6 Plt Count 302 MPV 10.3 Gran % 72.3 H Lymph % (Auto) 19.4 L [place] % (Auto) 6.6 H Eos % (Auto) 1.4 L Baso % (Auto) 0.3 Gran # 7.73 H Lymph # (Auto) 2.1 [place] # (Auto) 0.7 H Eos # (Auto) 0.2 Baso # (Auto) 0.03 Sodium 144 Potassium 4.6 Chloride 110 H Carbon Dioxide 25 Anion Gap 14 BUN 25 H Creatinine 2.4 H Est GFR ( Amer) 34 Est GFR (Non-Af Amer) 28 POC Glucose (mg/dL) Random Glucose 259 H Hemoglobin A1c 9.2 H Calcium 8.1 L Phosphorus 2.8 Magnesium 1.7 Iron TIBC % Saturation Total Bilirubin 1.3 AST 18 ALT 21 Alkaline Phosphatase 73 Total Protein 6.7 Albumin 3.1 Globulin 3.6 Albumin/Globulin Ratio 0.9 L Triglycerides 73 Cholesterol 79 L LDL Cholesterol Direct < 30 HDL Cholesterol 34 Procalcitonin 12/11/17 12/11/17 12/11/17 08:00 11:14 16:43 WBC RBC Hgb Hct MCV MCH MCHC RDW Plt Count MPV Gran % Lymph % (Auto) [place] % (Auto) Eos % (Auto) Baso % (Auto) Gran # Lymph # (Auto) [place] # (Auto) Eos # (Auto) Baso # (Auto) Sodium Potassium Chloride Carbon Dioxide Anion Gap BUN Creatinine Est GFR ( Amer) Est GFR (Non-Af Amer) POC Glucose (mg/dL) 209 H 119 H Random Glucose Hemoglobin A1c Calcium Phosphorus Magnesium Iron 50 TIBC 199 L % Saturation 25 Total Bilirubin AST ALT Alkaline Phosphatase Total Protein Albumin Globulin Albumin/Globulin Ratio Triglycerides Cholesterol LDL Cholesterol Direct HDL Cholesterol Procalcitonin 12/11/17 21:38 WBC RBC Hgb Hct MCV MCH MCHC RDW Plt Count MPV Gran % Lymph % (Auto) [place] % (Auto) Eos % (Auto) Baso % (Auto) Gran # Lymph # (Auto) [place] # (Auto) Eos # (Auto) Baso # (Auto) Sodium Potassium Chloride Carbon Dioxide Anion Gap BUN Creatinine Est GFR ( Amer) Est GFR (Non-Af Amer) POC Glucose (mg/dL) 180 H Random Glucose Hemoglobin A1c Calcium Phosphorus Magnesium Iron TIBC % Saturation Total Bilirubin AST ALT Alkaline Phosphatase Total Protein Albumin Globulin Albumin/Globulin Ratio Triglycerides Cholesterol LDL Cholesterol Direct HDL Cholesterol Procalcitonin Intake & Output: Intake & Output 12/11/17 12/12/17 12/12/17 18:59 06:59 18:59 Intake Total 500 Output Total 900 1900 Balance -400 -1900 Weight 160 lb Intake: Oral 500 Output: Urine 900 1900 Urethral ([place]) 900 1900 Other: # Bowel Movements 0 0 Vital Signs: Vital Signs - 24 hr 12/11/17 12/11/17 12/11/17 14:00 18:00 22:00 Temperature 98.1 F 98.2 F Pulse Rate 102 H 102 H 98 H Respiratory 20 19 Rate Blood Pressure 158/105 H 158/105 H 146/98 H O2 Sat by Pulse 99 99 Oximetry
[2017-12-12 08:14] VITALS: RESP 20
[2017-12-12] MEDS: Multivitamin Therapeutic Tab PO SCH (09:46)
[2017-12-12] MEDS: Vancomycin 1gm in NS 250ml 1 GM/250 ML BAG IVPB SCH (09:47)
[2017-12-12] MEDS: Insulin Detemir 100 units/ml Vial (Levemir) SC SCH ×2 (10:30→22:07)
--- NOTE | 2017-12-12 11:15 | CP.PCM.PN ---
Subjective - Date & Time of Evaluation Date of Evaluation: 12/12/17 Time of Evaluation: 11:14 - Subjective Subjective: Nephrology Consultation Note: Assessment: Stable chronic obstructive uropathy with b/l hydronephrosis and CKD stage 3 with baseline cr 2.6-2.8 with ?mg proteinuria (R80.9) Hx of phimosis s/p circumcision, s/p TURP and suprapubic catheter pyuria and microscopic hematuria likely due to chronic indwelling SP catheter and bacterial colonization Diabetic chronic Kidney Disease (E11.22) Hypertensive Chronic Kidney Disease (I12.9) Anemia (D64.9), HTN (I12.9) HIV on HAART, charcoat foot, developmental delay, smoking hx Plan No acute need for renal replacement therapy at this time. Hypertension control with meds as ordered. Patient was on losartan, held due to elevated K. will resume it with lasix 40 mg/day. d/c thiazide diuretic. as outpt if needed will control serum K with Velt[place] Monitor Input/Output, daily weights and renal function with basic metabolic panel added iron supplements, MVI and aransep 60 mcg 12/11/2017 , ID eval appreciated. continue with flomax monitor Vanco level. Check urine spot protein/creatinine and albumin/creatinine ratio Check for 25-OH vitamin D, iPTH, phosphorus level, Ferritin Dose meds/antibiotics for reduced GFR. Avoid fleets enema/magnesium based laxatives. Avoid nephrotoxins/NSAIDs/ iodinated contrast (unless needed emergently) Glycemic control, low K diet Further work up/management as per primary team Thanks for allowing me to participate in care of your patient. Will follow patient with you. Please call if any Qs Dr Remigio Jason Office: [phone] Chief Complaint; leg swelling and blister HPI: Pt is a with hx of diabetes Mellitus ( years), hypertension (years) HIV on HAART, charcoat foot, phimosis s/p circumcision, s/p TURP and suprapubic catheter, chronic obstructive uropathy with hydronephrosis and CKD stage 3 with baseline cr 2.6-2.8, developmental delay, smoking hx presented with complaints of leg blister and swelling. renal consult for CKD management Denies OTC/herbal meds or NSAIDs No recent iodinated contrast exposure. No obvious episodes of low BP. ROS: Cardiovascular: No chest pain. Pulmonary: No shortness of breath Gastrointestinal: resolved abdominal pain No nausea. No vomiting. Genitourinary: has catheter All other negative except as mentioned in HPI but overall limited Physical Examination: General Appearance: Comfortable, in no acute respiratory distress, co-operative . Vitals reviewed and noted as below Head; Atraumatic, normocephalic ENT: no ulcers no thrush. Tongue is midline. Oropharynx: no rash or ulcers. EYES: Pupils are equal, round and reactive to light accommodation. Eye muscles and extraocular movement intact. Sclera is anicteric. Neck; supple no lymphadenopathy, no thyromegaly or bruit Lungs: Normal respiratory rate/effort. Breath sounds bilateral equal and clear Heart: Normal rate. s1s2 normal. No rub or gallop. Extremities: no edema. No varicose veins Neurological: Patient is alert, awake and No focal deficit. Strength bilateral appropriate and equal Skin: Warm and dry. Normal turgor. No rash. Palpitation: Normal elasticity for age Abdomen: Abdomen is soft. Bowel sounds +. There is no abdominal tenderness, no guarding/rigidity no organomegaly Psych: lack insight and has normal affect/mood MSK: no joint tenderness or swelling. Digits and nails normal, no deformity : kidney or bladder not palpable. has SP catheter Labs/imaging reviewed. Past medical history, past surgical history, family history, social history, allergy reviewed and noted as below Family hx: no hx of CKD. Rest non-contributory work up: CT b/l moderate hydronephrosis UA with 100 protein, large WBC and RBCs TSAT 25% Objective - Vital Signs/Intake and Output Vital Signs (last 24 hours): Temp Pulse Resp BP Pulse Ox 98.5 F 95 H 20 150/90 100 12/12/17 06:00 12/12/17 06:00 12/12/17 06:00 12/12/17 09:47 12/12/17 06:00 Intake and Output: 12/12/17 12/12/17 06:59 18:59 Output Total 1900 Balance -1900 - Medications Medications: Current Medications Acetaminophen (Tylenol 325mg Tab) 650 mg PO Q4 PRN PRN Reason: Fever >100.4 F Calcium Acetate (Phoslo) 667 mg PO BID [facility] Last Admin: 12/12/17 09:46 Dose: 667 mg Ferrous Gluconate (Fergon) 324 mg PO TID [facility] Last Admin: 12/12/17 09:47 Dose: 324 mg Furosemide (Lasix) 40 mg PO DAILY [facility] Last Admin: 12/12/17 09:47 Dose: 40 mg Glipizide (Glucotrol) 5 mg PO DAILY [facility] Last Admin: 12/12/17 09:47 Dose: 5 mg Home Med (Home Med) 1 unit PO DAILY [facility] Last Admin: 12/11/17 10:14 Dose: Not Given Vancomycin HCl (Vancomycin 1gm) 1 gm in 250 mls @ 167 mls/hr IVPB DAILY [facility] PRN Reason: Protocol Last Admin: 12/12/17 09:47 Dose: 167 mls/hr Metronidazole (Flagyl) 500 mg in 100 mls @ 100 mls/hr IVPB Q8 [facility] PRN Reason: Protocol Last Admin: 12/12/17 05:22 Dose: 100 mls/hr Piperacillin Sod/Tazobactam Sod (Zosyn 2.25 Gm In 0.9% 100 Ml) 2.25 gm in 100 mls @ 100 mls/hr IVPB Q6 [facility] PRN Reason: Protocol Stop: 12/18/17 06:01 Last Admin: 12/12/17 05:23 Dose: 100 mls/hr Insulin Detemir (Levemir) 5 unit SC Q12H [facility] Last Admin: 12/11/17 22:13 Dose: Not Given Insulin Human Regular (Humulin R Low) 0 units SC ACHS [facility] PRN Reason: Protocol Last Admin: 12/12/17 07:51 Dose: Not Given Losartan Potassium (Cozaar) 50 mg PO QPM [facility] Last Admin: 12/11/17 18:00 Dose: 50 mg Multivitamins (Thera Tab) 1 tab PO DAILY [facility] Last Admin: 12/12/17 09:46 Dose: 1 tab Ondansetron HCl (Zofran Inj) 4 mg IVP Q4H PRN PRN Reason: Nausea/Vomiting Raltegravir (Isentress) 400 mg PO BID [facility] PRN Reason: Protocol Last Admin: 12/12/17 09:50 Dose: 400 mg Sucralfate (Carafate Oral Susp) 1 gm PO 0600,1600 [facility] Last Admin: 12/12/17 05:22 Dose: 1 gm Tamsulosin HCl (Flomax) 0.4 mg PO DAILY [facility] Last Admin: 12/12/17 09:50 Dose: 0.4 mg - Labs Labs: 12/11/17 08:00 12/11/17 08:00 PT 11.9 SECONDS (9.4-12.5) 12/10/17 19:11 INR 1.04 (0.93-1.08) 12/10/17 19:11 APTT 32.3 Seconds (25.1-36.5) 12/10/17 19:11
[2017-12-12] MEDS: DESCOVY PO SCH (11:45)
--- NOTE | 2017-12-12 14:00 | CP.PCM.PN ---
<Nikhil Nolasco - Last Filed: 12/12/17 13:56> Subjective - Date & Time of Evaluation Date of Evaluation: 12/12/17 Time of Evaluation: 13:57 - Subjective Subjective: Podiatry Progress Note for Dr. Casanova 57M seen for blister to left medial foot. Patient is AAO x 3 and NAD, resting comfortably in bed. Denies any acute overnight events or new pedal complaints. Denies any pain to the area. Denies any recent N/V/F/C/CP/SOB/D/posterior calf pain when squeezed Objective - Vital Signs/Intake and Output Vital Signs (last 24 hours): Temp Pulse Resp BP Pulse Ox 98.5 F 95 H 20 150/90 100 12/12/17 06:00 12/12/17 06:00 12/12/17 06:00 12/12/17 09:47 12/12/17 06:00 Intake and Output: 12/12/17 12/12/17 06:59 18:59 Output Total 1900 Balance -1900 - Medications Medications: Current Medications Acetaminophen (Tylenol 325mg Tab) 650 mg PO Q4 PRN PRN Reason: Fever >100.4 F Calcium Acetate (Phoslo) 667 mg PO BID [facility] Last Admin: 12/12/17 09:46 Dose: 667 mg Ferrous Gluconate (Fergon) 324 mg PO TID [facility] Last Admin: 12/12/17 09:47 Dose: 324 mg Furosemide (Lasix) 40 mg PO DAILY [facility] Last Admin: 12/12/17 09:47 Dose: 40 mg Glipizide (Glucotrol) 5 mg PO DAILY [facility] Last Admin: 12/12/17 11:46 Dose: Not Given Home Med (Home Med) 1 unit PO DAILY [facility] Last Admin: 12/12/17 11:45 Dose: Not Given Vancomycin HCl (Vancomycin 1gm) 1 gm in 250 mls @ 167 mls/hr IVPB DAILY [facility] PRN Reason: Protocol Last Admin: 12/12/17 09:47 Dose: 167 mls/hr Metronidazole (Flagyl) 500 mg in 100 mls @ 100 mls/hr IVPB Q8 [facility] PRN Reason: Protocol Last Admin: 12/12/17 05:22 Dose: 100 mls/hr Piperacillin Sod/Tazobactam Sod (Zosyn 2.25 Gm In 0.9% 100 Ml) 2.25 gm in 100 mls @ 100 mls/hr IVPB Q6 [facility] PRN Reason: Protocol Stop: 12/18/17 06:01 Last Admin: 12/12/17 13:33 Dose: 100 mls/hr Insulin Detemir (Levemir) 5 unit SC Q12H [facility] Last Admin: 12/12/17 10:30 Dose: Not Given Insulin Human Regular (Humulin R Low) 0 units SC ACHS [facility] PRN Reason: Protocol Last Admin: 12/12/17 11:45 Dose: Not Given Losartan Potassium (Cozaar) 50 mg PO QPM [facility] Last Admin: 12/11/17 18:00 Dose: 50 mg Multivitamins (Thera Tab) 1 tab PO DAILY [facility] Last Admin: 12/12/17 09:46 Dose: 1 tab Ondansetron HCl (Zofran Inj) 4 mg IVP Q4H PRN PRN Reason: Nausea/Vomiting Raltegravir (Isentress) 400 mg PO BID [facility] PRN Reason: Protocol Last Admin: 12/12/17 09:50 Dose: 400 mg Sucralfate (Carafate Oral Susp) 1 gm PO 0600,1600 [facility] Last Admin: 12/12/17 05:22 Dose: 1 gm Tamsulosin HCl (Flomax) 0.4 mg PO DAILY [facility] Last Admin: 12/12/17 09:50 Dose: 0.4 mg - Labs Labs: 12/11/17 08:00 12/11/17 08:00 PT 11.9 SECONDS (9.4-12.5) 12/10/17 19:11 INR 1.04 (0.93-1.08) 12/10/17 19:11 APTT 32.3 Seconds (25.1-36.5) 12/10/17 19:11 - Constitutional Appears: Well, Non-toxic, No Acute Distress - Head Exam Head Exam: ATRAUMATIC, NORMOCEPHALIC - Extremities Exam Additional comments: LLE focused exam Vasc: DP/PT pulses fully palpable 2/4 b/l. Skin temperature warm to warm from proximal to distal. CFT < 3 seconds to all digits b/l. No edema noted b/l Neuro: Epicritic and protective sensation grossly intact b/l Derm: Lanced bullae noted to left foot with yellow drainage appreciated on dressing but no active drainage noted or expressed. No erythema, no malodor, no other clinical signs of infection. Otherwise, no open lesions, wounds, maceration, xerosis, abnormal pigmentation or abnormal growths noted b/l MSK: No POP to lanced bullae site. MMT 5/5 in all major muscle groups. ROM WNL at all major joints - Neurological Exam Neurological Exam: Alert, Awake, Oriented x3 - Psychiatric Exam Psychiatric exam: Normal Affect, Normal Mood Assessment and Plan - Assessment and Plan (Free Text) Assessment: 57M seen for blister to left medial foot Plan: Patient seen and evaluated Plan discussed with attending Dr. Casanova Afebrile, WBC 10.7 from 13.7 Continue IV abx per ID Wound dressed with DSD No plan for surgical intervention at this time Podiatry will continue to follow while patient in house <Rhonda Casanova - Last Filed: 12/15/17 19:09> Objective - Vital Signs/Intake and Output Vital Signs (last 24 hours): Temp Pulse Resp BP Pulse Ox 98 F 97 H 20 152/90 H 99 12/13/17 06:00 12/13/17 09:22 12/13/17 06:00 12/13/17 09:22 12/13/17 06:00 - Labs Labs: 12/11/17 08:00 12/11/17 08:00 PT 11.9 SECONDS (9.4-12.5) 12/10/17 19:11 INR 1.04 (0.93-1.08) 12/10/17 19:11 APTT 32.3 Seconds (25.1-36.5) 12/10/17 19:11 Attending/Attestation - Attestation I have personally seen and examined this patient.: Yes I have fully participated in the care of the patient.: Yes I have reviewed all pertinent clinical information, including history, physical exam and plan: Yes
--- NOTE | 2017-12-12 16:59 | CP.PCM.PN ---
Subjective - Date & Time of Evaluation Date of Evaluation: 12/12/17 Time of Evaluation: 10:55 - Subjective Subjective: No fevers, no flank pain, no abdominal pain, foot is a little better. Objective - Vital Signs/Intake and Output Vital Signs (last 24 hours): Temp Pulse Resp BP Pulse Ox 98.5 F 95 H 20 150/92 H 100 12/12/17 06:00 12/12/17 06:00 12/12/17 06:00 12/12/17 06:00 12/12/17 06:00 Intake and Output: 12/12/17 12/12/17 06:59 18:59 Output Total 1900 Balance -1900 - Medications Medications: Current Medications Acetaminophen (Tylenol 325mg Tab) 650 mg PO Q4 PRN PRN Reason: Fever >100.4 F Calcium Acetate (Phoslo) 667 mg PO BID [facility] Last Admin: 12/11/17 18:00 Dose: 667 mg Ferrous Gluconate (Fergon) 324 mg PO TID [facility] Last Admin: 12/11/17 17:59 Dose: 324 mg Furosemide (Lasix) 40 mg PO DAILY [facility] Last Admin: 12/11/17 18:00 Dose: 40 mg Glipizide (Glucotrol) 5 mg PO DAILY [facility] Last Admin: 12/11/17 10:13 Dose: 5 mg Home Med (Home Med) 1 unit PO DAILY [facility] Last Admin: 12/11/17 10:14 Dose: Not Given Vancomycin HCl (Vancomycin 1gm) 1 gm in 250 mls @ 167 mls/hr IVPB DAILY [facility] PRN Reason: Protocol Last Admin: 12/11/17 10:13 Dose: 167 mls/hr Metronidazole (Flagyl) 500 mg in 100 mls @ 100 mls/hr IVPB Q8 [facility] PRN Reason: Protocol Last Admin: 12/12/17 05:22 Dose: 100 mls/hr Piperacillin Sod/Tazobactam Sod (Zosyn 2.25 Gm In 0.9% 100 Ml) 2.25 gm in 100 mls @ 100 mls/hr IVPB Q6 [facility] PRN Reason: Protocol Stop: 12/18/17 06:01 Last Admin: 12/12/17 05:23 Dose: 100 mls/hr Insulin Detemir (Levemir) 5 unit SC Q12H [facility] Last Admin: 12/11/17 22:13 Dose: Not Given Insulin Human Regular (Humulin R Low) 0 units SC ACHS [facility] PRN Reason: Protocol Last Admin: 12/12/17 07:51 Dose: Not Given Losartan Potassium (Cozaar) 50 mg PO QPM [facility] Last Admin: 12/11/17 18:00 Dose: 50 mg Multivitamins (Thera Tab) 1 tab PO DAILY [facility] Last Admin: 12/11/17 10:13 Dose: 1 tab Ondansetron HCl (Zofran Inj) 4 mg IVP Q4H PRN PRN Reason: Nausea/Vomiting Raltegravir (Isentress) 400 mg PO BID [facility] PRN Reason: Protocol Last Admin: 12/11/17 17:59 Dose: 400 mg Sucralfate (Carafate Oral Susp) 1 gm PO 0600,1600 [facility] Last Admin: 12/12/17 05:22 Dose: 1 gm Tamsulosin HCl (Flomax) 0.4 mg PO DAILY [facility] Last Admin: 12/11/17 10:13 Dose: 0.4 mg - Labs Labs: 12/11/17 08:00 12/11/17 08:00 PT 11.9 SECONDS (9.4-12.5) 12/10/17 19:11 INR 1.04 (0.93-1.08) 12/10/17 19:11 APTT 32.3 Seconds (25.1-36.5) 12/10/17 19:11 - Constitutional Appears: Chronically Ill - Head Exam Head Exam: NORMAL INSPECTION - Respiratory Exam Respiratory Exam: Decreased Breath Sounds - Cardiovascular Exam Cardiovascular Exam: +S1, +S2 - GI/Abdominal Exam GI & Abdominal Exam: Soft. absent: Tenderness Assessment and Plan - Assessment and Plan (Free Text) Plan: Assessment sepsis due to left sided pyelonephritis R/O colitis in this patient with urostomy left foot blister history of severe sepsis with acute on chronic renal failure due to E. coli bacteremia, consider due to complicated UTI in this patient with urostomy tube as well as skin and skin structure infection of left Charcot foot with MRSA and E. coli urinary retention with history of phimosis S/P circumcision, S/P TURP, S/P urostomy tube placement history of recurrent UTI's and pyelonephritis DM HTN chronic renal failure Charcot foot, left Plan started a dose of IV Vancomycin and continue Zosyn day 2 pending blood, urine, wound cx continue ART (Descovy and ISentress) for HIV follow up further plans of Podiatry will continue to monitor clinically
[2017-12-12 18:44] LABS: % CD4 (T HELPER CELL) 41 Percent (30-61); % CD8 (SUPPRESSOR T CELL) 41 Percent (12-42); ABSOLUTE CD4 CELLS 914 Cells/mcL (490-1740); ABSOLUTE CD8 CELLS 929 Cells/mcL (180-1170); ABSOLUTE LYMPHOCYTES 2240 Cells/mcL (850-3900); HELPER/SUPPRESSOR RATIO 0.98 Ratio (0.86-5.00)
[2017-12-13] MEDS: Piperacillin/Tazobact 2.25gm 2.25 GM/100 ML BAG IVPB SCH ×2 (01:40→06:26)
[2017-12-13] MEDS: Sucralfate 1 gm/10 ml Oral Susp UD PO SCH (06:25)
[2017-12-13] MEDS: metroNIDAZOLE IV 500 mg/100 ml 500 MG/100 ML BAG IVPB SCH (06:25)
[2017-12-13 08:11] VITALS: BP 152/90; PULSE 97; TEMP 98; O2SAT 99
--- NOTE | 2017-12-13 08:37 | PCM.URO ---
Urology Progress Note - Objective Lab Studies: Reviewed (new spt inserted) Lab Results Last 24 Hours: Laboratory Results - last 24 hr 12/11/17 12/12/17 12/12/17 01:44 06:26 11:02 POC Glucose (mg/dL) 137 H 123 H Absolute Lymphs (Flow) 2240 % CD4 Cells 41 Absolute CD4 Count 914 T-Help/Suppress Ratio 0.98 % CD8 Cells 41 Absolute CD8 Count 929 12/12/17 12/12/17 12/13/17 16:10 21:52 06:14 POC Glucose (mg/dL) 150 H 242 H 139 H Absolute Lymphs (Flow) % CD4 Cells Absolute CD4 Count T-Help/Suppress Ratio % CD8 Cells Absolute CD8 Count Intake & Output: Intake & Output 12/12/17 12/13/17 12/13/17 18:59 06:59 18:59 Intake Total 900 480 Output Total 850 800 Balance 50 -320 Intake: Oral 900 480 Output: Urine 850 800 Urethral ([place]) 850 800 Other: # Bowel Movements 0 Vital Signs: Vital Signs - 24 hr 12/12/17 12/12/17 12/12/17 09:47 14:00 22:00 Temperature 98.6 F 99 F Pulse Rate 104 H 93 H Respiratory 20 20 Rate Blood Pressure 150/90 174/114 H 140/90 O2 Sat by Pulse 97 98 Oximetry 12/13/17 06:00 Temperature 98 F Pulse Rate 97 H Respiratory 20 Rate Blood Pressure 152/90 H O2 Sat by Pulse 99 Oximetry
[2017-12-13] MEDS: Insulin Reg-LOW-Coverage SC SCH ×2 (09:09→11:48)
[2017-12-13] MEDS: Multivitamin Therapeutic Tab PO SCH (09:21)
[2017-12-13] MEDS: Vancomycin 1gm in NS 250ml 1 GM/250 ML BAG IVPB SCH (09:22)
[2017-12-13] MEDS: Insulin Detemir 100 units/ml Vial (Levemir) SC SCH ×2 (09:34→09:38)
[2017-12-13] MEDS ORDERED: cefTRIAXone 1 gm 1 GM/100 ML BAG IVPB SCH (10:00)
[2017-12-13] MEDS: DESCOVY PO SCH (11:17)
--- NOTE | 2017-12-13 12:28 | CP.PCM.DIS ---
Provider - Provider Date of Admission: 12/10/17 21:03 Attending physician: Ricky Vuong MD Primary care physician: Shyam Laguerre MD Time Spent in preparation of Discharge (in minutes): 40 Diagnosis - Discharge Diagnosis (1) UTI (urinary tract infection) Status: Acute Hospital Course - Lab Results Lab Results: Micro Results 12/10/17 23:12 Urine Urine Culture - Final Citrobacter Species Most Recent Lab Values WBC 10.7 10^3/ul (4.5-11.0) D 12/11/17 08:00 RBC 3.29 10^6/uL (3.5-6.1) L 12/11/17 08:00 Hgb 9.3 g/dL (14.0-18.0) L 12/11/17 08:00 Hct 30.5 % (42.0-52.0) L 12/11/17 08:00 MCV 92.7 fl (80.0-105.0) 12/11/17 08:00 MCH 28.3 pg (25.0-35.0) 12/11/17 08:00 MCHC 30.5 g/dl (31.0-37.0) L 12/11/17 08:00 RDW 12.6 % (11.5-14.5) 12/11/17 08:00 Plt Count 302 10^3/uL (120.0-450.0) 12/11/17 08:00 MPV 10.3 fl (7.0-11.0) 12/11/17 08:00 Gran % 72.3 % (50.0-68.0) H 12/11/17 08:00 Lymph % (Auto) 19.4 % (22.0-35.0) L 12/11/17 08:00 [place] % (Auto) 6.6 % (1.0-6.0) H 12/11/17 08:00 Eos % (Auto) 1.4 % (1.5-5.0) L 12/11/17 08:00 Baso % (Auto) 0.3 % (0.0-3.0) 12/11/17 08:00 Gran # 7.73 (1.4-6.5) H 12/11/17 08:00 Lymph # (Auto) 2.1 (1.2-3.4) 12/11/17 08:00 [place] # (Auto) 0.7 (0.1-0.6) H 12/11/17 08:00 Eos # (Auto) 0.2 (0.0-0.7) 12/11/17 08:00 Baso # (Auto) 0.03 K/mm3 (0.0-2.0) 12/11/17 08:00 ESR 70 mm/hr (0.00-15.0) H 12/10/17 19:11 PT 11.9 SECONDS (9.4-12.5) 12/10/17 19:11 INR 1.04 (0.93-1.08) 12/10/17 19:11 APTT 32.3 Seconds (25.1-36.5) 12/10/17 19:11 pO2 48 mm/Hg (30-55) 12/10/17 19:11 VBG pH 7.31 (7.32-7.43) L 12/10/17 19:11 VBG pCO2 52.0 (40-60) 12/10/17 19:11 VBG HCO3 26.2 mmol/l (21-28) 12/10/17 19:11 VBG Total CO2 27.8 mmol.L (22-28) 12/10/17 19:11 VBG O2 Sat (Calc) 91.1 % (40-65) H 12/10/17 19:11 VBG Base Excess -0.8 mmol/L (0.0-2.0) L 12/10/17 19:11 VBG Potassium 5.3 mmol/L (3.6-5.2) H 12/10/17 19:11 Sodium 138.0 mmol/L (132-148) 12/10/17 19:11 Chloride 109.0 mmol/L (98-107) H 12/10/17 19:11 Glucose 308 mg/dl (75-110) H 12/10/17 19:11 Lactate 1.5 mmol/L (0.7-2.1) 12/10/17 19:11 FiO2 21.0 % 12/10/17 19:11 Sodium 144 mmol/L (132-148) 12/11/17 08:00 Potassium 4.6 mmol/L (3.6-5.0) 12/11/17 08:00 Chloride 110 mmol/L (98-107) H 12/11/17 08:00 Carbon Dioxide 25 mmol/L (21-33) 12/11/17 08:00 Anion Gap 14 (10-20) 12/11/17 08:00 BUN 25 mg/dL (7-21) H 12/11/17 08:00 Creatinine 2.4 mg/dl (0.8-1.5) H 12/11/17 08:00 Est GFR ( Amer) 34 12/11/17 08:00 Est GFR (Non-Af Amer) 28 12/11/17 08:00 POC Glucose (mg/dL) 230 mg/dL (65-110) H 12/13/17 10:52 Random Glucose 259 mg/dL (70-110) H 12/11/17 08:00 Hemoglobin A1c 9.2 % (4.2-6.5) H 12/11/17 08:00 Calcium 8.1 mg/dL (8.4-10.5) L 12/11/17 08:00 Phosphorus 2.8 mg/dL (2.5-4.5) 12/11/17 08:00 Magnesium 1.7 mg/dL (1.7-2.2) 12/11/17 08:00 Iron 50 ug/dL (45-180) 12/11/17 08:00 TIBC 199 ug/dL (261-462) L 12/11/17 08:00 % Saturation 25 % (20-55) 12/11/17 08:00 Total Bilirubin 1.3 mg/dL (0.2-1.3) 12/11/17 08:00 AST 18 U/L (17-59) 12/11/17 08:00 ALT 21 U/L (7-56) 12/11/17 08:00 Alkaline Phosphatase 73 U/L (38-126) 12/11/17 08:00 Total Protein 6.7 g/dL (5.8-8.3) 12/11/17 08:00 Albumin 3.1 g/dL (3.0-4.8) 12/11/17 08:00 Globulin 3.6 gm/dL 12/11/17 08:00 Albumin/Globulin Ratio 0.9 (1.1-1.8) L 12/11/17 08:00 Triglycerides 73 mg/dL (35-160) 12/11/17 08:00 Cholesterol 79 mg/dL (130-200) L 12/11/17 08:00 LDL Cholesterol Direct < 30 mg/dL (0-129) 12/11/17 08:00 HDL Cholesterol 34 mg/dL (29-60) 12/11/17 08:00 Procalcitonin 0.42 NG/ML (0.19-0.49) 12/11/17 01:44 Venous Blood Potassium 5.3 mmol/L (3.6-5.2) H 12/10/17 19:11 Urine Color Yellow (YELLOW) 12/10/17 23:12 Urine Appearance Cloudy (CLEAR) 12/10/17 23:12 Urine pH 6.0 (4.7-8.0) 12/10/17 23:12 Ur Specific [place] 1.020 (1.005-1.035) 12/10/17 23:12 Urine Protein 100 mg/dL (<30 mg/dL) H 12/10/17 23:12 Urine Glucose (UA) 500 mg/dL (NEGATIVE) H 12/10/17 23:12 Urine Ketones Negative mg/dL (NEGATIVE) 12/10/17 23:12 Urine Blood Large (NEGATIVE) H 12/10/17 23:12 Urine Nitrate Negative (NEGATIVE) 12/10/17 23:12 Urine Bilirubin Negative (NEGATIVE) 12/10/17 23:12 Urine Urobilinogen 1.0 E.U./dL (<1 E.U./dL) H 12/10/17 23:12 Ur Leukocyte Esterase Large Honey/uL (NEGATIVE) H 12/10/17 23:12 Urine RBC 20 - 25 /hpf (0-2) 12/10/17 23:12 Urine WBC Tntc /hpf (0-6) 12/10/17 23:12 Ur Epithelial Cells 6 - 8 /hpf (0-5) 12/10/17 23:12 Urine Bacteria Large (NEG) 12/10/17 23:12 Urine Other Mucus 12/10/17 23:12 Absolute Lymphs (Flow) 2240 Cells/mcL (850-3900) 12/11/17 01:44 % CD4 Cells 41 Percent (30-61) 12/11/17 01:44 Absolute CD4 Count 914 Cells/mcL (490-1740) 12/11/17 01:44 T-Help/Suppress Ratio 0.98 Ratio (0.86-5.00) 12/11/17 01:44 % CD8 Cells 41 Percent (12-42) 12/11/17 01:44 Absolute CD8 Count 929 Cells/mcL (180-1170) 12/11/17 01:44 - Hospital Course Hospital Course: Mr. Garcia is a 57-year-old -[place] male with a past medical history of mental retardation, HIV, diabetes, CKD, hypertension, urinary retention status post TURP and suprapubic catheter, recurrent UTIs/pyelonephritis who [place] [facility] [place] associated [place]. UA on presentation was positive for leukocyte esterases, nitrates and WBCs. Urine culture showed Citrobacter species, but blood cultures were negative. Urology and ID were consulted. While inpatient, urology removed old suprapubic catheter and inserted a new one. Patient was prescribed Vantin upon discharge, and will follow up with PMD and urology. On morning of discharge, patient is feeling better, and symptoms are improved. Discharge Exam - Head Exam Head Exam: NORMAL INSPECTION - Eye Exam Eye Exam: Normal appearance - ENT Exam ENT Exam: Mucous Membranes Moist - Neck Exam Neck exam: Normal Inspection - Respiratory Exam Respiratory Exam: Clear to PA & Lateral, NORMAL BREATHING PATTERN. absent: Rales, Rhonchi, Wheezes - Cardiovascular Exam Cardiovascular Exam: RRR, +S1, +S2 - GI/Abdominal Exam GI & Abdominal Exam: Normal Bowel Sounds, Soft. absent: Distended, Tenderness - Exam Additional comments: suprapubic catheter in place draining clear yellow urine - Extremities Exam Extremities exam: normal inspection - Back Exam Back exam: NORMAL INSPECTION - Neurological Exam Neurological exam: Alert - Psychiatric Exam Psychiatric exam: Normal Mood - Skin Skin Exam: Warm Discharge Plan - Discharge Medications Prescriptions: Cefpodoxime [Vantin] 200 mg PO BID #28 tab - Follow Up Plan Condition: STABLE Disposition: HOME/ ROUTINE Instructions: Urinary Tract Infections in Adults, Type 2 Diabetes, Diverticulosis, Kidney Disease Diet (For People Not on Dialysis), How to Care for Your Suprapubic Urinary Catheter, Cellulitis (Skin Infection), Adult (DC), Diabetic Meal Planning , Diabetes and Diet Additional Instructions: Follow up with your primary care physician within 2 weeks upon discharge Follow up with urologist within 1-2 weeks upon discharge Maintain appropriate maintenance of indwelling suprapubic urinary catheter Maintain appropriate wound care of lower extremities bilaterally Take medications as prescribed to you Return to nearest ED if you experience chest pain, shortness of breath, altered mental status Referrals: Shyam Laguerre MD [Primary Care Provider] - Shon Segura MD [Staff Provider] -
--- NOTE | 2017-12-13 12:56 | CP.PCM.PN ---
Subjective - Date & Time of Evaluation Date of Evaluation: 12/13/17 Time of Evaluation: 11:35 - Subjective Subjective: Feels comfortable, no fevers, not in distress, no flank pain currently. Objective - Vital Signs/Intake and Output Vital Signs (last 24 hours): Temp Pulse Resp BP Pulse Ox 98 F 97 H 20 152/90 H 99 12/13/17 06:00 12/13/17 06:00 12/13/17 06:00 12/13/17 06:00 12/13/17 06:00 Intake and Output: 12/13/17 12/13/17 06:59 18:59 Intake Total 480 Output Total 800 Balance -320 - Medications Medications: Current Medications Acetaminophen (Tylenol 325mg Tab) 650 mg PO Q4 PRN PRN Reason: Fever >100.4 F Amlodipine Besylate (Norvasc) 5 mg PO DAILY [facility] Last Admin: 12/12/17 17:07 Dose: 5 mg Calcium Acetate (Phoslo) 667 mg PO BID [facility] Last Admin: 12/12/17 17:05 Dose: 667 mg Ferrous Gluconate (Fergon) 324 mg PO TID [facility] Last Admin: 12/12/17 17:05 Dose: 324 mg Furosemide (Lasix) 40 mg PO DAILY [facility] Last Admin: 12/12/17 09:47 Dose: 40 mg Glipizide (Glucotrol) 5 mg PO DAILY [facility] Last Admin: 12/12/17 11:46 Dose: Not Given Home Med (Home Med) 1 unit PO DAILY [facility] Last Admin: 12/12/17 11:45 Dose: Not Given Metronidazole (Flagyl) 500 mg in 100 mls @ 100 mls/hr IVPB Q8 [facility] PRN Reason: Protocol Last Admin: 12/13/17 06:25 Dose: 100 mls/hr Ceftriaxone Sodium (Rocephin 1 Gram Ivpb) 1 gm in 100 mls @ 100 mls/hr IVPB DAILY [facility] PRN Reason: Protocol Insulin Detemir (Levemir) 5 unit SC Q12H [facility] Last Admin: 12/12/17 22:07 Dose: 5 unit Insulin Human Regular (Humulin R Low) 0 units SC ACHS [facility] PRN Reason: Protocol Last Admin: 12/13/17 09:09 Dose: Not Given Losartan Potassium (Cozaar) 50 mg PO QPM [facility] Last Admin: 12/12/17 17:05 Dose: 50 mg Multivitamins (Thera Tab) 1 tab PO DAILY [facility] Last Admin: 12/12/17 09:46 Dose: 1 tab Ondansetron HCl (Zofran Inj) 4 mg IVP Q4H PRN PRN Reason: Nausea/Vomiting Raltegravir (Isentress) 400 mg PO BID [facility] PRN Reason: Protocol Last Admin: 12/12/17 17:07 Dose: 400 mg Sucralfate (Carafate Oral Susp) 1 gm PO 0600,1600 [facility] Last Admin: 12/13/17 06:25 Dose: 1 gm Tamsulosin HCl (Flomax) 0.4 mg PO DAILY [facility] Last Admin: 12/12/17 09:50 Dose: 0.4 mg - Labs Labs: 12/11/17 08:00 12/11/17 08:00 PT 11.9 SECONDS (9.4-12.5) 12/10/17 19:11 INR 1.04 (0.93-1.08) 12/10/17 19:11 APTT 32.3 Seconds (25.1-36.5) 12/10/17 19:11 - Constitutional Appears: Non-toxic, Chronically Ill - Head Exam Head Exam: NORMAL INSPECTION - Neck Exam Neck Exam: absent: Meningismus - Respiratory Exam Respiratory Exam: Decreased Breath Sounds - Cardiovascular Exam Cardiovascular Exam: +S1, +S2 - GI/Abdominal Exam GI & Abdominal Exam: Soft. absent: Tenderness Assessment and Plan - Assessment and Plan (Free Text) Plan: Assessment sepsis due to left sided pyelonephritis in this patient with urostomy, with Citrobacter left foot blister history of severe sepsis with acute on chronic renal failure due to E. coli bacteremia, consider due to complicated UTI in this patient with urostomy tube as well as skin and skin structure infection of left Charcot foot with MRSA and E. coli urinary retention with history of phimosis S/P circumcision, S/P TURP, S/P urostomy tube placement history of recurrent UTI's and pyelonephritis DM HTN chronic renal failure Charcot foot, left Plan on Zosyn day 3 - can switch to PO Cefpodoxime to complete the total 10-14 days of antibiotics with outpatient follow up with PMD continue ART (Descovy and ISentress) for HIV
--- NOTE | 2017-12-13 15:40 | CP.PCM.PN ---
<Nikhil Nolasco - Last Filed: 12/13/17 15:37> Subjective - Date & Time of Evaluation Date of Evaluation: 12/13/17 Time of Evaluation: 15:37 - Subjective Subjective: Podiatry Progress Note for Dr. Lopez 57M seen for blister to left medial foot. Patient is AAO x 3 and NAD, resting comfortably in bed. Denies any acute overnight events or new pedal complaints. Denies any pain to the area. Denies any recent N/V/F/C/CP/SOB/D/posterior calf pain when squeezed Objective - Vital Signs/Intake and Output Vital Signs (last 24 hours): Temp Pulse Resp BP Pulse Ox 98 F 97 H 20 152/90 H 99 12/13/17 06:00 12/13/17 09:22 12/13/17 06:00 12/13/17 09:22 12/13/17 06:00 Intake and Output: 12/13/17 12/13/17 06:59 18:59 Intake Total 480 Output Total 800 Balance -320 - Labs Labs: 12/11/17 08:00 12/11/17 08:00 PT 11.9 SECONDS (9.4-12.5) 12/10/17 19:11 INR 1.04 (0.93-1.08) 12/10/17 19:11 APTT 32.3 Seconds (25.1-36.5) 12/10/17 19:11 - Constitutional Appears: Well, Non-toxic, No Acute Distress - Head Exam Head Exam: ATRAUMATIC, NORMOCEPHALIC - Extremities Exam Additional comments: LLE focused exam Vasc: DP/PT pulses fully palpable 2/4 b/l. Skin temperature warm to warm from proximal to distal. CFT < 3 seconds to all digits b/l. No edema noted b/l Neuro: Epicritic and protective sensation grossly intact b/l Derm: Lanced bullae noted to left foot with yellow drainage appreciated on dressing but no active drainage noted or expressed. No erythema, no malodor, no other clinical signs of infection. Otherwise, no open lesions, wounds, maceration, xerosis, abnormal pigmentation or abnormal growths noted b/l MSK: No POP to lanced bullae site. MMT 5/5 in all major muscle groups. ROM WNL at all major joints - Neurological Exam Neurological Exam: Alert, Awake, Oriented x3 - Psychiatric Exam Psychiatric exam: Normal Affect, Normal Mood Assessment and Plan - Assessment and Plan (Free Text) Assessment: 57M seen for blister to left medial foot, improving Plan: Patient seen and evaluated at bedside Plan discussed with Dr. Lopez Afebrile Blister site dressed with ABD, DSD Patient stable for DC from podiatric standpoint Patient to follow up with Dr. Casanova in wound care center following discharge Patient dispensed surgical shoe to be worn at all times until follow up <Geoff Lopez - Last Filed: 12/14/17 08:09> Objective - Vital Signs/Intake and Output Vital Signs (last 24 hours): Temp Pulse Resp BP Pulse Ox 98 F 97 H 20 152/90 H 99 12/13/17 06:00 12/13/17 09:22 12/13/17 06:00 12/13/17 09:22 12/13/17 06:00 - Labs Labs: 12/11/17 08:00 12/11/17 08:00 PT 11.9 SECONDS (9.4-12.5) 12/10/17 19:11 INR 1.04 (0.93-1.08) 12/10/17 19:11 APTT 32.3 Seconds (25.1-36.5) 12/10/17 19:11 Attending/Attestation - Attestation I have personally seen and examined this patient.: Yes I have fully participated in the care of the patient.: Yes I have reviewed all pertinent clinical information, including history, physical exam and plan: Yes
== END 2017-12-13 14:20 | disposition home or self-care (01) | DRG 820 ==
LOC: ED 17:17 → ERH 21:03 → 5RSO 12-11 02:34
PROVIDERS: ADMIT Internal Medicine; ATTEND Internal Medicine
PROC: 0T2BX0Z Change Drainage Device in Bladder, External Approach (ICD-10-PCS; principal; 2017-12-13)
DX: T83.518A Infection and inflammatory reaction due to other urinary catheter, initial encounter (principal); N13.6 Pyonephrosis; E11.610 Type 2 diabetes mellitus with diabetic neuropathic arthropathy; E87.5 Hyperkalemia; E11.22 Type 2 diabetes mellitus with diabetic chronic kidney disease; N18.3 Chronic kidney disease, stage 3 (moderate); E11.51 Type 2 diabetes mellitus with diabetic peripheral angiopathy without gangrene; S90.822A Blister (nonthermal), left foot, initial encounter; Z21 Asymptomatic human immunodeficiency virus [HIV] infection status; I12.9 Hypertensive chronic kidney disease with stage 1 through stage 4 chronic kidney disease, or unspecified chronic kidney disease; D64.9 Anemia, unspecified; F79 Unspecified intellectual disabilities; F17.210 Nicotine dependence, cigarettes, uncomplicated; Y84.8 Other medical procedures as the cause of abnormal reaction of the patient, or of later complication, without mention of misadventure at the time of the procedure; Z87.440 Personal history of urinary (tract) infections; Z90.79 Acquired absence of other genital organ(s)

== ENCOUNTER 2018-03-27 15:49 | Emergency (ER) | payer MEDICAID ==
[2018-03-27 16:34] VITALS: RESP 18; TEMP 98; O2SAT 99; BMI 24.2
[2018-03-27] MEDS ORDERED: Sodium Chloride 0.9% 1,000 ML IV STA (16:38)
--- NOTE | 2018-03-27 16:51 | ED PDOC ---
Arrival/HPI - General Chief Complaint: Male Genitourinary Time Seen by Provider: 03/27/18 16:29 - History of Present Illness Narrative History of Present Illness (Text): 58 y/o M w/ h/o HIV and CKD presenting to the ED for dislodged suprapubic catheter. The patient states he noted slight abdominal tenderness at 04:00AM this morning when he noted his suprapubic catheter was dislodged from his diaper. He alerted his sister(vehicle controls engineer) who was concerned after noting pus discharge oozing from the wound throughout the day as well as blood within his Maldonado bag. She denies the patient having recent chills, fever, chest pain, shortness of breath, back pain, changes in bowel movements or headaches. PMD: Dr. Maxime Laguerre Specialist: Dr. Segura(urology) Time/Duration: 24 hours Symptom Onset: Sudden Symptom Course: Unchanged Severity Level: Mild Activities at Onset: Rest Context: Home Past Medical History - Provider Review Nursing Documentation Reviewed: Yes - Travel History Have you recently traveled outside [place] w/in the past 3 mons?: No - Infectious Disease Hx of Infectious Diseases: None - Tetanus Immunization Tetanus Immunization: Unknown - Cardiac Hx Cardiac Disorders: Yes Hx Hypertension: Yes Hx Peripheral Edema: Yes Hx Peripheral Vascular Disease: Yes - Pulmonary Hx Respiratory Disorders: No - Neurological Hx Neurological Disorder: Yes (MENTALLY IMPAIRED SINCE ) Hx Dizziness: Yes - HEENT Hx HEENT Disorder: Yes (EXCESSIVE TEARING) - Renal Hx Renal Disorder: Yes (RENAL INSUFFICIENCY) Other/Comment: HYDRONEPHROSIS - Endocrine/Metabolic Hx Endocrine Disorders: Yes Hx Diabetes Mellitus Type 2: Yes - Hematological/Oncological Hx Blood Disorders: Yes Hx Anemia: Yes - Integumentary Hx Dermatological Disorder: Yes Other/Comment: FOOT INFECTION - Musculoskeletal/Rheumatological Hx Musculoskeletal Disorders: Yes Hx Fractures: Yes (LEFT LG) Other/Comment: OPEN REDUCTION INTERNAL FIXATION - Gastrointestinal Hx Gastrointestinal Disorders: Yes (HX:VOMITTING, LOSS OF APPETITE) - Genitourinary/Gynecological Hx Genitourinary Disorders: Yes Other/Comment: EPIDIDYMITIS,E COLI IN THE URINE. HX: SUPRAPUBIC TUBE - Psychiatric Hx Psychophysiologic Disorder: Yes Hx Substance Use: Yes (cannabis) Other/Comment: mentally impaired - Surgical History Hx Orthopedic Surgery: Yes (open reduction internal fixation ( left leg)) Other/Comment: UROSTOMY - Anesthesia Hx Anesthesia: Yes Hx Anesthesia Reactions: No Hx Malignant Hyperthermia: No - Suicidal Assessment Feels Threatened In Home Enviroment: No Family/Social History - Physician Review Nursing Documentation Reviewed: Yes Family/Social History: Unknown Family HX Smoking Status: Current Some Days Smoker Hx Alcohol Use: No Hx Substance Use: Yes (cannabis) Substance used: MARIJUANA Hx Substance Use Treatment: No Allergies/Home Meds Allergies/Adverse Reactions: Allergies No Known Allergies Allergy (Verified 03/27/18 16:30) Home Medications: Home Meds Medication Instructions Recorded Confirmed Calcium Acetate [Phoslo] 1 tab PO BID 07/21/17 12/10/17 Emtricitabine/Tenofov Alafenam 1 tab PO DAILY 07/21/17 12/10/17 [Descovy 200-25 mg Tablet] GlipiZIDE [Glucotrol] 5 mg PO DAILY 07/21/17 12/10/17 Hydrochlorothiazide [Microzide] 12.5 mg PO DAILY 07/21/17 12/10/17 Losartan Potassium 50 mg PO DAILY 07/21/17 12/10/17 Multivitamin [Multivitamins] 1 cap PO DAILY 07/21/17 12/10/17 Review of Systems - Physician Review All systems were reviewed & negative as marked: Yes - Review of Systems Constitutional: absent: Fatigue, Fevers, Night Sweats Respiratory: absent: SOB, Cough, Wheezing Cardiovascular: absent: Chest Pain, Palpitations, Edema Gastrointestinal: Abdominal Pain. absent: Stool Changes, Constipation, Diarrhea, Vomiting Genitourinary Male: Hematuria Physical Exam Vital Signs Temp Pulse Resp BP Pulse Ox 03/27/18 16:30 98.0 F 93 H 18 158/91 H 99 Temperature: Afebrile Blood Pressure: Normal Pulse: Regular Respiratory Rate: Normal Appearance: Positive for: Well-Appearing, Non-Toxic, Comfortable Pain Distress: None Mental Status: Positive for: Alert and Oriented X 3 - Systems Exam Head: Present: Atraumatic, Normocephalic Extroacular Muscles: Present: EOMI Conjunctiva: Present: Normal Mouth: Present: Moist Mucous Membranes Pharnyx: Present: Normal Neck: Present: Normal Range of Motion Respiratory/Chest: Present: Clear to Auscultation, Good Air Exchange. No: Respiratory Distress, Accessory Muscle Use Cardiovascular: Present: Regular Rate and Rhythm, Normal S1, S2. No: Murmurs Abdomen: Present: Tenderness, Other ( Suprapubic orfice noted w/ no active purulent discharge, slight tenderness to palpation). No: Peritoneal Signs Upper Extremity: Present: Normal Inspection. No: Cyanosis, Edema Lower Extremity: Present: Normal Inspection. No: Edema, CALF TENDERNESS Neurological: Present: GCS=15, CN II-XII Intact, Speech Normal Skin: Present: Warm, Dry, Normal Color Psychiatric: Present: Alert, Oriented x 3, Normal Insight, Normal Concentration Medical Decision Making ED Course and Treatment: Impression 58 y/o M w/ h/o HIV and CKD presenting with dislodged suprapubic catheter and purulent discharge Differential Diagnoses Includes But Is Not Limited To: Peritonitis Cystitis Plan --Labs --VBG --CT a/p --IVF --Reassess & disposition Progress Notes 03/27/18 18:21 Labs reviewed with no leukocytosis or left shift noted. Creatinine consistent with baseline. Pending CT a/p. 03/27/18 18:46 Patient reassessed and deemed comfortable at this time. Spoke to Dr. Segura( urology)who states he will come to place another suprapubic catheter at the bedside and requests cart. Nurse notified and will obtain cart in advance. Discussed updated plan with patient's sister. Signout given to Dr. Encarnacion who will resume the patient's care. - RAD Interpretation Radiology Orders: 03/27/18 16:38 ABD & PELVIS W/O PO OR IV CONT [CT] Stat - Medication Orders Current Medication Orders: Sodium Chloride (Sodium Chloride 0.9%) 1,000 mls @ 1,000 mls/hr IV .Q1H STA Stop: 03/27/18 17:37 Disposition/Present on Arrival - Present on Arrival Any Indicators Present on Arrival: Yes History of DVT/PE: No History of Uncontrolled Diabetes: No Urinary Catheter: Yes History of Decub. Ulcer: No History Surgical Site Infection Following: None - Disposition Have Diagnosis and Disposition been Completed?: No Diagnosis: UTI (urinary tract infection) Disposition: HOME/ ROUTINE Disposition Time: 18:00 Condition: STABLE Discharge Instructions (ExitCare): Urinary Tract Infection, Adult (DC) Additional Instructions: Maintain maldonado catheter/take meds as prescribed/follow up with as per his instructions. Prescriptions: Cephalexin [cephalexin] 500 mg PO BID #14 cap Referrals: Shyam Laguerre MD [Primary Care Provider] - Follow up with primary Forms: [facility] ([place]i)
[2018-03-27 17:38] LABS: VENOUS BLOOD GAS BASE EXCESS -2.2 mmol/L (0.0-2.0); VENOUS BLOOD GAS PO2 75 mm/Hg (30-55); VENOUS BLOOD PH 7.32 (7.32-7.43)
[2018-03-27 17:46] LABS: BASO # 0.01 K/mm3 (0.0-2.0); BASO % 0.1 % (0.0-3.0); EOS # 0.1 (0.0-0.7); EOS % 1.4 % (1.5-5.0); GRAN # 5.46 (1.4-6.5); HEMOGLOBIN 9.8 g/dL (14.0-18.0); LYMPH # 2.2 (1.2-3.4); LYMPH % 26.3 % (22.0-35.0); MEAN CORPUSCULAR HEMOGLOBIN 28.1 pg (25.0-35.0); MEAN CORPUSCULAR HGB CONC 30.5 g/dl (31.0-37.0); MEAN PLATELET VOLUME 10.4 fl (7.0-11.0); MONO # 0.7 (0.1-0.6); MONO % 8.2 % (1.0-6.0); RBC 3.49 10^6/uL (3.5-6.1); WHITE BLOOD COUNT 8.5 10^3/ul (4.5-11.0)
[2018-03-27 17:48] LABS: ALB/GLOB RATIO 0.9 (1.1-1.8); ALBUMIN 3.4 g/dL (3.0-4.8); ALT/SGPT 23 U/L (7-56); AST/SGOT 18 U/L (17-59); BLOOD UREA NITROGEN 27 mg/dL (7-21); CALCIUM 8.4 mg/dL (8.4-10.5); GFR NON-AFRICAN AMERICAN 23
[2018-03-27 18:00] LABS: LIPASE < 10 U/L (23-300)
[2018-03-27 18:20] VITALS: BP 152/85; PULSE 86
--- NOTE | 2018-03-27 19:10 | ED PDOC ---
Physical Exam Vital Signs Reviewed: Yes Vital Signs Temp Pulse Resp BP Pulse Ox 03/27/18 18:20 86 18 152/85 H 99 03/27/18 16:30 98.0 F 93 H 18 158/91 H 99 Temperature: Afebrile Blood Pressure: Hypertensive Pulse: Regular Respiratory Rate: Normal Appearance: Positive for: Well-Appearing, Non-Toxic, Comfortable Pain Distress: None Mental Status: Positive for: Alert and Oriented X 3 - Systems Exam Head: Present: Atraumatic, Normocephalic Pupils: Present: PERRL Extroacular Muscles: Present: EOMI Conjunctiva: Present: Normal Mouth: Present: Moist Mucous Membranes Neck: Present: Normal Range of Motion Respiratory/Chest: Present: Clear to Auscultation, Good Air Exchange. No: Respiratory Distress, Accessory Muscle Use Cardiovascular: Present: Regular Rate and Rhythm, Normal S1, S2. No: Murmurs Abdomen: Present: Tenderness, Other ( Suprapubic orfice noted w/ no active purulent discharge/no abdominal tenderness). No: Distention, Peritoneal Signs Back: Present: Normal Inspection Upper Extremity: Present: Normal Inspection. No: Cyanosis, Edema Lower Extremity: Present: Normal Inspection. No: Edema Neurological: Present: GCS=15, CN II-XII Intact, Speech Normal Skin: Present: Warm, Dry, Normal Color. No: Rashes Psychiatric: Present: Alert, Oriented x 3, Normal Insight, Normal Concentration Medical Decision Making ED Course and Treatment: 03/27/18 19:12 Case endorsed to me by Dr. Song for pending CT of Abdomen/Pelvis, reassessment and final disposition. Patient presented to the Emergency Department earlier today for dislodged suprapubic catheter. Patient is currently resting in bed in no acute distress. Patient denies any new medical complaints. 03/27/18 20:05 Patient was seen and evaluated at bedside by Dr. Segura. Patient had an urinary maldonado catheter inserted by in lieu of previous suprapubic catheter. Dr. Segura reported obvious UTI upon examination. Dr. Segura requests to administer IV Rocephin 1 dose, to discharge patient on Keflex PO and asks patient to follow up in his office. Dr. Segura believes patient does not need CT of abdomen. I agree as there is no abdominal tenderness on examination. - Lab Interpretations Lab Results: 03/27/18 17:30 03/27/18 17:30 Lab Results 03/27/18 17:30: Sodium 142, Chloride 112 H, Potassium 4.6, Carbon Dioxide 23, Anion Gap 12, BUN 27 H, Creatinine 2.9 H, Est GFR ( Amer) 27, Est GFR ( Non-Af Amer) 23, Random Glucose 164 H, Calcium 8.4, Magnesium 2.1, Total Bi lirubin 0.4, AST 18, ALT 23, Alkaline Phosphatase 75, Total Protein 7.1, Albumin 3.4, Globulin 3.7, Albumin/Globulin Ratio 0.9 L, Lipase < 10 L 03/27/18 17:30: pO2 75 H, VBG pH 7.32, VBG pCO2 47.0, VBG HCO3 24.2, VBG Total CO2 25.6, VBG O2 Sat (Calc) 97.4 H, VBG Base Excess -2.2 L, VBG Potassium 4.6, Sodium 140.0, Chloride 115.0 H, Glucose 170 H, Lactate 1.2, FiO2 21.0, Venous Blood Potassium 4.6 03/27/18 17:30: WBC 8.5 D, RBC 3.49 L, Hgb 9.8 L, Hct 32.1 L, MCV 92.0, MCH 28.1, MCHC 30.5 L, RDW 13.0, Plt Count 277, MPV 10.4, Gran % 64.0, Lymph % (Auto) 26.3, [place] % (Auto) 8.2 H, Eos % (Auto) 1.4 L, Baso % (Auto) 0.1, Gran # 5.46, Lymph # (Auto) 2.2, [place] # (Auto) 0.7 H, Eos # (Auto) 0.1, Baso # (Auto) 0.01, ESR 35 H - RAD Interpretation Radiology Orders: 03/27/18 16:38 ABD & PELVIS W/O PO OR IV CONT [CT] Stat - Medication Orders Current Medication Orders: Discontinued Medications Sodium Chloride (Sodium Chloride 0.9%) 1,000 mls @ 1,000 mls/hr IV .Q1H STA Stop: 03/27/18 17:37 Last Admin: 03/27/18 16:49 Dose: 1,000 mls/hr eMAR Start Stop Document 03/27/18 16:49 JEROME (Rec: 03/27/18 16:49 JEROME [id number]) Intravenous Solution Start Date 03/27/18 Start Time 16:49 End Date 03/27/18 End time 17:49 Total Infusion Time 60 - Scribe Statement The provider has reviewed the documentation as recorded by the Scribe Arnulfo Yuan. All medical record entries made by the Scribe were at my direction and personally dictated by me. I have reviewed the chart and agree that the record accurately reflects my personal performance of the history, physical exam, medical decision making, and the department course for this patient. I have also personally directed, reviewed, and agree with the discharge instructions and disposition. Disposition/Present on Arrival - Present on Arrival Any Indicators Present on Arrival: No History of DVT/PE: No History of Uncontrolled Diabetes: No Urinary Catheter: Yes History of Decub. Ulcer: No History Surgical Site Infection Following: None - Disposition Have Diagnosis and Disposition been Completed?: Yes Diagnosis: UTI (urinary tract infection) Disposition: HOME/ ROUTINE Disposition Time: 19:59 Patient Plan: Discharge Condition: STABLE Discharge Instructions (ExitCare): Urinary Tract Infection, Adult (DC) Additional Instructions: Maintain maldonado catheter/take meds as prescribed/follow up with as per his instructions. Prescriptions: Cephalexin [cephalexin] 500 mg PO BID #14 cap Referrals: Shyam Laguerre MD [Primary Care Provider] - Follow up with primary Forms: [employer] (Bengali)
[2018-03-27] MEDS ORDERED: cefTRIAXone 1 gm 1 GM/100 ML BAG IV STA (19:45)
[2018-03-27 20:02] LABS: PH,URINE 6.5 (4.7-8.0); URINE BILIRUBIN NEGATIVE (NEGATIVE); URINE BLOOD MODERATE (NEGATIVE); URINE GLUCOSE (UA) NEGATIVE (NEGATIVE); URINE LEUKOCYTE ESTERASE LARGE Leu/uL (NEGATIVE); URINE PROTEIN 100 mg/dL (<30 mg/dL); URINE UROBILINOGEN 0.2 E.U./dL (<1 E.U./dL)
[2018-03-27 20:03] LABS: URINE APPEARANCE CLOUDY (CLEAR); URINE COLOR YELLOW (YELLOW)
[2018-03-27 20:12] LABS: URINE BACTERIA LARGE (NEG); URINE RBC 0 - 2 /hpf (0-2); URINE WBC TNTC /hpf (0-6)
--- NOTE | 2018-03-28 09:33 | CON ---
DATE: 03/28/2018 UROLOGY CONSULTATION REASON FOR CONSULTATION: Urinary retention and for assessment of suprapubic catheter. HISTORY OF PRESENT ILLNESS: Mr. Garcia is a very pleasant gentleman who is well known to me. I have been following the patient. He happened to be HIV positive. He happens to be in urinary retention. There is a component mostly of neurogenic bladder, who has tried various treatment options, but of late, he just have been changing suprapubic catheter and he had been doing well with the catheter changes. For now, he presents to the emergency room with the claim that the catheter has fallen out earlier today, he says at 4 a.m. It is difficult to track the exact time down . The wound is completely cut off. PAST MEDICAL AND SURGICAL HISTORY: As listed on the chart and otherwise, unremarkable from Urology standpoint. REVIEW OF SYSTEMS: As listed above, otherwise, noncontributory. MEDICATIONS: See the chart. ALLERGIES: LISTED ON THE CHART. PHYSICAL EXAMINATION: GENERAL: A well-nourished male, who is currently resting comfortably. VITAL SIGNS: Within normal limits. ABDOMEN: Overall soft, difficult to tell, but it seems to be somewhat distended. The suprapubic site is completely dry. I did take a gentle attempt to insert a Keenan catheter. Because it is such a well developed tract, but nothing is going to be able to go in. See the plans listed below. GENITOURINARY: He has a normal phallus without discharge. No testicular masses. DIAGNOSES: 1. Urinary retention. 2. Dislodged suprapubic catheter. 3. Neurogenic bladder. ASSESSMENT, PLAN AND SUMMARY: A very pleasant gentleman with the above history. He is known to be human immunodeficiency virus positive. ____ everything stable with the patient from the Urology standpoint though he has the issue that I cannot get a suprapubic catheter back in. In this setting, regarding the potential repeat infections, he definitely always has bacteriuria, so at this point, we are not going to put a suprapubic catheter. He do not have a stricture, so, we are going to insert a Keenan catheter via urethra, empty the bladder and then after the patient is treated and released, we are going to arrange for an outpatient followup for a suprapubic catheter insertion. As listed, the diagnoses is urinary retention, voiding dysfunction, dislodged Keenan catheter. See the separately dictated procedure note for Keenan catheter insertion. We drained greater than 500 mL of purulent urine. We will sent that for culture and culture is pending. The plans is as follows: The patient was given antibiotic right now and to go home with antibiotics. I discussed further plans with his sister. Calixto Segura MD
--- NOTE | 2018-03-29 04:31 | OP ---
PROCEDURE DATE: 03/27/2018 UROLOGY OPERATIVE NOTE BEDSIDE PROCEDURE PREOPERATIVE DIAGNOSES: Urinary retention, voiding dysfunction, nonfunctioning suprapubic catheter dislodged, suprapubic catheter, gross hematuria. POSTOPERATIVE DIAGNOSES: Urinary retention, voiding dysfunction, nonfunctioning suprapubic catheter dislodged, suprapubic catheter, gross hematuria and drainage of urinary retention and purulent urine. ESTIMATED BLOOD LOSS: Less than 10 mL. SURGEON: Calixto Segura MD The procedure was done at the bedside. SPECIMENS SENT: Urine cultures. DRAIN CATHETER: Keenan catheter via urethra. COMPLICATIONS: There were no complications. INDICATIONS: See history and physical and see the consultation. Very pleasant gentleman well known to me, he is [id number] who has a neurogenic component. The suprapubic catheter has fallen out and we just inserted a Keenan catheter. We did not get the suprapubic back in at this point. Our other urology findings are that of very purulent urine. Greater than 500 mL of fairly foul-smelling urine. DESCRIPTION OF PROCEDURE: We left patient with an indwelling Keenan. We will plan to after treatment with some antibiotics, plan for eventually conversion, also repeat a cystostomy tube. Since he has had this restored, his sister reports he is much happier. The patient reports he is much happier. The urine is clear. There is less infection. He is doing much better with a suprapubic catheter, especially given his urinary retention. advise to see the consultation note. At the bedside, we explained the patient risks, benefits, and alternatives. I tried gently to insert a suprapubic catheter, but there was no way. This has completely dried up. Under sterile technique, I inserted a Keenan catheter via the urethra, drained the bladder well. The patient tolerated procedure well without complication. What we found was that greater than 500 mL of fairly purulent urine sent off for culture. Antibiotics were given, and that is pretty much it. PLAN: As follows: Outpatient management. We are going to convert to suprapubic catheter. In about a week or so, depending on the schedule, then further plans will follow. All this was explained to the patient at length. I also discussed with the patient and the sister the importance of calling if there is any problem. Calixto Segura MD Psychiatric # [id number]
== END 2018-03-27 20:20 | disposition home or self-care (01) ==
LOC: ED 15:49
DX: N39.0 Urinary tract infection, site not specified (principal); I12.9 Hypertensive chronic kidney disease with stage 1 through stage 4 chronic kidney disease, or unspecified chronic kidney disease; E11.22 Type 2 diabetes mellitus with diabetic chronic kidney disease; N18.9 Chronic kidney disease, unspecified; F17.210 Nicotine dependence, cigarettes, uncomplicated
CPT/HCPCS: 80053; 81001; 82803; 83690; 83735; 85025; 85651; 87086; 87181; 96360; 99282; J0696; J7030

== ENCOUNTER 2018-04-10 10:21 | Day surgery (SDC) | payer MEDICAID ==
[2018-04-10] MEDS ORDERED: Iohexol 240 (50 ml) ONE (13:08)
[2018-04-10] MEDS ORDERED: Lidocaine 1% Inj (20ml) ONE (13:08)
--- NOTE | 2018-04-10 14:59 | CARD ---
APPROVED REPORT Date of service: 04/10/2018 EKG Measurement Heart [id number] <Conclusion> Normal sinus rhythm Normal ECG
[2018-04-10] MEDS ORDERED: cefTRIAXone (Rocephin) 1 gm Inj ONE (16:41)
[2018-04-10] MEDS ORDERED: Propofol 10 mg/ml Inj (20 ML) ONE (17:10)
[2018-04-10] MEDS ORDERED: Oxycodone/Acetaminophen 5/325 mg Tab PO PRN (18:02)
[2018-04-10] MEDS ORDERED: HYDROmorphone 0.5 mg/0.5 ml ISec IVP PRN (18:03)
[2018-04-10] MEDS ORDERED: Labetalol 5 mg/ml Inj 20ML IV ONE ×2 (18:10)
[2018-04-10] MEDS ORDERED: Labetalol 5 mg/ml Inj 20ML ONE (18:14)
[2018-04-10] MEDS ORDERED: Lactated Ringer's 1,000 ML IV SCH (18:15)
[2018-04-10 19:05] VITALS: TEMP 98; O2SAT 94
[2018-04-10 19:41] VITALS: BP 153/88; PULSE 83; RESP 18
--- NOTE | 2018-04-11 12:52 | RAD ---
Date of service: 04/10/2018 PROCEDURE: Cystogram HISTORY: CATHETER CHANGE COMPARISON: TECHNIQUE: 17.3 sec of fluoro time. Cumulative dose 1.84 mGy. Seven images submitted FINDINGS: The study shows placement of an instrument in the bladder and replacement of a catheter. IMPRESSION: As above
--- NOTE | 2018-04-17 17:43 | PN ---
DATE: 04/10/2018 UROLOGY IMMEDIATE POSTOP NOTE SUBJECTIVE: See the urology operative report and see the history and physical. Very pleasant gentleman. He is now status post insertion of a cystoscopy tube and a cystogram. The patient underwent the procedure without complication. We confirmed positioning of the Keenan. Everything is draining well. He is now in the immediate postop period. PHYSICAL EXAMINATION VITAL SIGNS: Within normal limits. PLAN: We are going to resume diet. Discharge home. Then, further plans will follow. Patient is going to be discharged home with both the Keenan and a suprapubic catheter and we will take out the Keenan in the office. Calixto Segura MD MTDD
--- NOTE | 2018-04-17 18:55 | HP ---
REASON FOR ADMISSION: For inserting a suprapubic catheter. HISTORY OF PRESENT ILLNESS: Mr. Garcia is a very pleasant gentleman whom I know quite well with HIV positive. He has got multiple medical issues. He had a previous suprapubic catheter, he has had retention, does not empty his bladder well. He has got a neurogenic component to his bladder. He is here today for insertion of a new suprapubic cath, the last one fell out, was not working well. I put a Keenan back in, he has been draining well, he is here now for a suprapubic. In the interim, he has had no complaints. PAST MEDICAL AND SURGICAL HISTORY: All listed on the chart, otherwise unremarkable. comes to the office with his sister. She is very reliable to bring him in for appointments. REVIEW OF SYSTEMS: As listed above, noncontributory. No weight loss, chest pain, shortness of breath. HIV is stable. PHYSICAL EXAMINATION: GENERAL: A well-nourished male, in apparent distress. VITAL SIGNS: Within normal limits including the chart. LUNGS: Clear. HEART: Normal S1, S2. ABDOMEN: Soft, nontender. No flank mass appreciated. No rebound or guarding. GENITOURINARY: Old suprapubic catheter is noted. Normal phallus without discharge. Keenan catheter in place, draining well. RECTAL: Deferred. DIAGNOSES: Urinary retention, voiding dysfunction, neurogenic bladder. A pleasant gentleman, he has multiple medical issues, HIV positive noted. He is here today for insertion of a new cystoscopy tube, we also plan for a cystoscopy. Then further plans will follow. Risk and benefits discussed with the patient and sister in detail. Further plans will follow. Calixto Segura MD
--- NOTE | 2018-04-18 10:39 | OP ---
PROCEDURE DATE: 04/10/2018 PREOPERATIVE DIAGNOSES: Urinary retention, neurogenic bladder, HIV positive, voiding dysfunction, hematuria, recurrent infections. POSTOPERATIVE DIAGNOSES: Urinary retention, neurogenic bladder, HIV positive, voiding dysfunction, hematuria, recurrent infections. PROCEDURE: Cystogram, insertion of a cystostomy tube, cystoscopy, and insertion of Keenan catheter. SURGEON: Yulissa Segura MD ESTIMATED BLOOD LOSS: Less than 10 mL. COMPLICATIONS: None. At the end of the day we are left with a suprapubic catheter 12-Palestinian with intraoperative location. This was confirmed with a cystoscopic evaluation, and we inserted a Keenan catheter and cystogram, also confirmed positioning and there were no complications. See history and physical for further details. He is a very pleasant gentleman here for the above procedure. We discussed options. Previously, he has had a cystoscopy tube for a while. He has been doing very well this. When he comes in on a regular basis and his sister brings him in, he does not have any problems. Sometimes if he does not get to the office quick enough, then he runs into infections. In the interim, his suprapubic fell down. So I had to insert a Keenan catheter via urethra. I was not able to get it back in. See the notes from last. He is here today for the above list of procedure itself. Procedure was done without complications. DESCRIPTION OF PROCEDURE: After obtaining informed consent from this patient, and risks, benefits, and alternatives were discussed at length, the antibiotic prophylaxis was used. Patient was on table. We kept him supine throughout the entire procedure. Timeout was called to confirm position. Keenan catheter has been placed. We removed the old Keenan, we inserted a brand new Keenan under sterile technique. We overinflated the bladder as best as possible. We went right where the previous suprapubic site is just about one fingerbreadth. There is about three fingerbreadths between the pubic bone on that site. We went about one fingerbreadths below towards the pubic bone. To stay as nice and close to the bone as possible. We used a Finder needle with the spinal. We identified the stone. We then measured the landmarks, it is relatively thin. We made an incision with a local. We inserted the new suprapubic catheter with blind . We measured the length where our clamp was . We drained nice urine. We inflated the balloon. We removed the needle. We now removed the old Keenan catheter. We now removed the Keenan catheter. We placed a flexible cystoscope. We confirmed our positioning with a balloon. Identifying pictures that were taken and safe. I reinserted a Keenan catheter via urethra. I got a cystogram to confirm all positioning. Both drained well. We irrigated everything, drains as well. We secured the suprapubic catheter with a suture. Patient tolerated the procedure well without complication. Shon Segura MD [email or web address]
== END 2018-04-10 19:45 | disposition home or self-care (01) ==
LOC: SDS 10:21
PROVIDERS: ATTEND Urology
DX: R33.9 Retention of urine, unspecified (principal); N02.9 Recurrent and persistent hematuria with unspecified morphologic changes; N31.9 Neuromuscular dysfunction of bladder, unspecified; Z21 Asymptomatic human immunodeficiency virus [HIV] infection status
CPT/HCPCS: 51102; 74430; 93005; J0696; J1170; J1580; J2405; J2704; J2765; J7030; J7120 ×2; Q9966

== ENCOUNTER 2018-09-10 18:23 | Inpatient (IN) | payer MEDICAID ==
[2018-09-10 20:17] LABS: BASO # 0.01 K/mm3 (0.0-2.0); BASO % 0.1 % (0.0-3.0); EOS # 0.1 (0.0-0.7); EOS % 1.2 % (1.5-5.0); HEMOGLOBIN 10.4 g/dL (14.0-18.0); LYMPH # 2.9 (1.2-3.4); LYMPH % 29.2 % (22.0-35.0); MEAN CELL VOLUME 91.1 fl (80.0-105.0); MEAN CORPUSCULAR HEMOGLOBIN 28.2 pg (25.0-35.0); MEAN PLATELET VOLUME 10.6 fl (7.0-11.0); MONO % 9.9 % (1.0-6.0); RBC 3.69 10^6/uL (3.5-6.1); RED CELL DISTRIBUTION WIDTH 12.5 % (11.5-14.5)
[2018-09-10 20:27] LABS: INR 1.1; PARTIAL THROMBOPLASTIN TIME 44.2 Seconds (26.9-38.3); PROTHROMBIN TIME 12.2 SECONDS (9.4-12.5)
[2018-09-10 20:29] LABS: ALB/GLOB RATIO 0.8 (1.1-1.8); ALBUMIN 3.5 g/dL (3.0-4.8); CALCIUM 8.6 mg/dL (8.4-10.5)
--- NOTE | 2018-09-10 20:31 | ED PDOC ---
Arrival/HPI - General Chief Complaint: Male Genitourinary Time Seen by Provider: 09/10/18 19:22 Historian: Patient - History of Present Illness Narrative History of Present Illness (Text): 09/10/18 20:28 Joseph Garcia is a 58 year old male, whose past medical history includes HIV, diabetes, Charcot foot, chronic kidney disease, hypertension, urinary retention s/p TURP, phimosis s/p circumcision, urostomy tube, and recurrent UTI/pyelonephritis, who presents to the Emergency department complaining of right shoulder pain. Patient states he placed his right arm over the edge of his wheelchair and started having right shoulder pain. Patient also reports left foot swollen and pain, notes it looks infected. Patient also noted his urine appeared cloudy earlier today. Patient denies any fever, chills, chest pain, shortness of breath, nausea, vomiting, diarrhea, urinary symptoms, back pain, neck pain, headache, dizziness, or any other complaints. Symptom Onset: Gradual Symptom Course: Unchanged Activities at Onset: Light Context: Home Past Medical History - Provider Review Nursing Documentation Reviewed: Yes - Infectious Disease Hx of Infectious Diseases: None - Tetanus Immunization Tetanus Immunization: Unknown - Cardiac Hx Pacemaker: No - Pulmonary Hx Respiratory Disorders: No - Neurological Hx Paralysis: No - HEENT Hx HEENT Disorder: Yes - Renal Hx Renal Disorder: Yes (RENAL INSUFFICIENCY) Other/Comment: HYDRONEPHROSIS - Endocrine/Metabolic Hx Endocrine Disorders: Yes Hx Diabetes Mellitus Type 2: Yes - Hematological/Oncological Hx Blood Disorders: Yes Hx Blood Transfusions: Yes - Integumentary Hx Dermatological Disorder: Yes Other/Comment: FOOT INFECTION - Musculoskeletal/Rheumatological Hx Musculoskeletal Disorders: Yes (HX LEG FX) - Gastrointestinal Hx Gastrointestinal Disorders: Yes (HX:VOMITTING, LOSS OF APPETITE) - Genitourinary/Gynecological Hx Genitourinary Disorders: Yes Hx Urinary Tract Infection: Yes Other/Comment: EPIDIDYMITIS, SUPRAPUBIC TUBE - Psychiatric Hx Substance Use: Yes (cannabis) - Surgical History Other/Comment: UROSTOMY - Anesthesia Hx Anesthesia Reactions: No Hx Malignant Hyperthermia: No - Suicidal Assessment Feels Threatened In Home Enviroment: No Family/Social History - Physician Review Nursing Documentation Reviewed: Yes Family/Social History: Unknown Family HX Smoking Status: Current Some Days Smoker Hx Alcohol Use: No Hx Substance Use: Yes (cannabis) Substance used: MARIJUANA Hx Substance Use Treatment: No Allergies/Home Meds Allergies/Adverse Reactions: Allergies No Known Allergies Allergy (Verified 09/10/18 18:34) Home Medications: Home Meds Medication Instructions Recorded Confirmed Calcium Acetate [Phoslo] 1 tab PO BID 07/21/17 04/10/18 Emtricitabine/Tenofov Alafenam 1 tab PO DAILY 07/21/17 04/10/18 [Descovy 200-25 mg Tablet] GlipiZIDE [Glucotrol] 5 mg PO DAILY 07/21/17 04/10/18 Hydrochlorothiazide [Microzide] 12.5 mg PO DAILY 07/21/17 04/10/18 Losartan Potassium 50 mg PO DAILY 07/21/17 04/10/18 Multivitamin [Multivitamins] 1 cap PO DAILY 07/21/17 04/10/18 Review of Systems - Physician Review All systems were reviewed & negative as marked: Yes - Review of Systems Constitutional: Normal. absent: Fevers Eyes: Normal ENT: Normal Respiratory: Normal. absent: SOB, Cough Cardiovascular: Normal. absent: Chest Pain Gastrointestinal: Normal. absent: Abdominal Pain, Diarrhea, Nausea, Vomiting Genitourinary Male: Urinary Output Changes (+cloudy urine) Musculoskeletal: Arthralgias (+right shoulder pain, +left foot pain) Skin: Normal. absent: Rash (r) Neurological: Normal. absent: Headache, Dizziness Endocrine: Normal Hemo/Lymphatic: Normal Psychiatric: Normal Physical Exam Vital Signs Reviewed: Yes Vital Signs Temp Pulse Resp BP Pulse Ox 09/10/18 18:34 98.2 F 81 17 211/115 H 100 Temperature: Afebrile Blood Pressure: Hypertensive Pulse: Regular Respiratory Rate: Normal Appearance: Positive for: Well-Appearing, Non-Toxic, Comfortable Pain Distress: None Mental Status: Positive for: Alert and Oriented X 3 - Systems Exam Head: Present: Atraumatic, Normocephalic Pupils: Present: PERRL Extroacular Muscles: Present: EOMI Conjunctiva: Present: Normal Mouth: Present: Moist Mucous Membranes Neck: Present: Normal Range of Motion Respiratory/Chest: Present: Clear to Auscultation, Good Air Exchange. No: Respiratory Distress, Accessory Muscle Use Cardiovascular: Present: Regular Rate and Rhythm, Normal S1, S2. No: Murmurs Abdomen: No: Tenderness, Distention, Peritoneal Signs Genitourinary Male: Present: Other (Suprapubic catheter) Back: Present: Normal Inspection Upper Extremity: Present: Normal Inspection, Normal ROM, NORMAL PULSES, Neurovascularly Intact, Capillary Refill < 2s. No: Cyanosis, Edema, Tenderness, Swelling, Erythema, Temperature Abnormalties, Deformity Lower Extremity: Present: NORMAL PULSES, Normal ROM, Swelling (Swelling to left foot), Erythema (Erythema to left foot), Neurovascularly Intact, Capillary Refill < 2 s. No: Edema, CALF TENDERNESS, Cyanosis, Tenderness, Deformity, Temperature Abnormalties Neurological: Present: GCS=15, CN II-XII Intact, Speech Normal Skin: Present: Warm, Dry, Normal Color. No: Rashes Psychiatric: Present: Alert, Oriented x 3, Normal Insight, Normal Concentration Medical Decision Making ED Course and Treatment: 09/10/18 19:30 Impression: 58 year old male complaining of right shoulder pain, left foot pain, and cloudy urine. Plan: -- EKG -- CXR -- XR Right Shoulder -- XR Left Foot -- Labs, troponin, blood cultures -- Urinalysis, urine cultures -- Reassess and disposition Prior Visits: Notes and results from previous visits were reviewed. Progress Notes: Reviewed EKG, NSR at [address] bpm[address] Non-specific ST/T wave changes. 09/10/18 21:15 Reviewed radiology, CXR shows no acute processes. XR Right Shoulder shows no acute processes. XR Left Foot shows no acute processes. 09/11/18 01:25 Case discussed with medical practice assistant senior electronics design engineer, who is aware and agrees with plan. 09/11/18 01:[address] Mak, who is aware and agrees with plan. Accepts pt in to hospitalist service. Pt will be admitted to [facility] for UTI. - Lab Interpretations Lab Results: PT 12.2 SECONDS (9.4-12.5) 09/10/18 20:00 INR 1.10 09/10/18 20:00 APTT 44.2 Seconds (26.9-38.3) H 09/10/18 20:00 I have reviewed the lab results: Yes - RAD Interpretation Radiology Orders: 09/10/18 19:33 CHEST ONE VIEW [RAD] Stat SHOULDER RIGHT [RAD] Stat 09/10/18 19:34 FOOT LEFT 3 VIEWS ROUTINE [RAD] Stat Proofer [employer] White: ED Physician - EKG Interpretation Interpreted by ED Physician: Yes Type: 12 lead EKG - Scribe Statement The provider has reviewed the documentation as recorded by the Kindra Baum Provider Thienibe Attestation: All medical record entries made by the Scribe were at my direction and personally dictated by me. I have reviewed the chart and agree that the record accurately reflects my personal performance of the history, physical exam, medical decision making, and the department course for this patient. I have also personally directed, reviewed, and agree with the discharge instructions and disposition. Disposition/Present on Arrival - Present on Arrival Any Indicators Present on Arrival: No History of DVT/PE: No History of Uncontrolled Diabetes: No Urinary Catheter: Yes History of Decub. Ulcer: Yes History Surgical Site Infection Following: None - Disposition Have Diagnosis and Disposition been Completed?: Yes Diagnosis: UTI (urinary tract infection) Disposition: HOSPITALIZED Disposition Time: 01:32 Condition: GOOD
[2018-09-10 20:40] LABS: TROPONIN I 0.03 ng/mL
[2018-09-10 22:18] LABS: URINE BILIRUBIN NEGATIVE (NEGATIVE); URINE BLOOD MODERATE (NEGATIVE); URINE GLUCOSE (UA) >=1000 mg/dL (NEGATIVE); URINE LEUKOCYTE ESTERASE MODERATE Leu/uL (NEGATIVE); URINE PROTEIN 100 mg/dL (<30 mg/dL); URINE UROBILINOGEN 0.2 E.U./dL (<1 E.U./dL)
[2018-09-10 22:25] LABS: URINE APPEARANCE SL CLOUDY (CLEAR); URINE COLOR YELLOW (YELLOW)
[2018-09-10 22:32] LABS: URINE BACTERIA MANY /hpf; URINE RBC 15 - 20 /hpf (0-2); URINE WBC TNTC /hpf (0-6)
[2018-09-11] MEDS ORDERED: Cefepime 1gm in NS 100ml 1 GM/100 ML BAG IVPB SCH (01:30)
[2018-09-11] MEDS ORDERED: Dextrose 50% SYRINGE Inj (50 ml) IV PRN (01:40)
[2018-09-11] MEDS ORDERED: cefTRIAXone 1 gm 1 GM/100 ML BAG IVPB STA (02:03)
--- NOTE | 2018-09-11 02:08 | CP.PCM.HP ---
<Hugo Irizarry - Last Filed: 09/11/18 02:39> History of Present Illness - History of Present Illness History of Present Illness: Hugo Irizarry DO, PGY-1 Hospitalist Admission History and Physical for Dr. Mak CC: R shoulder pain, cloudy urine HPI: Patient is a 58 year old male with PMH of intellectual disability, HIV (on HAART), DM2 (last A1c 9.2), CKD stage 4, HTN, urinary retention (s/p TURP), phimosis (s/p circumcision), urostomy tube, and recurrent UTI presents to ED with family with a complaint that the patient is having worsening R shoulder pain and cloudy urine. They state that patient fell on the right side of his wheelchair this AM and has been having shoulder pain ever since. History was obtained from prior records as family were not at bedside during examination. ROS limited due to patient's mental status. PMD: Dr. Laguerre Urologist: Dr. Carl Segura Podiatry: Jocelyne Past Medical History: intellectual disability, HIV (on HAART), DM2 (last A1c 9.2), CKD stage 4, HTN, urinary retention (s/p TURP), phimosis (s/p circumcision), urostomy tube, and recurrent UTI Past Surgical History: urostomy tube, TURP (2015), circumcision (2016) Allergies: NKA Home medications: Flomax 0.4 mg daily, Carafate 1 gm BID, Isentress 400 mg BID, Losartan 50 mg daily, Lantus 10 u HS, HCTZ 12.5 mg daily, Glipizide 5 mg daily, Ferrous gluconate 324 mg TID, Descovy 200-25 mg daily, Truvada 200-300 mg daily, Phoslo Family History: no previously documented family history Social History: 1/3 PPD cigarette use for 40 years, has used marijuana in the past for appetite stimulation, no other illicit drug use, sister cares for him at home Pharmacy: [facility] Present on Admission - Present on Admission Any Indicators Present on Admission: Yes History of DVT/PE: No History of Uncontrolled Diabetes: Yes Urinary Catheter: Yes Decubitus Ulcer Present: No Review of Systems - Review of Systems Systems not reviewed;Unavailable: Altered Mental Status Past Patient History - Infectious Disease Hx of Infectious Diseases: None - Tetanus Immunizations Tetanus Immunization: Unknown - Past Medical History & Family History Past Medical History?: Yes - Past Social History Smoking Status: Current Some Days Smoker - CARDIAC Hx Pacemaker: No - PULMONARY Hx Respiratory Disorders: No - NEUROLOGICAL Hx Paralysis: No - HEENT Hx HEENT Problems: Yes - RENAL Hx Chronic Kidney Disease: Yes (RENAL INSUFFICIENCY) Other/Comment: HYDRONEPHROSIS - ENDOCRINE/METABOLIC Hx Endocrine Disorders: Yes Hx Diabetes Mellitus Type 2: Yes - HEMATOLOGICAL/ONCOLOGICAL Hx Blood Disorders: Yes Hx Blood Transfusions: Yes - INTEGUMENTARY Hx Dermatological Problems: Yes Other/Comment: FOOT INFECTION - MUSCULOSKELETAL/RHEUMATOLOGICAL Hx Musculoskeletal Disorders: Yes (HX LEG FX) - GASTROINTESTINAL Hx Gastrointestinal Disorders: Yes (HX:VOMITTING, LOSS OF APPETITE) - GENITOURINARY/GYNECOLOGICAL Hx Genitourinary Disorders: Yes Hx Urinary Tract Infection: Yes Other/Comment: EPIDIDYMITIS, SUPRAPUBIC TUBE - PSYCHIATRIC Hx Substance Use: Yes (cannabis) - SURGICAL HISTORY Other/Comment: UROSTOMY - ANESTHESIA Hx Anesthesia Reactions: No Hx Malignant Hyperthermia: No Meds Allergies/Adverse Reactions: Allergies Allergy/AdvReac Type Severity Reaction Status Date / Time No Known Allergies Allergy Verified 09/10/18 18:34 Physical Exam - Constitutional Appears: No Acute Distress, Confused - Head Exam Head Exam: ATRAUMATIC, NORMOCEPHALIC - Eye Exam Eye Exam: EOMI, PERRL - ENT Exam ENT Exam: Mucous Membranes Moist - Neck Exam Neck exam: Positive for: Full Rom, Normal Inspection - Respiratory Exam Respiratory Exam: Clear to Auscultation Bilateral, NORMAL BREATHING PATTERN. absent: Rales, Rhonchi, Wheezes - Cardiovascular Exam Cardiovascular Exam: REGULAR RHYTHM, RRR, +S1, +S2. absent: Diastolic murmur, Gallop, Rubs, Systolic Murmur - GI/Abdominal Exam GI & Abdominal Exam: Normal Bowel Sounds, Soft. absent: Guarding, Tenderness - Exam Additional comments: suprapubic catheter draining cloudy, yellow-colored urine - Extremities Exam Extremities exam: Positive for: full ROM. Negative for: pedal edema Additional comments: R sided leg catheter bag - Neurological Exam Neurological exam: Alert Additional comments: oriented to person but not to time, place, or situation - Skin Skin Exam: Dry, Intact, Warm Results - Vital Signs Recent Vital Signs: Last Vital Signs Temp 98.2 F 09/10/18 18:34 Pulse 82 09/11/18 00:19 Resp 18 09/11/18 00:19 BP 192/122 H 09/11/18 00:19 Pulse Ox 98 09/11/18 00:19 - Labs Result Diagrams: 09/10/18 20:00 09/10/18 20:00 Labs: Laboratory Results - last 24 hr 09/10/18 09/10/18 09/10/18 20:00 20:00 20:00 WBC 10.0 RBC 3.69 Hgb 10.4 L Hct 33.6 L MCV 91.1 MCH 28.2 MCHC 31.0 RDW 12.5 Plt Count 232 MPV 10.6 Neut % (Auto) 59.6 Lymph % (Auto) 29.2 Sawyer % (Auto) 9.9 H Eos % (Auto) 1.2 L Baso % (Auto) 0.1 Lymph # (Auto) 2.9 Sawyer # (Auto) 1.0 H Eos # (Auto) 0.1 Baso # (Auto) 0.01 Absolute Neuts (auto) 5.93 PT 12.2 INR 1.10 APTT 44.2 H Sodium 141 Potassium 4.5 Chloride 106 Carbon Dioxide 29 Anion Gap 10 BUN 26 H Creatinine 2.5 H Est GFR ( Amer) 32 Est GFR (Non-Af Amer) 27 Random Glucose 251 H Calcium 8.6 Total Bilirubin 0.5 AST 31 ALT 11 Alkaline Phosphatase 87 Troponin I 0.03 D Total Protein 7.7 Albumin 3.5 Globulin 4.3 Albumin/Globulin Ratio 0.8 L Urine Color Urine Appearance Urine pH Ur Specific Force Urine Protein Urine Glucose (UA) Urine Ketones Urine Blood Urine Nitrate Urine Bilirubin Urine Urobilinogen Ur Leukocyte Esterase Urine RBC Urine WBC Ur Epithelial Cells Urine Bacteria 09/10/18 22:12 WBC RBC Hgb Hct MCV MCH MCHC RDW Plt Count MPV Neut % (Auto) Lymph % (Auto) Sawyer % (Auto) Eos % (Auto) Baso % (Auto) Lymph # (Auto) Sawyer # (Auto) Eos # (Auto) Baso # (Auto) Absolute Neuts (auto) PT INR APTT Sodium Potassium Chloride Carbon Dioxide Anion Gap BUN Creatinine Est GFR ( Amer) Est GFR (Non-Af Amer) Random Glucose Calcium Total Bilirubin AST ALT Alkaline Phosphatase Troponin I Total Protein Albumin Globulin Albumin/Globulin Ratio Urine Color Yellow Urine Appearance Sl cloudy Urine pH 7.0 Ur Specific Force 1.025 Urine Protein 100 H Urine Glucose (UA) >=1000 Urine Ketones Negative Urine Blood Moderate H Urine Nitrate Positive H Urine Bilirubin Negative Urine Urobilinogen 0.2 Ur Leukocyte Esterase Moderate H Urine RBC 15 - 20 H Urine WBC Tntc H Ur Epithelial Cells 6 - 8 H Urine Bacteria Many Assessment & Plan - Assessment and Plan (Free Text) Assessment: 58 yo M with PMH of intellectual disability, HIV (on HAART), DM2 (last A1c 9.2), CKD stage 4, HTN, urinary retention (s/p TURP), phimosis (s/p circumcision), urostomy tube, and recurrent UTI admitted for management of R shoulder pain and UTI. Plan: UTI Positive nitrates, leukocyte esterase, and pyruia on UA Urine cx pending, f/u result and sensitivities Dose of rocephin given in ED, continue rocephin 1 g daily ID consult placed, all recs appreciated R shoulder pain Xrays in ED negative for fx or other acute process Tylenol PRN pain PT evaluate and treat DM2 Last A1c 9.2 F/u A1c result in AM ISS while admitted May continue Levemir 10 u HS HTN Continue home meds with holding parameters Has been hypertensive since admission PRN hydralazine ordered Urostomy tube/urinary retention Patient has suprapubic catheter with R leg bag Patient follows with Dr. Segura, will f/u whether catheter needs to be changed Urology consult placed, all recs appreciated CKD Stage 4 Monitor BUN/Cr, appears to be at baseline Maintain euvolemia Consider Nephrology consult if worsening HIV Continue home HAART medications F/u CD4 count result DVT/GI PPX: SC heparin/protonix Full Code HH, diabetic diet Monitor on med/surg Patient seen, examined with, and plan discussed with my attending Dr. Obdulio Irizarry, Humberto. IM Resident PGY-1 <Jackie Mak - Last Filed: 09/12/18 22:00> Results - Vital Signs Recent Vital Signs: Last Vital Signs Temp 98 F 09/12/18 15:32 Pulse 86 09/12/18 15:32 Resp 18 09/12/18 15:32 BP 117/78 09/12/18 15:32 Pulse Ox 99 03/15/19 15:32 - Labs Result Diagrams: 09/12/18 09:25 09/12/18 09:25 Labs: Laboratory Results - last 24 hr 09/11/18 09/12/18 09/12/18 13:30 01:00 01:00 WBC RBC Hgb Hct MCV MCH MCHC RDW Plt Count MPV Neut % (Auto) Lymph % (Auto) Sawyer % (Auto) Eos % (Auto) Baso % (Auto) Lymph # (Auto) Sawyer # (Auto) Eos # (Auto) Baso # (Auto) Absolute Neuts (auto) Sodium Potassium Chloride Carbon Dioxide Anion Gap BUN Creatinine Est GFR ( Amer) Est GFR (Non-Af Amer) POC Glucose (mg/dL) Random Glucose Calcium Total Bilirubin AST ALT Alkaline Phosphatase Total Protein Albumin Globulin Albumin/Globulin Ratio PTH Intact Whole Molec 113 H Ur Random Creatinine 66 Urine Opiates Screen Negative Urine Methadone Screen Negative Ur Barbiturates Screen Negative Ur Phencyclidine Scrn Negative Ur Amphetamines Screen Negative U Benzodiazepines Scrn Negative U Oth Cocaine Metabols Negative U Cannabinoids Screen Negative 09/12/18 09/12/18 09/12/18 06:47 09:25 09:25 WBC 8.2 RBC 3.29 L Hgb 9.1 L Hct 30.2 L MCV 91.8 MCH 27.7 MCHC 30.1 L RDW 12.4 Plt Count 202 MPV 10.3 Neut % (Auto) 49.9 L Lymph % (Auto) 42.6 H Sawyer % (Auto) 6.3 H Eos % (Auto) 1.1 L Baso % (Auto) 0.1 Lymph # (Auto) 3.5 H Sawyer # (Auto) 0.5 Eos # (Auto) 0.1 Baso # (Auto) 0.01 Absolute Neuts (auto) 4.10 Sodium 138 Potassium 4.0 Chloride 105 Carbon Dioxide 26 Anion Gap 10 BUN 24 H Creatinine 2.9 H Est GFR ( Amer) 27 Est GFR (Non-Af Amer) 23 POC Glucose (mg/dL) 195 H Random Glucose 217 H Calcium 8.9 Total Bilirubin 0.4 AST 19 ALT < 6 L Alkaline Phosphatase 78 Total Protein 7.3 Albumin 3.2 Globulin 4.0 Albumin/Globulin Ratio 0.8 L PTH Intact Whole Molec Ur Random Creatinine Urine Opiates Screen Urine Methadone Screen Ur Barbiturates Screen Ur Phencyclidine Scrn Ur Amphetamines Screen U Benzodiazepines Scrn U Oth Cocaine Metabols U Cannabinoids Screen 09/12/18 09/12/18 09/12/18 11:31 16:13 21:19 WBC RBC Hgb Hct MCV MCH MCHC RDW Plt Count MPV Neut % (Auto) Lymph % (Auto) Sawyer % (Auto) Eos % (Auto) Baso % (Auto) Lymph # (Auto) Sawyer # (Auto) Eos # (Auto) Baso # (Auto) Absolute Neuts (auto) Sodium Potassium Chloride Carbon Dioxide Anion Gap BUN Creatinine Est GFR ( Amer) Est GFR (Non-Af Amer) POC Glucose (mg/dL) 195 H 294 H 242 H Random Glucose Calcium Total Bilirubin AST ALT Alkaline Phosphatase Total Protein Albumin Globulin Albumin/Globulin Ratio PTH Intact Whole Molec Ur Random Creatinine Urine Opiates Screen Urine Methadone Screen Ur Barbiturates Screen Ur Phencyclidine Scrn Ur Amphetamines Screen U Benzodiazepines Scrn U Oth Cocaine Metabols U Cannabinoids Screen Attending/Attestation - Attestation I have personally seen and examined this patient.: Yes I have fully participated in the care of the patient.: Yes I have reviewed all pertinent clinical information: Yes
[2018-09-11 04:11] VITALS: BMI 24.0
[2018-09-11] MEDS: Sucralfate 1 gm/10 ml Oral Susp UD PO SCH ×2 (06:01→18:05)
[2018-09-11] MEDS: Pantoprazole 40 mg EC Tab PO SCH (06:06)
[2018-09-11] MEDS: Insulin Reg-MEDIUM-Coverage SC SCH ×4 (08:36→22:00)
[2018-09-11] MEDS ORDERED: [UNRECOGNIZED DRUG - OTHER] PO SCH (10:00)
[2018-09-11] MEDS: Emtricitabine-Tenofovir 200 mg-300 mg Tab PO SCH (10:00)
[2018-09-11] MEDS: Insulin Detemir 100 units/ml Vial (Levemir) SC SCH ×2 (10:00→21:41)
[2018-09-11] MEDS ORDERED: cefTRIAXone 1 gm 1 GM/100 ML BAG IVPB ONE (10:00)
[2018-09-11] MEDS: Multivitamin Therapeutic Tab PO SCH (10:00)
--- NOTE | 2018-09-11 11:16 | CARD ---
APPROVED REPORT Date of service: 09/10/2018 EKG Measurement Heart [id number] <Conclusion> Normal sinus rhythm Minimal voltage criteria for LVH, may be normal variant Borderline ECG
--- NOTE | 2018-09-11 13:38 | RAD ---
Date of service: 09/10/2018 PROCEDURE: Left Foot Radiographs. HISTORY: pain COMPARISON: None. FINDINGS: BONES: Diffuse osteopenia suggests osteoporosis. No displaced fracture identified throughout the left foot. JOINTS: Mild hammertoe deformities are appreciated diffusely. No subluxation or dislocation. Degenerative changes are advanced at the 1st metatarsophalangeal joint and likely also at the interphalangeal joint great toe. SOFT TISSUES: Vascular calcifications seen in the dorsal and plantar soft tissues as well as incidentally at the anterior and posterior ankle soft tissues note is made of increased density throughout the subcutaneous fat suspicious for cellulitis. OTHER FINDINGS: None. IMPRESSION: No acute displaced fracture or dislocation grossly evident. Degenerative changes are seen at the 1st metatarsophalangeal joint and likely interphalangeal joint great toe as per above. Diffuse osteopenia suggests osteoporosis. Soft tissue changes are noted diffusely which may indicate cellulitis. Clinically correlate.
[2018-09-11 14:08] LABS: BASO # 0.02 K/mm3 (0.0-2.0); BASO % 0.3 % (0.0-3.0); EOS # 0.1 (0.0-0.7); EOS % 1.7 % (1.5-5.0); HEMOGLOBIN 9.1 g/dL (14.0-18.0); LYMPH # 2.7 (1.2-3.4); LYMPH % 33.8 % (22.0-35.0); MEAN CELL VOLUME 90.6 fl (80.0-105.0); MEAN CORPUSCULAR HEMOGLOBIN 27.5 pg (25.0-35.0); MEAN CORPUSCULAR HGB CONC 30.3 g/dl (31.0-37.0); MONO # 0.5 (0.1-0.6); MONO % 6.8 % (1.0-6.0); RBC 3.31 10^6/uL (3.5-6.1); RED CELL DISTRIBUTION WIDTH 12.5 % (11.5-14.5); WHITE BLOOD COUNT 7.8 10^3/uL (4.5-11.0)
[2018-09-11 14:17] LABS: IRON 43 ug/dL (45-180)
[2018-09-11 14:27] LABS: % IRON SATURATION 20 % (20-55); ALB/GLOB RATIO 0.8 (1.1-1.8); CALCIUM 8.4 mg/dL (8.4-10.5); TOTAL IRON BINDING CAPACITY 213 ug/dL (261-462)
--- NOTE | 2018-09-11 15:45 | CP.PCM.CON ---
History of Present Illness - History of Present Illness History of Present Illness: Nephrology Consultation Note: Assessment: Stable fall, shoulder pain / UTi chronic obstructive uropathy with b/l hydronephrosis and CKD stage 3 with baseline cr 2.3-2.7 with ?mg proteinuria (R80.9) Hx of phimosis s/p circumcision, s/p TURP and suprapubic catheter pyuria and microscopic hematuria likely due to chronic indwelling SP catheter and bacterial colonization Diabetic chronic Kidney Disease (E11.22) Hypertensive Chronic Kidney Disease (I12.9) Anemia (D64.9), HTN (I12.9) HIV on HAART, charcoat foot, developmental delay, smoking hx Plan No acute need for renal replacement therapy at this time. Hypertension control with meds as ordered. Patient was on losartan, will resume it @ 100 mg/d with lasix 40 mg/day. added labetalol. check utox Monitor Input/Output, daily weights and renal function with basic metabolic panel continue with iron supplements, MVI and consider ROSLYN once BP better controlled. PRBC as needed eval. continue with flomax Check urine spot protein/creatinine and albumin/creatinine ratio Check for 25-OH vitamin D, iPTH, phosphorus level, iron indices Dose meds/antibiotics for reduced GFR. Avoid fleets enema/magnesium based laxatives. Avoid nephrotoxins/NSAIDs/ iodinated contrast (unless needed emergently) Glycemic control, low K diet Further work up/management as per primary team Thanks for allowing me to participate in care of your patient. Will follow patient with you. Please call if any Qs. had d/w team Dr Remigio Jason Office: [phone] Chief Complaint; shoulder pain HPI: Pt is a 58 M with hx of diabetes Mellitus ( years), hypertension (years) HIV on HAART, charcoat foot, phimosis s/p circumcision, s/p TURP and suprapubic catheter, chronic obstructive uropathy with hydronephrosis and CKD stage 3 with baseline cr 2.3-2.7, developmental delay, smoking hx presented with complaints of cloudy urine and shoulder pain. renal consult for CKD management pt verbally abusive and uncoperative BP in 200s when came ROS: pt verbally abusive and uncoperative. says leg swollen Physical Examination: pt refused to be examined for most part General Appearance: Comfortable, in no acute respiratory distress, unco- operative . Vitals reviewed and noted as below Head; Atraumatic, normocephalic Lungs: Normal respiratory rate/effort. Neurological: Patient is alert, awake Psych: lack insight : has SP catheter Labs/imaging reviewed. Past medical history, past surgical history, family history, social history, allergy reviewed and noted as below Family hx: no hx of CKD. Rest non-contributory work up: CT b/l moderate hydronephrosis UA with 100 protein, large WBC and RBCs Hep B and C neg Past Patient History - Infectious Disease Hx of Infectious Diseases: None - Tetanus Immunizations Tetanus Immunization: Unknown - Past Medical History & Family History Past Medical History?: Yes - Past Social History Smoking Status: Heavy Smoker > 10 Cigarettes Daily - CARDIAC Hx Pacemaker: No - PULMONARY Hx Respiratory Disorders: No - NEUROLOGICAL Hx Neurological Disorder: Yes (MENTALLY IMPAIRED SINCE ) Hx Dizziness: Yes - HEENT Hx HEENT Problems: Yes - RENAL Hx Chronic Kidney Disease: Yes (RENAL INSUFFICIENCY) Other/Comment: HYDRONEPHROSIS - ENDOCRINE/METABOLIC Hx Endocrine Disorders: Yes Hx Diabetes Mellitus Type 2: Yes - HEMATOLOGICAL/ONCOLOGICAL Hx Blood Disorders: Yes - INTEGUMENTARY Hx Dermatological Problems: Yes Other/Comment: FOOT INFECTION - MUSCULOSKELETAL/RHEUMATOLOGICAL Hx Musculoskeletal Disorders: Yes (HX LEG FX) Hx Falls: No - GASTROINTESTINAL Hx Gastrointestinal Disorders: Yes (HX:VOMITTING, LOSS OF APPETITE) - GENITOURINARY/GYNECOLOGICAL Hx Genitourinary Disorders: Yes Hx Urinary Tract Infection: Yes Other/Comment: EPIDIDYMITIS, SUPRAPUBIC TUBE - PSYCHIATRIC Hx Emotional Abuse: No Hx Physical Abuse: No - SURGICAL HISTORY Other/Comment: UROSTOMY - ANESTHESIA Hx Anesthesia Reactions: No Hx Malignant Hyperthermia: No Meds Allergies/Adverse Reactions: Allergies Allergy/AdvReac Type Severity Reaction Status Date / Time No Known Allergies Allergy Verified 09/10/18 18:34 - Medications Medications: Current Medications Acetaminophen (Tylenol 325mg Tab) 650 mg PO Q4 PRN PRN Reason: Fever >100.4 F Amlodipine Besylate (Norvasc) 10 mg PO DAILY [facility] Last Admin: 09/11/18 14:11 Dose: 10 mg Calcium Acetate (Phoslo) 667 mg PO 0800,1700 [facility] Last Admin: 09/11/18 08:41 Dose: Not Given Dextrose (Dextrose 50% Inj) 0 ml IV STAT PRN; Protocol PRN Reason: Hypoglycemia Protocol Emtricitabine/Tenofovir (Truvada 200 Mg-300 Mg) 1 tab PO QOD [facility]; Protocol Last Admin: 09/11/18 10:00 Dose: Not Given Ferrous Gluconate (Fergon) 324 mg PO TID [facility] Last Admin: 09/11/18 14:11 Dose: 324 mg Heparin Sodium (Porcine) (Heparin) 5,000 units SC Q8 [facility]; Protocol Last Admin: 09/11/18 14:12 Dose: 5,000 units Hydralazine HCl (Apresoline) 10 mg IVP Q4H PRN PRN Reason: Systolic Blood Pressure Last Admin: 09/11/18 14:10 Dose: 10 mg Dextrose (Dextrose 5% In Water 1000 Ml) 1,000 mls @ 0 mls/hr IV .Q0M PRN; Protocol PRN Reason: Hypoglycemia Protocol Ceftriaxone Sodium (Rocephin 1 Gram Ivpb) 1 gm in 100 mls @ 100 mls/hr IVPB DAILY [facility]; Protocol Insulin Detemir (Levemir) 5 unit SC Q12 [facility] Last Admin: 09/11/18 10:00 Dose: Not Given Insulin Human Regular (Humulin R Med) 0 units SC ACHS [facility]; Protocol Last Admin: 09/11/18 12:11 Dose: Not Given Losartan Potassium (Cozaar) 100 mg PO DAILY [facility] Last Admin: 09/11/18 14:12 Dose: 100 mg Multivitamins (Thera Tab) 1 tab PO DAILY [facility] Last Admin: 09/11/18 10:00 Dose: Not Given Ondansetron HCl (Zofran Inj) 4 mg IVP Q6H PRN PRN Reason: Nausea/Vomiting Pantoprazole Sodium (Protonix Ec Tab) 40 mg PO 0600 [facility] Last Admin: 09/11/18 06:06 Dose: 40 mg Raltegravir (Isentress) 400 mg PO BID [facility]; Protocol Last Admin: 09/11/18 10:00 Dose: Not Given Sucralfate (Carafate Oral Susp) 1 gm PO 0600,1600 [facility] Last Admin: 09/11/18 06:01 Dose: Not Given Tamsulosin HCl (Flomax) 0.4 mg PO DAILY [facility] Last Admin: 09/11/18 10:00 Dose: Not Given Results - Vital Signs Recent Vital Signs: Last Vital Signs Temp 98.2 F 09/11/18 06:00 Pulse 82 09/11/18 14:10 Resp 18 09/11/18 06:00 BP 198/126 H 09/11/18 14:11 Pulse Ox 97 09/11/18 06:00 - Labs Result Diagrams: 09/11/18 13:30 09/11/18 13:30 Labs: Laboratory Results - last 24 hr 09/10/18 09/10/18 09/10/18 20:00 20:00 20:00 WBC 10.0 RBC 3.69 Hgb 10.4 L Hct 33.6 L MCV 91.1 MCH 28.2 MCHC 31.0 RDW 12.5 Plt Count 232 MPV 10.6 Neut % (Auto) 59.6 Lymph % (Auto) 29.2 Ramsey % (Auto) 9.9 H Eos % (Auto) 1.2 L Baso % (Auto) 0.1 Lymph # (Auto) 2.9 Ramsey # (Auto) 1.0 H Eos # (Auto) 0.1 Baso # (Auto) 0.01 Absolute Neuts (auto) 5.93 PT 12.2 INR 1.10 APTT 44.2 H Sodium 141 Potassium 4.5 Chloride 106 Carbon Dioxide 29 Anion Gap 10 BUN 26 H Creatinine 2.5 H Est GFR ( Amer) 32 Est GFR (Non-Af Amer) 27 Random Glucose 251 H Calcium 8.6 Phosphorus Magnesium Iron TIBC % Saturation Total Bilirubin 0.5 AST 31 ALT 11 Alkaline Phosphatase 87 Troponin I 0.03 D Total Protein 7.7 Albumin 3.5 Globulin 4.3 Albumin/Globulin Ratio 0.8 L Triglycerides Cholesterol LDL Cholesterol Direct HDL Cholesterol TSH 3rd Generation Urine Color Urine Appearance Urine pH Ur Specific [place] Urine Protein Urine Glucose (UA) Urine Ketones Urine Blood Urine Nitrate Urine Bilirubin Urine Urobilinogen Ur Leukocyte Esterase Urine RBC Urine WBC Ur Epithelial Cells Urine Bacteria 09/10/18 09/11/18 09/11/18 22:12 13:30 13:30 WBC 7.8 D RBC 3.31 L Hgb 9.1 L Hct 30.0 L MCV 90.6 MCH 27.5 MCHC 30.3 L RDW 12.5 Plt Count 217 MPV 11.0 Neut % (Auto) 57.4 Lymph % (Auto) 33.8 Ramsey % (Auto) 6.8 H Eos % (Auto) 1.7 Baso % (Auto) 0.3 Lymph # (Auto) 2.7 Ramsey # (Auto) 0.5 Eos # (Auto) 0.1 Baso # (Auto) 0.02 Absolute Neuts (auto) 4.50 PT INR APTT Sodium 138 Potassium 4.7 Chloride 107 Carbon Dioxide 26 Anion Gap 11 BUN 26 H Creatinine 2.6 H Est GFR ( Amer) 31 Est GFR (Non-Af Amer) 26 Random Glucose 357 H* D Calcium 8.4 Phosphorus 3.6 Magnesium 1.9 Iron TIBC % Saturation Total Bilirubin 0.3 AST 19 ALT 7 Alkaline Phosphatase 79 Troponin I Total Protein 6.7 Albumin 3.0 Globulin 3.7 Albumin/Globulin Ratio 0.8 L Triglycerides 120 Cholesterol 113 L LDL Cholesterol Direct 53 HDL Cholesterol 30 TSH 3rd Generation Urine Color Yellow Urine Appearance Sl cloudy Urine pH 7.0 Ur Specific [place] 1.025 Urine Protein 100 H Urine Glucose (UA) >=1000 Urine Ketones Negative Urine Blood Moderate H Urine Nitrate Positive H Urine Bilirubin Negative Urine Urobilinogen 0.2 Ur Leukocyte Esterase Moderate H Urine RBC 15 - 20 H Urine WBC Tntc H Ur Epithelial Cells 6 - 8 H Urine Bacteria Many 09/11/18 09/11/18 13:30 13:30 WBC RBC Hgb Hct MCV MCH MCHC RDW Plt Count MPV Neut % (Auto) Lymph % (Auto) Ramsey % (Auto) Eos % (Auto) Baso % (Auto) Lymph # (Auto) Ramsey # (Auto) Eos # (Auto) Baso # (Auto) Absolute Neuts (auto) PT INR APTT Sodium Potassium Chloride Carbon Dioxide Anion Gap BUN Creatinine Est GFR ( Amer) Est GFR (Non-Af Amer) Random Glucose Calcium Phosphorus Magnesium Iron 43 L TIBC 213 L % Saturation 20 Total Bilirubin AST ALT Alkaline Phosphatase Troponin I Total Protein Albumin Globulin Albumin/Globulin Ratio Triglycerides Cholesterol LDL Cholesterol Direct HDL Cholesterol TSH 3rd Generation 1.27 Urine Color Urine Appearance Urine pH Ur Specific [place] Urine Protein Urine Glucose (UA) Urine Ketones Urine Blood Urine Nitrate Urine Bilirubin Urine Urobilinogen Ur Leukocyte Esterase Urine RBC Urine WBC Ur Epithelial Cells Urine Bacteria
--- NOTE | 2018-09-11 18:39 | RAD ---
Date of service: 09/10/2018 PROCEDURE: Radiographs of the Right Shoulder HISTORY: pain COMPARISON: No prior. FINDINGS: BONES: Normal. No fracture. JOINTS: Normal. Glenohumeral and acromioclavicular joints preserved. No osteoarthritis. SOFT TISSUES: Normal. OTHER FINDINGS: None. IMPRESSION: No significant or acute findings to account for/ related to the clinical presentation.
--- NOTE | 2018-09-11 18:41 | RAD ---
Date of service: 09/10/2018 PROCEDURE: CHEST RADIOGRAPH, 1 VIEW HISTORY: Right shoulder pain. COMPARISON: 12/10/2017 FINDINGS: LUNGS: Clear. PLEURA: No pneumothorax or pleural fluid seen. CARDIOVASCULAR: No aortic atherosclerotic calcification present. No radiographic findings to suggest acute or significant cardiovascular disease. OSSEOUS STRUCTURES: No significant abnormalities. VISUALIZED UPPER ABDOMEN: Normal. OTHER FINDINGS: None. IMPRESSION: No active disease. No acute/significant interval changes.
[2018-09-11 21:21] LABS: FOLATE 9.6 ng/mL
[2018-09-11] MEDS ORDERED: INSULIN GLARGINE HUM REC ANLOG 10 UNIT SQ SCH (22:00)
--- NOTE | 2018-09-11 23:07 | CP.PCM.CON ---
History of Present Illness - History of Present Illness History of Present Illness: Infectious Disease Consultation: September 11, 2018 58 year old male with PMH of intellectual disability, HIV (on HAART), DM2 (last A1c 9.2), CKD stage 4, HTN, urinary retention (s/p TURP), phimosis (s/p circumc ision), urostomy tube, and recurrent UTI brought to ER by family for worsening R shoulder pain and cloudy urine. They state that patient fell on the right side of his wheelchair this AM and has been having shoulder pain ever since. Urine cultures pending. Difficult to obtain information from the patient. PMHx: intellectual disability, HIV (on HAART), DM2 (last A1c 9.2), CKD stage 4, HTN, urinary retention (s/p TURP), phimosis (s/p circumcision), urostomy tube, and Hi story of multiple UTI PSHx: urostomy tube, TURP, Circumcision Allergies: NKDA Social Hx: / PPD tobacco use Marijuana use for appetite stimulation No other illicit drug use No given EtOH Active Medications Acetaminophen (Tylenol 325mg Tab) 650 mg PO Q4 PRN PRN Reason: Fever >100.4 F Amlodipine Besylate (Norvasc) 10 mg PO DAILY [facility] [place] Last Admin: 09/11/18 14:11 Dose: 10 mg Calcium Acetate (Phoslo) 667 mg PO 0800,1700 [facility] [place] Last Admin: 09/11/18 18:17 Dose: 667 mg Dextrose (Dextrose 50% Inj) 0 ml IV STAT PRN; Protocol PRN Reason: Hypoglycemia Protocol Emtricitabine/Tenofovir (Truvada 200 Mg-300 Mg) 1 tab PO QOD [facility] [place]; Protocol Last Admin: 09/11/18 10:00 Dose: Not Given Ferrous Gluconate (Fergon) 324 mg PO TID [facility] [place] Last Admin: 09/11/18 18:18 Dose: 324 mg Furosemide (Lasix) 40 mg PO DAILY [facility] [place] Last Admin: 09/11/18 18:17 Dose: 40 mg Heparin Sodium (Porcine) (Heparin) 5,000 units SC Q8 [facility] [place]; Protocol Last Admin: 09/11/18 21:42 Dose: 5,000 units Hydralazine HCl (Apresoline) 10 mg IVP Q4H PRN PRN Reason: Systolic Blood Pressure Last Admin: 09/11/18 14:10 Dose: 10 mg Dextrose (Dextrose 5% In Water 1000 Ml) 1,000 mls @ 0 mls/hr IV .Q0M PRN; Protocol PRN Reason: Hypoglycemia Protocol Ceftriaxone Sodium (Rocephin 1 Gram Ivpb) 1 gm in 100 mls @ 100 mls/hr IVPB DAILY [facility] [place]; Protocol Insulin Detemir (Levemir) 5 unit SC Q12 [facility] [place] Last Admin: 09/11/18 21:41 Dose: 5 units Insulin Human Regular (Humulin R Med) 0 units SC ACHS [facility] [place]; Protocol Last Admin: 09/11/18 18:19 Dose: 7 units Labetalol HCl (Trandate) 200 mg PO Q12 [facility] Last Admin: 09/11/18 21:41 Dose: 200 mg Losartan Potassium (Cozaar) 100 mg PO DAILY [facility] [place] Last Admin: 09/11/18 14:12 Dose: 100 mg Multivitamins (Thera Tab) 1 tab PO DAILY [facility] [place] Last Admin: 09/11/18 10:00 Dose: Not Given Ondansetron HCl (Zofran Inj) 4 mg IVP Q6H PRN PRN Reason: Nausea/Vomiting Pantoprazole Sodium (Protonix Ec Tab) 40 mg PO 0600 [facility] [place] Last Admin: 09/11/18 06:06 Dose: 40 mg Raltegravir (Isentress) 400 mg PO BID [facility] [place]; Protocol Last Admin: 09/11/18 18:17 Dose: 400 mg Sucralfate (Carafate Oral Susp) 1 gm PO 0600,1600 [facility] [place] Last Admin: 09/11/18 18:05 Dose: Not Given Tamsulosin HCl (Flomax) 0.4 mg PO DAILY [facility] [place] Last Admin: 09/11/18 10:00 Dose: Not Given Family Hx: none given ROS: no fevers, chills, nausea, vomiting, diarrhea, headaches, dizziness, chest pain, abdominal pain, melena, hematuria, hematemesis, hematochezia Past Patient History - Infectious Disease Hx of Infectious Diseases: None - Tetanus Immunizations Tetanus Immunization: Unknown - Past Medical History & Family History Past Medical History?: Yes - Past Social History Smoking Status: Heavy Smoker > 10 Cigarettes Daily - CARDIAC Hx Pacemaker: No - PULMONARY Hx Respiratory Disorders: No - NEUROLOGICAL Hx Neurological Disorder: Yes (MENTALLY IMPAIRED SINCE ) Hx Dizziness: Yes - HEENT Hx HEENT Problems: Yes - RENAL Hx Chronic Kidney Disease: Yes (RENAL INSUFFICIENCY) Other/Comment: HYDRONEPHROSIS - ENDOCRINE/METABOLIC Hx Endocrine Disorders: Yes Hx Diabetes Mellitus Type 2: Yes - HEMATOLOGICAL/ONCOLOGICAL Hx Blood Disorders: Yes - INTEGUMENTARY Hx Dermatological Problems: Yes Other/Comment: FOOT INFECTION - MUSCULOSKELETAL/RHEUMATOLOGICAL Hx Musculoskeletal Disorders: Yes (HX LEG FX) Hx Falls: No - GASTROINTESTINAL Hx Gastrointestinal Disorders: Yes (HX:VOMITTING, LOSS OF APPETITE) - GENITOURINARY/GYNECOLOGICAL Hx Genitourinary Disorders: Yes Hx Urinary Tract Infection: Yes Other/Comment: EPIDIDYMITIS, SUPRAPUBIC TUBE - PSYCHIATRIC Hx Emotional Abuse: No Hx Physical Abuse: No - SURGICAL HISTORY Other/Comment: UROSTOMY - ANESTHESIA Hx Anesthesia Reactions: No Hx Malignant Hyperthermia: No Meds Allergies/Adverse Reactions: Allergies Allergy/AdvReac Type Severity Reaction Status Date / Time No Known Allergies Allergy Verified 09/10/18 18:34 - Medications Medications: Current Medications Acetaminophen (Tylenol 325mg Tab) 650 mg PO Q4 PRN PRN Reason: Fever >100.4 F Amlodipine Besylate (Norvasc) 10 mg PO DAILY [facility] [place] Last Admin: 09/11/18 14:11 Dose: 10 mg Calcium Acetate (Phoslo) 667 mg PO 0800,1700 [facility] [place] Last Admin: 09/11/18 18:17 Dose: 667 mg Dextrose (Dextrose 50% Inj) 0 ml IV STAT PRN; Protocol PRN Reason: Hypoglycemia Protocol Emtricitabine/Tenofovir (Truvada 200 Mg-300 Mg) 1 tab PO QOD [facility] [place]; Protocol Last Admin: 09/11/18 10:00 Dose: Not Given Ferrous Gluconate (Fergon) 324 mg PO TID [facility] [place] Last Admin: 09/11/18 18:18 Dose: 324 mg Furosemide (Lasix) 40 mg PO DAILY [facility] [place] Last Admin: 09/11/18 18:17 Dose: 40 mg Heparin Sodium (Porcine) (Heparin) 5,000 units SC Q8 [facility] [place]; Protocol Last Admin: 09/11/18 21:42 Dose: 5,000 units Hydralazine HCl (Apresoline) 10 mg IVP Q4H PRN PRN Reason: Systolic Blood Pressure Last Admin: 09/11/18 14:10 Dose: 10 mg Dextrose (Dextrose 5% In Water 1000 Ml) 1,000 mls @ 0 mls/hr IV .Q0M PRN; Protocol PRN Reason: Hypoglycemia Protocol Ceftriaxone Sodium (Rocephin 1 Gram Ivpb) 1 gm in 100 mls @ 100 mls/hr IVPB DAILY [facility] [place]; Protocol Insulin Detemir (Levemir) 5 unit SC Q12 [facility] [place] Last Admin: 09/11/18 21:41 Dose: 5 units Insulin Human Regular (Humulin R Med) 0 units SC ACHS [facility] [place]; Protocol Last Admin: 09/11/18 18:19 Dose: 7 units Labetalol HCl (Trandate) 200 mg PO Q12 [facility] [place] Last Admin: 09/11/18 21:41 Dose: 200 mg Losartan Potassium (Cozaar) 100 mg PO DAILY [facility] [place] Last Admin: 09/11/18 14:12 Dose: 100 mg Multivitamins (Thera Tab) 1 tab PO DAILY [facility] [place] Last Admin: 09/11/18 10:00 Dose: Not Given Ondansetron HCl (Zofran Inj) 4 mg IVP Q6H PRN PRN Reason: Nausea/Vomiting Pantoprazole Sodium (Protonix Ec Tab) 40 mg PO 0600 [facility] [place] Last Admin: 09/11/18 06:06 Dose: 40 mg Raltegravir (Isentress) 400 mg PO BID [facility] [place]; Protocol Last Admin: 09/11/18 18:17 Dose: 400 mg Sucralfate (Carafate Oral Susp) 1 gm PO 0600,1600 [facility] [place] Last Admin: 09/11/18 18:05 Dose: Not Given Tamsulosin HCl (Flomax) 0.4 mg PO DAILY [facility] [place] Last Admin: 09/11/18 10:00 Dose: Not Given Physical Exam - Constitutional Appears: Non-toxic, No Acute Distress, Confused, Chronically Ill - Head Exam Head Exam: ATRAUMATIC, NORMOCEPHALIC - Eye Exam Eye Exam: EOMI, PERRL Pupil Exam: NORMAL ACCOMODATION, PERRL - ENT Exam ENT Exam: Mucous Membranes Moist, Normal External Ear Exam, TM's Normal Bilaterally - Neck Exam Neck exam: Positive for: Full Rom, Normal Inspection - Respiratory Exam Respiratory Exam: Clear to Auscultation Bilateral, NORMAL BREATHING PATTERN. absent: Rales, Rhonchi, Wheezes - Cardiovascular Exam Cardiovascular Exam: REGULAR RHYTHM, RRR, +S1, +S2 - GI/Abdominal Exam GI & Abdominal Exam: Normal Bowel Sounds, Soft. absent: Distended, Tenderness - Exam Additional comments: suprapubic catheter draining cloudy yellow urine. - Extremities Exam Extremities exam: Positive for: full ROM. Negative for: joint swelling, pedal edema - Neurological Exam Neurological exam: Alert, CN II-XII Intact Additional comments: AAO x 1 - Skin Skin Exam: Dry, Intact, Normal Color, Warm Results - Vital Signs Recent Vital Signs: Last Vital Signs Temp 98.7 F 09/11/18 21:12 Pulse 72 09/11/18 21:41 Resp 20 09/11/18 21:12 BP 137/75 09/11/18 21:41 Pulse Ox 92 L 09/11/18 21:12 - Labs Result Diagrams: 09/11/18 13:30 09/11/18 13:30 Labs: Laboratory Results - last 24 hr 09/11/18 09/11/18 09/11/18 13:30 13:30 13:30 WBC 7.8 D RBC 3.31 L Hgb 9.1 L Hct 30.0 L MCV 90.6 MCH 27.5 MCHC 30.3 L RDW 12.5 Plt Count 217 MPV 11.0 Neut % (Auto) 57.4 Lymph % (Auto) 33.8 [place] % (Auto) 6.8 H Eos % (Auto) 1.7 Baso % (Auto) 0.3 Lymph # (Auto) 2.7 [place] # (Auto) 0.5 Eos # (Auto) 0.1 Baso # (Auto) 0.02 Absolute Neuts (auto) 4.50 Sodium 138 Potassium 4.7 Chloride 107 Carbon Dioxide 26 Anion Gap 11 BUN 26 H Creatinine 2.6 H Est GFR ( Amer) 31 Est GFR (Non-Af Amer) 26 POC Glucose (mg/dL) Random Glucose 357 H* D Hemoglobin A1c 8.1 H Calcium 8.4 Phosphorus 3.6 Magnesium 1.9 Iron TIBC % Saturation Ferritin Total Bilirubin 0.3 AST 19 ALT 7 Alkaline Phosphatase 79 Total Protein 6.7 Albumin 3.0 Globulin 3.7 Albumin/Globulin Ratio 0.8 L Triglycerides 120 Cholesterol 113 L LDL Cholesterol Direct 53 HDL Cholesterol 30 Vitamin B12 Folate TSH 3rd Generation Hep Bs Antibody 09/11/18 09/11/18 09/11/18 13:30 13:30 13:30 WBC RBC Hgb Hct MCV MCH MCHC RDW Plt Count MPV Neut % (Auto) Lymph % (Auto) [place] % (Auto) Eos % (Auto) Baso % (Auto) Lymph # (Auto) [place] # (Auto) Eos # (Auto) Baso # (Auto) Absolute Neuts (auto) Sodium Potassium Chloride Carbon Dioxide Anion Gap BUN Creatinine Est GFR ( Amer) Est GFR (Non-Af Amer) POC Glucose (mg/dL) Random Glucose Hemoglobin A1c Calcium Phosphorus Magnesium Iron 43 L TIBC 213 L % Saturation 20 Ferritin 159.0 Total Bilirubin AST ALT Alkaline Phosphatase Total Protein Albumin Globulin Albumin/Globulin Ratio Triglycerides Cholesterol LDL Cholesterol Direct HDL Cholesterol Vitamin B12 524 Folate 9.6 TSH 3rd Generation 1.27 Hep Bs Antibody 09/11/18 09/11/18 09/11/18 13:30 16:21 21:18 WBC RBC Hgb Hct MCV MCH MCHC RDW Plt Count MPV Neut % (Auto) Lymph % (Auto) [place] % (Auto) Eos % (Auto) Baso % (Auto) Lymph # (Auto) [place] # (Auto) Eos # (Auto) Baso # (Auto) Absolute Neuts (auto) Sodium Potassium Chloride Carbon Dioxide Anion Gap BUN Creatinine Est GFR ( Amer) Est GFR (Non-Af Amer) POC Glucose (mg/dL) 312 H 168 H Random Glucose Hemoglobin A1c Calcium Phosphorus Magnesium Iron TIBC % Saturation Ferritin Total Bilirubin AST ALT Alkaline Phosphatase Total Protein Albumin Globulin Albumin/Globulin Ratio Triglycerides Cholesterol LDL Cholesterol Direct HDL Cholesterol Vitamin B12 Folate TSH 3rd Generation Hep Bs Antibody Negative Assessment & Plan - Assessment and Plan (Free Text) Assessment: 58 yo M with PMH of intellectual disability, HIV (on HAART), DM2 (last A1c 9.2), CKD stage 4, HTN, urinary retention (s/p TURP), phimosis (s/p circumcision), urostomy tube, and recurrent UTI admitted for Right shoulder pain and r/o UTI. Urinalysis with signs of UTI. Started on Rocephin for now. The patient has HIV on HAART. Check CD4 and HIV Viral load. Continue HAART. Patient is a poor hi storian and confused. Supportive care. Awaiting urine cultures. No leukocytosis. Afebrile. Thank you for allowing me to participate in the care of the patient, we will follow with you.
[2018-09-12 02:14] LABS: BARBITURATES, UR NEGATIVE (NEGATIVE); BENZODIAZEPINES, UR NEGATIVE (NEGATIVE); OPIATES, UR NEGATIVE (NEGATIVE); PHENCYCLIDINE, UR NEGATIVE (NEGATIVE)
[2018-09-12] MEDS: Pantoprazole 40 mg EC Tab PO SCH (05:48)
[2018-09-12] MEDS: Sucralfate 1 gm/10 ml Oral Susp UD PO SCH ×3 (05:48→15:28)
--- NOTE | 2018-09-12 08:18 | PCM.URO ---
Urology Progress Note - Objective Lab Studies: Reviewed (will discuss plans no gu change for now see dictated notes as well) Lab Results Last 24 Hours: Laboratory Results - last 24 hr 09/11/18 09/11/18 09/11/18 13:30 13:30 13:30 WBC 7.8 D RBC 3.31 L Hgb 9.1 L Hct 30.0 L MCV 90.6 MCH 27.5 MCHC 30.3 L RDW 12.5 Plt Count 217 MPV 11.0 Neut % (Auto) 57.4 Lymph % (Auto) 33.8 [place] % (Auto) 6.8 H Eos % (Auto) 1.7 Baso % (Auto) 0.3 Lymph # (Auto) 2.7 [place] # (Auto) 0.5 Eos # (Auto) 0.1 Baso # (Auto) 0.02 Absolute Neuts (auto) 4.50 Sodium 138 Potassium 4.7 Chloride 107 Carbon Dioxide 26 Anion Gap 11 BUN 26 H Creatinine 2.6 H Est GFR ( Amer) 31 Est GFR (Non-Af Amer) 26 POC Glucose (mg/dL) Random Glucose 357 H* D Hemoglobin A1c 8.1 H Calcium 8.4 Phosphorus 3.6 Magnesium 1.9 Iron TIBC % Saturation Ferritin Total Bilirubin 0.3 AST 19 ALT 7 Alkaline Phosphatase 79 Total Protein 6.7 Albumin 3.0 Globulin 3.7 Albumin/Globulin Ratio 0.8 L Triglycerides 120 Cholesterol 113 L LDL Cholesterol Direct 53 HDL Cholesterol 30 Vitamin B12 Folate TSH 3rd Generation Ur Random Creatinine Urine Opiates Screen Urine Methadone Screen Ur Barbiturates Screen Ur Phencyclidine Scrn Ur Amphetamines Screen U Benzodiazepines Scrn U Oth Cocaine Metabols U Cannabinoids Screen Hep Bs Antibody 09/11/18 09/11/18 09/11/18 13:30 13:30 13:30 WBC RBC Hgb Hct MCV MCH MCHC RDW Plt Count MPV Neut % (Auto) Lymph % (Auto) [place] % (Auto) Eos % (Auto) Baso % (Auto) Lymph # (Auto) [place] # (Auto) Eos # (Auto) Baso # (Auto) Absolute Neuts (auto) Sodium Potassium Chloride Carbon Dioxide Anion Gap BUN Creatinine Est GFR ( Amer) Est GFR (Non-Af Amer) POC Glucose (mg/dL) Random Glucose Hemoglobin A1c Calcium Phosphorus Magnesium Iron 43 L TIBC 213 L % Saturation 20 Ferritin 159.0 Total Bilirubin AST ALT Alkaline Phosphatase Total Protein Albumin Globulin Albumin/Globulin Ratio Triglycerides Cholesterol LDL Cholesterol Direct HDL Cholesterol Vitamin B12 524 Folate 9.6 TSH 3rd Generation 1.27 Ur Random Creatinine Urine Opiates Screen Urine Methadone Screen Ur Barbiturates Screen Ur Phencyclidine Scrn Ur Amphetamines Screen U Benzodiazepines Scrn U Oth Cocaine Metabols U Cannabinoids Screen Hep Bs Antibody 09/11/18 09/11/18 09/11/18 13:30 16:21 21:18 WBC RBC Hgb Hct MCV MCH MCHC RDW Plt Count MPV Neut % (Auto) Lymph % (Auto) [place] % (Auto) Eos % (Auto) Baso % (Auto) Lymph # (Auto) [place] # (Auto) Eos # (Auto) Baso # (Auto) Absolute Neuts (auto) Sodium Potassium Chloride Carbon Dioxide Anion Gap BUN Creatinine Est GFR ( Amer) Est GFR (Non-Af Amer) POC Glucose (mg/dL) 312 H 168 H Random Glucose Hemoglobin A1c Calcium Phosphorus Magnesium Iron TIBC % Saturation Ferritin Total Bilirubin AST ALT Alkaline Phosphatase Total Protein Albumin Globulin Albumin/Globulin Ratio Triglycerides Cholesterol LDL Cholesterol Direct HDL Cholesterol Vitamin B12 Folate TSH 3rd Generation Ur Random Creatinine Urine Opiates Screen Urine Methadone Screen Ur Barbiturates Screen Ur Phencyclidine Scrn Ur Amphetamines Screen U Benzodiazepines Scrn U Oth Cocaine Metabols U Cannabinoids Screen Hep Bs Antibody Negative 09/12/18 09/12/18 09/12/18 01:00 01:00 06:47 WBC RBC Hgb Hct MCV MCH MCHC RDW Plt Count MPV Neut % (Auto) Lymph % (Auto) [place] % (Auto) Eos % (Auto) Baso % (Auto) Lymph # (Auto) [place] # (Auto) Eos # (Auto) Baso # (Auto) Absolute Neuts (auto) Sodium Potassium Chloride Carbon Dioxide Anion Gap BUN Creatinine Est GFR ( Amer) Est GFR (Non-Af Amer) POC Glucose (mg/dL) 195 H Random Glucose Hemoglobin A1c Calcium Phosphorus Magnesium Iron TIBC % Saturation Ferritin Total Bilirubin AST ALT Alkaline Phosphatase Total Protein Albumin Globulin Albumin/Globulin Ratio Triglycerides Cholesterol LDL Cholesterol Direct HDL Cholesterol Vitamin B12 Folate TSH 3rd Generation Ur Random Creatinine 66 Urine Opiates Screen Negative Urine Methadone Screen Negative Ur Barbiturates Screen Negative Ur Phencyclidine Scrn Negative Ur Amphetamines Screen Negative U Benzodiazepines Scrn Negative U Oth Cocaine Metabols Negative U Cannabinoids Screen Negative Hep Bs Antibody Intake & Output: Intake & Output 09/11/18 09/12/18 09/12/18 18:59 06:59 18:59 Intake Total 1500 Output Total 1700 Balance -200 Intake: Oral 1500 Output: Urine 1700 Suprapubic 1700 Other: # Bowel Movements 0 Vital Signs: Vital Signs - 24 hr 09/11/18 09/11/18 09/11/18 14:00 14:10 14:11 Temperature 98.8 F Pulse Rate 82 82 Respiratory 18 Rate Blood Pressure 198/126 H 198/126 H 198/126 H O2 Sat by Pulse 97 Oximetry 09/11/18 09/11/18 09/11/18 16:00 18:17 21:12 Temperature 98.7 F Pulse Rate 80 84 72 Respiratory 20 Rate Blood Pressure 160/96 H 157/95 H 137/75 O2 Sat by Pulse 92 L Oximetry 09/11/18 21:41 Temperature Pulse Rate 72 Respiratory Rate Blood Pressure 137/75 O2 Sat by Pulse Oximetry
[2018-09-12] MEDS: Multivitamin Therapeutic Tab PO SCH ×2 (08:38→10:59)
[2018-09-12] MEDS: Emtricitabine-Tenofovir 200 mg-300 mg Tab PO SCH (08:39)
[2018-09-12] MEDS: Insulin Detemir 100 units/ml Vial (Levemir) SC SCH ×3 (08:39→22:45)
[2018-09-12] MEDS: Insulin Reg-MEDIUM-Coverage SC SCH ×4 (08:40→22:45)
[2018-09-12 09:35] LABS: BASO # 0.01 K/mm3 (0.0-2.0); BASO % 0.1 % (0.0-3.0); EOS # 0.1 (0.0-0.7); EOS % 1.1 % (1.5-5.0); HEMOGLOBIN 9.1 g/dL (14.0-18.0); LYMPH # 3.5 (1.2-3.4); LYMPH % 42.6 % (22.0-35.0); MEAN CELL VOLUME 91.8 fl (80.0-105.0); MEAN CORPUSCULAR HEMOGLOBIN 27.7 pg (25.0-35.0); MEAN CORPUSCULAR HGB CONC 30.1 g/dl (31.0-37.0); MEAN PLATELET VOLUME 10.3 fl (7.0-11.0); MONO # 0.5 (0.1-0.6); MONO % 6.3 % (1.0-6.0); RBC 3.29 10^6/uL (3.5-6.1); RED CELL DISTRIBUTION WIDTH 12.4 % (11.5-14.5); WHITE BLOOD COUNT 8.2 10^3/uL (4.5-11.0)
[2018-09-12 09:47] LABS: ALB/GLOB RATIO 0.8 (1.1-1.8); ALBUMIN 3.2 g/dL (3.0-4.8); AST/SGOT 19 U/L (17-59); BLOOD UREA NITROGEN 24 mg/dL (7-21); CALCIUM 8.9 mg/dL (8.4-10.5); GFR NON-AFRICAN AMERICAN 23
[2018-09-12 09:53] LABS: ALT/SGPT < 6 U/L (7-56)
--- NOTE | 2018-09-12 10:20 | CP.PCM.PN ---
<Lisa Martinez - Last Filed: 09/12/18 10:16> Subjective - Date & Time of Evaluation Date of Evaluation: 09/12/18 Time of Evaluation: 08:00 - Subjective Subjective: Lisa Martinez PGY1 Medicine Progress Note Patient seen and examined at bedside this morning. Offers no new complaints today but continues to admit to mild right shoulder pain. Podiatry and wound care ordered. Objective - Vital Signs/Intake and Output Vital Signs (last 24 hours): Temp Pulse Resp BP Pulse Ox 98 F 92 H 20 150/101 H 100 09/12/18 07:00 09/12/18 07:00 09/12/18 07:00 09/12/18 08:37 09/12/18 07:00 Intake and Output: 09/12/18 09/12/18 06:59 18:59 Intake Total 1500 Output Total 1700 Balance -200 - Medications Medications: Current Medications Acetaminophen (Tylenol 325mg Tab) 650 mg PO Q4 PRN PRN Reason: Fever >100.4 F Last Admin: 09/12/18 01:54 Dose: 650 mg Amlodipine Besylate (Norvasc) 10 mg PO DAILY [facility] Last Admin: 09/12/18 08:37 Dose: 10 mg Calcium Acetate (Phoslo) 667 mg PO 0800,1700 [facility] Last Admin: 09/12/18 08:38 Dose: 667 mg Dextrose (Dextrose 50% Inj) 0 ml IV STAT PRN; Protocol PRN Reason: Hypoglycemia Protocol Emtricitabine/Tenofovir (Truvada 200 Mg-300 Mg) 1 tab PO QOD [facility]; Protocol Last Admin: 09/12/18 08:39 Dose: 1 tab Ferrous Gluconate (Fergon) 324 mg PO TID [facility] Last Admin: 09/12/18 08:38 Dose: 324 mg Furosemide (Lasix) 40 mg PO DAILY [facility] Last Admin: 09/12/18 08:37 Dose: 40 mg Heparin Sodium (Porcine) (Heparin) 5,000 units SC Q8 [facility]; Protocol Last Admin: 09/12/18 05:48 Dose: 5,000 units Hydralazine HCl (Apresoline) 10 mg IVP Q4H PRN PRN Reason: Systolic Blood Pressure Last Admin: 09/11/18 14:10 Dose: 10 mg Dextrose (Dextrose 5% In Water 1000 Ml) 1,000 mls @ 0 mls/hr IV .Q0M PRN; Protocol PRN Reason: Hypoglycemia Protocol Ceftriaxone Sodium (Rocephin 1 Gram Ivpb) 1 gm in 100 mls @ 100 mls/hr IVPB DAILY [facility]; Protocol Insulin Detemir (Levemir) 5 unit SC Q12 [facility] Last Admin: 09/12/18 08:39 Dose: 5 units Insulin Human Regular (Humulin R Med) 0 units SC ACHS [facility]; Protocol Last Admin: 09/12/18 08:40 Dose: 1 units Labetalol HCl (Trandate) 200 mg PO Q12 [facility] Last Admin: 09/12/18 08:37 Dose: 200 mg Losartan Potassium (Cozaar) 100 mg PO DAILY [facility] Last Admin: 09/12/18 08:39 Dose: 100 mg Multivitamins (Thera Tab) 1 tab PO DAILY [facility] Last Admin: 09/12/18 08:38 Dose: 1 tab Ondansetron HCl (Zofran Inj) 4 mg IVP Q6H PRN PRN Reason: Nausea/Vomiting Pantoprazole Sodium (Protonix Ec Tab) 40 mg PO 0600 [facility] Last Admin: 09/12/18 05:48 Dose: 40 mg Raltegravir (Isentress) 400 mg PO BID [facility]; Protocol Last Admin: 09/12/18 08:39 Dose: 400 mg Sucralfate (Carafate Oral Susp) 1 gm PO 0600,1600 [facility] Last Admin: 09/12/18 05:52 Dose: Not Given Tamsulosin HCl (Flomax) 0.4 mg PO DAILY [facility] Last Admin: 09/12/18 08:39 Dose: 0.4 mg - Labs Labs: 09/12/18 09:25 09/12/18 09:25 PT 12.2 SECONDS (9.4-12.5) 09/10/18 20:00 INR 1.10 09/10/18 20:00 APTT 44.2 Seconds (26.9-38.3) H 09/10/18 20:00 Physical Exam - Constitutional Appears: No Acute Distress, Confused - Head Exam Head Exam: ATRAUMATIC, NORMOCEPHALIC - Eye Exam Eye Exam: EOMI, PERRL - ENT Exam ENT Exam: Mucous Membranes Moist - Neck Exam Neck exam: Positive for: Full Rom, Normal Inspection - Respiratory Exam Respiratory Exam: Clear to Auscultation Bilateral, NORMAL BREATHING PATTERN. absent: Rales, Rhonchi, Wheezes - Cardiovascular Exam Cardiovascular Exam: REGULAR RHYTHM, +S1, +S2. absent: Systolic Murmur - GI/Abdominal Exam GI & Abdominal Exam: Normal Bowel Sounds, Soft. absent: Guarding, Tenderness - Exam Additional comments: suprapubic catheter draining yellow urine. Catheter insertin site is clean/non draining - Extremities Exam Extremities exam: Positive for: full ROM. Negative for: pedal edema Additional comments: R>L foot skin eczematous/peeling changes noted. Right arm has 4/5 muscle strength - Neurological Exam Neurological exam: Alert Additional comments: oriented to person only - Skin Skin Exam: Dry, Intact, Warm Assessment and Plan - Assessment and Plan (Free Text) Assessment: 58 yo M with PMH of intellectual disability, HIV (on HAART), DM2 (last A1c 9.2), CKD stage 4, HTN, urinary retention (s/p TURP), phimosis (s/p circumcision), urostomy tube, and recurrent UTI admitted for management of R shoulder pain and UTI. Patient admitted for complicated UTI. Podiatry pending for wound care. Plan: Complicated UTI -rocephin day 3 -ID on consult, Dr. Dickey, will follow antibiotic recommendations -Urology on consult, Dr. Canales -UA positive for nitrates, leuk esterase -urine culture positive for gram positive cocci, <100,000 R shoulder pain -Xray shows no acute process, fracture -Patient refused initial physical therapy eval -tylenol prn Hx of HTN -continue norvac 10mg, lasix 40mg, cozaar 100mg, labetalol 200mg q12 B/L foot wound -R > L foot eczematous changes -podiatry on consult, Dr. Casanova -wound culture pending -wound care Hx of CKD stage 4 -Nephrology on consult, Dr. Jason -maintain euvolemia -continue flomax, phoslo Hx of HIV -CD4 count pending -continue HAART therapy Hx DM2 -levemir 5 units q12 -ISS sliding scale -A1c 9% PPX -heparin and protonix -heart healthy, diabetic diet Patient seen and case discussed with attending, John Paul Bright <Fiorella Castrejon R - Last Filed: 09/13/18 07:47> Objective - Vital Signs/Intake and Output Vital Signs (last 24 hours): Temp Pulse Resp BP Pulse Ox 98.3 F 100 H 16 141/108 H 99 09/13/18 06:00 09/13/18 06:00 09/13/18 06:00 09/13/18 06:00 09/13/18 06:00 Intake and Output: 09/13/18 09/13/18 06:59 18:59 Intake Total 540 Output Total 1100 Balance -560 - Medications Medications: Current Medications Acetaminophen (Tylenol 325mg Tab) 650 mg PO Q4 PRN PRN Reason: Fever >100.4 F Last Admin: 09/12/18 01:54 Dose: 650 mg Amlodipine Besylate (Norvasc) 10 mg PO DAILY [facility] Last Admin: 09/12/18 10:58 Dose: Not Given Calcium Acetate (Phoslo) 667 mg PO 0800,1700 [facility] Last Admin: 09/12/18 17:52 Dose: 667 mg Dextrose (Dextrose 50% Inj) 0 ml IV STAT PRN; Protocol PRN Reason: Hypoglycemia Protocol Emtricitabine/Tenofovir (Truvada 200 Mg-300 Mg) 1 tab PO QOD [facility]; Protocol Last Admin: 09/12/18 08:39 Dose: 1 tab Ferrous Gluconate (Fergon) 324 mg PO TID [facility] Last Admin: 09/12/18 19:45 Dose: 324 mg Furosemide (Lasix) 40 mg PO DAILY [facility] Last Admin: 09/12/18 10:57 Dose: Not Given Heparin Sodium (Porcine) (Heparin) 5,000 units SC Q8 [facility]; Protocol Last Admin: 09/13/18 06:05 Dose: 5,000 units Hydralazine HCl (Apresoline) 10 mg IVP Q4H PRN PRN Reason: Systolic Blood Pressure Last Admin: 09/11/18 14:10 Dose: 10 mg Dextrose (Dextrose 5% In Water 1000 Ml) 1,000 mls @ 0 mls/hr IV .Q0M PRN; Protocol PRN Reason: Hypoglycemia Protocol Ceftriaxone Sodium (Rocephin 1 Gram Ivpb) 1 gm in 100 mls @ 100 mls/hr IVPB DAILY [facility]; Protocol Last Admin: 09/12/18 10:59 Dose: 100 mls/hr Insulin Detemir (Levemir) 5 unit SC Q12 [facility] Last Admin: 09/12/18 22:45 Dose: 5 units Insulin Human Regular (Humulin R Med) 0 units SC ACHS [facility]; Protocol Last Admin: 09/12/18 22:45 Dose: Not Given Labetalol HCl (Trandate) 200 mg PO Q12 [facility] Last Admin: 09/12/18 22:44 Dose: 200 mg Losartan Potassium (Cozaar) 100 mg PO DAILY [facility] Last Admin: 09/12/18 10:56 Dose: Not Given Multivitamins (Thera Tab) 1 tab PO DAILY [facility] Last Admin: 09/12/18 10:59 Dose: Not Given Ondansetron HCl (Zofran Inj) 4 mg IVP Q6H PRN PRN Reason: Nausea/Vomiting Pantoprazole Sodium (Protonix Ec Tab) 40 mg PO 0600 [facility] Last Admin: 09/13/18 06:04 Dose: 40 mg Raltegravir (Isentress) 400 mg PO BID [facility]; Protocol Last Admin: 09/12/18 19:46 Dose: 400 mg Sucralfate (Carafate Oral Susp) 1 gm PO 0600,1600 [facility] Last Admin: 09/13/18 06:04 Dose: Not Given Tamsulosin HCl (Flomax) 0.4 mg PO DAILY [facility] Last Admin: 09/12/18 10:57 Dose: Not Given - Labs Labs: 09/12/18 09:25 09/12/18 09:25 PT 12.2 SECONDS (9.4-12.5) 09/10/18 20:00 INR 1.10 09/10/18 20:00 APTT 44.2 Seconds (26.9-38.3) H 09/10/18 20:00 Attending/Attestation - Attestation I have personally seen and examined this patient.: Yes I have fully participated in the care of the patient.: Yes I have reviewed all pertinent clinical information, including history, physical exam and plan: Yes Notes (Text): Patient seen and examined by me with resident at 10:10 AM on 09/12/18. Case including HPI, physical exam, and assessment and plan discussed with resident. Agree with above with following additions/corrections. Patient is a 58-year-old male with past medical history significant for intellectual disability, HIV on HAART, type 2 diabetes, chronic kidney disease stage IV, hypertension, urinary retention status post TURP and suprapubic catheter, phimosis, urostomy tube, recurrent UTIs that presented to the emergency room with worsening of right shoulder pain and cloudy urine. Patient states he is feeling ok. Still with right shoulder pain. Patient has been refusing physical therapy. Counseled patient on importance of physical therapy. Patient denies abdominal pain. No nausea or vomiting. No chest pain or palpitations. No shortness of breath. No headaches or dizziness. No fevers or chills. Patient is tolerating diet. Physical exam: General: Awake and alert, sitting up in bed in no acute distress. HEENT: Normocephalic, atraumatic, Extraocular muscles intact, pupils equal and reactive, no scleral icterus. Oropharynx is pink and moist. Neck is supple. Cardiovascular: Normal rhythm. Normal S1 and S2. No murmurs, rubs, or gallops appreciated. Pulmonary: Normal respiratory effort. No rhonchi, rales, or wheezing carlos reciated. Gastrointestinal: Soft. Nontender. Nondistended. Positive bowel sounds all 4 quadrants. No guarding. Musculoskeletal: Moves all extremities. No calf tenderness. No edema appreciated. : Keenan in place with yellow urine output. Central nervous system: Awake and alert. CN 2-12 grossly intact. Dermatologic: Skin warm and dry. Assessment and plan: Patient is a 58-year-old male with past medical history significant for intellectual disability, HIV on HAART, type 2 diabetes, chronic kidney disease stage IV, hypertension, urinary retention status post TURP and suprapubic catheter, phimosis, urostomy tube, recurrent UTIs that presented to the emergency room with worsening of right shoulder pain and cloudy urine. 1. Right shoulder pain. Patient has been refusing physical therapy. Pending re- evaluation by PT today. Right shoulder xray per radiologist showed no significant or acute findings to account for/related to the clinical presentation. 2. UTI. Urostomy tube, urinary retention. Urine culture pending. Continue Rocephin. ID following, recommendations appreciated. Patient seen by urologist, Dr. Linda Segura. Primary urologist, likely colonization. Patient afebrile and leukocytosis. Continue Flomax. 3. Bilateral feet wounds. Continue local wound care. Wound cultures pending. P odiatry consulted, follow-up recommendations. Patient follows with Dr. Casanova as an outpatient. 4. Chronic kidney disease stage IV. Creatinine at baseline. Loom Operator Apprentice following, recommendations appreciated. Continue PhosLo. Continue to monitor. 5. Hypertension, uncontrolled. Continue Cozaar, Lasix, labetalol, and Norvasc. Adjustments made by complex care nurse practitioner. 6. Anemia of chronic disease. H&H stable. Continue ferrous gluconate. 7. Type 2 diabetes. Continue insulin sliding scale. Continue Levemir. Monitor Accu-Cheks. 8. HIV. Continue with HAART treatment. Continue Isentress. Continue Truvada. 9. GI/DVT prophylaxis. Protonix/heparin. Case was discussed in detail with the patient regarding current diagnosis and treatment plan. All questions answered.
[2018-09-12] MEDS: cefTRIAXone 1 gm 1 GM/100 ML BAG IVPB SCH (10:59)
--- NOTE | 2018-09-12 14:01 | CP.PCM.PN ---
Subjective - Date & Time of Evaluation Date of Evaluation: 09/12/18 Time of Evaluation: 13:59 - Subjective Subjective: Nephrology Consultation Note: Assessment: Stable fall, shoulder pain / UTI chronic obstructive uropathy with b/l hydronephrosis and CKD stage 3 with baseline cr 2.3-2.7 with ? mg proteinuria (R80.9) Hx of phimosis s/p circumcision, s/p TURP and suprapubic catheter pyuria and microscopic hematuria likely due to chronic indwelling SP catheter and bacterial colonization Diabetic chronic Kidney Disease (E11.22) Hypertensive Chronic Kidney Disease (I12.9) Anemia (D64.9), HTN (I12.9) HIV on HAART, charcoat foot, developmental delay, smoking hx Plan No acute need for renal replacement therapy at this time. Hypertension control with meds as ordered. Patient was on losartan, will resume it @ 100 mg/d with lasix 40 mg/day. added labetalol. check utox Monitor Input/Output, daily weights and renal function with basic metabolic panel continue with iron supplements, MVI and consider ROSLYN once BP better controlled. PRBC as needed eval. continue with flomax ID following avoid halfway use of Al based antacids such as carafate in CKD Check urine spot protein/creatinine and albumin/creatinine ratio Check for 25-OH vitamin D, iPTH, phosphorus level, iron indices Dose meds/antibiotics for reduced GFR. Avoid fleets enema/magnesium based laxatives. Avoid nephrotoxins/NSAIDs/ iodinated contrast (unless needed emergently) Glycemic control, low K diet Further work up/management as per primary team Thanks for allowing me to participate in care of your patient. Will follow patient with you. Please call if any Qs. had d/w team Dr Remigio Jason Office: [phone] Chief Complaint; shoulder pain HPI: Pt is a 58 M with hx of diabetes Mellitus ( years), hypertension (years) HIV on HAART, charcoat foot, phimosis s/p circumcision, s/p TURP and suprapubic catheter, chronic obstructive uropathy with hydronephrosis and CKD stage 3 with baseline cr 2.3-2.7, developmental delay, smoking hx presented with complaints of cloudy urine and shoulder pain. renal consult for CKD management pt verbally abusive and uncoperative BP in 200s when came ROS: pt still verbally abusive but more coperative. says shoulder hurt Physical Examination: pt refused to be examined for most part General Appearance: Comfortable, in no acute respiratory distress, unco- operative . Vitals reviewed and noted as below Head; Atraumatic, normocephalic Lungs: Normal respiratory rate/effort. b/l clear anteriorly Neurological: Patient is alert, awake Psych: lack insight : has SP catheter Labs/imaging reviewed. Past medical history, past surgical history, family history, social history, all ergy reviewed and noted as below Family hx: no hx of CKD. Rest non-contributory work up: CT b/l moderate hydronephrosis UA with 100 protein, large WBC and RBCs Hep B and C neg Objective - Vital Signs/Intake and Output Vital Signs (last 24 hours): Temp Pulse Resp BP Pulse Ox 98 F 92 H 20 150/101 H 100 09/12/18 07:00 09/12/18 07:00 09/12/18 07:00 09/12/18 08:37 09/12/18 07:00 Intake and Output: 09/12/18 09/12/18 06:59 18:59 Intake Total 1500 Output Total 1700 Balance -200 - Medications Medications: Current Medications Acetaminophen (Tylenol 325mg Tab) 650 mg PO Q4 PRN PRN Reason: Fever >100.4 F Last Admin: 09/12/18 01:54 Dose: 650 mg Amlodipine Besylate (Norvasc) 10 mg PO DAILY [facility] Last Admin: 09/12/18 10:58 Dose: Not Given Calcium Acetate (Phoslo) 667 mg PO 0800,1700 [facility] Last Admin: 09/12/18 08:38 Dose: 667 mg Dextrose (Dextrose 50% Inj) 0 ml IV STAT PRN; Protocol PRN Reason: Hypoglycemia Protocol Emtricitabine/Tenofovir (Truvada 200 Mg-300 Mg) 1 tab PO QOD [facility]; Protocol Last Admin: 09/12/18 08:39 Dose: 1 tab Ferrous Gluconate (Fergon) 324 mg PO TID [facility] Last Admin: 09/12/18 10:57 Dose: Not Given Furosemide (Lasix) 40 mg PO DAILY [facility] Last Admin: 09/12/18 10:57 Dose: Not Given Heparin Sodium (Porcine) (Heparin) 5,000 units SC Q8 [facility]; Protocol Last Admin: 09/12/18 05:48 Dose: 5,000 units Hydralazine HCl (Apresoline) 10 mg IVP Q4H PRN PRN Reason: Systolic Blood Pressure Last Admin: 09/11/18 14:10 Dose: 10 mg Dextrose (Dextrose 5% In Water 1000 Ml) 1,000 mls @ 0 mls/hr IV .Q0M PRN; Protocol PRN Reason: Hypoglycemia Protocol Ceftriaxone Sodium (Rocephin 1 Gram Ivpb) 1 gm in 100 mls @ 100 mls/hr IVPB DAILY [facility]; Protocol Last Admin: 09/12/18 10:59 Dose: 100 mls/hr Insulin Detemir (Levemir) 5 unit SC Q12 [facility] Last Admin: 09/12/18 10:57 Dose: Not Given Insulin Human Regular (Humulin R Med) 0 units SC ACHS [facility]; Protocol Last Admin: 09/12/18 08:40 Dose: 1 units Labetalol HCl (Trandate) 200 mg PO Q12 [facility] Last Admin: 09/12/18 10:59 Dose: Not Given Losartan Potassium (Cozaar) 100 mg PO DAILY [facility] Last Admin: 09/12/18 10:56 Dose: Not Given Multivitamins (Thera Tab) 1 tab PO DAILY [facility] Last Admin: 09/12/18 10:59 Dose: Not Given Ondansetron HCl (Zofran Inj) 4 mg IVP Q6H PRN PRN Reason: Nausea/Vomiting Pantoprazole Sodium (Protonix Ec Tab) 40 mg PO 0600 [facility] Last Admin: 09/12/18 05:48 Dose: 40 mg Raltegravir (Isentress) 400 mg PO BID [facility]; Protocol Last Admin: 09/12/18 10:57 Dose: Not Given Sucralfate (Carafate Oral Susp) 1 gm PO 0600,1600 [facility] Last Admin: 09/12/18 05:52 Dose: Not Given Tamsulosin HCl (Flomax) 0.4 mg PO DAILY [facility] Last Admin: 09/12/18 10:57 Dose: Not Given - Labs Labs: 09/12/18 09:25 09/12/18 09:25 PT 12.2 SECONDS (9.4-12.5) 09/10/18 20:00 INR 1.10 09/10/18 20:00 APTT 44.2 Seconds (26.9-38.3) H 09/10/18 20:00
--- NOTE | 2018-09-12 15:48 | CP.PCM.CON ---
<Radha Maier - Last Filed: 09/12/18 15:45> History of Present Illness - History of Present Illness History of Present Illness: Podiatry Consult Note: Dr. Lopez 57M patient, with PMHx HIV, HTN, CKD, DM, Charcot foot, mental handicap, seen and evaluate for b/l lower extremity evaluation. Patient states that he is a longstanding patient of Dr. Casanova and wanted his feet checked for any open wounds or signs of infection. Patient denies any pain to b/l lower extremities at this time. Denies nausea/vomiting/fever/shortness of breath/chest pain. Review of Systems - Constitutional Constitutional: As Per HPI Past Patient History - Infectious Disease Hx of Infectious Diseases: None - Tetanus Immunizations Tetanus Immunization: Unknown - Past Medical History & Family History Past Medical History?: Yes - Past Social History Smoking Status: Heavy Smoker > 10 Cigarettes Daily - CARDIAC Hx Pacemaker: No - PULMONARY Hx Respiratory Disorders: No - NEUROLOGICAL Hx Neurological Disorder: Yes (MENTALLY IMPAIRED SINCE ) Hx Dizziness: Yes - HEENT Hx HEENT Problems: Yes - RENAL Hx Chronic Kidney Disease: Yes (RENAL INSUFFICIENCY) Other/Comment: HYDRONEPHROSIS - ENDOCRINE/METABOLIC Hx Endocrine Disorders: Yes Hx Diabetes Mellitus Type 2: Yes - HEMATOLOGICAL/ONCOLOGICAL Hx Blood Disorders: Yes - INTEGUMENTARY Hx Dermatological Problems: Yes Other/Comment: FOOT INFECTION - MUSCULOSKELETAL/RHEUMATOLOGICAL Hx Musculoskeletal Disorders: Yes (HX LEG FX) Hx Falls: No - GASTROINTESTINAL Hx Gastrointestinal Disorders: Yes (HX:VOMITTING, LOSS OF APPETITE) - GENITOURINARY/GYNECOLOGICAL Hx Genitourinary Disorders: Yes Hx Urinary Tract Infection: Yes Other/Comment: EPIDIDYMITIS, SUPRAPUBIC TUBE - PSYCHIATRIC Hx Emotional Abuse: No Hx Physical Abuse: No - SURGICAL HISTORY Other/Comment: UROSTOMY - ANESTHESIA Hx Anesthesia Reactions: No Hx Malignant Hyperthermia: No Meds Allergies/Adverse Reactions: Allergies Allergy/AdvReac Type Severity Reaction Status Date / Time No Known Allergies Allergy Verified 09/10/18 18:34 - Medications Medications: Current Medications Acetaminophen (Tylenol 325mg Tab) 650 mg PO Q4 PRN PRN Reason: Fever >100.4 F Last Admin: 09/12/18 01:54 Dose: 650 mg Amlodipine Besylate (Norvasc) 10 mg PO DAILY [facility] Last Admin: 09/12/18 10:58 Dose: Not Given Calcium Acetate (Phoslo) 667 mg PO 0800,1700 [facility] Last Admin: 09/12/18 08:38 Dose: 667 mg Dextrose (Dextrose 50% Inj) 0 ml IV STAT PRN; Protocol PRN Reason: Hypoglycemia Protocol Emtricitabine/Tenofovir (Truvada 200 Mg-300 Mg) 1 tab PO QOD [facility]; Protocol Last Admin: 09/12/18 08:39 Dose: 1 tab Ferrous Gluconate (Fergon) 324 mg PO TID [facility] Last Admin: 09/12/18 10:57 Dose: Not Given Furosemide (Lasix) 40 mg PO DAILY [facility] Last Admin: 09/12/18 10:57 Dose: Not Given Heparin Sodium (Porcine) (Heparin) 5,000 units SC Q8 [facility]; Protocol Last Admin: 09/12/18 05:48 Dose: 5,000 units Hydralazine HCl (Apresoline) 10 mg IVP Q4H PRN PRN Reason: Systolic Blood Pressure Last Admin: 09/11/18 14:10 Dose: 10 mg Dextrose (Dextrose 5% In Water 1000 Ml) 1,000 mls @ 0 mls/hr IV .Q0M PRN; Protocol PRN Reason: Hypoglycemia Protocol Ceftriaxone Sodium (Rocephin 1 Gram Ivpb) 1 gm in 100 mls @ 100 mls/hr IVPB DAILY [facility]; Protocol Last Admin: 09/12/18 10:59 Dose: 100 mls/hr Insulin Detemir (Levemir) 5 unit SC Q12 [facility] Last Admin: 09/12/18 10:57 Dose: Not Given Insulin Human Regular (Humulin R Med) 0 units SC ACHS [facility]; Protocol Last Admin: 09/12/18 12:00 Dose: Not Given Labetalol HCl (Trandate) 200 mg PO Q12 [facility] Last Admin: 09/12/18 10:59 Dose: Not Given Losartan Potassium (Cozaar) 100 mg PO DAILY [facility] Last Admin: 09/12/18 10:56 Dose: Not Given Multivitamins (Thera Tab) 1 tab PO DAILY [facility] Last Admin: 09/12/18 10:59 Dose: Not Given Ondansetron HCl (Zofran Inj) 4 mg IVP Q6H PRN PRN Reason: Nausea/Vomiting Pantoprazole Sodium (Protonix Ec Tab) 40 mg PO 0600 [facility] Last Admin: 09/12/18 05:48 Dose: 40 mg Raltegravir (Isentress) 400 mg PO BID [facility]; Protocol Last Admin: 09/12/18 10:57 Dose: Not Given Sucralfate (Carafate Oral Susp) 1 gm PO 0600,1600 [facility] Last Admin: 09/12/18 05:52 Dose: Not Given Tamsulosin HCl (Flomax) 0.4 mg PO DAILY [facility] Last Admin: 09/12/18 10:57 Dose: Not Given Physical Exam - Constitutional Appears: Non-toxic, No Acute Distress - Head Exam Head Exam: ATRAUMATIC, NORMOCEPHALIC - Extremities Exam Additional comments: LLE focused exam Vasc: DP/PT pulses fully palpable 2/4 b/l. Skin temperature warm to warm from proximal to distal. CFT < 3 seconds to all digits b/l. No edema noted b/l Neuro: Gross sensation diminished, protective sensation absent Derm: Significant xerosis and hyperkeratotic tissue appreciated to b/l lower extremities. No open lesions, no erythema, no clinical signs of infection Ortho: No pain with palpation of b/l lower extremity, no pain with calf aminah tulio, MMT 5/5 in all major muscle groups. - Neurological Exam Neurological exam: Alert, Oriented x3 - Psychiatric Exam Psychiatric exam: Normal Affect, Normal Mood Results - Vital Signs Recent Vital Signs: Last Vital Signs Temp 98 F 09/12/18 15:32 Pulse 86 09/12/18 15:32 Resp 18 09/12/18 15:32 BP 117/78 09/12/18 15:32 Pulse Ox 99 09/12/18 15:32 - Labs Result Diagrams: 09/12/18 09:25 09/12/18 09:25 Labs: Laboratory Results - last 24 hr 09/11/18 09/11/18 09/11/18 13:30 13:30 13:30 WBC RBC Hgb Hct MCV MCH MCHC RDW Plt Count MPV Neut % (Auto) Lymph % (Auto) [place] % (Auto) Eos % (Auto) Baso % (Auto) Lymph # (Auto) [place] # (Auto) Eos # (Auto) Baso # (Auto) Absolute Neuts (auto) Sodium Potassium Chloride Carbon Dioxide Anion Gap BUN Creatinine Est GFR ( Amer) Est GFR (Non-Af Amer) POC Glucose (mg/dL) Random Glucose Hemoglobin A1c 8.1 H Calcium Ferritin 159.0 Total Bilirubin AST ALT Alkaline Phosphatase Total Protein Albumin Globulin Albumin/Globulin Ratio Vitamin B12 524 Folate 9.6 Ur Random Creatinine Urine Opiates Screen Urine Methadone Screen Ur Barbiturates Screen Ur Phencyclidine Scrn Ur Amphetamines Screen U Benzodiazepines Scrn U Oth Cocaine Metabols U Cannabinoids Screen Hep Bs Antibody Negative 09/11/18 09/11/18 09/12/18 16:21 21:18 01:00 WBC RBC Hgb Hct MCV MCH MCHC RDW Plt Count MPV Neut % (Auto) Lymph % (Auto) [place] % (Auto) Eos % (Auto) Baso % (Auto) Lymph # (Auto) [place] # (Auto) Eos # (Auto) Baso # (Auto) Absolute Neuts (auto) Sodium Potassium Chloride Carbon Dioxide Anion Gap BUN Creatinine Est GFR ( Amer) Est GFR (Non-Af Amer) POC Glucose (mg/dL) 312 H 168 H Random Glucose Hemoglobin A1c Calcium Ferritin Total Bilirubin AST ALT Alkaline Phosphatase Total Protein Albumin Globulin Albumin/Globulin Ratio Vitamin B12 Folate Ur Random Creatinine 66 Urine Opiates Screen Urine Methadone Screen Ur Barbiturates Screen Ur Phencyclidine Scrn Ur Amphetamines Screen U Benzodiazepines Scrn U Oth Cocaine Metabols U Cannabinoids Screen Hep Bs Antibody 09/12/18 09/12/18 09/12/18 01:00 06:47 09:25 WBC 8.2 RBC 3.29 L Hgb 9.1 L Hct 30.2 L MCV 91.8 MCH 27.7 MCHC 30.1 L RDW 12.4 Plt Count 202 MPV 10.3 Neut % (Auto) 49.9 L Lymph % (Auto) 42.6 H [place] % (Auto) 6.3 H Eos % (Auto) 1.1 L Baso % (Auto) 0.1 Lymph # (Auto) 3.5 H [place] # (Auto) 0.5 Eos # (Auto) 0.1 Baso # (Auto) 0.01 Absolute Neuts (auto) 4.10 Sodium Potassium Chloride Carbon Dioxide Anion Gap BUN Creatinine Est GFR ( Amer) Est GFR (Non-Af Amer) POC Glucose (mg/dL) 195 H Random Glucose Hemoglobin A1c Calcium Ferritin Total Bilirubin AST ALT Alkaline Phosphatase Total Protein Albumin Globulin Albumin/Globulin Ratio Vitamin B12 Folate Ur Random Creatinine Urine Opiates Screen Negative Urine Methadone Screen Negative Ur Barbiturates Screen Negative Ur Phencyclidine Scrn Negative Ur Amphetamines Screen Negative U Benzodiazepines Scrn Negative U Oth Cocaine Metabols Negative U Cannabinoids Screen Negative Hep Bs Antibody 09/12/18 09:25 WBC RBC Hgb Hct MCV MCH MCHC RDW Plt Count MPV Neut % (Auto) Lymph % (Auto) [place] % (Auto) Eos % (Auto) Baso % (Auto) Lymph # (Auto) [place] # (Auto) Eos # (Auto) Baso # (Auto) Absolute Neuts (auto) Sodium 138 Potassium 4.0 Chloride 105 Carbon Dioxide 26 Anion Gap 10 BUN 24 H Creatinine 2.9 H Est GFR ( Amer) 27 Est GFR (Non-Af Amer) 23 POC Glucose (mg/dL) Random Glucose 217 H Hemoglobin A1c Calcium 8.9 Ferritin Total Bilirubin 0.4 AST 19 ALT < 6 L Alkaline Phosphatase 78 Total Protein 7.3 Albumin 3.2 Globulin 4.0 Albumin/Globulin Ratio 0.8 L Vitamin B12 Folate Ur Random Creatinine Urine Opiates Screen Urine Methadone Screen Ur Barbiturates Screen Ur Phencyclidine Scrn Ur Amphetamines Screen U Benzodiazepines Scrn U Oth Cocaine Metabols U Cannabinoids Screen Hep Bs Antibody Assessment & Plan - Assessment and Plan (Free Text) Assessment: 57M seen and evaluated at bedside for b/l lower extremity evaluation Plan: Patient seen and evaluated Discussed with attending Dr. Lopez Multipodus boots to be worn at all times while in bed Educated patient on importance of checking feet daily for any open lesions or wounds No plan for surgical intvervention at this time - Date & Time Date: 09/12/18 Time: 15:53 <Geoff Lopez - Last Filed: 09/12/18 18:13> Meds - Medications Medications: Current Medications Acetaminophen (Tylenol 325mg Tab) 650 mg PO Q4 PRN PRN Reason: Fever >100.4 F Last Admin: 09/12/18 01:54 Dose: 650 mg Amlodipine Besylate (Norvasc) 10 mg PO DAILY [facility] Last Admin: 09/12/18 10:58 Dose: Not Given Calcium Acetate (Phoslo) 667 mg PO 0800,1700 [facility] Last Admin: 09/12/18 17:52 Dose: 667 mg Dextrose (Dextrose 50% Inj) 0 ml IV STAT PRN; Protocol PRN Reason: Hypoglycemia Protocol Emtricitabine/Tenofovir (Truvada 200 Mg-300 Mg) 1 tab PO QOD [facility]; Protocol Last Admin: 09/12/18 08:39 Dose: 1 tab Ferrous Gluconate (Fergon) 324 mg PO TID [facility] Last Admin: 09/12/18 15:28 Dose: 324 mg Furosemide (Lasix) 40 mg PO DAILY [facility] Last Admin: 09/12/18 10:57 Dose: Not Given Heparin Sodium (Porcine) (Heparin) 5,000 units SC Q8 [facility]; Protocol Last Admin: 09/12/18 15:28 Dose: 5,000 units Hydralazine HCl (Apresoline) 10 mg IVP Q4H PRN PRN Reason: Systolic Blood Pressure Last Admin: 09/11/18 14:10 Dose: 10 mg Dextrose (Dextrose 5% In Water 1000 Ml) 1,000 mls @ 0 mls/hr IV .Q0M PRN; Protocol PRN Reason: Hypoglycemia Protocol Ceftriaxone Sodium (Rocephin 1 Gram Ivpb) 1 gm in 100 mls @ 100 mls/hr IVPB DAILY [facility]; Protocol Last Admin: 09/12/18 10:59 Dose: 100 mls/hr Insulin Detemir (Levemir) 5 unit SC Q12 [facility] Last Admin: 09/12/18 10:57 Dose: Not Given Insulin Human Regular (Humulin R Med) 0 units SC ACHS [facility]; Protocol Last Admin: 09/12/18 17:51 Dose: 3 units Labetalol HCl (Trandate) 200 mg PO Q12 [facility] Last Admin: 09/12/18 10:59 Dose: Not Given Losartan Potassium (Cozaar) 100 mg PO DAILY [facility] Last Admin: 09/12/18 10:56 Dose: Not Given Multivitamins (Thera Tab) 1 tab PO DAILY [facility] Last Admin: 09/12/18 10:59 Dose: Not Given Ondansetron HCl (Zofran Inj) 4 mg IVP Q6H PRN PRN Reason: Nausea/Vomiting Pantoprazole Sodium (Protonix Ec Tab) 40 mg PO 0600 [facility] Last Admin: 09/12/18 05:48 Dose: 40 mg Raltegravir (Isentress) 400 mg PO BID [facility]; Protocol Last Admin: 09/12/18 10:57 Dose: Not Given Sucralfate (Carafate Oral Susp) 1 gm PO 0600,1600 [facility] Last Admin: 09/12/18 15:28 Dose: 1 gm Tamsulosin HCl (Flomax) 0.4 mg PO DAILY [facility] Last Admin: 09/12/18 10:57 Dose: Not Given Results - Vital Signs Recent Vital Signs: Last Vital Signs Temp 98 F 09/12/18 15:32 Pulse 86 09/12/18 15:32 Resp 18 09/12/18 15:32 BP 117/78 09/12/18 15:32 Pulse Ox 99 09/12/18 15:32 - Labs Result Diagrams: 09/12/18 09:25 09/12/18 09:25 Labs: Laboratory Results - last 24 hr 09/11/18 09/11/18 09/11/18 13:30 13:30 13:30 WBC RBC Hgb Hct MCV MCH MCHC RDW Plt Count MPV Neut % (Auto) Lymph % (Auto) [place] % (Auto) Eos % (Auto) Baso % (Auto) Lymph # (Auto) [place] # (Auto) Eos # (Auto) Baso # (Auto) Absolute Neuts (auto) Sodium Potassium Chloride Carbon Dioxide Anion Gap BUN Creatinine Est GFR ( Amer) Est GFR (Non-Af Amer) POC Glucose (mg/dL) Random Glucose Hemoglobin A1c 8.1 H Calcium Ferritin 159.0 Total Bilirubin AST ALT Alkaline Phosphatase Total Protein Albumin Globulin Albumin/Globulin Ratio Vitamin B12 524 Folate 9.6 PTH Intact Whole Molec Ur Random Creatinine Urine Opiates Screen Urine Methadone Screen Ur Barbiturates Screen Ur Phencyclidine Scrn Ur Amphetamines Screen U Benzodiazepines Scrn U Oth Cocaine Metabols U Cannabinoids Screen Hep Bs Antibody Negative 09/11/18 09/11/18 09/12/18 13:30 21:18 01:00 WBC RBC Hgb Hct MCV MCH MCHC RDW Plt Count MPV Neut % (Auto) Lymph % (Auto) [place] % (Auto) Eos % (Auto) Baso % (Auto) Lymph # (Auto) [place] # (Auto) Eos # (Auto) Baso # (Auto) Absolute Neuts (auto) Sodium Potassium Chloride Carbon Dioxide Anion Gap BUN Creatinine Est GFR ( Amer) Est GFR (Non-Af Amer) POC Glucose (mg/dL) 168 H Random Glucose Hemoglobin A1c Calcium Ferritin Total Bilirubin AST ALT Alkaline Phosphatase Total Protein Albumin Globulin Albumin/Globulin Ratio Vitamin B12 Folate PTH Intact Whole Molec 113 H Ur Random Creatinine 66 Urine Opiates Screen Urine Methadone Screen Ur Barbiturates Screen Ur Phencyclidine Scrn Ur Amphetamines Screen U Benzodiazepines Scrn U Oth Cocaine Metabols U Cannabinoids Screen Hep Bs Antibody 09/12/18 09/12/18 09/12/18 01:00 06:47 09:25 WBC 8.2 RBC 3.29 L Hgb 9.1 L Hct 30.2 L MCV 91.8 MCH 27.7 MCHC 30.1 L RDW 12.4 Plt Count 202 MPV 10.3 Neut % (Auto) 49.9 L Lymph % (Auto) 42.6 H [place] % (Auto) 6.3 H Eos % (Auto) 1.1 L Baso % (Auto) 0.1 Lymph # (Auto) 3.5 H [place] # (Auto) 0.5 Eos # (Auto) 0.1 Baso # (Auto) 0.01 Absolute Neuts (auto) 4.10 Sodium Potassium Chloride Carbon Dioxide Anion Gap BUN Creatinine Est GFR ( Amer) Est GFR (Non-Af Amer) POC Glucose (mg/dL) 195 H Random Glucose Hemoglobin A1c Calcium Ferritin Total Bilirubin AST ALT Alkaline Phosphatase Total Protein Albumin Globulin Albumin/Globulin Ratio Vitamin B12 Folate PTH Intact Whole Molec Ur Random Creatinine Urine Opiates Screen Negative Urine Methadone Screen Negative Ur Barbiturates Screen Negative Ur Phencyclidine Scrn Negative Ur Amphetamines Screen Negative U Benzodiazepines Scrn Negative U Oth Cocaine Metabols Negative U Cannabinoids Screen Negative Hep Bs Antibody 09/12/18 09/12/18 09/12/18 09:25 11:31 16:13 WBC RBC Hgb Hct MCV MCH MCHC RDW Plt Count MPV Neut % (Auto) Lymph % (Auto) [place] % (Auto) Eos % (Auto) Baso % (Auto) Lymph # (Auto) [place] # (Auto) Eos # (Auto) Baso # (Auto) Absolute Neuts (auto) Sodium 138 Potassium 4.0 Chloride 105 Carbon Dioxide 26 Anion Gap 10 BUN 24 H Creatinine 2.9 H Est GFR ( Amer) 27 Est GFR (Non-Af Amer) 23 POC Glucose (mg/dL) 195 H 294 H Random Glucose 217 H Hemoglobin A1c Calcium 8.9 Ferritin Total Bilirubin 0.4 AST 19 ALT < 6 L Alkaline Phosphatase 78 Total Protein 7.3 Albumin 3.2 Globulin 4.0 Albumin/Globulin Ratio 0.8 L Vitamin B12 Folate PTH Intact Whole Molec Ur Random Creatinine Urine Opiates Screen Urine Methadone Screen Ur Barbiturates Screen Ur Phencyclidine Scrn Ur Amphetamines Screen U Benzodiazepines Scrn U Oth Cocaine Metabols U Cannabinoids Screen Hep Bs Antibody Attending/Attestation - Attestation I have personally seen and examined this patient.: Yes I have fully participated in the care of the patient.: Yes I have reviewed all pertinent clinical information: Yes
--- NOTE | 2018-09-12 17:34 | CP.PCM.PN ---
Subjective - Date & Time of Evaluation Date of Evaluation: 09/12/18 Time of Evaluation: 14:00 - Subjective Subjective: Infectious Disease Follow Up: September 12, 2018 58 year old male with PMH of intellectual disability, HIV (on HAART), DM2 (last A1c 9.2), CKD stage 4, HTN, urinary retention (s/p TURP), phimosis (s/p circumcision), urostomy tube, and recurrent UTI brought to ER by family for worsening R shoulder pain and cloudy urine. They state that patient fell on the right side of his wheelchair this AM and has been having shoulder pain ever since. Urine cultures pending. Difficult to obtain information from the patient. Urine showing growth. Gram positive cocci and Corynebacterium in left foot wound. On Rocephin currently. Objective - Vital Signs/Intake and Output Vital Signs (last 24 hours): Temp Pulse Resp BP Pulse Ox 98 F 86 18 117/78 99 09/12/18 15:32 09/12/18 15:32 09/12/18 15:32 09/12/18 15:32 09/12/18 15:32 Intake and Output: 09/12/18 09/12/18 06:59 18:59 Intake Total 1500 Output Total 1700 Balance -200 - Medications Medications: Current Medications Acetaminophen (Tylenol 325mg Tab) 650 mg PO Q4 PRN PRN Reason: Fever >100.4 F Last Admin: 09/12/18 01:54 Dose: 650 mg Amlodipine Besylate (Norvasc) 10 mg PO DAILY [facility] Last Admin: 09/12/18 10:58 Dose: Not Given Calcium Acetate (Phoslo) 667 mg PO 0800,1700 [facility] Last Admin: 09/12/18 08:38 Dose: 667 mg Dextrose (Dextrose 50% Inj) 0 ml IV STAT PRN; Protocol PRN Reason: Hypoglycemia Protocol Emtricitabine/Tenofovir (Truvada 200 Mg-300 Mg) 1 tab PO QOD [facility]; Protocol Last Admin: 09/12/18 08:39 Dose: 1 tab Ferrous Gluconate (Fergon) 324 mg PO TID [facility] Last Admin: 09/12/18 15:28 Dose: 324 mg Furosemide (Lasix) 40 mg PO DAILY [facility] Last Admin: 09/12/18 10:57 Dose: Not Given Heparin Sodium (Porcine) (Heparin) 5,000 units SC Q8 [facility]; Protocol Last Admin: 09/12/18 15:28 Dose: 5,000 units Hydralazine HCl (Apresoline) 10 mg IVP Q4H PRN PRN Reason: Systolic Blood Pressure Last Admin: 09/11/18 14:10 Dose: 10 mg Dextrose (Dextrose 5% In Water 1000 Ml) 1,000 mls @ 0 mls/hr IV .Q0M PRN; Protocol PRN Reason: Hypoglycemia Protocol Ceftriaxone Sodium (Rocephin 1 Gram Ivpb) 1 gm in 100 mls @ 100 mls/hr IVPB DAILY [facility]; Protocol Last Admin: 09/12/18 10:59 Dose: 100 mls/hr Insulin Detemir (Levemir) 5 unit SC Q12 [facility] Last Admin: 09/12/18 10:57 Dose: Not Given Insulin Human Regular (Humulin R Med) 0 units SC ACHS [facility]; Protocol Last Admin: 09/12/18 12:00 Dose: Not Given Labetalol HCl (Trandate) 200 mg PO Q12 [facility] Last Admin: 09/12/18 10:59 Dose: Not Given Losartan Potassium (Cozaar) 100 mg PO DAILY [facility] Last Admin: 09/12/18 10:56 Dose: Not Given Multivitamins (Thera Tab) 1 tab PO DAILY [facility] Last Admin: 09/12/18 10:59 Dose: Not Given Ondansetron HCl (Zofran Inj) 4 mg IVP Q6H PRN PRN Reason: Nausea/Vomiting Pantoprazole Sodium (Protonix Ec Tab) 40 mg PO 0600 [facility] Last Admin: 09/12/18 05:48 Dose: 40 mg Raltegravir (Isentress) 400 mg PO BID [facility]; Protocol Last Admin: 09/12/18 10:57 Dose: Not Given Sucralfate (Carafate Oral Susp) 1 gm PO 0600,1600 [facility] Last Admin: 09/12/18 15:28 Dose: 1 gm Tamsulosin HCl (Flomax) 0.4 mg PO DAILY [facility] Last Admin: 09/12/18 10:57 Dose: Not Given - Labs Labs: 09/12/18 09:25 09/12/18 09:25 PT 12.2 SECONDS (9.4-12.5) 09/10/18 20:00 INR 1.10 09/10/18 20:00 APTT 44.2 Seconds (26.9-38.3) H 09/10/18 20:00 - Constitutional Appears: Non-toxic, No Acute Distress, Chronically Ill - Head Exam Head Exam: ATRAUMATIC, NORMOCEPHALIC - Eye Exam Eye Exam: EOMI, PERRL Pupil Exam: NORMAL ACCOMODATION, PERRL - ENT Exam ENT Exam: Mucous Membranes Moist, Normal External Ear Exam, TM's Normal Bilaterally - Neck Exam Neck Exam: Full ROM, Normal Inspection - Respiratory Exam Respiratory Exam: Clear to Ausculation Bilateral, NORMAL BREATHING PATTERN. absent: Rales, Rhonchi, Wheezes - Cardiovascular Exam Cardiovascular Exam: REGULAR RHYTHM, RRR, +S1, +S2 - GI/Abdominal Exam GI & Abdominal Exam: Soft, Normal Bowel Sounds. absent: Distended, Tenderness - Exam Additional comments: suprapubic catheter draining yellow urine. - Extremities Exam Extremities Exam: Full ROM. absent: Joint Swelling, Pedal Edema - Neurological Exam Neurological Exam: Alert, Awake, CN II-XII Intact Additional comments: AAO x 1, mentally delayed. - Skin Skin Exam: Dry, Intact, Normal Color, Warm Assessment and Plan - Assessment and Plan (Free Text) Assessment: 58 yo M with PMH of intellectual disability, HIV (on HAART), DM2 (last A1c 9.2), CKD stage 4, HTN, urinary retention (s/p TURP), phimosis (s/p circumcision), urostomy tube, and recurrent UTI admitted for Right shoulder pain and r/o UTI. Urinalysis with signs of UTI. Started on Rocephin for now. The patient has HIV on HAART. Check CD4 and HIV Viral load. Continue HAART. Patient is a poor historian and confused. He is mentally delayed. Wound cultures showing gram positive cocci and corynebacterium. Continue on Rocephin until sensitivities and identifications return. Supportive care. Awaiting urine cultures. No leukocytosis. Afebrile. Thank you for allowing me to participate in the care of the patient, we will follow with you.
[2018-09-13] MEDS: Sucralfate 1 gm/10 ml Oral Susp UD PO SCH ×2 (06:04→17:24)
[2018-09-13] MEDS: Pantoprazole 40 mg EC Tab PO SCH (06:04)
[2018-09-13 08:05] LABS: BASO # 0.02 K/mm3 (0.0-2.0); BASO % 0.3 % (0.0-3.0); EOS # 0.1 (0.0-0.7); EOS % 1.2 % (1.5-5.0); HEMOGLOBIN 9.7 g/dL (14.0-18.0); LYMPH # 3.4 (1.2-3.4); LYMPH % 45.6 % (22.0-35.0); MEAN CELL VOLUME 91.6 fl (80.0-105.0); MEAN CORPUSCULAR HEMOGLOBIN 27.2 pg (25.0-35.0); MEAN CORPUSCULAR HGB CONC 29.8 g/dl (31.0-37.0); MEAN PLATELET VOLUME 11.5 fl (7.0-11.0); MONO # 0.7 (0.1-0.6); MONO % 9.2 % (1.0-6.0); RBC 3.56 10^6/uL (3.5-6.1); RED CELL DISTRIBUTION WIDTH 12.3 % (11.5-14.5); WHITE BLOOD COUNT 7.5 10^3/uL (4.5-11.0)
[2018-09-13 08:09] LABS: ALB/GLOB RATIO 0.7 (1.1-1.8); ALBUMIN 3.1 g/dL (3.0-4.8)
[2018-09-13] MEDS: Insulin Reg-MEDIUM-Coverage SC SCH ×5 (08:12→22:03)
[2018-09-13] MEDS: Insulin Detemir 100 units/ml Vial (Levemir) SC SCH ×2 (10:41→22:03)
[2018-09-13] MEDS: cefTRIAXone 1 gm 1 GM/100 ML BAG IVPB SCH (10:44)
[2018-09-13] MEDS: Multivitamin Therapeutic Tab PO SCH (10:44)
[2018-09-13] MEDS: Emtricitabine-Tenofovir 200 mg-300 mg Tab PO SCH (10:45)
--- NOTE | 2018-09-13 11:14 | CP.PCM.PN ---
Subjective - Date & Time of Evaluation Date of Evaluation: 09/13/18 Time of Evaluation: 11:13 - Subjective Subjective: Nephrology Consultation Note: Assessment: Stable fall, shoulder pain / UTI uncontrolled severe HTN with urgency chronic obstructive uropathy with b/l hydronephrosis and CKD stage 3 with baseline cr 2.3-2.7 with 1000 mg albuminuria (R80.9) Hx of phimosis s/p circumcision, s/p TURP and suprapubic catheter pyuria and microscopic hematuria likely due to chronic indwelling SP catheter and bacterial colonization Diabetic chronic Kidney Disease (E11.22) Hypertensive Chronic Kidney Disease (I12.9) Anemia (D64.9), HTN (I12.9) HIV on HAART, charcoat foot, developmental delay, smoking hx Plan No acute need for renal replacement therapy at this time. Hypertension control with meds as ordered. Patient was on losartan, will resume it @ 100 mg/d with lasix 40 mg/day. Increased labetalol 300 bid. Monitor Input/Output, daily weights and renal function with basic metabolic panel continue with iron supplements, MVI and consider ROSLYN once BP better controlled. PRBC as needed eval. continue with flomax ID following avoid group home use of Al based antacids such as carafate in CKD Check urine spot protein/creatinine and albumin/creatinine ratio Check for 25-OH vitamin D, iPTH, phosphorus level, iron indices Dose meds/antibiotics for reduced GFR. Avoid fleets enema/magnesium based laxatives. Avoid nephrotoxins/NSAIDs/ iodinated contrast (unless needed emergently) Glycemic control, low K diet Further work up/management as per primary team Thanks for allowing me to participate in care of your patient. Will follow patient with you. Please call if any Qs. had d/w team Dr Remigio Jason Office: [phone] Chief Complaint; shoulder pain HPI: Pt is a 58 M with hx of diabetes Mellitus ( years), hypertension (years) HIV on HAART, charcoat foot, phimosis s/p circumcision, s/p TURP and suprapubic catheter, chronic obstructive uropathy with hydronephrosis and CKD stage 3 with baseline cr 2.3-2.7, developmental delay, smoking hx presented with complaints of cloudy urine and shoulder pain. renal consult for CKD management pt verbally abusive and uncoperative BP in 200s when came ROS: pt still verbally abusive but more coperative. Physical Examination: pt refused to be examined for most part General Appearance: Comfortable, in no acute respiratory distress, unco-op erative . Vitals reviewed and noted as below Head; Atraumatic, normocephalic Lungs: Normal respiratory rate/effort. Neurological: Patient is alert, awake Psych: lack insight : has SP catheter Labs/imaging reviewed. Past medical history, past surgical history, family history, social history, al lergy reviewed and noted as below Family hx: no hx of CKD. Rest non-contributory work up: CT b/l moderate hydronephrosis UA with 100 protein, large WBC and RBCs Hep B and C neg Objective - Vital Signs/Intake and Output Vital Signs (last 24 hours): Temp Pulse Resp BP Pulse Ox 98.3 F 90 16 140/90 99 09/13/18 06:00 09/13/18 10:45 09/13/18 06:00 09/13/18 10:45 09/13/18 06:00 Intake and Output: 09/13/18 09/13/18 06:59 18:59 Intake Total 540 Output Total 1100 Balance -560 - Medications Medications: Current Medications Acetaminophen (Tylenol 325mg Tab) 650 mg PO Q4 PRN PRN Reason: Fever >100.4 F Last Admin: 09/12/18 01:54 Dose: 650 mg Amlodipine Besylate (Norvasc) 10 mg PO DAILY [facility] Last Admin: 09/13/18 10:44 Dose: 10 mg Calcium Acetate (Phoslo) 667 mg PO 0800,1700 [facility] Last Admin: 09/13/18 08:12 Dose: 667 mg Dextrose (Dextrose 50% Inj) 0 ml IV STAT PRN; Protocol PRN Reason: Hypoglycemia Protocol Emtricitabine/Tenofovir (Truvada 200 Mg-300 Mg) 1 tab PO QOD [facility]; Protocol Last Admin: 09/13/18 10:45 Dose: 1 tab Ferrous Gluconate (Fergon) 324 mg PO TID [facility] Last Admin: 09/13/18 10:42 Dose: 324 mg Furosemide (Lasix) 40 mg PO DAILY [facility] Last Admin: 09/13/18 10:44 Dose: 40 mg Heparin Sodium (Porcine) (Heparin) 5,000 units SC Q8 [facility]; Protocol Last Admin: 09/13/18 06:05 Dose: 5,000 units Hydralazine HCl (Apresoline) 10 mg IVP Q4H PRN PRN Reason: Systolic Blood Pressure Last Admin: 09/13/18 08:12 Dose: 10 mg Dextrose (Dextrose 5% In Water 1000 Ml) 1,000 mls @ 0 mls/hr IV .Q0M PRN; Protocol PRN Reason: Hypoglycemia Protocol Ceftriaxone Sodium (Rocephin 1 Gram Ivpb) 1 gm in 100 mls @ 100 mls/hr IVPB DAILY [facility]; Protocol Last Admin: 09/13/18 10:44 Dose: 100 mls/hr Insulin Detemir (Levemir) 5 unit SC Q12 [facility] Last Admin: 09/13/18 10:41 Dose: 5 units Insulin Human Regular (Humulin R Med) 0 units SC ACHS [facility]; Protocol Last Admin: 09/13/18 10:40 Dose: Not Given Labetalol HCl (Trandate) 300 mg PO BID [facility] Last Admin: 09/13/18 10:45 Dose: 300 mg Losartan Potassium (Cozaar) 100 mg PO DAILY [facility] Last Admin: 09/13/18 10:42 Dose: 100 mg Multivitamins (Thera Tab) 1 tab PO DAILY [facility] Last Admin: 09/13/18 10:44 Dose: 1 tab Ondansetron HCl (Zofran Inj) 4 mg IVP Q6H PRN PRN Reason: Nausea/Vomiting Pantoprazole Sodium (Protonix Ec Tab) 40 mg PO 0600 [facility] Last Admin: 09/13/18 06:04 Dose: 40 mg Raltegravir (Isentress) 400 mg PO BID [facility]; Protocol Last Admin: 09/13/18 10:43 Dose: 400 mg Sucralfate (Carafate Oral Susp) 1 gm PO 0600,1600 [facility] Last Admin: 09/13/18 06:04 Dose: Not Given Tamsulosin HCl (Flomax) 0.4 mg PO DAILY [facility] Last Admin: 09/13/18 10:42 Dose: 0.4 mg - Labs Labs: 09/13/18 07:30 09/13/18 07:30 PT 12.2 SECONDS (9.4-12.5) 09/10/18 20:00 INR 1.10 09/10/18 20:00 APTT 44.2 Seconds (26.9-38.3) H 09/10/18 20:00
--- NOTE | 2018-09-13 12:58 | CP.PCM.PN ---
<Prakash Kruger - Last Filed: 09/13/18 12:52> Subjective - Date & Time of Evaluation Date of Evaluation: 09/13/18 Time of Evaluation: 12:53 - Subjective Subjective: Podiatry Progress Note - Dr. Jessica AlmendarezM seen and evaluated this AM. No acute events overnight. No new lower extremity complaints per patient. Denies n/v/f/d/c/sob/purcell/cp. Objective - Vital Signs/Intake and Output Vital Signs (last 24 hours): Temp Pulse Resp BP Pulse Ox 98.3 F 90 16 140/90 99 09/13/18 06:00 09/13/18 10:45 09/13/18 06:00 09/13/18 10:45 09/13/18 06:00 Intake and Output: 09/13/18 09/13/18 06:59 18:59 Intake Total 540 Output Total 1100 Balance -560 - Medications Medications: Current Medications Acetaminophen (Tylenol 325mg Tab) 650 mg PO Q4 PRN PRN Reason: Fever >100.4 F Last Admin: 09/12/18 01:54 Dose: 650 mg Amlodipine Besylate (Norvasc) 10 mg PO DAILY [facility] Last Admin: 09/13/18 10:44 Dose: 10 mg Calcium Acetate (Phoslo) 667 mg PO 0800,1700 [facility] Last Admin: 09/13/18 08:12 Dose: 667 mg Dextrose (Dextrose 50% Inj) 0 ml IV STAT PRN; Protocol PRN Reason: Hypoglycemia Protocol Emtricitabine/Tenofovir (Truvada 200 Mg-300 Mg) 1 tab PO QOD [facility]; Protocol Last Admin: 09/13/18 10:45 Dose: 1 tab Ferrous Gluconate (Fergon) 324 mg PO TID [facility] Last Admin: 09/13/18 10:42 Dose: 324 mg Furosemide (Lasix) 40 mg PO DAILY [facility] Last Admin: 09/13/18 10:44 Dose: 40 mg Heparin Sodium (Porcine) (Heparin) 5,000 units SC Q8 [facility]; Protocol Last Admin: 09/13/18 06:05 Dose: 5,000 units Hydralazine HCl (Apresoline) 10 mg IVP Q4H PRN PRN Reason: Systolic Blood Pressure Last Admin: 09/13/18 08:12 Dose: 10 mg Dextrose (Dextrose 5% In Water 1000 Ml) 1,000 mls @ 0 mls/hr IV .Q0M PRN; Protocol PRN Reason: Hypoglycemia Protocol Ceftriaxone Sodium (Rocephin 1 Gram Ivpb) 1 gm in 100 mls @ 100 mls/hr IVPB DAILY [facility]; Protocol Last Admin: 09/13/18 10:44 Dose: 100 mls/hr Insulin Detemir (Levemir) 5 unit SC Q12 [facility] Last Admin: 09/13/18 10:41 Dose: 5 units Insulin Human Regular (Humulin R Med) 0 units SC ACHS [facility]; Protocol Last Admin: 09/13/18 12:10 Dose: 5 units Labetalol HCl (Trandate) 300 mg PO BID [facility] Last Admin: 09/13/18 10:45 Dose: 300 mg Losartan Potassium (Cozaar) 100 mg PO DAILY [facility] Last Admin: 09/13/18 10:42 Dose: 100 mg Multivitamins (Thera Tab) 1 tab PO DAILY [facility] Last Admin: 09/13/18 10:44 Dose: 1 tab Ondansetron HCl (Zofran Inj) 4 mg IVP Q6H PRN PRN Reason: Nausea/Vomiting Pantoprazole Sodium (Protonix Ec Tab) 40 mg PO 0600 [facility] Last Admin: 09/13/18 06:04 Dose: 40 mg Raltegravir (Isentress) 400 mg PO BID [facility]; Protocol Last Admin: 09/13/18 10:43 Dose: 400 mg Sucralfate (Carafate Oral Susp) 1 gm PO 0600,1600 [facility] Last Admin: 09/13/18 06:04 Dose: Not Given Tamsulosin HCl (Flomax) 0.4 mg PO DAILY [facility] Last Admin: 09/13/18 10:42 Dose: 0.4 mg - Labs Labs: 09/13/18 07:30 09/13/18 07:30 PT 12.2 SECONDS (9.4-12.5) 09/10/18 20:00 INR 1.10 09/10/18 20:00 APTT 44.2 Seconds (26.9-38.3) H 09/10/18 20:00 - Constitutional Appears: Non-toxic, No Acute Distress - Extremities Exam Additional comments: LLE focused exam Vasc: DP/PT pulses fully palpable 2/4 b/l. Skin temperature warm to warm from proximal to distal. CFT < 3 seconds to all digits b/l. No edema noted b/l Neuro: Gross sensation diminished, protective sensation absent Derm: Significant xerosis and hyperkeratotic tissue appreciated to b/l lower extremities. Hyperkeratosis noted submet 2 and 5 right foot. Healed blisters not ed to left foot digits 3,4,5. Ortho: No pain with palpation of b/l lower extremity, no pain with calf compression, MMT 5/5 in all major muscle groups. - Neurological Exam Neurological Exam: Alert, Awake, Oriented x3 - Psychiatric Exam Psychiatric exam: Normal Affect, Normal Mood Assessment and Plan - Assessment and Plan (Free Text) Assessment: 58M with left foot blisters, healed/stable Plan: Patient seen and evaluated alongside attending, Dr. Lopez Blisters and hyperkeratoses stable, no clinical signs of infection Continue multipodus boots b/l Stable from podiatry standpoint Will sign off at this time, please reconsult if new issues arise <Geoff Lopez - Last Filed: 09/16/18 08:10> Objective - Vital Signs/Intake and Output Vital Signs (last 24 hours): Temp Pulse Resp BP Pulse Ox 98.3 F 89 20 127/73 98 09/14/18 06:00 09/14/18 09:04 09/14/18 06:00 09/14/18 09:05 09/14/18 06:00 - Labs Labs: 09/14/18 09:30 09/14/18 09:30 PT 12.2 SECONDS (9.4-12.5) 09/10/18 20:00 INR 1.10 09/10/18 20:00 APTT 44.2 Seconds (26.9-38.3) H 09/10/18 20:00 Attending/Attestation - Attestation I have personally seen and examined this patient.: Yes I have fully participated in the care of the patient.: Yes I have reviewed all pertinent clinical information, including history, physical exam and plan: Yes
--- NOTE | 2018-09-13 14:44 | CP.PCM.PN ---
<Lisa Mratinez - Last Filed: 09/13/18 14:33> Subjective - Date & Time of Evaluation Date of Evaluation: 09/13/18 Time of Evaluation: 08:45 - Subjective Subjective: Lisa Martinez PGY1 Medicine Progress Note Patient seen and examined at bedside this morning. States his right shoulder pain is completely resolved and has no complaints at this time. Plan for discharge tomorrow morning. Objective - Vital Signs/Intake and Output Vital Signs (last 24 hours): Temp Pulse Resp BP Pulse Ox 98.3 F 90 16 140/90 99 09/13/18 06:00 09/13/18 10:45 09/13/18 06:00 09/13/18 10:45 09/13/18 06:00 Intake and Output: 09/13/18 09/13/18 06:59 18:59 Intake Total 540 Output Total 1100 Balance -560 - Medications Medications: Current Medications Acetaminophen (Tylenol 325mg Tab) 650 mg PO Q4 PRN PRN Reason: Fever >100.4 F Last Admin: 09/12/18 01:54 Dose: 650 mg Amlodipine Besylate (Norvasc) 10 mg PO DAILY [facility] Last Admin: 09/13/18 10:44 Dose: 10 mg Calcium Acetate (Phoslo) 667 mg PO 0800,1700 [facility] Last Admin: 09/13/18 08:12 Dose: 667 mg Dextrose (Dextrose 50% Inj) 0 ml IV STAT PRN; Protocol PRN Reason: Hypoglycemia Protocol Emtricitabine/Tenofovir (Truvada 200 Mg-300 Mg) 1 tab PO QOD [facility]ACKIE; Protocol Last Admin: 09/13/18 10:45 Dose: 1 tab Ferrous Gluconate (Fergon) 324 mg PO TID [facility] Last Admin: 09/13/18 14:20 Dose: Not Given Furosemide (Lasix) 40 mg PO DAILY [facility] Last Admin: 09/13/18 10:44 Dose: 40 mg Heparin Sodium (Porcine) (Heparin) 5,000 units SC Q8 [facility]; Protocol Last Admin: 09/13/18 14:20 Dose: Not Given Hydralazine HCl (Apresoline) 10 mg IVP Q4H PRN PRN Reason: Systolic Blood Pressure Last Admin: 09/13/18 08:12 Dose: 10 mg Dextrose (Dextrose 5% In Water 1000 Ml) 1,000 mls @ 0 mls/hr IV .Q0M PRN; Protocol PRN Reason: Hypoglycemia Protocol Ceftriaxone Sodium (Rocephin 1 Gram Ivpb) 1 gm in 100 mls @ 100 mls/hr IVPB D AILY [facility]; Protocol Last Admin: 09/13/18 10:44 Dose: 100 mls/hr Insulin Detemir (Levemir) 5 unit SC Q12 [facility] Last Admin: 09/13/18 10:41 Dose: 5 units Insulin Human Regular (Humulin R Med) 0 units SC ACHS [facility]; Protocol Last Admin: 09/13/18 12:10 Dose: 5 units Labetalol HCl (Trandate) 300 mg PO BID [facility] Last Admin: 09/13/18 10:45 Dose: 300 mg Losartan Potassium (Cozaar) 100 mg PO DAILY [facility] Last Admin: 09/13/18 10:42 Dose: 100 mg Multivitamins (Thera Tab) 1 tab PO DAILY [facility] Last Admin: 09/13/18 10:44 Dose: 1 tab Ondansetron HCl (Zofran Inj) 4 mg IVP Q6H PRN PRN Reason: Nausea/Vomiting Pantoprazole Sodium (Protonix Ec Tab) 40 mg PO 0600 [facility] Last Admin: 09/13/18 06:04 Dose: 40 mg Raltegravir (Isentress) 400 mg PO BID [facility]; Protocol Last Admin: 09/13/18 10:43 Dose: 400 mg Sucralfate (Carafate Oral Susp) 1 gm PO 0600,1600 [facility] Last Admin: 09/13/18 06:04 Dose: Not Given Tamsulosin HCl (Flomax) 0.4 mg PO DAILY [facility] Last Admin: 09/13/18 10:42 Dose: 0.4 mg - Labs Labs: 09/13/18 07:30 09/13/18 07:30 PT 12.2 SECONDS (9.4-12.5) 09/10/18 20:00 INR 1.10 09/10/18 20:00 APTT 44.2 Seconds (26.9-38.3) H 09/10/18 20:00 Physical Exam - Constitutional Appears: No Acute Distress, Confused - Head Exam Head Exam: ATRAUMATIC, NORMOCEPHALIC - Eye Exam Eye Exam: EOMI, PERRL - ENT Exam ENT Exam: Mucous Membranes Moist - Neck Exam Neck exam: Positive for: Full Rom, Normal Inspection - Respiratory Exam Respiratory Exam: Clear to Auscultation Bilateral, NORMAL BREATHING PATTERN. absent: Rales, Rhonchi, Wheezes - Cardiovascular Exam Cardiovascular Exam: REGULAR RHYTHM, +S1, +S2. absent: Systolic Murmur - GI/Abdominal Exam GI & Abdominal Exam: Normal Bowel Sounds, Soft. absent: Guarding, Tenderness - Exam Additional comments: suprapubic catheter draining yellow urine. Catheter insertin site is clean/non draining - Extremities Exam Extremities exam: Positive for: full ROM. Negative for: pedal edema Additional comments: R>L foot skin eczematous/peeling changes appreciated - Neurological Exam Neurological exam: Alert Additional comments: oriented to person and place - Skin Skin Exam: Dry, Intact, Warm Assessment and Plan - Assessment and Plan (Free Text) Assessment: 58 yo M with PMH of intellectual disability, HIV (on HAART), DM2 (last A1c 9.2), CKD stage 4, HTN, urinary retention (s/p TURP), phimosis (s/p circumcision), urostomy tube, and recurrent UTI admitted for management of R shoulder pain and UTI. Patient admitted for complicated UTI. Likely discharge tomorrow. Plan: Complicated UTI -recieved 3 days of recophin, will recieve 7 days of augment -UA positive for nitrates, leuk esterase -urine culture positive for gram positive cocci, <100,000 -afebrile, no WBC -ID on consult, Dr. Dickey, will follow antibiotic recommendations -Urology on consult, Dr. Canales R shoulder pain -Xray shows no acute process, fracture -Patient refused initial physical therapy eval -tylenol prn Hx of HTN -continue norvac 10mg, lasix 40mg, cozaar 100mg, labetalol 200mg q12 B/L foot wound -R > L foot eczematous changes -podiatry on consult, Dr. Casanova -wound culture pending -wound care Hx of CKD stage 4 -Nephrology on consult, Dr. Jason -maintain euvolemia -continue flomax, phoslo Hx of HIV -CD4 count pending -continue HAART therapy Hx DM2 -levemir 5 units q12 -ISS sliding scale -A1c 9% PPX -heparin and protonix -heart healthy, diabetic diet Patient seen and case discussed with attending, Jonh Paul Bright <Fiorella Castrejon R - Last Filed: 09/13/18 15:32> Objective - Vital Signs/Intake and Output Vital Signs (last 24 hours): Temp Pulse Resp BP Pulse Ox 99.1 F 84 18 124/80 98 09/13/18 14:00 09/13/18 14:00 09/13/18 14:00 09/13/18 14:00 09/13/18 14:00 Intake and Output: 09/13/18 09/13/18 06:59 18:59 Intake Total 540 Output Total 1100 Balance -560 - Medications Medications: Current Medications Acetaminophen (Tylenol 325mg Tab) 650 mg PO Q4 PRN PRN Reason: Fever >100.4 F Last Admin: 09/12/18 01:54 Dose: 650 mg Amlodipine Besylate (Norvasc) 10 mg PO DAILY [facility] Last Admin: 09/13/18 10:44 Dose: 10 mg Calcium Acetate (Phoslo) 667 mg PO 0800,1700 [facility] Last Admin: 09/13/18 08:12 Dose: 667 mg Dextrose (Dextrose 50% Inj) 0 ml IV STAT PRN; Protocol PRN Reason: Hypoglycemia Protocol Emtricitabine/Tenofovir (Truvada 200 Mg-300 Mg) 1 tab PO QOD [facility]ACKIE; Protocol Last Admin: 09/13/18 10:45 Dose: 1 tab Ferrous Gluconate (Fergon) 324 mg PO TID [facility] Last Admin: 09/13/18 14:20 Dose: Not Given Furosemide (Lasix) 40 mg PO DAILY [facility] Last Admin: 09/13/18 10:44 Dose: 40 mg Heparin Sodium (Porcine) (Heparin) 5,000 units SC Q8 [facility]; Protocol Last Admin: 09/13/18 14:20 Dose: Not Given Hydralazine HCl (Apresoline) 10 mg IVP Q4H PRN PRN Reason: Systolic Blood Pressure Last Admin: 09/13/18 08:12 Dose: 10 mg Dextrose (Dextrose 5% In Water 1000 Ml) 1,000 mls @ 0 mls/hr IV .Q0M PRN; Protocol PRN Reason: Hypoglycemia Protocol Ceftriaxone Sodium (Rocephin 1 Gram Ivpb) 1 gm in 100 mls @ 100 mls/hr IVPB DAILY [facility]; Protocol Last Admin: 09/13/18 10:44 Dose: 100 mls/hr Insulin Detemir (Levemir) 5 unit SC Q12 [facility] Last Admin: 09/13/18 10:41 Dose: 5 units Insulin Human Regular (Humulin R Med) 0 units SC ACHS [facility]; Protocol Last Admin: 09/13/18 12:10 Dose: 5 units Labetalol HCl (Trandate) 300 mg PO BID [facility] Last Admin: 09/13/18 10:45 Dose: 300 mg Losartan Potassium (Cozaar) 100 mg PO DAILY [facility] Last Admin: 09/13/18 10:42 Dose: 100 mg Multivitamins (Thera Tab) 1 tab PO DAILY [facility] Last Admin: 09/13/18 10:44 Dose: 1 tab Ondansetron HCl (Zofran Inj) 4 mg IVP Q6H PRN PRN Reason: Nausea/Vomiting Pantoprazole Sodium (Protonix Ec Tab) 40 mg PO 0600 [facility] Last Admin: 09/13/18 06:04 Dose: 40 mg Raltegravir (Isentress) 400 mg PO BID [facility]; Protocol Last Admin: 09/13/18 10:43 Dose: 400 mg Sucralfate (Carafate Oral Susp) 1 gm PO 0600,1600 [facility] Last Admin: 09/13/18 06:04 Dose: Not Given Tamsulosin HCl (Flomax) 0.4 mg PO DAILY [facility] Last Admin: 09/13/18 10:42 Dose: 0.4 mg - Labs Labs: 09/13/18 07:30 09/13/18 07:30 PT 12.2 SECONDS (9.4-12.5) 09/10/18 20:00 INR 1.10 09/10/18 20:00 APTT 44.2 Seconds (26.9-38.3) H 09/10/18 20:00 Attending/Attestation - Attestation I have personally seen and examined this patient.: Yes I have fully participated in the care of the patient.: Yes I have reviewed all pertinent clinical information, including history, physical exam and plan: Yes Notes (Text): Patient seen and examined by me with resident at 9:25AM on 09/13/18. Case including HPI, physical exam, and assessment and plan discussed with resident. Agree with above with following additions/corrections. Patient is a 58-year-old male with past medical history significant for intellectual disability, HIV on HAART, type 2 diabetes, chronic kidney disease stage IV, hypertension, urinary retention status post TURP and suprapubic catheter, phimosis, urostomy tube, recurrent UTIs that presented to the emergency room with worsening of right shoulder pain and cloudy urine. Patient states he is feeling much better. Right shoulder pain is much better today. Patient is asking to go home. Patient denies abdominal pain. No nausea or vomiting. No chest pain or palpitations. No shortness of breath. No headaches or dizziness. No fevers or chills. Patient is tolerating diet. Physical exam: General: Awake and alert, sitting up in bed in no acute distress. HEENT: Normocephalic, atraumatic, Extraocular muscles intact, pupils equal and reactive, no scleral icterus. Oropharynx is pink and moist. Neck is supple. Cardiovascular: Normal rhythm. Normal S1 and S2. No murmurs, rubs, or gallops a ppreciated. Pulmonary: Normal respiratory effort. No rhonchi, rales, or wheezing appreciated. Gastrointestinal: Soft. Nontender. Nondistended. Positive bowel sounds all 4 quadrants. No guarding. Musculoskeletal: Moves all extremities. No calf tenderness. No edema appreciated. : Keenan in place with yellow urine output. Central nervous system: Awake and alert. CN 2-12 grossly intact. Dermatologic: Skin warm and dry. Assessment and plan: Patient is a 58-year-old male with past medical history significant for intellectual disability, HIV on HAART, type 2 diabetes, chronic kidney disease stage IV, hypertension, urinary retention status post TURP and suprapubic catheter, phimosis, urostomy tube, recurrent UTIs that presented to the emergency room with worsening of right shoulder pain and cloudy urine. 1. Right shoulder pain. Imrpoved. Patient cleared by PT to home with services. Right shoulder xray per radiologist showed no significant or acute findings to account for/related to the clinical presentation. 2. UTI. Urostomy tube, urinary retention. Urine culture positive for Ecoli and Enteroccus. Likely colonization. Per ID. Dr. Dickey, will treat with Augementin for 7 days. ID following, recommendations appreciated. Patient seen by urologist, Dr. Linda Segura. Primary urologist, likely colonization. Patient afebrile and leukocytosis. Continue Flomax. 3. Bilateral feet wounds. Continue local wound care. Wound cultures positive for corynebacterium and light growth of gram-positive cocci. Podiatry recommendations appreciated. Patient to continue with her Multi-Podus boots. Patient to continue follow-up with Dr. Casanova as an outpatient. 4. Chronic kidney disease stage IV. Creatinine at baseline. Orthopaedic Physician Assistant following, recommendations appreciated. Continue PhosLo. Continue to monitor. 5. Hypertension, uncontrolled. Continue Cozaar, Lasix, labetalol, and Norvasc. Adjustments made by head boys tennis coach. 6. Anemia of chronic disease. H&H stable. Continue ferrous gluconate. 7. Type 2 diabetes. Continue insulin sliding scale. Continue Levemir. Monitor Accu-Cheks. 8. HIV. Continue with HAART treatment. Continue Isentress. Continue Truvada. 9. GI/DVT prophylaxis. Protonix/heparin. 10. Dispo. Patient for home tomorrow. Sister unable to pick patient up today. Case was discussed in detail with the patient regarding current diagnosis and treatment plan. All questions answered.
[2018-09-13 18:34] LABS: % CD4 (T HELPER CELL) 27 Percent (30-61); % CD8 (SUPPRESSOR T CELL) 56 Percent (12-42); ABSOLUTE CD4 CELLS 515 Cells/mcL (490-1740); ABSOLUTE CD8 CELLS 1073 Cells/mcL (180-1170); ABSOLUTE LYMPHOCYTES 1914 Cells/mcL (850-3900); HELPER/SUPPRESSOR RATIO 0.48 Ratio (0.86-5.00)
--- NOTE | 2018-09-13 19:02 | CP.PCM.PN ---
Subjective - Date & Time of Evaluation Date of Evaluation: 09/13/18 Time of Evaluation: 16:00 - Subjective Subjective: Infectious Disease Follow Up: September 13, 2018 58 year old male with PMH of intellectual disability, HIV (on HAART), DM2 (last A1c 9.2), CKD stage 4, HTN, urinary retention (s/p TURP), phimosis (s/p circumcision), urostomy tube, and recurrent UTI brought to ER by family for worsening R shoulder pain and cloudy urine. They state that patient fell on the right side of his wheelchair this AM and has been having shoulder pain ever since. Urine cultures pending. Difficult to obtain information from the patient. Urine showing growth of E. coli and Enterococcus. Gram positive cocci and Corynebacterium in left foot wound. On Rocephin currently. Objective - Vital Signs/Intake and Output Vital Signs (last 24 hours): Temp Pulse Resp BP Pulse Ox 99.1 F 82 18 128/81 98 09/13/18 14:00 09/13/18 17:29 09/13/18 14:00 09/13/18 17:29 09/13/18 14:00 Intake and Output: 09/13/18 09/13/18 06:59 18:59 Intake Total 540 Output Total 1100 Balance -560 - Medications Medications: Current Medications Acetaminophen (Tylenol 325mg Tab) 650 mg PO Q4 PRN PRN Reason: Fever >100.4 F Last Admin: 09/12/18 01:54 Dose: 650 mg Amlodipine Besylate (Norvasc) 10 mg PO DAILY [facility] Last Admin: 09/13/18 10:44 Dose: 10 mg Amoxicillin/Clavulanate Potassium (Augmentin 875 Mg-125 Mg Tab) 1 tab PO Q12 [facility]ACK[facility]; Protocol Calcium Acetate (Phoslo) 667 mg PO 0800,1700 [facility] Last Admin: 09/13/18 17:29 Dose: 667 mg Dextrose (Dextrose 50% Inj) 0 ml IV STAT PRN; Protocol PRN Reason: Hypoglycemia Protocol Emtricitabine/Tenofovir (Truvada 200 Mg-300 Mg) 1 tab PO QOD [facility]ACK[facility]; Protocol Last Admin: 09/13/18 10:45 Dose: 1 tab Ferrous Gluconate (Fergon) 324 mg PO TID [facility] Last Admin: 09/13/18 17:28 Dose: 324 mg Furosemide (Lasix) 40 mg PO DAILY [facility] Last Admin: 09/13/18 10:44 Dose: 40 mg Heparin Sodium (Porcine) (Heparin) 5,000 units SC Q8 [facility]; Protocol Last Admin: 09/13/18 14:20 Dose: Not Given Hydralazine HCl (Apresoline) 10 mg IVP Q4H PRN PRN Reason: Systolic Blood Pressure Last Admin: 09/13/18 08:12 Dose: 10 mg Dextrose (Dextrose 5% In Water 1000 Ml) 1,000 mls @ 0 mls/hr IV .Q0M PRN; Protocol PRN Reason: Hypoglycemia Protocol Insulin Detemir (Levemir) 5 unit SC Q12 [facility] Last Admin: 09/13/18 10:41 Dose: 5 units Insulin Human Regular (Humulin R Med) 0 units SC ACHS [facility]; Protocol Last Admin: 09/13/18 17:28 Dose: 3 units Labetalol HCl (Trandate) 300 mg PO BID [facility] Last Admin: 09/13/18 17:29 Dose: 300 mg Losartan Potassium (Cozaar) 100 mg PO DAILY [facility] Last Admin: 09/13/18 10:42 Dose: 100 mg Multivitamins (Thera Tab) 1 tab PO DAILY [facility] Last Admin: 09/13/18 10:44 Dose: 1 tab Ondansetron HCl (Zofran Inj) 4 mg IVP Q6H PRN PRN Reason: Nausea/Vomiting Pantoprazole Sodium (Protonix Ec Tab) 40 mg PO 0600 [facility] Last Admin: 09/13/18 06:04 Dose: 40 mg Raltegravir (Isentress) 400 mg PO BID [facility]; Protocol Last Admin: 09/13/18 17:29 Dose: 400 mg Sucralfate (Carafate Oral Susp) 1 gm PO 0600,1600 [facility] Last Admin: 09/13/18 17:24 Dose: Not Given Tamsulosin HCl (Flomax) 0.4 mg PO DAILY [facility] Last Admin: 09/13/18 10:42 Dose: 0.4 mg - Labs Labs: 09/13/18 07:30 09/13/18 07:30 PT 12.2 SECONDS (9.4-12.5) 09/10/18 20:00 INR 1.10 09/10/18 20:00 APTT 44.2 Seconds (26.9-38.3) H 09/10/18 20:00 - Constitutional Appears: Non-toxic, No Acute Distress, Chronically Ill - Head Exam Head Exam: ATRAUMATIC, NORMOCEPHALIC - Eye Exam Eye Exam: EOMI, PERRL Pupil Exam: NORMAL ACCOMODATION, PERRL - ENT Exam ENT Exam: Mucous Membranes Moist, Normal External Ear Exam, TM's Normal Bilaterally - Neck Exam Neck Exam: Full ROM, Normal Inspection - Respiratory Exam Respiratory Exam: Clear to Ausculation Bilateral, NORMAL BREATHING PATTERN. absent: Rales, Rhonchi, Wheezes - Cardiovascular Exam Cardiovascular Exam: REGULAR RHYTHM, RRR, +S1, +S2 - GI/Abdominal Exam GI & Abdominal Exam: Soft, Normal Bowel Sounds. absent: Distended, Tenderness - Exam Additional comments: suprapubic catheter draining yellow urine. - Extremities Exam Extremities Exam: Full ROM. absent: Joint Swelling, Pedal Edema - Neurological Exam Neurological Exam: Alert, Awake, Oriented x3 Additional comments: AAO x 2, mentally delayed. - Psychiatric Exam Psychiatric exam: Normal Affect, Normal Mood - Skin Skin Exam: Dry, Intact, Normal Color, Warm Assessment and Plan - Assessment and Plan (Free Text) Assessment: 58 yo M with PMH of intellectual disability, HIV (on HAART), DM2 (last A1c 9.2), CKD stage 4, HTN, urinary retention (s/p TURP), phimosis (s/p circumcision), urostomy tube, and recurrent UTI admitted for Right shoulder pain and r/o UTI. Urinalysis with signs of UTI. Started on Rocephin for now. The patient has HIV on HAART. Check CD4 and HIV Viral load. Continue HAART. Patient is a poor historian and confused. He is mentally delayed. Wound cultures showing gram positive cocci and corynebacterium. Continue on Rocephin until sensitivities and identifications return. Wound cultures with gram positive cocci and corynebacterium. Urine cultures showing E. coli and Enterococcus. Can consider Augmentin 875mg BID use for 7-10 days. Unclear if the urine growth is more of colonization. Supportive care. Awaiting urine cultures. No leukocytosis. Afebrile. Thank you for allowing me to participate in the care of the patient, we will follow with you.
[2018-09-13] MEDS: Amoxicillin-Clav 875-125 mg Tab PO SCH (22:01)
[2018-09-14] MEDS: Sucralfate 1 gm/10 ml Oral Susp UD PO SCH (05:36)
[2018-09-14] MEDS: Pantoprazole 40 mg EC Tab PO SCH (05:37)
[2018-09-14 08:25] VITALS: BP 127/73; PULSE 89; RESP 20; TEMP 98.3; O2SAT 98
[2018-09-14] MEDS: Insulin Detemir 100 units/ml Vial (Levemir) SC SCH (09:04)
[2018-09-14] MEDS: Insulin Reg-MEDIUM-Coverage SC SCH ×2 (09:04→12:34)
[2018-09-14] MEDS: Amoxicillin-Clav 875-125 mg Tab PO SCH (09:05)
[2018-09-14] MEDS: Multivitamin Therapeutic Tab PO SCH (09:05)
[2018-09-14 09:52] LABS: BASO # 0.02 K/mm3 (0.0-2.0); BASO % 0.3 % (0.0-3.0); EOS # 0.1 (0.0-0.7); EOS % 1.8 % (1.5-5.0); HEMOGLOBIN 10.3 g/dL (14.0-18.0); LYMPH # 2.8 (1.2-3.4); LYMPH % 38.7 % (22.0-35.0); MEAN CELL VOLUME 92.4 fl (80.0-105.0); MEAN CORPUSCULAR HEMOGLOBIN 27.9 pg (25.0-35.0); MEAN CORPUSCULAR HGB CONC 30.2 g/dl (31.0-37.0); MEAN PLATELET VOLUME 11.2 fl (7.0-11.0); MONO # 0.6 (0.1-0.6); MONO % 7.5 % (1.0-6.0); RBC 3.69 10^6/uL (3.5-6.1); RED CELL DISTRIBUTION WIDTH 12.7 % (11.5-14.5); WHITE BLOOD COUNT 7.3 10^3/uL (4.5-11.0)
[2018-09-14 10:05] LABS: ALB/GLOB RATIO 0.7 (1.1-1.8); ALBUMIN 3.2 g/dL (3.0-4.8); CALCIUM 8.6 mg/dL (8.4-10.5)
--- NOTE | 2018-09-14 13:21 | CP.PCM.DIS ---
<Lisa Martinez - Last Filed: 09/14/18 13:11> Provider - Provider Date of Admission: 09/11/18 01:33 Attending physician: Fiorella Castrejon DO Consults: 09/11/18 02:04 Infectious Disease Consult Routine Comment: Consulting Provider: David Dickey Consulting Physician: David Dickey Reason for Consult: UTI, hx multiple/recurrent UTI 09/11/18 02:38 Physician Consult Routine Comment: Consulting Provider: Shon Segura Consulting Physician: Shon Segura Reason for Consult: whether need to change suprapubic catheter, known to Dr. Segura 09/11/18 04:11 Diabetic Education Referral Routine Comment: Physician Instructions: Reason For Exam: T2DM 09/11/18 10:52 Nephrology Consult Routine Comment: Consulting Provider: Corazon Martinez Consulting Physician: Corazon Martinez Reason for Consult: htn, ckd 09/12/18 10:13 Podiatry Consult Routine Comment: Consulting Provider: Rhonda Casanova Consulting Physician: Rhonda Casanova Reason for Consult: B/L foot wound Wound Care [Nursing Referral for Wound Care] Routine Comment: Physician Instructions: Reason For Exam: B/L foot skin peeling Time Spent in preparation of Discharge (in minutes): 35 Hospital Course - Lab Results Lab Results: Micro Results 09/11/18 06:11 Foot - Left Gram Stain - Final 09/11/18 06:11 Foot - Left Wound Culture - Final Coagulase Neg Staphylococcus Corynebacterium Species 09/10/18 20:20 Urine,Suprapubic Urine Culture - Final Escherichia Coli Vancomycin Res E Faecalis 09/10/18 20:30 Blood-Venous Blood Culture - Preliminary NO GROWTH AFTER 3 DAYS 09/10/18 20:00 Blood-Venous Blood Culture - Preliminary NO GROWTH AFTER 3 DAYS Most Recent Lab Values WBC 7.3 10^3/uL (4.5-11.0) 09/14/18 09:30 RBC 3.69 10^6/uL (3.5-6.1) 09/14/18 09:30 Hgb 10.3 g/dL (14.0-18.0) L 09/14/18 09:30 Hct 34.1 % (42.0-52.0) L 09/14/18 09:30 MCV 92.4 fl (80.0-105.0) 09/14/18 09:30 MCH 27.9 pg (25.0-35.0) 09/14/18 09:30 MCHC 30.2 g/dl (31.0-37.0) L 09/14/18 09:30 RDW 12.7 % (11.5-14.5) 09/14/18 09:30 Plt Count 229 10^3/uL (120.0-450.0) 09/14/18 09:30 MPV 11.2 fl (7.0-11.0) H 09/14/18 09:30 Neut % (Auto) 51.7 % (50.0-68.0) 09/14/18 09:30 Lymph % (Auto) 38.7 % (22.0-35.0) H 09/14/18 09:30 Lamar % (Auto) 7.5 % (1.0-6.0) H 09/14/18 09:30 Eos % (Auto) 1.8 % (1.5-5.0) 09/14/18 09:30 Baso % (Auto) 0.3 % (0.0-3.0) 09/14/18 09:30 Lymph # (Auto) 2.8 (1.2-3.4) 09/14/18 09:30 Lamar # (Auto) 0.6 (0.1-0.6) 09/14/18 09:30 Eos # (Auto) 0.1 (0.0-0.7) 09/14/18 09:30 Baso # (Auto) 0.02 K/mm3 (0.0-2.0) 09/14/18 09:30 Absolute Neuts (auto) 3.80 (1.4-6.5) 09/14/18 09:30 PT 12.2 SECONDS (9.4-12.5) 09/10/18 20:00 INR 1.10 09/10/18 20:00 APTT 44.2 Seconds (26.9-38.3) H 09/10/18 20:00 Sodium 139 mmol/L (132-148) 09/14/18 09:30 Potassium 4.4 mmol/L (3.6-5.0) 09/14/18 09:30 Chloride 104 mmol/L (98-107) 09/14/18 09:30 Carbon Dioxide 27 mmol/L (21-33) 09/14/18 09:30 Anion Gap 12 (10-20) 09/14/18 09:30 BUN 29 mg/dL (7-21) H 09/14/18 09:30 Creatinine 3.5 mg/dl (0.8-1.5) H 09/14/18 09:30 Est GFR ( Amer) 22 09/14/18 09:30 Est GFR (Non-Af Amer) 18 09/14/18 09:30 POC Glucose (mg/dL) 220 mg/dL (65-110) H 09/14/18 11:17 Random Glucose 244 mg/dL (70-110) H 09/14/18 09:30 Hemoglobin A1c 8.1 % (4.2-6.5) H 09/11/18 13:30 Calcium 8.6 mg/dL (8.4-10.5) 09/14/18 09:30 Phosphorus 3.6 mg/dL (2.5-4.5) 09/11/18 13:30 Magnesium 1.9 mg/dL (1.7-2.2) 09/11/18 13:30 Iron 43 ug/dL (45-180) L 09/11/18 13:30 TIBC 213 ug/dL (261-462) L 09/11/18 13:30 % Saturation 20 % (20-55) 09/11/18 13:30 Ferritin 159.0 ng/mL 09/11/18 13:30 Total Bilirubin 0.4 mg/dL (0.2-1.3) 09/14/18 09:30 AST 24 U/L (17-59) 09/14/18 09:30 ALT 13 U/L (7-56) 09/14/18 09:30 Alkaline Phosphatase 78 U/L (38-126) 09/14/18 09:30 Troponin I 0.03 ng/mL D 09/10/18 20:00 Total Protein 7.6 g/dL (5.8-8.3) 09/14/18 09:30 Albumin 3.2 g/dL (3.0-4.8) 09/14/18 09:30 Globulin 4.4 gm/dL 09/14/18 09:30 Albumin/Globulin Ratio 0.7 (1.1-1.8) L 09/14/18 09:30 Triglycerides 120 mg/dL (35-160) 09/11/18 13:30 Cholesterol 113 mg/dL (130-200) L 09/11/18 13:30 LDL Cholesterol Direct 53 mg/dL (0-129) 09/11/18 13:30 HDL Cholesterol 30 mg/dL (29-60) 09/11/18 13:30 Vitamin B12 524 pg/mL (239-931) 09/11/18 13:30 Folate 9.6 ng/mL 09/11/18 13:30 TSH 3rd Generation 1.27 mIU/mL (0.46-4.68) 09/11/18 13:30 PTH Intact Whole Molec 113 pg/mL (14-64) H 09/11/18 13:30 Urine Color Yellow (YELLOW) 09/10/18 22:12 Urine Appearance Sl cloudy (CLEAR) 09/10/18 22:12 Urine pH 7.0 (4.7-8.0) 09/10/18 22:12 Ur Specific Burgess 1.025 (1.005-1.035) 09/10/18 22:12 Urine Protein 100 mg/dL (<30 mg/dL) H 09/10/18 22:12 Urine Glucose (UA) >=1000 mg/dL (NEGATIVE) 09/10/18 22:12 Urine Ketones Negative mg/dL (NEGATIVE) 09/10/18 22:12 Urine Blood Moderate (NEGATIVE) H 09/10/18 22:12 Urine Nitrate Positive (NEGATIVE) H 09/10/18 22:12 Urine Bilirubin Negative (NEGATIVE) 09/10/18 22:12 Urine Urobilinogen 0.2 E.U./dL (<1 E.U./dL) 09/10/18 22:12 Ur Leukocyte Esterase Moderate Honey/uL (NEGATIVE) H 09/10/18 22:12 Urine RBC 15 - 20 /hpf (0-2) H 09/10/18 22:12 Urine WBC Tntc /hpf (0-6) H 09/10/18 22:12 Ur Epithelial Cells 6 - 8 /hpf (0-5) H 09/10/18 22:12 Urine Bacteria Many /hpf (NONE) 09/10/18 22:12 Ur Random Creatinine 67 mg/dL (20-320) 09/12/18 01:00 U Random Total Protein 3030 mg/g creat (22-128) H 09/12/18 01:00 Urine Total Volume 69.0 mg/dL 09/12/18 01:00 Microalb/Creat Ratio 1029 (<30) H 09/12/18 01:00 Urine Opiates Screen Negative (NEGATIVE) 09/12/18 01:00 Urine Methadone Screen Negative (NEGATIVE) 09/12/18 01:00 Ur Barbiturates Screen Negative (NEGATIVE) 09/12/18 01:00 Ur Phencyclidine Scrn Negative (NEGATIVE) 09/12/18 01:00 Ur Amphetamines Screen Negative (NEGATIVE) 09/12/18 01:00 U Benzodiazepines Scrn Negative (NEGATIVE) 09/12/18 01:00 U Oth Cocaine Metabols Negative (NEGATIVE) 09/12/18 01:00 U Cannabinoids Screen Negative (NEGATIVE) 09/12/18 01:00 Absolute Lymphs (Flow) 1914 Cells/mcL (850-3900) 09/11/18 13:30 % CD4 Cells 27 Percent (30-61) L 09/11/18 13:30 Absolute CD4 Count 515 Cells/mcL (490-1740) 09/11/18 13:30 T-Help/Suppress Ratio 0.48 Ratio (0.86-5.00) L 09/11/18 13:30 % CD8 Cells 56 Percent (12-42) H 09/11/18 13:30 Absolute CD8 Count 1073 Cells/mcL (180-1170) 09/11/18 13:30 Hep Bs Antibody Negative (NEGATIVE) 09/11/18 13:30 Physical Exam - Constitutional Appears: No Acute Distress, Confused - Head Exam Head Exam: ATRAUMATIC, NORMOCEPHALIC - Eye Exam Eye Exam: EOMI, PERRL - ENT Exam ENT Exam: Mucous Membranes Moist - Neck Exam Neck exam: Positive for: Full Rom, Normal Inspection - Respiratory Exam Respiratory Exam: Clear to Auscultation Bilateral, NORMAL BREATHING PATTERN. absent: Rales, Rhonchi, Wheezes - Cardiovascular Exam Cardiovascular Exam: REGULAR RHYTHM, +S1, +S2. absent: Systolic Murmur - GI/Abdominal Exam GI & Abdominal Exam: Normal Bowel Sounds, Soft. absent: Guarding, Tenderness - Exam Additional comments: suprapubic catheter draining yellow urine. Catheter insertin site is clean/non draining - Extremities Exam Extremities exam: Positive for: full ROM. Negative for: pedal edema Additional comments: R>L foot skin eczematous/peeling changes appreciated - Neurological Exam Neurological exam: Alert Additional comments: oriented to person and place - Skin Skin Exam: Dry, Intact, Warm - Hospital Course Hospital Course: Upon admission, 58 year old male with PMH of intellectual disability, HIV (on HAART), DM2 (last A1c 9.2), CKD stage 4, HTN, urinary retention (s/p TURP), phimosis (s/p circumcision), urostomy tube, and recurrent UTI presents to ED with family with a complaint that the patient is having worsening R shoulder pain and cloudy urine. They state that patient fell on the right side of his wheelchair this AM and has been having shoulder pain ever since. History was obtained from prior records as family were not at bedside during examination. ROS limited due to patient's mental status. During hospital course, patient had UA positive for nitrates, leuk esterase and admitted for complicated UTI. Urine culture positive for VRE, and patient treated with 3 days of rocephin and discharged on 7 day course of augmentin. Patient noted to be afebrile and no WBC count observed during hospital stay. For right shoulder pain, xrays did not show any acute process and patient's pain resolved on the second day. For his B/L foot wounds, podiatry was consulted and recommended medical boots which were provided for patient and no further interventions were deemed necessary. Nephrology was consulted for his history of CKD stage 4 and his BP medicatiosn were adjusted and explained to patient and documented in the discharge instructions. Patient was continued on his HIV medications and diabetes medications. All his questions were answered to satisfaction and he agreed with discharge. Patient's sister who is children's service supervisor was explained of medication adjustment and agreed to follow up with PMD, nephro logist, podiatry and urologist after discharge. Discharge Exam - Head Exam Head Exam: ATRAUMATIC, NORMOCEPHALIC Discharge Plan - Discharge Medications Prescriptions: amLODIPine [Norvasc] 10 mg PO DAILY #30 tab Amoxicillin/Clavulanate [Augmentin 875 MG-125 MG Tab] 1 tab PO Q12 6 Days #12 tab Furosemide [Lasix] 40 mg PO DAILY 7 Days #7 tab Labetalol [Trandate] 300 mg PO BID 30 Days #60 tab Losartan [Cozaar] 100 mg PO DAILY 30 Days #30 tab - Follow Up Plan Condition: GOOD Disposition: HOME/ ROUTINE Instructions: Urinary Tract Infection, Adult (DC), Swelling, Shoulder Pain (DC) Additional Instructions: Please follow up with your primary care doctor, Dr. Laguerre within 3-5 days of discharge. Please follow up with your urologist, Dr. Segrua within 3-5 days of discharge. Please STOP taking your HOME hydrochlorothiazide. Your Cozaar has been increased to 100mg daily. You blood pressure medications have been adjusted and are as follows: Norvasc 10mg daily Lasix 40mg daily Trandate 300mg BID Cozaar 100mg daily Please continue your other home medications are previously taken. Please obtain refills for your medications from your primary care doctor. Please take augmentin (antibiotic) twice daily for 6 more days. Please get repeat urinalysis and urine culture from your primary care doctor after completion of your antibiotics. Please avoid fleets enema/magnesium based laxatives. Please avoid NSAIDS (motrin, ibuprofen, alleve, etc). and iodinated contrast unless needed emergently. Please return to the ED for any new or worsening symptoms. Referrals: Rhonda Casanova DPM [Staff Provider] - Remigio Jason MD [Staff Provider] - Shyam Laguerre MD [Family Provider] - Shon Segura MD [Staff Provider] - <Fiorella Castrejon - Last Filed: 09/14/18 13:45> Provider - Provider Date of Admission: 09/11/18 01:33 Attending physician: Fiorella Castrejon DO Consults: 09/11/18 02:04 Infectious Disease Consult Routine Comment: Consulting Provider: David Dickey Consulting Physician: David Dickey Reason for Consult: UTI, hx multiple/recurrent UTI 09/11/18 02:38 Physician Consult Routine Comment: Consulting Provider: Shon Segura Consulting Physician: Shon Segura Reason for Consult: whether need to change suprapubic catheter, known to Dr. Segura 09/11/18 04:11 Diabetic Education Referral Routine Comment: Physician Instructions: Reason For Exam: T2DM 09/11/18 10:52 Nephrology Consult Routine Comment: Consulting Provider: Corazon Martinez Consulting Physician: Corazon Martinez Reason for Consult: htn, ckd 09/12/18 10:13 Podiatry Consult Routine Comment: Consulting Provider: Rhonda Casanova Consulting Physician: Rhonda Casanova Reason for Consult: B/L foot wound Wound Care [Nursing Referral for Wound Care] Routine Comment: Physician Instructions: Reason For Exam: B/L foot skin peeling Hospital Course - Lab Results Lab Results: Micro Results 09/11/18 06:11 Foot - Left Gram Stain - Final 09/11/18 06:11 Foot - Left Wound Culture - Final Coagulase Neg Staphylococcus Corynebacterium Species 09/10/18 20:20 Urine,Suprapubic Urine Culture - Final Escherichia Coli Vancomycin Res E Faecalis 09/10/18 20:30 Blood-Venous Blood Culture - Preliminary NO GROWTH AFTER 3 DAYS 09/10/18 20:00 Blood-Venous Blood Culture - Preliminary NO GROWTH AFTER 3 DAYS Most Recent Lab Values WBC 7.3 10^3/uL (4.5-11.0) 09/14/18 09:30 RBC 3.69 10^6/uL (3.5-6.1) 09/14/18 09:30 Hgb 10.3 g/dL (14.0-18.0) L 09/14/18 09:30 Hct 34.1 % (42.0-52.0) L 09/14/18 09:30 MCV 92.4 fl (80.0-105.0) 09/14/18 09:30 MCH 27.9 pg (25.0-35.0) 09/14/18 09:30 MCHC 30.2 g/dl (31.0-37.0) L 09/14/18 09:30 RDW 12.7 % (11.5-14.5) 09/14/18 09:30 Plt Count 229 10^3/uL (120.0-450.0) 09/14/18 09:30 MPV 11.2 fl (7.0-11.0) H 09/14/18 09:30 Neut % (Auto) 51.7 % (50.0-68.0) 09/14/18 09:30 Lymph % (Auto) 38.7 % (22.0-35.0) H 09/14/18 09:30 Lamar % (Auto) 7.5 % (1.0-6.0) H 09/14/18 09:30 Eos % (Auto) 1.8 % (1.5-5.0) 09/14/18 09:30 Baso % (Auto) 0.3 % (0.0-3.0) 09/14/18 09:30 Lymph # (Auto) 2.8 (1.2-3.4) 09/14/18 09:30 Lamar # (Auto) 0.6 (0.1-0.6) 09/14/18 09:30 Eos # (Auto) 0.1 (0.0-0.7) 09/14/18 09:30 Baso # (Auto) 0.02 K/mm3 (0.0-2.0) 09/14/18 09:30 Absolute Neuts (auto) 3.80 (1.4-6.5) 09/14/18 09:30 PT 12.2 SECONDS (9.4-12.5) 09/10/18 20:00 INR 1.10 09/10/18 20:00 APTT 44.2 Seconds (26.9-38.3) H 09/10/18 20:00 Sodium 139 mmol/L (132-148) 09/14/18 09:30 Potassium 4.4 mmol/L (3.6-5.0) 09/14/18 09:30 Chloride 104 mmol/L (98-107) 09/14/18 09:30 Carbon Dioxide 27 mmol/L (21-33) 09/14/18 09:30 Anion Gap 12 (10-20) 09/14/18 09:30 BUN 29 mg/dL (7-21) H 09/14/18 09:30 Creatinine 3.5 mg/dl (0.8-1.5) H 09/14/18 09:30 Est GFR ( Amer) 22 09/14/18 09:30 Est GFR (Non-Af Amer) 18 09/14/18 09:30 POC Glucose (mg/dL) 220 mg/dL (65-110) H 09/14/18 11:17 Random Glucose 244 mg/dL (70-110) H 09/14/18 09:30 Hemoglobin A1c 8.1 % (4.2-6.5) H 09/11/18 13:30 Calcium 8.6 mg/dL (8.4-10.5) 09/14/18 09:30 Phosphorus 3.6 mg/dL (2.5-4.5) 09/11/18 13:30 Magnesium 1.9 mg/dL (1.7-2.2) 09/11/18 13:30 Iron 43 ug/dL (45-180) L 09/11/18 13:30 TIBC 213 ug/dL (261-462) L 09/11/18 13:30 % Saturation 20 % (20-55) 09/11/18 13:30 Ferritin 159.0 ng/mL 09/11/18 13:30 Total Bilirubin 0.4 mg/dL (0.2-1.3) 09/14/18 09:30 AST 24 U/L (17-59) 09/14/18 09:30 ALT 13 U/L (7-56) 09/14/18 09:30 Alkaline Phosphatase 78 U/L (38-126) 09/14/18 09:30 Troponin I 0.03 ng/mL D 09/10/18 20:00 Total Protein 7.6 g/dL (5.8-8.3) 09/14/18 09:30 Albumin 3.2 g/dL (3.0-4.8) 09/14/18 09:30 Globulin 4.4 gm/dL 09/14/18 09:30 Albumin/Globulin Ratio 0.7 (1.1-1.8) L 09/14/18 09:30 Triglycerides 120 mg/dL (35-160) 09/11/18 13:30 Cholesterol 113 mg/dL (130-200) L 09/11/18 13:30 LDL Cholesterol Direct 53 mg/dL (0-129) 09/11/18 13:30 HDL Cholesterol 30 mg/dL (29-60) 09/11/18 13:30 Vitamin B12 524 pg/mL (239-931) 09/11/18 13:30 Folate 9.6 ng/mL 09/11/18 13:30 TSH 3rd Generation 1.27 mIU/mL (0.46-4.68) 09/11/18 13:30 PTH Intact Whole Molec 113 pg/mL (14-64) H 09/11/18 13:30 Urine Color Yellow (YELLOW) 09/10/18 22:12 Urine Appearance Sl cloudy (CLEAR) 09/10/18 22:12 Urine pH 7.0 (4.7-8.0) 09/10/18 22:12 Ur Specific Burgess 1.025 (1.005-1.035) 09/10/18 22:12 Urine Protein 100 mg/dL (<30 mg/dL) H 09/10/18 22:12 Urine Glucose (UA) >=1000 mg/dL (NEGATIVE) 09/10/18 22:12 Urine Ketones Negative mg/dL (NEGATIVE) 09/10/18 22:12 Urine Blood Moderate (NEGATIVE) H 09/10/18 22:12 Urine Nitrate Positive (NEGATIVE) H 09/10/18 22:12 Urine Bilirubin Negative (NEGATIVE) 09/10/18 22:12 Urine Urobilinogen 0.2 E.U./dL (<1 E.U./dL) 09/10/18 22:12 Ur Leukocyte Esterase Moderate Honey/uL (NEGATIVE) H 09/10/18 22:12 Urine RBC 15 - 20 /hpf (0-2) H 09/10/18 22:12 Urine WBC Tntc /hpf (0-6) H 09/10/18 22:12 Ur Epithelial Cells 6 - 8 /hpf (0-5) H 09/10/18 22:12 Urine Bacteria Many /hpf (NONE) 09/10/18 22:12 Ur Random Creatinine 67 mg/dL (20-320) 09/12/18 01:00 U Random Total Protein 3030 mg/g creat (22-128) H 09/12/18 01:00 Urine Total Volume 69.0 mg/dL 09/12/18 01:00 Microalb/Creat Ratio 1029 (<30) H 09/12/18 01:00 Urine Opiates Screen Negative (NEGATIVE) 09/12/18 01:00 Urine Methadone Screen Negative (NEGATIVE) 09/12/18 01:00 Ur Barbiturates Screen Negative (NEGATIVE) 09/12/18 01:00 Ur Phencyclidine Scrn Negative (NEGATIVE) 09/12/18 01:00 Ur Amphetamines Screen Negative (NEGATIVE) 09/12/18 01:00 U Benzodiazepines Scrn Negative (NEGATIVE) 09/12/18 01:00 U Oth Cocaine Metabols Negative (NEGATIVE) 09/12/18 01:00 U Cannabinoids Screen Negative (NEGATIVE) 09/12/18 01:00 Absolute Lymphs (Flow) 1914 Cells/mcL (850-3900) 09/11/18 13:30 % CD4 Cells 27 Percent (30-61) L 09/11/18 13:30 Absolute CD4 Count 515 Cells/mcL (490-1740) 09/11/18 13:30 T-Help/Suppress Ratio 0.48 Ratio (0.86-5.00) L 09/11/18 13:30 % CD8 Cells 56 Percent (12-42) H 09/11/18 13:30 Absolute CD8 Count 1073 Cells/mcL (180-1170) 09/11/18 13:30 Hep Bs Antibody Negative (NEGATIVE) 09/11/18 13:30 Attending/Attestation - Attestation I have personally seen and examined this patient.: Yes I have fully participated in the care of the patient.: Yes I have reviewed all pertinent clinical information, including history, physical exam and plan: Yes Notes (Text): Patient seen and examined by me with resident at approximately 8:55 AM and prior to discharge on 09/14/18. Case including discharge plan discussed with resident. Agree with above with following additions/corrections. Patient is a 58-year-old male with past medical history significant for intellectual disability, HIV on HAART, type 2 diabetes, chronic kidney disease stage IV, hypertension, urinary retention status post TURP and suprapubic catheter, phimosis, urostomy tube, recurrent UTIs that presented to the emergency room with worsening of right shoulder pain and cloudy urine. Please see H&P for full details. Patient was admitted with right shoulder pain, UTI, bilateral feet wounds, CKD stage 4, uncontrolled hypertension, anemia of chronic disease, DM2, and HIV. Right shoulder xray per radiologist showed no significant or acute findings to account for/related to the clinical presentation. Patient was seen by ID in urology for UTI. Per urologist, Dr. Linda Segura, no further treatment needed, urine likely colonized. Patient afebrile. Patient had no leukocytosis. Patient was treated with Rocpehin while in the hospital. Urine culture was positive for E.coli and Vanco resistant Enterococcus faecalis. Per ID, Dr. Dickey, Patient was discharged on total of 7 days of Augmentin. Machelle was also found to have bilateral feet wounds which did not appear infected. Patient does follow with podiatry Dr. Casanova as an outpatient. Wound culture of left foot was done with showed light growth of gram positive cocci and heavy growth of corynebacterium. Patient was seen by podiatry who recommended multipodus boots. Patient was seen by neprhologist for CKD stage 4 and uncontrolled hypertension. Patient at baseline creatinine. Patient was started on phoslo, Cozaar, Lasix, Norvasc, and labetalol bt Dr. Jason with improvement in blood pressure. Patient was also found to have anemia of chronic disease and was started on ferrous gluconate. Patient was placed on Levemir and insulin sliding scale for DM2. Patient was continued on Isentress and Truvada for HIV. Patient was seen by phsyical therapy who recommended home with services. Patient was seen by manager of case and set up with services. Patient was cleared for discharge by all consultants. Patient was discharged home. On day of discharge, patient stated he was feeling much better. Patient stated shoulder pain was resolved. Patient denied any abdominal pain. No nausea or vomiting. Patient was tolerating diet well. Patient denied chest pain or palpitations. No shortness of breath. No fevers or chills. Patient denied any pain in his feet. Physical exam: General: Awake and alert, sitting up in bed in no acute distress. HEENT: Normocephalic, atraumatic, Extraocular muscles intact, pupils equal and reactive, no scleral icterus. Oropharynx is pink and moist. Neck is supple. Cardiovascular: Normal rhythm. Normal S1 and S2. No murmurs, rubs, or gallops appreciated. Pulmonary: Normal respiratory effort. No rhonchi, rales, or wheezing appreciated. Gastrointestinal: Soft. Nontender. Nondistended. Positive bowel sounds all 4 quadrants. No guarding. Musculoskeletal: Moves all extremities. No calf tenderness. No edema appreciated. : Keenan in place with yellow urine output. Central nervous system: Awake and alert. CN 2-12 grossly intact. Dermatologic: Skin warm and dry. Bilateral feet wounds with dry skin, no drainage or erythema noted. Multipodus boots present Please see chart for full details. Follow up instructions: Patient to follow-up with primary care doctor within 3-5 days. Patient to follow up with urologist within 3-5 days. Patient to stop home HCTZ and take other blood pressure medications a prescribed. Patient to continue other home medications. Patient to complete antibiotics. All instructions explained to the patient and patient's sister in detail. Patient both understands and agrees to all instructions. Written instructions also given. Time spent in discharging the patient including chart review, medication reconciliation, discussion with the patient and patient's sister, medical reviewer, consultants, and nursing staff was approximately 45 minutes.
--- NOTE | 2018-09-14 13:47 | CP.PCM.PN ---
Subjective - Date & Time of Evaluation Date of Evaluation: 09/14/18 Time of Evaluation: 13:46 - Subjective Subjective: Nephrology Consultation Note: Assessment: Stable fall, shoulder pain / UTI uncontrolled severe HTN with urgency chronic obstructive uropathy with b/l hydronephrosis and CKD stage 3 with baseline cr 2.3-2.7 with 1000 mg albuminuria (R80.9) Hx of phimosis s/p circumcision, s/p TURP and suprapubic catheter pyuria and microscopic hematuria likely due to chronic indwelling SP catheter and bacterial colonization Diabetic chronic Kidney Disease (E11.22) Hypertensive Chronic Kidney Disease (I12.9) Anemia (D64.9), HTN (I12.9) HIV on HAART, charcoat foot, developmental delay, smoking hx Plan No acute need for renal replacement therapy at this time. Hypertension control with meds as ordered. Patient was on losartan, will resume it @ 100 mg/d Increased labetalol 300 bid. Monitor Input/Output, daily weights and renal function with basic metabolic panel continue with iron supplements, MVI and consider ROSLYN once BP better controlled. PRBC as needed eval. continue with flomax ID following avoid intermodal customer service use of Al based antacids such as carafate in CKD lasix stopped as cr trending up Check urine spot protein/creatinine and albumin/creatinine ratio Check for 25-OH vitamin D, iPTH, phosphorus level, iron indices Dose meds/antibiotics for reduced GFR. Avoid fleets enema/magnesium based laxatives. Avoid nephrotoxins/NSAIDs/ iodinated contrast (unless needed emergently) Glycemic control, low K diet Further work up/management as per primary team sister was informed about need for renal follow up. 1 week Thanks for allowing me to participate in care of your patient. Will follow patient with you. Please call if any Qs. had d/w team Dr Remigio Jason Office: [phone] Chief Complaint; shoulder pain HPI: Pt is a 58 M with hx of diabetes Mellitus ( years), hypertension (years) HIV on HAART, charcoat foot, phimosis s/p circumcision, s/p TURP and suprapubic catheter, chronic obstructive uropathy with hydronephrosis and CKD stage 3 with baseline cr 2.3-2.7, developmental delay, smoking hx presented with complaints of cloudy urine and shoulder pain. renal consult for CKD management pt verbally abusive and uncoperative BP in 200s when came ROS: pt going home. feels well. sister bedside. denies SOB. not much communicative Physical Examination: pt refused to be examined for most part General Appearance: Comfortable, in no acute respiratory distress, unco-op erative . Vitals reviewed and noted as below Head; Atraumatic, normocephalic Lungs: Normal respiratory rate/effort. b/l clear Neurological: Patient is alert, awake Psych: lack insight : has SP catheter Labs/imaging reviewed. Past medical history, past surgical history, family history, social history, allergy reviewed and noted as below Family hx: no hx of CKD. Rest non-contributory work up: CT b/l moderate hydronephrosis UA with 100 protein, large WBC and RBCs Hep B and C neg Objective - Vital Signs/Intake and Output Vital Signs (last 24 hours): Temp Pulse Resp BP Pulse Ox 98.3 F 89 20 127/73 98 09/14/18 06:00 09/14/18 09:04 09/14/18 06:00 09/14/18 09:05 09/14/18 06:00 - Medications Medications: Current Medications Acetaminophen (Tylenol 325mg Tab) 650 mg PO Q4 PRN PRN Reason: Fever >100.4 F Last Admin: 09/12/18 01:54 Dose: 650 mg Amlodipine Besylate (Norvasc) 10 mg PO DAILY [facility] Last Admin: 09/14/18 09:05 Dose: 10 mg Amoxicillin/Clavulanate Potassium (Augmentin 875 Mg-125 Mg Tab) 1 tab PO Q12 JACKIE; Protocol Last Admin: 09/14/18 09:05 Dose: 1 tab Calcium Acetate (Phoslo) 667 mg PO 0800,1700 JACK[facility] Last Admin: 09/14/18 09:04 Dose: 667 mg Dextrose (Dextrose 50% Inj) 0 ml IV STAT PRN; Protocol PRN Reason: Hypoglycemia Protocol Emtricitabine/Tenofovir (Truvada 200 Mg-300 Mg) 1 tab PO QOD JACKIE; Protocol Last Admin: 09/13/18 10:45 Dose: 1 tab Ferrous Gluconate (Fergon) 324 mg PO TID JACKIE Last Admin: 09/14/18 09:05 Dose: 324 mg Heparin Sodium (Porcine) (Heparin) 5,000 units SC Q8 [facility]; Protocol Last Admin: 09/14/18 05:37 Dose: Not Given Hydralazine HCl (Apresoline) 10 mg IVP Q4H PRN PRN Reason: Systolic Blood Pressure Last Admin: 09/13/18 08:12 Dose: 10 mg Dextrose (Dextrose 5% In Water 1000 Ml) 1,000 mls @ 0 mls/hr IV .Q0M PRN; Protocol PRN Reason: Hypoglycemia Protocol Insulin Detemir (Levemir) 5 unit SC Q12 [facility] Last Admin: 09/14/18 09:04 Dose: 5 units Insulin Human Regular (Humulin R Med) 0 units SC ACHS [facility]; Protocol Last Admin: 09/14/18 12:34 Dose: 3 units Labetalol HCl (Trandate) 300 mg PO BID [facility] Last Admin: 09/14/18 09:04 Dose: 300 mg Losartan Potassium (Cozaar) 100 mg PO DAILY [facility] Last Admin: 09/14/18 09:05 Dose: 100 mg Multivitamins (Thera Tab) 1 tab PO DAILY [facility] Last Admin: 09/14/18 09:05 Dose: 1 tab Ondansetron HCl (Zofran Inj) 4 mg IVP Q6H PRN PRN Reason: Nausea/Vomiting Pantoprazole Sodium (Protonix Ec Tab) 40 mg PO 0600 [facility] Last Admin: 09/14/18 05:37 Dose: Not Given Raltegravir (Isentress) 400 mg PO BID [facility]; Protocol Last Admin: 09/14/18 09:05 Dose: 400 mg Sucralfate (Carafate Oral Susp) 1 gm PO 0600,1600 [facility] Last Admin: 09/14/18 05:36 Dose: Not Given Tamsulosin HCl (Flomax) 0.4 mg PO DAILY [facility] Last Admin: 09/14/18 09:05 Dose: 0.4 mg - Labs Labs: 09/14/18 09:30 09/14/18 09:30 PT 12.2 SECONDS (9.4-12.5) 09/10/18 20:00 INR 1.10 09/10/18 20:00 APTT 44.2 Seconds (26.9-38.3) H 09/10/18 20:00
--- NOTE | 2018-09-14 16:39 | CP.PCM.PN ---
Subjective - Date & Time of Evaluation Date of Evaluation: 09/14/18 Time of Evaluation: 12:30 - Subjective Subjective: Infectious Disease Follow Up: September 14, 2018 58 year old male with PMH of intellectual disability, HIV (on HAART), DM2 (last A1c 9.2), CKD stage 4, HTN, urinary retention (s/p TURP), phimosis (s/p circumcision), urostomy tube, and recurrent UTI brought to ER by family for worsening R shoulder pain and cloudy urine. They state that patient fell on the right side of his wheelchair this AM and has been having shoulder pain ever since. Urine cultures pending. Difficult to obtain information from the patient. Urine showing growth of E. coli and Enterococcus. Gram positive cocci and Corynebacterium in left foot wound. On Rocephin currently. Objective - Vital Signs/Intake and Output Vital Signs (last 24 hours): Temp Pulse Resp BP Pulse Ox 98.3 F 89 20 127/73 98 09/14/18 06:00 09/14/18 09:04 09/14/18 06:00 09/14/18 09:05 09/14/18 06:00 - Labs Labs: 09/14/18 09:30 09/14/18 09:30 PT 12.2 SECONDS (9.4-12.5) 09/10/18 20:00 INR 1.10 09/10/18 20:00 APTT 44.2 Seconds (26.9-38.3) H 09/10/18 20:00 - Constitutional Appears: Non-toxic, No Acute Distress, Chronically Ill - Head Exam Head Exam: ATRAUMATIC, NORMOCEPHALIC - Eye Exam Eye Exam: EOMI, PERRL Pupil Exam: NORMAL ACCOMODATION, PERRL - ENT Exam ENT Exam: Mucous Membranes Moist, Normal External Ear Exam, TM's Normal Bilaterally - Neck Exam Neck Exam: Full ROM, Normal Inspection - Respiratory Exam Respiratory Exam: Clear to Ausculation Bilateral, NORMAL BREATHING PATTERN. absent: Rales, Rhonchi, Wheezes - Cardiovascular Exam Cardiovascular Exam: REGULAR RHYTHM, RRR, +S1, +S2 - GI/Abdominal Exam GI & Abdominal Exam: Soft, Normal Bowel Sounds. absent: Distended, Tenderness - Exam Additional comments: suprapubic catheter draining yellow urine. - Extremities Exam Extremities Exam: Full ROM. absent: Joint Swelling, Pedal Edema - Neurological Exam Neurological Exam: Alert, Awake, CN II-XII Intact Additional comments: AAO x 2, mentally delayed. - Psychiatric Exam Psychiatric exam: Normal Affect, Normal Mood - Skin Skin Exam: Intact, Normal Color Assessment and Plan - Assessment and Plan (Free Text) Assessment: 58 yo M with PMH of intellectual disability, HIV (on HAART), DM2 (last A1c 9.2), CKD stage 4, HTN, urinary retention (s/p TURP), phimosis (s/p circumcision), uro stomy tube, and recurrent UTI admitted for Right shoulder pain and r/o UTI. Urinalysis with signs of UTI. Started on Rocephin for now. The patient has HIV on HAART. Check CD4 and HIV Viral load. Continue HAART. Patient is a poor historian and confused. He is mentally delayed. Wound cultures showing gram positive cocci and corynebacterium. Continue on Rocephin until sensitivities and identifications return. Wound cultures with VRE and Corynebacterium. Urine cultures showing E. coli and Enterococcus. Can consider Augmentin 875mg BID use for 10 days. Unclear if the urine growth is more of colonization. Supportive care. Awaiting urine cultures. No leukocytosis. Afebrile. Thank you for allowing me to participate in the care of the patient, we will follow with you.
--- NOTE | 2018-09-15 07:47 | CON ---
DATE: 09/11/2018 UROLOGY CONSULTATION REASON FOR CONSULTATION: "Questionable urinary tract infection." HISTORY OF PRESENT ILLNESS: Mr. Garcia is currently admitted to hospital. He is a very pleasant 58-year-old gentleman, HIV positive who presents now with shoulder pain. From the Urology standpoint though, he has urinary retention and a chronic indwelling suprapubic catheter. There is questionable urinary tract infection. PAST MEDICAL AND SURGICAL HISTORY: As listed in the chart. REVIEW OF SYSTEMS: Listed above. Noncontributory. SOCIAL HISTORY: He comes to the office on a regular basis with his sister who takes care of him. MEDICATIONS: See the chart. PHYSICAL EXAMINATION GENERAL: Well-nourished male in no apparent distress. VITAL SIGNS: Within normal limits included in the chart. HEART: Normal S1 and S2. LUNGS: Clear. ABDOMEN: Overall soft, nontender. No kentrell mass appreciated. The suprapubic catheter is draining well. LABORATORY DATA: Stated in the chart. The urinalysis is noted. DIAGNOSES: Chronic indwelling Keenan catheter, urinary retention, voiding dysfunction, and abnormal urinalysis. ASSESSMENT AND PLAN: In summary, a very pleasant gentleman with the above history. At this point, it is very often it is urine that is colonized given the fact that he has an indwelling suprapubic catheter. I will rather that represent a true urinary tract infection. Well certainly he does not actually require urinary tract infection, does not require antibiotic therapy. We can discuss further there is also a potential for Infectious Disease consultation, we will see. We can discuss further options. But in the absence of any severe urinary tract symptoms either gross hematuria or fever or something, we most likely will just suggest that the patient has colonized urine. Further plans can follow. Thank you for the Urology consult. We will follow along with you. Calixto Segura MD
--- NOTE | 2018-09-15 09:16 | PN ---
DATE: 09/12/2018 UROLOGY PROGRESS NOTE See the previously note from 09/11/2018. The patient is a very pleasant gentleman. See the previous consult note from 09/11/2018. The issue was a possible urinary tract infection. The patient is currently resting comfortably. His Keenan catheter is in place. Suprapubic catheter in place. Draining well. PAST MEDICAL AND SURGICAL HISTORY: No other changes are noted. REVIEW OF SYSTEMS: Listed above. PHYSICAL EXAMINATION: Remains unchanged. Catheters has been draining well. Diagnosis is urinary retention and abnormal urinalysis. The plan is as follows: We discussed options. From urology standpoint, this is colonized urine. I would not automatically recommend treatment at this point. Further plans can follow. From urology standpoint, this represents most likely a colonized urine rather than an acute urinary tract infection. In this current setting, we would mostly likely not recommend any further intervention. We can discuss further plans with Infectious Disease. Maintain the suprapubic catheters, not even planned for a change yet. We will continue to follow along. Calixto Segura MD
== END 2018-09-14 14:00 | disposition home or self-care (01) | DRG 320 ==
LOC: ED 18:23 → ERH 09-11 01:33 → 5RNO 09-11 03:31
PROVIDERS: ADMIT Hospitalist; ATTEND Hospitalist
DX: N13.6 Pyonephrosis (principal); E11.22 Type 2 diabetes mellitus with diabetic chronic kidney disease; E11.610 Type 2 diabetes mellitus with diabetic neuropathic arthropathy; I12.9 Hypertensive chronic kidney disease with stage 1 through stage 4 chronic kidney disease, or unspecified chronic kidney disease; N18.4 Chronic kidney disease, stage 4 (severe); Z21 Asymptomatic human immunodeficiency virus [HIV] infection status; D63.8 Anemia in other chronic diseases classified elsewhere; R33.9 Retention of urine, unspecified; F79 Unspecified intellectual disabilities; M25.511 Pain in right shoulder; B96.20 Unspecified Escherichia coli [E. coli] as the cause of diseases classified elsewhere; B95.2 Enterococcus as the cause of diseases classified elsewhere; F12.90 Cannabis use, unspecified, uncomplicated; L85.9 Epidermal thickening, unspecified; L91.8 Other hypertrophic disorders of the skin; L85.3 Xerosis cutis; Z79.899 Other long term (current) drug therapy; Z93.59 Other cystostomy status; Z87.440 Personal history of urinary (tract) infections; Z90.79 Acquired absence of other genital organ(s); Z87.891 Personal history of nicotine dependence